=== PATIENT | male | born 1935 | race Caucasian/White ===

== ENCOUNTER → 2017-07-17 17:05 | Outpatient (CLI) | payer MEDICARE, OTHER, SELFPAY ==
[2017-06-12 04:49] VITALS: BMI 24.3
--- NOTE | 2017-07-17 17:15 | RAD_ITS ---
STUDY: X-RAY CHEST REASON FOR EXAM: Male, 81 years old. Cough, bronchitis TECHNIQUE: Frontal and lateral views COMPARISON: May 09, 2019 FINDINGS: Left-sided pacemaker is again noted. The lungs are expanded. Mild interstitial prominence. Normal size heart. Normal mediastinum and ava. Normal visualized pulmonary arteries. Calcified aortic arch and descending thoracic aorta. Degenerative changes of the thoracic spine. Normal visualized ribs, clavicles, and shoulders. There is no demonstrated abnormality of the visualized soft tissue structures of the upper abdomen. RAD/Chest PA and Lateral IMPRESSION: Mild interstitial prominence. Electronically Signed: Wojciech Peng DO at 22:27 EST Tel [phone], Service support ,
== END ==
PROVIDERS: Family Provider Family Medicine Geriatric Medicine; PCP Family Medicine Geriatric Medicine; Visit Provider Family Medicine Geriatric Medicine
DX: J40 Bronchitis, not specified as acute or chronic (principal); R69 Illness, unspecified
CPT/HCPCS: 71046; 87633

== ENCOUNTER → 2017-08-20 15:31 | Outpatient (CLI) | payer MEDICARE, OTHER, SELFPAY ==
[2017-08-20 17:10] LABS: Absolute Lymphocyte Count 0.42 X10^3/ul (0.83-4.51); Absolute Neutrophil Count 2.1 X10^3/uL (2.0-7.7); Basophil# 0.02 X10^3/uL; Basophil% 0.6 % (0-1); Eosinophil# 0.04 X10^3/uL; Eosinophils% 1.3 % (0-5); Hemoglobin 12.6 g/dl (13.0-16.5); Lymphocyte # 0.42 X10^3/ul (4.0); Lymphocyte % 13.5 % (19-41); Mean Corp Hgb Conc 30.7 g/gl (32-36); Mean Corpuscular Volume 91.1 fL (80-94); Mean Platelet Vol. 11.6 fl (6.2-12.0); Monocyte% 16.1 % (0-10); Neutrophil # 2.12 X10^3/uL (2.7-7.7); Neutrophil % 68.2 % (47-70); Platelet Count 140 K/mm3 (150-450); RBC Distribution Width CV 17.1 % (11.6-14.6); RBC Distribution Width SD 56.2 fl (35.1-43.9); White Blood Count 3.1 K/mm3 (4.4-11.0)
[2017-08-20 17:15] LABS: Differential Indicated SCAN CRITERIA MET; POSITIVE COUNT NO; POSITIVE DIFFERENTIAL YES; POSITIVE MORPHOLOGY NO
[2017-08-20 17:19] LABS: ALB/GLOB Ratio 0.7 RATIO (0.9-2.4); AST(SGOT) 28 U/L (15-37); Alanine Aminotransfer ALT/SGPT 22 U/L (16-61); Albumin, Serum 2.9 g/dL (3.2-5.0); Alkaline Phosphatase 157 U/L (45-117); Anion Gap 8 (5-15); BUN 10 mg/dL (7-18); BUN/Creat Ratio 6.3 RATIO (10-20); Calcium,Total 8.3 mg/dL (8.5-10.1); Chloride 96 mmol/L (98-107); Creatinine, Serum 1.58 mg/dL (0.70-1.30); EST Glomerular Filtration Rate 45 mL/min (>60); Est Glom Filt Rate - Afr Amer 54 mL/min (>60); Glucose 399 mg/dL (74-106); Protein, Total 6.9 g/dL (6.4-8.2); Sodium Level 137 mmol/L (136-145); Thyroid Stim Hormone (TSH) 0.62 uIU/mL (0.358-3.74)
[2017-08-20 17:20] LABS: Vitamin D,25 Hydroxy 28.8 ng/mL (29.95-100.01)
[2017-08-20 17:32] LABS: Differential Comment SCANNED
== END ==
PROVIDERS: Family Provider Family Medicine Geriatric Medicine; PCP Family Medicine Geriatric Medicine; Visit Provider Family Medicine Geriatric Medicine
DX: I10 Essential (primary) hypertension (principal); E55.9 Vitamin D deficiency, unspecified; E11.9 Type 2 diabetes mellitus without complications
CPT/HCPCS: 36415; 80053; 82306; 84443; 85025

== ENCOUNTER 2017-12-19 22:56 | Emergency (ER) | payer MEDICARE, OTHER, SELFPAY ==
[2017-12-19 22:57] VITALS: BP 144/90; PULSE 86; RESP 16; TEMP 36.7; O2SAT 91; BMI 24.7
[2017-12-19 23:04] VITALS: BP 146/81; PULSE 74; RESP 12; O2SAT 96; O2SAT 97
--- NOTE | 2017-12-19 23:10 | CT_ITS ---
STUDY: CT BRAIN WITHOUT CONTRAST REASON FOR EXAM: Male, 82 years old. Fall. History of subdural hematoma. RADIATION DOSAGE (If Supplied By Facility): CTDIvol = ( 44.99 ) mGy, DLP = ( 779.24 ) mGycm TECHNIQUE: Transaxial CT imaging of the brain was performed without administration of intravenous contrast material. Individualized dose optimization techniques were used for this CT. COMPARISON: May 08, 2017. FINDINGS: Normal soft tissue structures. There are remote nneka holes in the right frontal and left parietal lobe with evidence of remote right frontal craniotomy. There is mild cerebral atrophy with widening of the extra-axial spaces and ventricular dilatation. There are areas of decreased attenuation within the white matter tracts of the supratentorial brain, consistent with microvascular disease changes. There is evidence of encephalomalacia in the left frontal parietal white matter with exaggeration of the sulcal atrophy when compared to the right. This suggests old infarct. Normal basal ganglia and thalami. Normal brainstem. There is atrophy of the right cerebral hemisphere. There is no intracranial hemorrhage. There are no findings of an acute ischemic infarction. Normal visualized paranasal sinuses. CT/Brain/Head without Contrast IMPRESSION: No acute intracranial or calvarial abnormality or interval change. Electronically Signed: Geoffrey Hidalgo DO at 23:41 EDT Tel [phone], Service support ,
[2017-12-19 23:31] LABS: Bedside Glucose 149 mg/dL (70-110)
[2017-12-20 00:30] VITALS: BP 138/70; PULSE 70; RESP 14; O2SAT 97
--- NOTE | 2017-12-20 01:50 | RAD_ITS ---
STUDY: X-RAY - RIGHT SHOULDER REASON FOR EXAM: Male, 82 years old. FALL C/O RT SHOULDER PAIN WITH LIMITED ROM UNABLE TO GET INTERNAL ROTATION VIEW TECHNIQUE: 3 view(s) of the shoulder. COMPARISON: None. FINDINGS: There is mild degenerative arthrosis of the glenohumeral articulation. There is degenerative arthrosis of the acromioclavicular joint without inferior osseous spur formation. Normal acromion. Normal humeral head and visualized proximal humerus. The soft tissue structures are unremarkable. Normal visualized pulmonary apex. 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 Electronically Signed: Sarah Maguire MD at 3:04 EDT Tel , Service support ,
--- NOTE | 2017-12-20 04:18 | ED.VISSUMM ---
- ER Visit Summary Date of Service: 12/20/17 Chief Complaint: Fall removing shirt striking his head on the floor at home History of Present Illness: The patient is a 82 M who was removing his shirt this evening for pain for bad. He lost his balance. He fell striking his head. He may have been dazed. He does complain of headache. Had 2 prior subdural hematomas requiring drainage. He is on no anticoagulant. He denies any double vision, blurred vision loss of vision. Denies ringing in his ears, decreased hearing. He denies any blood or fluid from his nose. He denies neck pain. He denies paresthesia, anesthesia motors present at time of the injury. He denies chest pain, shortness of breath difficulty breathing. Denies nausea or vomiting. Patient initially did not complain of shoulder pain. Now complains of shoulder pain. Examination revealed a large hematoma right scapular region. Physical Examination: Vital signs are noted. Blood pressure slightly elevated. There is a 3 cm right parietal scalp laceration. There is no palpable depression. There is no confines basal skull fracture. He has upper and lower dentures in place. There is no septal deviation hematoma. There is no TMJ tenderness is no evidence of malocclusion. There is no pain the patient cervical spine. Trach is midline. Heart is regular. There is a history of atrial fibrillation. Lungs are clear to auscultation. Abdomen soft nontender. He is alert but not oriented to month. Daughter states that is not abnormal. Motor spiral 5. Sensations intact. DTRs are symmetric no clonus or Babinski. Cranial 2 through 12 intact. Gait was not tested. There is a hematoma over the right scapula. Axillary, median, radial and ulnar function intact. Radial pulses palpable. He has pain with abduction. Test Results: Three-view x-ray of the right shoulder was obtained and reveals arthritic changes with no fracture, subluxation or dislocation noted. The film was interpreted by me. Emergency Department Course and Treatment: Since patient is elderly with head trauma prior subdural hematoma and was dazed based on the [place] CT head rule radiologic imaging is indicated and reason for CAT scan. X-ray of the shoulder was obtained to evaluate for fracture. Treatment Plan: Patient's laceration was anesthetized 1% lidocaine by local infiltration. Wound was irrigated with 200 cc of normal saline. 6 hermila were placed for closure. Disposition: Discharged to home with daughter who lives near him. Impression: 1. Closed head injury 2. 3.0 cm scalp laceration 3. Right shoulder/scapula contusion 4. Fall with injury initial encounter This note was generated with [employer] dictation software. It may contain incorrect words, spelling, and punctuation that were not noted in review of the chart prior to signing ED Disposition - Plan for ED Patient: Disposition: Home or Assisted Living Chief Complaint: Fall Instructions: ED Mechanical Fall, ED Head Injury Closed, ED Laceration Scalp Stitch Or Stap, ED Contusion Shoulder Referrals: Lai Hsieh Chi, MD [Primary Care Provider] - 7 Days for suture removal
[2017-12-20 04:52] VITALS: BP 149/81; PULSE 77; RESP 16; O2SAT 92
== END 2017-12-20 04:53 | disposition home or self-care (01) ==
PROVIDERS: Emergency Provider Emergency Medicine; Family Provider Family Medicine Geriatric Medicine; PCP Family Medicine Geriatric Medicine
DX: S09.90XA Unspecified injury of head, initial encounter (principal); S01.01XA Laceration without foreign body of scalp, initial encounter; S40.011A Contusion of right shoulder, initial encounter; I48.91 Unspecified atrial fibrillation; W18.00XA Striking against unspecified object with subsequent fall, initial encounter; Y93.9 Activity, unspecified; Y92.009 Unspecified place in unspecified non-institutional (private) residence as the place of occurrence of the external cause; Y99.9 Unspecified external cause status; I50.9 Heart failure, unspecified; N18.6 End stage renal disease; I12.0 Hypertensive chronic kidney disease with stage 5 chronic kidney disease or end stage renal disease; K21.9 Gastro-esophageal reflux disease without esophagitis; Z86.73 Personal history of transient ischemic attack (TIA), and cerebral infarction without residual deficits; E10.9 Type 1 diabetes mellitus without complications
CPT/HCPCS: 12002; 70450; 73030; 82962; 99285

== ENCOUNTER → 2018-02-06 14:52 | Outpatient (CLI) | payer MEDICARE, SELFPAY ==
[2018-02-06 16:22] LABS: Absolute Neutrophil Count 1.4 X10^3/uL (2.0-7.7); Basophil# 0.01 X10^3/uL; Basophil% 0.5 % (0-1); Differential Indicated SCAN CRITERIA MET; Eosinophil# 0.02 X10^3/uL; Eosinophils% 0.9 % (0-5); Hematocrit 44.2 % (40-54); Hemoglobin 13.8 g/dl (13.0-16.5); Lymphocyte % 18.5 % (19-41); Mean Corp Hgb Conc 31.2 g/gl (32-36); Mean Corpuscular Hgb 27.9 pg (27.0-32.0); Mean Corpuscular Volume 89.5 fL (80-94); Mean Platelet Vol. 11.9 fl (6.2-12.0); Monocyte# 0.36 X10^3/uL; Monocyte% 16.7 % (0-10); Neutrophil # 1.37 X10^3/uL (2.7-7.7); Neutrophil % 63.4 % (47-70); POSITIVE COUNT NO; POSITIVE DIFFERENTIAL YES; POSITIVE MORPHOLOGY NO; Platelet Count 92 K/mm3 (150-450); RBC Distribution Width CV 15.8 % (11.6-14.6); RBC Distribution Width SD 51.5 fl (35.1-43.9); Red Blood Count 4.94 M/mm3 (4.6-6.2); White Blood Count 2.2 K/mm3 (4.4-11.0)
[2018-02-06 16:35] LABS: Vitamin D,25 Hydroxy 15.2 ng/mL (29.95-100.01)
[2018-02-06 16:49] LABS: ALB/GLOB Ratio 0.8 RATIO (0.9-2.4); AST(SGOT) 33 U/L (15-37); Alanine Aminotransfer ALT/SGPT 28 U/L (16-61); Albumin, Serum 3.1 g/dL (3.2-5.0); Alkaline Phosphatase 183 U/L (45-117); Anion Gap 11 (5-15); BUN 13 mg/dL (7-18); BUN/Creat Ratio 7.8 RATIO (10-20); Calcium,Total 9.1 mg/dL (8.5-10.1); Chloride 94 mmol/L (98-107); Creatinine, Serum 1.66 mg/dL (0.70-1.30); EST Glomerular Filtration Rate 42 mL/min (>60); Est Glom Filt Rate - Afr Amer 51 mL/min (>60); Globulin 3.7 g/dL (2.2-4.2); Glucose 582 mg/dL (74-106); Potassium 4.3 mmol/L (3.5-5.1); Protein, Total 6.8 g/dL (6.4-8.2); Sodium Level 134 mmol/L (136-145); Thyroid Stim Hormone (TSH) 3.44 uIU/mL (0.358-3.74)
[2018-02-06 17:40] LABS: Differential Comment SCANNED
== END ==
PROVIDERS: Family Provider Family Medicine Geriatric Medicine; PCP Family Medicine Geriatric Medicine; Visit Provider Family Medicine Geriatric Medicine
DX: E11.9 Type 2 diabetes mellitus without complications (principal); E55.9 Vitamin D deficiency, unspecified; I10 Essential (primary) hypertension
CPT/HCPCS: 36415; 80053; 82306; 84443; 85025

== ENCOUNTER 2018-03-01 13:50 | Inpatient (IN) | payer MEDICARE, SELFPAY ==
[2018-03-01] VITALS (10 sets, daily range): BP systolic 93–123; BP diastolic 48–82; PULSE 70–77; RESP 18–25; TEMP 35.1–38.2; O2SAT 92–97; BMI 32.1; BMI 26.4
[2018-03-01 14:00] LABS: Bedside Glucose 72 mg/dL (70-110)
--- NOTE | 2018-03-01 14:00 | CT_ITS ---
STUDY: CT BRAIN WITHOUT CONTRAST REASON FOR EXAM: Male, 82 years old. Altered mental status. Hyperglycemia. RADIATION DOSAGE (If Supplied By Facility): CTDIvol = ( 44.99 ) mGy, DLP = ( 812.98 ) mGycm TECHNIQUE: Transaxial CT imaging of the brain was performed without administration of intravenous contrast material. Individualized dose optimization techniques were used for this CT. COMPARISON: Comparison is made with prior study dated December 19, 2017. FINDINGS: Normal soft tissue structures. There is evidence of a prior nneka holes overlying the right frontal and left parietal bones. There is moderate cerebral atrophy with widening of the extra-axial spaces and ventricular dilatation. There are areas of decreased attenuation within the white matter tracts of the supratentorial brain, consistent with microvascular disease changes. Stable encephalomalacia in the left frontoparietal white matter in keeping with prior ischemic insult. Normal basal ganglia and thalami. Normal brainstem. Normal cerebellum. There is no intracranial hemorrhage. There are no findings of an acute ischemic infarction. Atherosclerotic calcification of the cavernous portions of the internal carotid arteries. Normal visualized paranasal sinuses. CT/Brain/Head without Contrast IMPRESSION: Chronic involutional changes of the brain. Electronically Signed: Jonathan Jacobo MD at 15:07 EDT Tel [phone], Service support ,
--- NOTE | 2018-03-01 14:01 | EKG12_ITS ---
Test Reason : DYSRHYTHMIA Blood Pressure : / mmHG Vent. Rate : 074 BPM Atrial Rate : 066 BPM P-R Int : 000 ms QRS Dur : 188 ms QT Int : 538 ms P-R-T Axes : 000 -78 093 degrees QTc Int : 597 ms Ventricular-paced rhythm Abnormal ECG Confirmed by KADEEM PONCE, POLO ([id number]), subeditor JAYLON WATSON ([id number]) on 03/06/2018 8:42:22 AM Referred By: CYNTHIA Confirmed By:POLO QUAN MD
[2018-03-01] MEDS: Dextrose 50%-Water 25 GM/50 ML DISP.SYRIN IV ×3 (14:10→23:51)
--- NOTE | 2018-03-01 14:11 | RAD_ITS ---
STUDY: X-RAY CHEST REASON FOR EXAM: Male, 82 years old. Unresponsiveness. TECHNIQUE: Single AP portable view of the chest. COMPARISON: Comparison is made with prior study dated July 17, 2017. FINDINGS: Elevation of the right hemidiaphragm. Mild increased markings at the lung bases suggestive of atelectasis and/or scarring more prominent on the left side. There is no demonstrated pleural abnormality. There is moderate cardiac enlargement. A left-sided dual-chamber pacemaker is seen. Normal mediastinum and ava. Normal visualized pulmonary arteries. There is atherosclerotic calcification of the aortic arch with tortuosity. There are diffuse degenerative changes of the visualized thoracic spine. Impacted transverse fracture of the proximal left humerus. Residual deformity. There is no demonstrated abnormality of the visualized soft tissue structures of the upper abdomen. RAD/Chest 1 View (Portable) IMPRESSION: Cardiomegaly. Stable increased markings at the lung bases suggestive of bibasilar scarring. Electronically Signed: Jonathan Jacobo MD at 15:06 EDT Tel [phone], Service support ,
[2018-03-01 14:22] LABS: Absolute Lymphocyte Count 0.47 X10^3/ul (0.83-4.51); Absolute Neutrophil Count 5.4 X10^3/uL (2.0-7.7); Basophil# 0.01 X10^3/uL; Basophil% 0.2 % (0-1); Eosinophil# 0.01 X10^3/uL; Eosinophils% 0.2 % (0-5); Hematocrit 49.7 % (40-54); Hemoglobin 15.7 g/dl (13.0-16.5); Lymphocyte # 0.47 X10^3/ul (4.0); Lymphocyte % 7.1 % (19-41); Mean Corp Hgb Conc 31.6 g/gl (32-36); Mean Corpuscular Hgb 28.8 pg (27.0-32.0); Mean Corpuscular Volume 91.2 fL (80-94); Mean Platelet Vol. 11.4 fl (6.2-12.0); Monocyte# 0.74 X10^3/uL; Monocyte% 11.2 % (0-10); Neutrophil # 5.36 X10^3/uL (2.7-7.7); Platelet Count 124 K/mm3 (150-450); RBC Distribution Width CV 16.3 % (11.6-14.6); RBC Distribution Width SD 54.2 fl (35.1-43.9); Red Blood Count 5.45 M/mm3 (4.6-6.2); White Blood Count 6.6 K/mm3 (4.4-11.0)
[2018-03-01 14:25] LABS: Differential Indicated SCAN CRITERIA MET; POSITIVE COUNT NO; POSITIVE DIFFERENTIAL YES; POSITIVE MORPHOLOGY NO
[2018-03-01 14:33] LABS: International Normalized Ratio 0.9; Prothrombin Time (Protime)PT. 12.1 SECONDS (11.7-14.9)
[2018-03-01 14:36] LABS: ALB/GLOB Ratio 0.8 RATIO (0.9-2.4); AST(SGOT) 39 U/L (15-37); Alanine Aminotransfer ALT/SGPT 27 U/L (16-61); Albumin, Serum 3.2 g/dL (3.2-5.0); Alkaline Phosphatase 179 U/L (45-117); Anion Gap 8 (5-15); BUN 15 mg/dL (7-18); BUN/Creat Ratio 12.6 RATIO (10-20); Calcium,Total 8.6 mg/dL (8.5-10.1); Chloride 100 mmol/L (98-107); Creatinine, Serum 1.19 mg/dL (0.70-1.30); EST Glomerular Filtration Rate 62 mL/min (>60); Est Glom Filt Rate - Afr Amer 75 mL/min (>60); Estimated Creatinine Clearance 43.97 ml/min; Globulin 4.2 g/dL (2.2-4.2); Glucose 107 mg/dL (74-106); Potassium 4.1 mmol/L (3.5-5.1); Protein, Total 7.4 g/dL (6.4-8.2); Sodium Level 138 mmol/L (136-145)
[2018-03-01 14:38] LABS: CPK Total, Creatine Kinase 50 U/L (39-308)
[2018-03-01 14:44] LABS: Lactic Acid 3.5 mmol/L (0.4-2.0)
[2018-03-01 15:02] LABS: Bacteria 0 SEEN /hpf (None Seen); Mucous, Urine 0 SEEN /hpf (<or=2+); Red Blood Cells-Urine 0 SEEN /hpf (0-5); Squamous Epithelial Cells - UA 0 SEEN /hpf (0-5); White Blood Cells 0 SEEN /hpf (0-5)
[2018-03-01 15:06] LABS: Bedside Glucose 94 mg/dL (70-110)
[2018-03-01 15:11] LABS: Color, Urine Yellow (Yellow); Glucose, Dipstick 100 mg/dl (Normal); Ketone-Dipstick Negative (Negative); Leukocyte Esterase-Dipstick Negative /ul (Negative); Nitrite-Dipstick Negative (Negative); Occult Blood-Urine Negative /ul (Negative); Protein-Dipstick 30 mg/dl (Negative); Specific Gravity, Urine 1.015 (1.002-1.030); Urine Bilirubin Dipstick Negative (Negative); Urine Clarity Clear (Clear); Urine Urobilinogen Normal (Normal)
--- NOTE | 2018-03-01 15:15 | ED.RN ---
and daughter at bedside. pt mumbling - cannot understand. temp catheter placed, bed bath given with Isma, Medic. dried stool to BLE and feet. reports he had diarrhea last night. Core Temp 95.1- placed under bear hugger. stated pt went to bed last night and was mumbling, around 1030 this am she noticed his open mouth breathing but let him sleep. daughter came a couple of hours later and called EMS.
--- NOTE | 2018-03-01 15:55 | PCM.HP.STD ---
Problem List (1) Unresponsive Status: Acute (2) Hypoglycemia Status: Acute (3) Type 2 diabetes mellitus Status: Chronic Qualifiers: Diabetes mellitus medical videographer insulin use: with intermediate use Diabetes mellitus complication status: with unspecified complications Qualified Code(s): E11.8 - Type 2 diabetes mellitus with unspecified complications; Z79.4 - laser engraver (current) use of insulin (4) HTN (hypertension) Status: Chronic Qualifiers: Hypertension type: essential hypertension Qualified Code(s): I10 - Essential (primary) hypertension History of Present Illness Date of Admission: 03/01/18 Chief Complaint: Unresponsiveness - 1 day The patient is a 82 year old M with multiple comorbidities significant for type II DM, hypertension, status post pacemaker, hypothyroidism, who recently had changes to his medications with start of Actos. She was taken from the as patient was nonverbal. According to the , patient was acting confused yesterday, could not settle down to sleep. He was found lying in bed this morning, unresponsive. The EMS was called and blood sugars were 44, given an amp of D50. On arrival to the ED, BS was 72, given a second amp of D50, repeat blood sugar was 94. Temp 95.1F, BP 123/82, RR 25, Spo2 92, on 3L. 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) Abnormal pulmonary function test (Chronic) Tachycardia (Chronic) Hyperthyroidism (Chronic) Persistent atrial fibrillation (Chronic) S/P RFA 11/24/2011 TIA (transient ischemic attack) (Chronic) CKD (chronic kidney disease) stage 3, GFR 30-59 ml/min (Chronic) 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) Benign prostate hyperplasia (Chronic) Type 2 diabetes mellitus (Chronic) Dyslipidemia (Chronic) Gastroesophageal reflux disease (Chronic) Hypothyroidism (Chronic) Atrial fibrillation (Chronic) S/P IVC filter (Chronic) Cardiac pacemaker (Chronic) pacemaker implant april 2010 Tachy-aly syndrome (Chronic) S/P PM Cardiomyopathy (Chronic) 45% EF in November of 2014, ischemic S/P atrioventricular piper ablation (Chronic) Carotid artery disease (Chronic) Systolic CHF, chronic (Chronic) HTN (hypertension) (Chronic) Pulmonary HTN (Chronic) PA pressure in November 2014 estimated at 50 Chronic anemia (Chronic) unknown etiology Medical History: Medical History (Last Updated 09/24/17 @ 14:33 by Karl Strong RAISER HELPER-C) 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) E10.51 Other specified conduction disorder (Chronic) I45.89 Abnormal pulmonary function test (Chronic) R94.2 Tachycardia (Chronic) R00.0 Hyperthyroidism (Chronic) E05.90 Persistent atrial fibrillation (Chronic) I48.1 S/P RFA 11/24/2011 TIA (transient ischemic attack) (Chronic) CKD (chronic kidney disease) stage 3, GFR 30-59 ml/min (Chronic) 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) I82.629 Benign prostate hyperplasia (Chronic) Type 2 diabetes mellitus (Chronic) E11.9 Dyslipidemia (Chronic) E78.5 Gastroesophageal reflux disease (Chronic) K21.9 Hypothyroidism (Chronic) E03.9 Atrial fibrillation (Chronic) I48.91 Cardiac pacemaker (Chronic) Z95.0 pacemaker implant april 2010 Tachy-aly syndrome (Chronic) I49.5 S/P PM Cardiomyopathy (Chronic) I42.9 45% EF in November of 2014, ischemic Carotid artery disease (Chronic) I77.9 Systolic CHF, chronic (Chronic) I50.22 HTN (hypertension) (Chronic) I10 Pulmonary HTN (Chronic) I27.2 PA pressure in November 2014 estimated at 50 Chronic anemia (Chronic) D64.9 unknown etiology Allergies morphine Adverse Reaction (Verified 12/19/17 22:56) Other PT DENIES ALLERGY SODIUM PENTHOL Allergy (Uncoded 12/19/17 22:56) Hives PT DENIES ALLERGY Home Medications: Ambulatory Orders Medication Instructions Recorded Gabapentin [Neurontin] 300 mg PO QHS 10/10/15 Omeprazole [Prilosec] 40 mg PO DAILY 05/01/16 Amiodarone HCl [Cordarone] 200 mg PO DAILY@0800 05/07/17 Donepezil HCl [Aricept] 5 mg PO QHS 12/19/17 Finasteride [Proscar] 5 mg PO DAILY 12/19/17 Levothyroxine [Synthroid] 137 mcg PO DAILY@0600 12/19/17 Potassium Chloride [Klor-Con M20] 20 meq PO DAILY 12/19/17 Donepezil HCl [Donepezil HCl] 10 mg PO QHS 03/01/18 Pioglitazone HCl [Pioglitazone HCl] 30 mg PO DAILY 03/01/18 Surgical History: Surgical History (Last Reviewed 09/24/17 @ 13:55 by Janelle Laguna) carotid arteriography (Resolved) 05/09/12 summa, carotid arteriography with internal carotid stent placement (proximal LIC and distal LCC), common carotid stent and aortography S/P IVC filter (Chronic) Z95.828 S/P atrioventricular piper ablation (Chronic) Z98.890 History of cardiac radiofrequency ablation (RFA) Z98.890 11/24/11, WITH PPM IMPLANT Surgical History: pacemaker implantation - 2009, - - PATIENT HAS HISTORY OF CRANIOTOMY, for intracranial bleed evacuation, patient sustained fall at that time, internal carotid stents 2011 Psychiatric History: No pertinent psych hx Smoking Status: Former smoker Tobacco Use: Non-smoker Alcohol: None Drugs: None - *Family History Maternal Family History: Family History (Last Reviewed 09/24/17 @ 13:55 by Janelle Laguna) Brother CAD (coronary artery disease) Hx of CABG Cancer Father CAD (coronary artery disease) Myocardial infarction Brother Cancer Mother Old age History Items: Cancer - , unknonw age Paternal Family History: Family History (Last Reviewed 09/24/17 @ 13:55 by Janelle Laguna) Brother CAD (coronary artery disease) Hx of CABG Cancer Father CAD (coronary artery disease) Myocardial infarction Brother Cancer Mother Old age History Items: Cancer - unknown age, Heart Disease Sibling Family History: Family History (Last Reviewed 09/24/17 @ 13:55 by Janelle Laguna) Brother CAD (coronary artery disease) Hx of CABG Cancer Father CAD (coronary artery disease) Myocardial infarction Brother Cancer Mother Old age History Items: Cancer, Heart Disease - CAD s/ CABG Review of Systems Unable to obtain accurate/complete ROS d/t: Unable to give ROS VTE Information - Inpt Only VTE Present on Admission: No VTE Pharm Prophylaxis ordered?: Yes Patient Problems: Active and Suspected Problems (Last Updated 09/24/17 @ 14:33 by Karl Strong RAISER HELPER-C) Unresponsive (Acute) Hypoglycemia (Acute) - Physical Exam General: Alert, Confused - non-verbal, - - being warmed with a bear-hugger HEENT: Atraumatic, PERRLA, EOMI, Normocephalic, - - distended veins on parietal, and occipital regions Oral: Dry Mucosa Neck: Supple, No JVD, Negative Carotid Bruits Lungs: Normal air movement, Diminished Cardiovascular: Regular rate, Regular Rhythm, Normal S1, Normal S2, No murmurs Abdomen: Bowel Sounds Present, Soft, Non Tender, Non-Distended Extremities: No edema Skin: No rashes, No breakdown Musculoskeletal: No Tenderness to Palpation of Joints or Extremities Lymphatic: No Cervical, Supraclavicular, or Inguinal Adenopathy Neurological: Cranial nerves II-XII grossly intact, - - appears lethargic Psych/Mental Status: Normal Affect, Appropriate Vital Signs Temp Pulse Resp BP Pulse Ox 97.2 F L 75 24 H 108/71 92 03/01/18 15:48 03/01/18 15:48 03/01/18 15:48 03/01/18 15:48 03/01/18 15:48 Oxygen Flow Rate (L/min) 3 Oxygen Delivery Method Nasal Cannula Weight: 93 kg Body Mass Index (BMI) 32.1 Finger Stick Blood Glucose 94 Laboratory Tests Past 24 Hrs 03/01/18 03/01/18 03/01/18 14:08 14:08 14:08 WBC 6.6 RBC 5.45 Hgb 15.7 Hct 49.7 MCV 91.2 MCH 28.8 MCHC 31.6 L RDW 16.3 H RDW Differential 54.2 H Plt Count 124 L MPV 11.4 Immature Gran % (Auto) 0.300 Neut % (Auto) 81.0 H Lymph % (Auto) 7.1 L [place] % (Auto) 11.2 H Eos % (Auto) 0.2 Baso % (Auto) 0.2 Absolute Neuts (auto) 5.4 Absolute Lymphs (auto) 0.47 L Total Counted Not Reportable PT 12.1 INR 0.9 Sodium 138 Potassium 4.1 Chloride 100 Carbon Dioxide 30.0 Anion Gap 8 BUN 15 Creatinine 1.19 Estim Creat Clear Calc 43.97 Est GFR (MDRD) Af Amer 75 Est GFR (MDRD) Non-Af 62 BUN/Creatinine Ratio 12.6 Glucose 107 H Lactic Acid Calcium 8.6 Total Bilirubin 0.70 AST 39 H ALT 27 Alkaline Phosphatase 179 H Total Creatine Kinase Total Protein 7.4 Albumin 3.2 Globulin 4.2 Albumin/Globulin Ratio 0.8 L Urine Color Urine Clarity Urine pH Ur Specific [place] Urine Protein Urine Glucose (UA) Urine Ketones Urine Occult Blood Urine Nitrite Urine Bilirubin Urine Urobilinogen Ur Leukocyte Esterase Urine RBC Urine WBC Ur Squamous Epith Cells Urine Bacteria Urine Mucus 03/01/18 03/01/18 03/01/18 14:08 14:08 15:00 WBC RBC Hgb Hct MCV MCH MCHC RDW RDW Differential Plt Count MPV Immature Gran % (Auto) Neut % (Auto) Lymph % (Auto) [place] % (Auto) Eos % (Auto) Baso % (Auto) Absolute Neuts (auto) Absolute Lymphs (auto) Total Counted PT INR Sodium Potassium Chloride Carbon Dioxide Anion Gap BUN Creatinine Estim Creat Clear Calc Est GFR (MDRD) Af Amer Est GFR (MDRD) Non-Af BUN/Creatinine Ratio Glucose Lactic Acid 3.5 H Calcium Total Bilirubin AST ALT Alkaline Phosphatase Total Creatine Kinase 50 Total Protein Albumin Globulin Albumin/Globulin Ratio Urine Color Yellow Urine Clarity Clear Urine pH 6.0 Ur Specific [place] 1.015 Urine Protein 30 H Urine Glucose (UA) 100 H Urine Ketones Negative Urine Occult Blood Negative Urine Nitrite Negative Urine Bilirubin Negative Urine Urobilinogen Normal Ur Leukocyte Esterase Negative Urine RBC 0 SEEN Urine WBC 0 SEEN Ur Squamous Epith Cells 0 SEEN Urine Bacteria 0 SEEN Urine Mucus 0 SEEN POC Glucose 03/01/18 03/01/18 15:01 13:55 POC Glucose 94 72 Assessment/Plan All Active Problems (Last Updated 09/24/17 @ 14:33 by STANLEY Turner) Unresponsive (Acute) Hypoglycemia (Acute) carotid arteriography (Resolved) Cutaneous candidiasis (Resolved) Epididymitis (Resolved) Pleural effusion (Resolved) Systolic CHF, acute on chronic (Resolved) Wide-complex tachycardia (Resolved) 82 year old M with multiple comorbidities significant for type II DM, hypertension, status post pacemaker, hypothyroidism, who recently had changes to his medications with start of Actos and found to be hypoglycemic and hypothermic. 1. Altered mental status secondary to hypoglycemia, hypothermia, will continue to monitor 2. Hypoglycemia, recent use of Actos, on insulin , s/p D50, will continue on Accucheks Q6, D5NS, will feed if he becomes more responsive and passes swallow evaluation. 3. Hypertension, will hold medications, until patient is more responsiveness, will continue to monitor. 4. Dementia, on Aricept, will hold meds 5. s/p pacemaker 6. Hypothyroidism, patient was hypothermic on admission, will check TSH. 7. DVT Ppx- Heparin SC. Code Visit Inpatient E&M: [id number] Init Hosp L3
--- NOTE | 2018-03-01 16:00 | EKG12_ITS ---
Test Reason : DYSRHYTHMIA Blood Pressure : / mmHG Vent. Rate : 083 BPM Atrial Rate : 083 BPM P-R Int : 000 ms QRS Dur : 172 ms QT Int : 472 ms P-R-T Axes : 121 -85 089 degrees QTc Int : 554 ms Ventricular-paced rhythm Abnormal ECG Confirmed by KADEEM PONCE, POLO ([id number]), assistant film editor JAYLON WATSON ([id number]) on 03/06/2018 8:42:32 AM Referred By: CYNTHIA Confirmed By:POLO QUAN MD
--- NOTE | 2018-03-01 16:32 | ED.VISSUMM ---
- ER Visit Summary Date of Service: 03/01/18 Chief Complaint: Confusion/low blood sugar History of Present Illness: The patient is a 82 M with a history of diabetes who recently had his diabetes medication increased because of elevated blood glucose presents with altered mental status and hypoglycemia. He generally stays up late every night and last night took his insulin at around 1 AM according to his . She said that he was very agitated and had trouble falling asleep and kept saying that he was hot. It took him several hours to fall asleep and she was unable to arouse him at around 6 AM this morning when she woke up. She then went back to sleep until around 10 AM and when she awoke he seemed to have his mouth open and was breathing quite heavily. She was unable to arouse him again but she thought that he was just sleeping heavily. Several hours later, she checked on him and he was still unarousable. She checked his blood glucose and it was 40. She then contacted 911. He has not been ill recently, no recent fevers, vomiting, or diarrhea. Physical Examination: He is in severe distress on arrival. Mucous members are dry. He is agitated and combative. No obvious signs of head trauma. Core temperature is 95 Fahrenheit. Blood pressure is normal. He is not hypoxic. Lungs are clear bilaterally and heart tones are regular. Abdomen is soft. No sign of extremity trauma but he does have scattered abrasions on his left thigh and dried stool on his lower extremities. He is not following commands and is agitated. Test Results: CBC and chemistries are unremarkable. Urinalysis does not appear infected. It was sent for culture and blood cultures were sent as well. Chest x-ray is negative for infiltrate and CT brain is negative. Lactic acid is elevated at 3.5 Emergency Department Course and Treatment: He is quite hypothermic so was started on the bear hugger. He was given another amp of D50 and observe. His mental status improved markedly but he is still much more confused than baseline. He has no facial droop or other evidence of acute stroke and his symptoms likely started at around 2 or 3 AM based on the description from his . A stroke team was therefore not activated and he was not felt to be a candidate for TPA. His symptoms certainly could be secondary to prolonged hypoglycemia but I cannot say with certainty. He will need to be observed and reevaluated and he will continue to be warmed. I spoke with the hospitalist and he was admitted. Treatment Plan: Admit to PCU Disposition: Admission, full Impression: Initial encounter prolonged hypoglycemia, initial encounter hypothermia, initial encounter altered mental status, initial encounter elevated lactic acid without obvious evidence of infection This note was generated with [employer] dictation software. It may contain incorrect words, spelling, and punctuation that were not noted in review of the chart prior to signing ED Disposition - Plan for ED Patient: Chief Complaint: Hypoglycemia
--- NOTE | 2018-03-01 16:47 | ED.RN ---
called report to Wendy in PCU
[2018-03-01] MEDS: Dextrose 5%/0.9% NaCl 1,000 ML 75 ML IV (18:10)
[2018-03-01 19:06] LABS: Bedside Glucose 43 mg/dL (70-110)
[2018-03-01 19:06] LABS: Bedside Glucose 156 mg/dL (70-110)
[2018-03-01] MEDS: 0.9% NaCl Peripheral Flush Adult/Peds IV (22:02)
[2018-03-01 22:10] LABS: Bedside Glucose 113 mg/dL (70-110)
[2018-03-01] MEDS: Acetaminophen 650 MG Suppository RECTAL (23:59)
[2018-03-02] VITALS (15 sets, daily range): BP systolic 78–101; BP diastolic 49–64; PULSE 69–86; RESP 12–20; TEMP 36.9–37.7; O2SAT 92–100
[2018-03-02 01:10] LABS: Bedside Glucose 49 mg/dL (70-110)
[2018-03-02] MEDS: Dextrose 10%-Water 250 ML 40 ML IV ×2 (01:10→07:54)
[2018-03-02 01:11] LABS: Bedside Glucose 135 mg/dL (70-110)
[2018-03-02] MEDS: 0.9% NaCl Peripheral Flush Adult/Peds IV ×2 (01:54→12:37)
[2018-03-02] MEDS: 0.9% Normal Saline 1,000 ML 999 ML IV (02:07)
[2018-03-02] MEDS: Dextrose 50%-Water 25 GM/50 ML DISP.SYRIN IV (03:26)
[2018-03-02 03:36] LABS: Bedside Glucose 61 mg/dL (70-110)
[2018-03-02 03:36] LABS: Bedside Glucose 94 mg/dL (70-110)
[2018-03-02 03:45] LABS: Bedside Glucose 110 mg/dL (70-110)
--- NOTE | 2018-03-02 04:45 | RAD_ITS ---
STUDY: X-RAY CHEST REASON FOR EXAM: Male, 82 years old. Fever. TECHNIQUE: AP and lateral views of the chest. COMPARISON: Chest radiograph dated March 01, 2018. FINDINGS: Patient has left-sided intracardiac pacemaker. Cardiac monitoring leads are present. The lungs are expanded. There is mild prominence of bronchovascular markings. There is no demonstrated pleural abnormality. There is mild cardiac enlargement. There are calcified mediastinal and hilar lymph nodes. There is prominence of the pulmonary hilar arteries without peripheral pulmonary vascular congestion. Normal visualized aortic arch and descending thoracic aorta. There is demineralization of the osseous structures. There is increased thoracic kyphosis. 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 There is deformity of the proximal left humerus suggesting sequela of old fracture. There is a large amount of bowel gas in the upper abdomen. RAD/Chest PA and Lateral IMPRESSION: Cardiomegaly and pulmonary congestion. Electronically Signed: Anais Miles MD at 8:48 EDT , Service support ,
[2018-03-02 05:31] LABS: Bedside Glucose 94 mg/dL (70-110)
[2018-03-02 07:25] LABS: Bedside Glucose 92 mg/dL (70-110)
[2018-03-02 07:31] LABS: Anion Gap 5 (5-15); BUN 14 mg/dL (7-18); BUN/Creat Ratio 12.7 RATIO (10-20); Calcium,Total 8.3 mg/dL (8.5-10.1); Chloride 106 mmol/L (98-107); EST Glomerular Filtration Rate 68 mL/min (>60); Est Glom Filt Rate - Afr Amer 82 mL/min (>60); Estimated Creatinine Clearance 47.57 ml/min; Glucose 83 mg/dL (74-106); Potassium 4.4 mmol/L (3.5-5.1); Sodium Level 141 mmol/L (136-145)
[2018-03-02 08:06] LABS: Bedside Glucose 90 mg/dL (70-110)
[2018-03-02] MEDS: Enoxaparin 40 MG/0.4 ML Syringe SC (09:12)
[2018-03-02 10:21] LABS: Bedside Glucose 119 mg/dL (70-110)
[2018-03-02 12:35] LABS: Thyroid Stim Hormone (TSH) 0.88 uIU/mL (0.358-3.74)
[2018-03-02] MEDS: Dextrose 10%-Water 250 ML 15 ML IV (12:37)
[2018-03-02] MEDS: Furosemide 20 MG/2 ML VIAL IV (12:37)
--- NOTE | 2018-03-02 14:21 | PCM.PN.HOSP ---
Patient Problems: Active and Suspected Problems (Last Updated 09/24/17 @ 14:33 by Karl Strong NP-C) Unresponsive (Acute) Hypoglycemia (Acute) Subjective: Patient was seen and examined. Overnight had episodes of hypoglycemia with start of D10 infusion. Patient has been seen by speech therapy, started on textured diet. Vitals/I&O's: Vital Signs Temp Pulse Resp BP Pulse Ox 98.9 F 70 16 94/61 99 03/02/18 09:15 03/02/18 11:00 03/02/18 09:15 03/02/18 09:15 03/02/18 09:15 Oxygen Flow Rate (L/min) 2 Oxygen Delivery Method Room Air Weight: 76.4 kg Body Mass Index (BMI) 26.4 Intake and Output for Last 24 Hours 02/28/18 03/01/18 03/02/18 23:59 23:59 23:59 Intake Total 416 / 416 1864 / 1864 Output Total 550 / 550 1050 / 1050 Balance -134 / -134 814 / 814 General: Alert, Cooperative, No apparent distress, Confused - oriented to self, - - cachetic HEENT: Atraumatic, PERRLA, EOMI, Normocephalic Oral: Moist Mucosa Neck: Supple Lungs: Clear to auscultation, Normal air movement Cardiovascular: Regular rate, Regular Rhythm, Normal S1, Normal S2, No murmurs Abdomen: Bowel Sounds Present, Soft, Non Tender, Non-Distended, No Hepato-splenomegaly, - - Silverman catheter Extremities: No edema Skin: No rashes, No breakdown Musculoskeletal: No Tenderness to Palpation of Joints or Extremities Lymphatic: No Cervical, Supraclavicular, or Inguinal Adenopathy Neurological: Cranial nerves II-XII grossly intact, Neuro grossly intact Psych/Mental Status: Normal Affect, Appropriate Laboratory Results 03/01/18 18:22: POC Glucose 43 L* 03/01/18 19:00: POC Glucose 156 H 03/01/18 19:54: POC Glucose 113 H 03/01/18 23:46: POC Glucose 49 L 03/02/18 00:05: POC Glucose 135 H 03/02/18 01:39: POC Glucose 94 03/02/18 03:23: POC Glucose 61 L 03/02/18 03:41: POC Glucose 110 03/02/18 05:24: POC Glucose 94 03/02/18 06:28: Sodium 141, Potassium 4.4, Chloride 106, Carbon Dioxide 30.0, Anion Gap 5, BUN 14, Creatinine 1.10, Estim Creat Clear Calc 47.57, Est GFR (MDRD) Af Amer 82, Est GFR (MDRD) Non-Af 68, BUN/Creatinine Ratio 12.7, Glucose 83, Calcium 8.3 L 03/02/18 06:28: TSH 0.88 03/02/18 07:19: POC Glucose 92 03/02/18 08:00: POC Glucose 90 03/02/18 10:10: POC Glucose 119 H Current Medications Acetaminophen (Tylenol) 650 mg PO Q6H PRN PRN PRN Reason: Mild Pain (1-3)/Temp > 100.7 F Acetaminophen (Tylenol) 650 mg RECTAL Q4H PRN PRN PRN Reason: fever, pain Last Admin: 03/01/18 23:59 Dose: 650 mg Amiodarone HCl (Cordarone) 200 mg PO DAILY@0800 [facility] Bisacodyl (Dulcolax) 5 mg PO DAILY PRN PRN PRN Reason: Constipation Dextrose (D50w Syringe) 0 gm IV X1 PRN; Protocol PRN Reason: Hypoglycemia Last Admin: 03/02/18 03:26 Dose: 12.5 gm Donepezil HCl (Aricept) 10 mg PO QHS [facility] Enoxaparin Sodium (Lovenox) 40 mg SC DAILY@1000 ANTONIO Last Admin: 03/02/18 09:12 Dose: 40 mg Finasteride (Proscar) 5 mg PO DAILY [facility] Gabapentin (Neurontin) 300 mg PO QHS [facility] Glucagon () 1 mg IM .X1 PRN PRN Reason: Hypoglycemia Dextrose (Dextrose 10%-Water) 250 mls @ 15 mls/hr IV .[id number] [facility] Last Admin: 03/02/18 12:37 Dose: 15 mls/hr Levothyroxine Sodium (Synthroid) 137 mcg PO DAILY@0600 [facility] Magnesium Hydroxide (Milk Of Magnesia) 30 ml PO DAILY PRN PRN Reason: Constipation Nutritional Formula (Lactose Free) (Glucerna Shake) 120 ml PO 4X/DAY [facility] Last Admin: 03/02/18 13:53 Dose: Not Given Ondansetron HCl (Zofran) 4 mg IV Q8H PRN PRN PRN Reason: NAUSEA/VOMITING Pantoprazole Sodium (Protonix) 40 mg PO DAILY ANTONIO Psyllium Hydrophilic Mucilloid (Metamucil) 1 packet PO DAILY PRN PRN PRN Reason: CONSTIPATION Sodium Chloride () 5 - 30 ml IV UD PRN PRN Reason: SALINE FLUSH Last Admin: 03/02/18 12:37 Dose: 10 ml Medical Necessity - Tobacco Use Smoking Status: Former smoker Tobacco Use: Pipe Assessment/Plan All Active Problems (Last Updated 09/24/17 @ 14:33 by Karl Strong, MANUFACTURING COORDINATOR-C) Unresponsive (Acute) Hypoglycemia (Acute) carotid arteriography (Resolved) Cutaneous candidiasis (Resolved) Epididymitis (Resolved) Pleural effusion (Resolved) Systolic CHF, acute on chronic (Resolved) Wide-complex tachycardia (Resolved) 82 year old M with multiple comorbidities significant for type II DM, hypertension, status post pacemaker, hypothyroidism, who recently had changes to his medications with start of Actos and found to be hypoglycemic and hypothermic. 1. Altered mental status secondary to hypoglycemia, hypothermia, resolved, patient at baseline now, oriented to self to place or time 2. Hypoglycemia, recent use of Actos, on insulin , s/p D50, resolved, will stop IV fluids, continue to monitor off infusions, Accu-Cheks before meals at bedtime with patient eating 3. Hypertension, with patient being more responsive, will resume home medications, will continue to monitor. 4. Dementia, on Aricept, will resume home medications with Aricept 10 mg daily, dc additional 5mg. 5. s/p pacemaker 6. Hypothyroidism, patient was hypothermic on admission, TSH is pending 7. Protein energy malnutrition, moderate, on supplements 8. DVT Ppx- Heparin SC. Code Visit Inpatient E&M: 07554 Subs Hosp L2
--- NOTE | 2018-03-02 14:25 | PN_ITS ---
Patient Problems: Active and Suspected Problems (Last Updated 09/24/17 @ 14:33 by Karl Strong NP- C) Unresponsive (Acute) Hypoglycemia (Acute) Subjective: Patient was seen and examined. Overnight had episodes of hypoglycemia with start of D10 infusion. Patient has been seen by speech therapy, started on textured diet. Vitals/I&O's: Vital Signs Temp Pulse Resp BP Pulse Ox 98.9 F 70 16 94/61 99 03/02/18 09:15 03/02/18 11:00 03/02/18 09:15 03/02/18 09:15 03/02/18 09:15 Oxygen Flow Rate (L/min) 2 Oxygen Delivery Method Room Air Weight: 76.4 kg Body Mass Index (BMI) 26.4 Intake and Output for Last 24 Hours 02/28/18 03/01/18 03/02/18 23:59 23:59 23:59 Intake Total 416 / 416 1864 / 1864 Output Total 550 / 550 1050 / 1050 Balance -134 / -134 814 / 814 General: Alert, Cooperative, No apparent distress, Confused - oriented to self, - - cachetic HEENT: Atraumatic, PERRLA, EOMI, Normocephalic Oral: Moist Mucosa Neck: Supple Lungs: Clear to auscultation, Normal air movement Cardiovascular: Regular rate, Regular Rhythm, Normal S1, Normal S2, No murmurs Abdomen: Bowel Sounds Present, Soft, Non Tender, Non-Distended, No Hepato- splenomegaly, - - Silverman catheter Extremities: No edema Skin: No rashes, No breakdown Musculoskeletal: No Tenderness to Palpation of Joints or Extremities Lymphatic: No Cervical, Supraclavicular, or Inguinal Adenopathy Neurological: Cranial nerves II-XII grossly intact, Neuro grossly intact Psych/Mental Status: Normal Affect, Appropriate Laboratory Results 03/01/18 18:22: POC Glucose 43 L* 03/01/18 19:00: POC Glucose 156 H 03/01/18 19:54: POC Glucose 113 H 03/01/18 23:46: POC Glucose 49 L 03/02/18 00:05: POC Glucose 135 H 03/02/18 01:39: POC Glucose 94 03/02/18 03:23: POC Glucose 61 L 03/02/18 03:41: POC Glucose 110 03/02/18 05:24: POC Glucose 94 03/02/18 06:28: Sodium 141, Potassium 4.4, Chloride 106, Carbon Dioxide 30.0, Anion Gap 5, BUN 14, Creatinine 1.10, Estim Creat Clear Calc 47.57, Est GFR ( MDRD) Af Amer 82, Est GFR (MDRD) Non-Af 68, BUN/Creatinine Ratio 12.7, Glucose 83, Calcium 8.3 L 03/02/18 06:28: TSH 0.88 03/02/18 07:19: POC Glucose 92 03/02/18 08:00: POC Glucose 90 03/02/18 10:10: POC Glucose 119 H Current Medications Acetaminophen (Tylenol) 650 mg PO Q6H PRN PRN PRN Reason: Mild Pain (1-3)/Temp > 100.7 F Acetaminophen (Tylenol) 650 mg RECTAL Q4H PRN PRN PRN Reason: fever, pain Last Admin: 03/01/18 23:59 Dose: 650 mg Amiodarone HCl (Cordarone) 200 mg PO DAILY@0800 [facility] Bisacodyl (Dulcolax) 5 mg PO DAILY PRN PRN PRN Reason: Constipation Dextrose (D50w Syringe) 0 gm IV X1 PRN; Protocol PRN Reason: Hypoglycemia Last Admin: 03/02/18 03:26 Dose: 12.5 gm Donepezil HCl (Aricept) 10 mg PO QHS [facility] Enoxaparin Sodium (Lovenox) 40 mg SC DAILY@1000 ANTONIO Last Admin: 03/02/18 09:12 Dose: 40 mg Finasteride (Proscar) 5 mg PO DAILY [facility] Gabapentin (Neurontin) 300 mg PO QHS [facility] Glucagon () 1 mg IM .X1 PRN PRN Reason: Hypoglycemia Dextrose (Dextrose 10%-Water) 250 mls @ 15 mls/hr IV .[id number] [facility] Last Admin: 03/02/18 12:37 Dose: 15 mls/hr Levothyroxine Sodium (Synthroid) 137 mcg PO DAILY@0600 [facility] Magnesium Hydroxide (Milk Of Magnesia) 30 ml PO DAILY PRN PRN Reason: Constipation Nutritional Formula (Lactose Free) (Glucerna Shake) 120 ml PO 4X/DAY [facility] Last Admin: 03/02/18 13:53 Dose: Not Given Ondansetron HCl (Zofran) 4 mg IV Q8H PRN PRN PRN Reason: NAUSEA/VOMITING Pantoprazole Sodium (Protonix) 40 mg PO DAILY [facility] Psyllium Hydrophilic Mucilloid (Metamucil) 1 packet PO DAILY PRN PRN PRN Reason: CONSTIPATION Sodium Chloride () 5 - 30 ml IV UD PRN PRN Reason: SALINE FLUSH Last Admin: 03/02/18 12:37 Dose: 10 ml Medical Necessity - Tobacco Use Smoking Status: Former smoker Tobacco Use: Pipe Assessment/Plan All Active Problems (Last Updated 09/24/17 @ 14:33 by Karl Strong, MATERIALS ENGINEER-C) Unresponsive (Acute) Hypoglycemia (Acute) carotid arteriography (Resolved) Cutaneous candidiasis (Resolved) Epididymitis (Resolved) Pleural effusion (Resolved) Systolic CHF, acute on chronic (Resolved) Wide-complex tachycardia (Resolved) 82 year old M with multiple comorbidities significant for type II DM, hypertension, status post pacemaker, hypothyroidism, who recently had changes to his medications with start of Actos and found to be hypoglycemic and hypothermic. 1. Altered mental status secondary to hypoglycemia, hypothermia, resolved, patient at baseline now, oriented to self to place or time 2. Hypoglycemia, recent use of Actos, on insulin , s/p D50, resolved, will stop IV fluids, continue to monitor off infusions, Accu-Cheks before meals at bedtime with patient eating 3. Hypertension, with patient being more responsive, will resume home medications, will continue to monitor. 4. Dementia, on Aricept, will resume home medications with Aricept 10 mg daily, dc additional 5mg. 5. s/p pacemaker 6. Hypothyroidism, patient was hypothermic on admission, TSH is pending 7. Protein energy malnutrition, moderate, on supplements 8. DVT Ppx- Heparin SC. Code Visit Inpatient E&M: 47753 Subs Hosp L2
--- NOTE | 2018-03-02 15:10 | CASEMGMT ---
Social Work PCU Reason for Intervention: assess for discharge needs, possible need for more care. Summary: Living Situation: lives with and then a daughter lives in a suite attached to the home. Patient's 8 year old grandauradha lives in the home, but has been sleeping at patient's daughter's side of the home as the daughter has a better sleep schedule than patient and patient's . Medical issues: history of dementia, diabetes, and was reportedly found unresponsive prior to this admission, related to issues with hypothermia and blood sugar issues. Adaptive Equipment: wheeled walker, cane, grab bars, toilet riser Agency involvement: reports Dr. Hsieh made a referral to [facility] last week. Patient has history of [facility] and family was happy with this service. Support System: is helpful, but is also limited in how much physical help can provide to patient. Patient's daughter comes over and helps as needed, but is not there 100% of the time. Assessment: reports belief that things have been going well with the addition of patient's daughter Maribell living in a space attached to patient's home the last couple of months. reports that patient would like ot return home if at all possible, and wants this too, and would agree to [facility]. does report if patient is not moving much or needs a lot of hands on care then may need to consider a short term SNF. reports would not be able to private pay, so would have to look at Medicaid if patient does not get a 3 day qualifying stay. agrees to come to the hospital at around 1100 tomorrow, and can be around after that for the day. would appreciate seeing how patient is moving with therapy, if patient is going to be considered for discharge. If sees that patient is not moving well enough then will speak up and let staff know that cannot safely care for patient at home. Plan: 1. Home with [facility] for skilled care, and per reports a referral by the PCP office to the [facility]. If patient goes home with [facility] over the weekend, then referral to [facility] will be made on Sunday. VERSUS 2. SNF placement either skilled under Medicare or intermediate level of care under Medicaid (will need to work on application). Referral to palliative care may be of benefit and could be a discussion with the at next social work visit with the family. -BLANCO Curry, CIRC[employer] RIDER
[2018-03-02 15:16] LABS: Bedside Glucose 206 mg/dL (70-110)
[2018-03-02] MEDS: Acetaminophen 325 MG Tablet 650 MG PO (15:52)
[2018-03-02 16:06] LABS: Bedside Glucose 219 mg/dL (70-110)
[2018-03-02] MEDS: Donepezil HCl 10 MG Tablet PO (22:45)
[2018-03-02] MEDS: Gabapentin 300 MG Capsule PO (22:45)
[2018-03-02 23:40] LABS: Bedside Glucose 277 mg/dL (70-110)
[2018-03-03] VITALS (11 sets, daily range): BP systolic 91–119; BP diastolic 52–71; PULSE 60–77; RESP 14–20; TEMP 36.6–37; O2SAT 90–97
[2018-03-03] MEDS: Levothyroxine 137 MCG Tablet PO (06:15)
[2018-03-03 07:05] LABS: Bedside Glucose 248 mg/dL (70-110)
[2018-03-03] MEDS: Glucerna Shake 120 ML LIQUID PO ×2 (09:11→17:07)
[2018-03-03] MEDS: Amiodarone 200 MG Tablet PO (09:11)
[2018-03-03] MEDS: Finasteride 5 MG Tablet PO (09:12)
[2018-03-03] MEDS: Enoxaparin 40 MG/0.4 ML Syringe SC (09:13)
[2018-03-03] MEDS: Pantoprazole Sodium 40 MG Tablet PO (09:13)
[2018-03-03] MEDS: Acetaminophen 325 MG Tablet 650 MG PO (09:47)
[2018-03-03] MEDS: Bisacodyl 5 MG Tablet PO (09:48)
--- NOTE | 2018-03-03 10:06 | PCM.DC ---
- Discharge Diagnoses Current Active Problems: Current Active and Chronic Problems (Last Updated 09/24/17 @ 14:33 by STANLEY Turner) Unresponsive (Acute) Hypoglycemia (Acute) Reason(s) for Visit for Discharge Instructions: Unresponsiveness, low blood sugar You will use the following diet at home:: Calorie/Carbohydrate Controlled (specify 1200, 1400, etc) Your food should be the consistency of: Puree Your liquids should be the consistency of: Regular/Thin Discharge Activity: Return to Normal Activity Additional Instructions: Take note of changes in your medications. Stick to the current medication list. Continue to check blood sugars at least 3 times a day. Allergies/Adverse Reactions: Allergies morphine Adverse Reaction (Verified 03/01/18 17:45) hallucinations SODIUM PENTHOL Allergy (Uncoded 03/01/18 17:45) Hives Medications to take at Discharge Gabapentin [Neurontin] 300 mg PO QHS 10/10/15 Omeprazole [Prilosec] 40 mg PO DAILY 10/10/15 Amiodarone HCl [Cordarone] 200 mg PO DAILY@0800 05/07/17 Finasteride [Proscar] 5 mg PO DAILY 12/19/17 Levothyroxine [Synthroid] 137 mcg PO DAILY@0600 12/19/17 Donepezil HCl 10 mg PO QHS 03/01/18 Glucerna Shake 120 ml PO 4X/DAY #100 03/03/18 Insulin Glargine [Lantus SoloStar Pen] 5 units SC BID pen 03/03/18 The following prescriptions were given: Glucerna Shake 120 ml PO 4X/DAY #100 Primary Care Physician: Lai Hsieh Chi, MD [Primary Care Provider] - Please follow up with your Primary Care Physician in: in 1 week Test Results: Test results from this visit will be discussed in further detail at your follow-up appointment, if applicable. Proposed Discharge Date: 03/03/18
--- NOTE | 2018-03-03 10:09 | DCINST_ITS ---
- Discharge Diagnoses Current Active Problems: Current Active and Chronic Problems (Last Updated 09/24/17 @ 14:33 by STANLEY Turner) Unresponsive (Acute) Hypoglycemia (Acute) Reason(s) for Visit for Discharge Instructions: Unresponsiveness, low blood sugar You will use the following diet at home:: Calorie/Carbohydrate Controlled ( specify 1200, 1400, etc) Your food should be the consistency of: Puree Your liquids should be the consistency of: Regular/Thin Discharge Activity: Return to Normal Activity Additional Instructions: Take note of changes in your medications. Stick to the current medication list. Continue to check blood sugars at least 3 times a day. Allergies/Adverse Reactions: Allergies morphine Adverse Reaction (Verified 03/01/18 17:45) hallucinations SODIUM PENTHOL Allergy (Uncoded 03/01/18 17:45) Hives Medications to take at Discharge Gabapentin [Neurontin] 300 mg PO QHS 10/10/15 Omeprazole [Prilosec] 40 mg PO DAILY 10/10/15 Amiodarone HCl [Cordarone] 200 mg PO DAILY@0800 05/07/17 Finasteride [Proscar] 5 mg PO DAILY 12/19/17 Levothyroxine [Synthroid] 137 mcg PO DAILY@0600 12/19/17 Donepezil HCl 10 mg PO QHS 03/01/18 Glucerna Shake 120 ml PO 4X/DAY #100 03/03/18 Insulin Glargine [Lantus SoloStar Pen] 5 units SC BID pen 03/03/18 The following prescriptions were given: Glucerna Shake 120 ml PO 4X/DAY #100 Primary Care Physician: Lai Hsieh Chi, MD [Primary Care Provider] - Please follow up with your Primary Care Physician in: in 1 week Test Results: Test results from this visit will be discussed in further detail at your follow- up appointment, if applicable. Proposed Discharge Date: 03/03/18
--- NOTE | 2018-03-03 10:09 | PCM.DC.SUM ---
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) Abnormal pulmonary function test (Chronic) Tachycardia (Chronic) Hyperthyroidism (Chronic) Persistent atrial fibrillation (Chronic) S/P RFA 11/24/2011 TIA (transient ischemic attack) (Chronic) CKD (chronic kidney disease) stage 3, GFR 30-59 ml/min (Chronic) 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) Benign prostate hyperplasia (Chronic) Type 2 diabetes mellitus (Chronic) Dyslipidemia (Chronic) Gastroesophageal reflux disease (Chronic) Hypothyroidism (Chronic) Atrial fibrillation (Chronic) S/P IVC filter (Chronic) Cardiac pacemaker (Chronic) pacemaker implant april 2010 Tachy-aly syndrome (Chronic) S/P PM Cardiomyopathy (Chronic) 45% EF in November of 2014, ischemic S/P atrioventricular piper ablation (Chronic) Carotid artery disease (Chronic) Systolic CHF, chronic (Chronic) HTN (hypertension) (Chronic) Pulmonary HTN (Chronic) PA pressure in November 2014 estimated at 50 Chronic anemia (Chronic) unknown etiology Hospital Course and Treatment Operations: None Summary of Care Provided: The patient is a 82 year old M [] Discharge Activity: Return to Normal Activity Home Medications: Medications to take at Discharge Gabapentin [Neurontin] 300 mg PO QHS 10/10/15 Omeprazole [Prilosec] 40 mg PO DAILY 10/10/15 Amiodarone HCl [Cordarone] 200 mg PO DAILY@0800 05/07/17 Finasteride [Proscar] 5 mg PO DAILY 12/19/17 Levothyroxine [Synthroid] 137 mcg PO DAILY@0600 12/19/17 Donepezil HCl 10 mg PO QHS 03/01/18 Glucerna Shake 120 ml PO 4X/DAY #100 03/03/18 Insulin Glargine [Lantus SoloStar Pen] 5 units SC BID pen 03/03/18 Following Prescrptions Were Given to Patient: Glucerreid Shake 120 ml PO 4X/DAY #100 Primary Care Physician: Lai Hsieh Chi, MD [Primary Care Provider] - Please follow up with your Primary Care Physician in: in 1 week Medical Necessity - Tobacco Use Smoking Status: Former smoker Tobacco Use: Pipe
[2018-03-03 11:11] LABS: Bedside Glucose 326 mg/dL (70-110)
--- NOTE | 2018-03-03 15:17 | PCM.PN.HOSP ---
Patient Problems: Active and Suspected Problems (Last Updated 09/24/17 @ 14:33 by Karl Strong NP-C) Unresponsive (Acute) Hypoglycemia (Acute) Subjective: Patient was seen and examined. No acute events overnight. Blood sugars are improving. He had complained of abdominal discomfort earlier on, status post large bowel movement, abdominal discomfort resolved. Objective: Physical exam: General: Alert, Cooperative, No apparent distress, Confused - oriented to self, - - cachetic HEENT: Atraumatic, PERRLA, EOMI, Normocephalic Oral: Moist Mucosa Neck: Supple Lungs: Clear to auscultation, Normal air movement Cardiovascular: Regular rate, Regular Rhythm, Normal S1, Normal S2, No murmurs Abdomen: Bowel Sounds Present, Soft, Non Tender, Non-Distended, No Hepato-splenomegaly, - - Silverman catheter Extremities: No edema Skin: No rashes, No breakdown Musculoskeletal: No Tenderness to Palpation of Joints or Extremities Lymphatic: No Cervical, Supraclavicular, or Inguinal Adenopathy Neurological: Cranial nerves II-XII grossly intact, Neuro grossly intact Psych/Mental Status: Normal Affect, Appropriate Vitals/I&O's: Vital Signs Temp Pulse Resp BP Pulse Ox 98.5 F 60 16 91/52 L 96 03/03/18 09:18 03/03/18 11:00 03/03/18 09:18 03/03/18 09:18 03/03/18 09:18 Oxygen Flow Rate (L/min) 2 Oxygen Delivery Method Room Air Weight: 76.4 kg Body Mass Index (BMI) 26.4 Intake and Output for Last 24 Hours 03/01/18 03/02/18 03/03/18 23:59 23:59 23:59 Intake Total 416 / 416 2311 / 2311 350 / 350 Output Total 550 / 550 2049 / 2049 Balance -134 / -134 261 / 261 350 / 350 Laboratory Results 03/02/18 15:57: POC Glucose 219 H 03/02/18 22:48: POC Glucose 277 H 03/03/18 07:00: POC Glucose 248 H 03/03/18 11:02: POC Glucose 326 H Current Medications Acetaminophen (Tylenol) 650 mg PO Q6H PRN PRN PRN Reason: Mild Pain (1-3)/Temp > 100.7 F Last Admin: 03/03/18 09:47 Dose: 650 mg Acetaminophen (Tylenol) 650 mg RECTAL Q4H PRN PRN PRN Reason: fever, pain Last Admin: 03/01/18 23:59 Dose: 650 mg Amiodarone HCl (Cordarone) 200 mg PO DAILY@0800 [facility] Last Admin: 03/03/18 09:11 Dose: 200 mg Bisacodyl (Dulcolax) 5 mg PO DAILY PRN PRN PRN Reason: Constipation Last Admin: 03/03/18 09:48 Dose: 5 mg Dextrose (D50w Syringe) 0 gm IV X1 PRN; Protocol PRN Reason: Hypoglycemia Last Admin: 03/02/18 03:26 Dose: 12.5 gm Donepezil HCl (Aricept) 10 mg PO QHS [facility] Last Admin: 03/02/18 22:45 Dose: 10 mg Enoxaparin Sodium (Lovenox) 40 mg SC DAILY@1000 [facility] Last Admin: 03/03/18 09:13 Dose: 40 mg Finasteride (Proscar) 5 mg PO DAILY [facility] Last Admin: 03/03/18 09:12 Dose: 5 mg Gabapentin (Neurontin) 300 mg PO QHS [facility] Last Admin: 03/02/18 22:45 Dose: 300 mg Glucagon () 1 mg IM .X1 PRN PRN Reason: Hypoglycemia Insulin Glargine (Lantus (Bkc)) 5 units SC BID [facility] Last Admin: 03/03/18 09:12 Dose: 5 units Levothyroxine Sodium (Synthroid) 137 mcg PO DAILY@0600 [facility] Last Admin: 03/03/18 06:15 Dose: 137 mcg Magnesium Hydroxide (Milk Of Magnesia) 30 ml PO DAILY PRN PRN Reason: Constipation Nutritional Formula (Lactose Free) (Glucerna Shake) 120 ml PO 4X/DAY [facility] Last Admin: 03/03/18 09:11 Dose: 120 ml Ondansetron HCl (Zofran) 4 mg IV Q8H PRN PRN PRN Reason: NAUSEA/VOMITING Pantoprazole Sodium (Protonix) 40 mg PO DAILY [facility] Last Admin: 03/03/18 09:13 Dose: 40 mg Psyllium Hydrophilic Mucilloid (Metamucil) 1 packet PO DAILY PRN PRN PRN Reason: CONSTIPATION Sodium Chloride () 5 - 30 ml IV UD PRN PRN Reason: SALINE FLUSH Last Admin: 03/02/18 12:37 Dose: 10 ml Medical Necessity - Tobacco Use Smoking Status: Former smoker Tobacco Use: Pipe Assessment/Plan All Active Problems (Last Updated 09/24/17 @ 14:33 by Karl Strong NP-C) Unresponsive (Acute) Hypoglycemia (Acute) carotid arteriography (Resolved) Cutaneous candidiasis (Resolved) Epididymitis (Resolved) Pleural effusion (Resolved) Systolic CHF, acute on chronic (Resolved) Wide-complex tachycardia (Resolved) 82 year old M with multiple comorbidities significant for type II DM, hypertension, status post pacemaker, hypothyroidism, who recently had changes to his medications with start of Actos and found to be hypoglycemic and hypothermic. 1. Altered mental status secondary to hypoglycemia, hypothermia, resolved, patient at baseline now, oriented to self only, not to place or time. 2. Hypoglycemia, recent use of Actos, on insulin , s/p D50, resolved, BS are now elevated. Will start on Lantus 5 units BID 3. Hypertension, controlled, not on medications, will continue to monitor 4. Dementia, on Aricept, on Aricept 10 mg daily 5. s/p pacemaker 6. Hypothyroidism, on Synthroid 7. Protein energy malnutrition, moderate, on supplements 8. DVT Ppx- Heparin SC. 9. Disposition: Per previous discussion with case management and patient's , the initial plan was discharge to home with home health. His later conveyed to the patient's nurse that she would like patient to be discharged to a assisted facility. Will DC previous discharge order. We will await for case management/social work input in discharge planning. Code Visit Inpatient E&M: 00637 Subs Hosp L2
[2018-03-03 16:36] LABS: Bedside Glucose 298 mg/dL (70-110)
[2018-03-03] MEDS: Donepezil HCl 10 MG Tablet PO (23:19)
[2018-03-03] MEDS: Gabapentin 300 MG Capsule PO (23:19)
[2018-03-03 23:35] LABS: Bedside Glucose 343 mg/dL (70-110)
[2018-03-04] VITALS (13 sets, daily range): BP systolic 98–109; BP diastolic 53–80; PULSE 69–74; RESP 16–20; TEMP 36.6–36.9; O2SAT 92–95
[2018-03-04] MEDS: Levothyroxine 137 MCG Tablet PO (05:33)
[2018-03-04 06:56] LABS: Bedside Glucose 267 mg/dL (70-110)
[2018-03-04] MEDS: Amiodarone 200 MG Tablet PO (08:51)
[2018-03-04] MEDS: Enoxaparin 40 MG/0.4 ML Syringe SC (08:52)
[2018-03-04] MEDS: Pantoprazole Sodium 40 MG Tablet PO (08:53)
[2018-03-04] MEDS: Finasteride 5 MG Tablet PO (08:53)
--- NOTE | 2018-03-04 10:51 | CASEMGMT ---
STANISLAW was told patient's wants a group home for patient. Per report from STANISLAW they are interested in [facility]. STANISLAW called Radha at [facility] and she may have a bed, but will have to get back to . Jocy STEINBERG MSW
[2018-03-04 11:25] LABS: Bedside Glucose 315 mg/dL (70-110)
--- NOTE | 2018-03-04 11:59 | CASEMGMT ---
SW spoke with patient's and daughter. Introduced self and role at [facility]. Patient's asked about patient going to [facility]. SW told her they are full. SW then gave them a list of local SNF's to choose from. SW explained they just need SW to give them a few facilities and SW will check on bed availability and make referrals. Jocy STEINBERG HUMAN RESOURCES TALENT MANAGER
--- NOTE | 2018-03-04 12:00 | PCM.PROGNOTE ---
<Eber Ballard - Last Filed: 03/04/18 12:00> Patient Problems: Active and Suspected Problems (Last Updated 09/24/17 @ 14:33 by STANLEY Turner) Unresponsive (Acute) Hypoglycemia (Acute) Subjective: No complaints. Waiting for precert to go to SNF. - Physical Exam General: Alert, Oriented x3, Cooperative HEENT: Atraumatic, PERRLA, EOMI, Normocephalic Neck: Supple, No JVD, Negative Carotid Bruits Lungs: Clear to auscultation, Normal air movement Cardiovascular: Regular rate, No murmurs Abdomen: Bowel Sounds Present, Soft, Non Tender Extremities: No edema, Capillary Refill Less than 3 Seconds Skin: No rashes, No breakdown Musculoskeletal: No Tenderness to Palpation of Joints or Extremities Neurological: Cranial nerves II-XII grossly intact Psych/Mental Status: Normal Affect, Appropriate, Alert and oriented to time, place, person, mood and affect Vital Signs Temp Pulse Resp BP Pulse Ox 97.9 F 70 20 H 105/80 92 03/04/18 09:44 03/04/18 11:41 03/04/18 09:44 03/04/18 09:44 03/04/18 09:49 Oxygen Delivery Method Room Air Intake and Output for Last 24 Hours 03/02/18 03/03/18 03/04/18 23:59 23:59 23:59 Intake Total 447 / 2311 645 / 645 290 / 290 Output Total 1000 / 2050 0 / 0 Balance -553 / 261 645 / 645 290 / 290 POC Glucose 03/04/18 03/04/18 03/03/18 11:22 06:47 23:21 POC Glucose 315 H 267 H 343 H 03/03/18 16:28 POC Glucose 298 H Medical Necessity - Tobacco Use Smoking Status: Former smoker Tobacco Use: Pipe Assessment/Plan All Active Problems (Last Updated 09/24/17 @ 14:33 by STANLEY Turner) Unresponsive (Acute) Hypoglycemia (Acute) carotid arteriography (Resolved) Cutaneous candidiasis (Resolved) Epididymitis (Resolved) Pleural effusion (Resolved) Systolic CHF, acute on chronic (Resolved) Wide-complex tachycardia (Resolved) 1. Hypoglycemia in T2DM - resolved. Actos DC'd. BID levemir. Titrate to response. 2. Altered mental status 2/2 above - resolved 3. HTN - stable 4. Dementia - aricept. 5. hx Pacemaker 6. Hypothyroid - synthroid 7. Moderate protein calorie malnutrition - plan to continue supplements at dc. DVT ppx: heparin DC planning: SNF precert pending This patient was seen by Eber Ballard PA-C under the supervision of Doctor Janel. <Pedrito Islas - Last Filed: 03/04/18 15:44> - Physical Exam Vital Signs Temp Pulse Resp BP Pulse Ox 98.5 F 70 16 98/53 L 94 03/04/18 14:30 03/04/18 15:14 03/04/18 14:30 03/04/18 14:30 03/04/18 14:30 Oxygen Delivery Method Room Air Intake and Output for Last 24 Hours 03/02/18 03/03/18 03/04/18 23:59 23:59 23:59 Intake Total 447 / 2311 645 / 645 290 / 290 Output Total 1000 / 2050 0 / 0 Balance -553 / 261 645 / 645 290 / 290 POC Glucose 03/04/18 03/04/18 03/03/18 11:22 06:47 23:21 POC Glucose 315 H 267 H 343 H 03/03/18 16:28 POC Glucose 298 H Assessment/Plan This patient was seen in conjunction with Eber Ballard PA-C. I have independently interviewed and examined the patient and reviewed pertinent historical, laboratory, and other data. Please refer to Eber Ballard PA-C note for details of this patient's presentation, findings, and recommendations. I have reviewed Eber Ballard PA-C note and concur with documented findings. In brief, patient is a 82-year-old gentleman admitted with progressive generalized weakness altered mental status Physical Examination: GENERAL: cooperative HEENT: Clear conjunctiva, NECK; supple, normal thyroid, CHEST: Diminished to auscultation bilaterally HEART: Regular S1 S2, ABDOMEN: soft, normoactive bowel sounds, SKIN: No Rash Assessment: 1. Acute encephalopathy secondary to hypoglycemia 2. Diabetes mellitus type 2 with complications including hypoglycemia 3. Essential hypertension 4. Dementia 5. History of conduction system disorder status post pacemaker placement 7. Hypothyroidism 8. Moderate protein calorie malnutrition Recommendations: 1. I have discussed the results of my overview and impressions with the patient 2. Options for management were reviewed Code Visit Inpatient E&M: 04178 Subs Hosp L2
--- NOTE | 2018-03-04 13:32 | CASEMGMT ---
SW spoke with patient's . She gave SW the SNF list and they marked 3 facilities. [facility] is their first choice. STANISLAW called Kylie at [facility] with referral and then faxed over information. Plan: SNF. Possibly [facility] pending their acceptance of patient. Jocy STEINBERG DUBBING MACHINE OPERATOR
--- NOTE | 2018-03-04 14:36 | CASEMGMT ---
Addendum entered by Jocy Samayoa 03/04/18 16:20: SW received a call from patient's . SW let her know SW is still waiting on [facility] to get back to . Jocy STEINBERG YARD MOTOR OPERATOR Original Note: Addendum entered by Jocy Samayoa 03/04/18 15:33: SW called patient's and left her a vm letting her know [facility] has no male beds and that SW faxed a referral to [facility]. Jocy STEINBERG YARD MOTOR OPERATOR Original Note: STANISLAW received call from Kylie at [facility] and they cannot take patient as they do not have any male beds. STANISLAW called [facility] with referral and faxed over information. Await response. Jocy STEINBERG MSW
[2018-03-04] MEDS: Glucerna Shake 120 ML LIQUID PO (16:58)
[2018-03-04] MEDS: Insulin Lispro 100 UNIT/ML INSULN.PEN SC ×3 (18:03→21:27)
[2018-03-04 18:35] LABS: Bedside Glucose 376 mg/dL (70-110)
[2018-03-04] MEDS: Donepezil HCl 10 MG Tablet PO (21:26)
[2018-03-04] MEDS: Gabapentin 300 MG Capsule PO (21:28)
[2018-03-04] MEDS: 0.9% NaCl Peripheral Flush Adult/Peds IV (21:33)
[2018-03-04 22:00] LABS: Bedside Glucose 309 mg/dL (70-110)
[2018-03-05] VITALS (8 sets, daily range): BP systolic 87–115; BP diastolic 48–65; PULSE 70–129; RESP 14–16; TEMP 36.2–36.7; O2SAT 94–97
[2018-03-05] MEDS: Levothyroxine 137 MCG Tablet PO (05:23)
[2018-03-05 06:46] LABS: Bedside Glucose 75 mg/dL (70-110)
[2018-03-05] MEDS: Glucerna Shake 120 ML LIQUID PO (09:41)
[2018-03-05] MEDS: Pantoprazole Sodium 40 MG Tablet PO (09:42)
[2018-03-05] MEDS: Finasteride 5 MG Tablet PO (09:42)
[2018-03-05] MEDS: Enoxaparin 40 MG/0.4 ML Syringe SC (09:42)
--- NOTE | 2018-03-05 10:46 | PCM.TXEXTCAR ---
- Diet 03/03/18 09:16 Diet: Calorie Controlled Dietary Modifications:: Pureed Diet Wilber Thick Liquids Is pt able to select menu?: No Diet Comments: supervision, leave tray at nurses station How many daily calories?: 1999 calorie - Routine Orders/Code Status Suppository Type: Dulcolax 10mg Suppository Frequency: Daily PRN O2 Frequency: PRN Keep PO Greater than or Equal to (%): 90 Code Status: Full Code - Wound(s) Left Guthrie Wound Type: Skin Tear Left Knee Wound Type: Skin Tear R Heel Wound Type: Skin Tear - Therapies Physical Therapy: Eval and Treat Occupational Therapy: Eval and Treat - Problem/Diagnosis (1) Hypoglycemia Status: Acute Current Visit: Yes (2) Aortic root dilatation Status: Chronic Current Visit: No (3) Cardiac pacemaker Status: Chronic Comment: Implanted in April 2010; Current Visit: No (4) 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 Status: Chronic Current Visit: No (5) Persistent atrial fibrillation Status: Chronic Comment: S/P RFA 11/24/2011 Current Visit: No (6) TIA (transient ischemic attack) Status: Chronic Current Visit: No (7) CKD (chronic kidney disease) stage 3, GFR 30-59 ml/min Status: Chronic Current Visit: No (8) 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 Current Visit: No (9) Benign prostate hyperplasia Status: Chronic Current Visit: No (10) Type 2 diabetes mellitus Status: Chronic Current Visit: No (11) Dyslipidemia Status: Chronic Current Visit: No (12) Gastroesophageal reflux disease Status: Chronic Current Visit: No (13) Hypothyroidism Status: Chronic Current Visit: No (14) S/P IVC filter Status: Chronic Current Visit: No (15) Cardiac pacemaker Status: Chronic Comment: pacemaker implant april 2010 Current Visit: No (16) Cardiomyopathy Status: Chronic Comment: 45% EF in November of 2014, ischemic Current Visit: No (17) Carotid artery disease Status: Chronic Current Visit: No (18) Systolic CHF, chronic Status: Chronic Current Visit: No (19) HTN (hypertension) Status: Chronic Current Visit: No (20) Pulmonary HTN Status: Chronic Comment: PA pressure in November 2014 estimated at 50 Current Visit: No (21) Chronic anemia Status: Chronic Comment: unknown etiology Current Visit: No - Allergies/Procedures Done in Hospital Allergies/Adverse Reactions: Allergies morphine Adverse Reaction (Verified 03/01/18 17:45) hallucinations SODIUM PENTHOL Allergy (Uncoded 03/01/18 17:45) Hives Procedures: None - Type of Care/Length of Stay Estimated LOS: Convalescent Care Less Than 30 days Type of Care Needed: Skilled Rehab Potential: Fair Prognosis: Fair - Additional Orders/Day of Discharge Day of Discharge: 03/05/18 - Dietary and Speech Recommendations Dietitian Recommendations/Changes: Cardiac/carbohydrate-controlled diet as indicated if PO established significant at meals; consistency/texture as per MULTICUT LINE OPERATOR. Contiue glucerna shake on medpass as tolerated. - Follow Up Care Primary Care Physician: Lai Hsieh Chi, MD [Primary Care Provider] - Please follow up with your Primary Care Physician in: in 1 week
[2018-03-05 10:51] LABS: Bedside Glucose 172 mg/dL (70-110)
--- NOTE | 2018-03-05 11:23 | CASEMGMT ---
STANISLAW heard from the [facility] this am and they will take patient. STANISLAW let physician know. STANISLAW called patient's and let her know that [facility] will take patient and he will likely go today. She thanked STANISLAW. Plan: [facility] under skilled level of care on a convalescent stay. Jocy STEINBERG MSW
[2018-03-05] MEDS: Insulin Lispro 100 UNIT/ML INSULN.PEN SC (11:49)
--- NOTE | 2018-03-05 13:01 | PCM.DC.SUM ---
<Ebre Ballard - Last Filed: 03/05/18 13:54> Discharge Date and Diagnosis - Problem List Patient Problems: Active and Suspected Problems (Last Updated 09/24/17 @ 14:33 by STANLEY Turner) Unresponsive (Acute) Hypoglycemia (Acute) Date of Admission: 03/01/18 Date of Discharge: 03/05/18 - Primary Discharge Diagnosis Active and Suspected Problems (Last Updated 09/24/17 @ 14:33 by STANLEY Turner) Altered mental status secondary to hypoglycemia-resolved Type 2 diabetes with hypoglycemia History of dementia Hypertension History of pacemaker Moderate protein calorie malnutrition Hypothyroidism - Secondary Discharge Diagnosis Chronic Problems (Last Updated 09/24/17 @ 14:33 by STANLEY Turner) Aortic root dilatation (Chronic) Cardiac pacemaker (Chronic) Implanted in April 2010; 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) Abnormal pulmonary function test (Chronic) Tachycardia (Chronic) Hyperthyroidism (Chronic) Persistent atrial fibrillation (Chronic) S/P RFA 11/24/2011 TIA (transient ischemic attack) (Chronic) CKD (chronic kidney disease) stage 3, GFR 30-59 ml/min (Chronic) 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) Benign prostate hyperplasia (Chronic) Type 2 diabetes mellitus (Chronic) Dyslipidemia (Chronic) Gastroesophageal reflux disease (Chronic) Hypothyroidism (Chronic) Atrial fibrillation (Chronic) S/P IVC filter (Chronic) Cardiac pacemaker (Chronic) pacemaker implant april 2010 Tachy-aly syndrome (Chronic) S/P PM Cardiomyopathy (Chronic) 45% EF in November of 2014, ischemic S/P atrioventricular piper ablation (Chronic) Carotid artery disease (Chronic) Systolic CHF, chronic (Chronic) HTN (hypertension) (Chronic) Pulmonary HTN (Chronic) PA pressure in November 2014 estimated at 50 Chronic anemia (Chronic) unknown etiology Hospital Course and Treatment Imaging Results: CT/Brain/Head without Contrast IMPRESSION: Chronic involutional changes of the brain. RAD/Chest 1 View (Portable) IMPRESSION: Cardiomegaly. Stable increased markings at the lung bases suggestive of bibasilar scarring. Operations: None Procedures: None Summary of Care Provided: Physical exam on day of discharge: General: Resting comfortably NAD Psych: A/Ox3 normal affect HEENT: PEARRLA AT NC Neck: Supple NT CV: RRR no m/t/r/g/h Resp: CTA Abd: [id number] Soft NT no guarding or rigidity Ext: DP2+= no edema Skin: W/D normal turgor Lymph/Heme: No active bleeding or adenopathy Neuro: CN2-12 intact Hospital course: The patient is a 82 year old M with a history of type 2 diabetes,dementia, hypertension, hyperlipidemia, hypothyroidism, congestive heart failure, TIA, DVT, CKD stage III, paroxysmal atrial fibrillation who presented to the emergency room with chief complaint of unresponsiveness for 1 day. He was recently started on Actos for diabetes. He was found to be hypoglycemic with a blood sugar 44 and mildly hypothermic. He was given an amp of D50 with good response. He was admitted to the progressive care unit on telemetry. Actos was discontinued and he was started on long-acting insulin. He had no further issues with hypoglycemia. At one point he developed somewhat lower than normal blood pressures. This improved with a 2 50 cc bolus of normal saline. As he is not currently on any blood pressure medications we advised conservative management at this time with the addition of BENJAMIN hoses at discharge. He remained significantly debilitated throughout his stay and will require correction going forward with physical therapy. He was accepted and discharged to correction in stable condition. This patient was seen by Eber Ballard PA-C under the supervision of Doctor Islas. [] Discharge Diet: Low fat/ Low Cholesterol, 1800 Calorie Control Diet, 2000 mg Sodium Diet Discharge Activity: Return to Normal Activity Home Medications: Medications to take at Discharge Gabapentin [Neurontin] 300 mg PO QHS 10/10/15 Omeprazole [Prilosec] 40 mg PO DAILY 10/10/15 Amiodarone HCl [Cordarone] 200 mg PO DAILY@0805/07/17 Finasteride [Proscar] 5 mg PO DAILY 12/19/17 Levothyroxine [Synthroid] 137 mcg PO DAILY@0612/19/17 Donepezil HCl 10 mg PO QHS 03/01/18 Insulin Glargine [Lantus SoloStar Pen] 7 units SC BID #1 pen 03/05/18 Following Prescrptions Were Given to Patient: Insulin Glargine [Lantus SoloStar Pen] 7 units SC BID #1 pen Primary Care Physician: Lai Hsieh Chi, MD [Primary Care Provider] - Please follow up with your Primary Care Physician in: in 1 week Disposition: Residential facility Minutes spent on discharge:: 35 Patient Condition:: Stable Medical Necessity - Tobacco Use Smoking Status: Former smoker Tobacco Use: Pipe Meaningful Use Info Meaningful Use Diagnoses (Choose all that apply): None applicable <Pedrito Islas - Last Filed: 03/05/18 15:56> Discharge Date and Diagnosis - Primary Discharge Diagnosis Active and Suspected Problems (Last Updated 09/24/17 @ 14:33 by STANLEY Turner) Unresponsive (Acute) Hypoglycemia (Acute) - Secondary Discharge Diagnosis Chronic Problems (Last Updated 09/24/17 @ 14:33 by STANLEY Turner) Aortic root dilatation (Chronic) Cardiac pacemaker (Chronic) Implanted in April 2010; 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) Abnormal pulmonary function test (Chronic) Tachycardia (Chronic) Hyperthyroidism (Chronic) Persistent atrial fibrillation (Chronic) S/P RFA 11/24/2011 TIA (transient ischemic attack) (Chronic) CKD (chronic kidney disease) stage 3, GFR 30-59 ml/min (Chronic) 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) Benign prostate hyperplasia (Chronic) Type 2 diabetes mellitus (Chronic) Dyslipidemia (Chronic) Gastroesophageal reflux disease (Chronic) Hypothyroidism (Chronic) Atrial fibrillation (Chronic) S/P IVC filter (Chronic) Cardiac pacemaker (Chronic) pacemaker implant april 2010 Tachy-aly syndrome (Chronic) S/P PM Cardiomyopathy (Chronic) 45% EF in November of 2014, ischemic S/P atrioventricular piper ablation (Chronic) Carotid artery disease (Chronic) Systolic CHF, chronic (Chronic) HTN (hypertension) (Chronic) Pulmonary HTN (Chronic) PA pressure in November 2014 estimated at 50 Chronic anemia (Chronic) unknown etiology Hospital Course and Treatment Summary of Care Provided: This patient was seen in conjunction with Eber Ballard PA-C. I have independently interviewed and examined the patient and reviewed pertinent historical, laboratory, and other data. Please refer to Eber Ballard PA-C note for details of this patient's presentation, findings, and recommendations. I have reviewed Eber Ballard PA-C note and concur with documented findings. In brief, patient is a 82-year-old gentleman admitted with progressive generalized weakness altered mental status Physical Examination: GENERAL: cooperative HEENT: Clear conjunctiva, NECK; supple, normal thyroid, CHEST: Diminished to auscultation bilaterally HEART: Regular S1 S2, ABDOMEN: soft, normoactive bowel sounds, SKIN: No Rash Assessment: 1. Acute encephalopathy secondary to hypoglycemia 2. Diabetes mellitus type 2 with complications including hypoglycemia 3. Essential hypertension 4. Dementia 5. History of conduction system disorder status post pacemaker placement 7. Hypothyroidism 8. Moderate protein calorie malnutrition Hospital course ; as above by Eber Ballard time spent ; 35 min Code Visit Inpatient E&M: 25351 Disch Hosp
--- NOTE | 2018-03-05 14:36 | CASEMGMT ---
Faxed orders to [facility]. Called [facility] and arranged for patient to get picked up at 4p via [facility]. Convalescent was completed on . SW notified [facility], RN, patient, his , and medical secretary teacher. Patient's was also notified of cost of ambulette not being covered by insurance. Plan: d/c to [facility] under skilled level of care on a convalescent stay. Juan Jose Ector and transported him via . Jocy STEINBERG MSW
--- NOTE | 2018-03-05 15:01 | NURSING ---
Report called to Rajwinder at the e
[2018-03-05 15:41] LABS: Bedside Glucose 408 mg/dL (70-110)
[2018-03-05 15:41] LABS: Bedside Glucose 410 mg/dL (70-110)
== END 2018-03-05 17:08 | disposition skilled nursing facility (03) | DRG 637 ==
LOC: ED 14:45 → PCU 16:29
PROVIDERS: Admitting Provider Internal Medicine; Emergency Provider Emergency Medicine; Family Provider Family Medicine Geriatric Medicine; PCP Family Medicine Geriatric Medicine; Visit Provider Internal Medicine
DX: E11.649 Type 2 diabetes mellitus with hypoglycemia without coma (principal); G93.41 Metabolic encephalopathy; E44.0 Moderate protein-calorie malnutrition; F03.90 Unspecified dementia, unspecified severity, without behavioral disturbance, psychotic disturbance, mood disturbance, and anxiety; Z95.0 Presence of cardiac pacemaker; E03.9 Hypothyroidism, unspecified; R68.0 Hypothermia, not associated with low environmental temperature; Z68.26 Body mass index [BMI] 26.0-26.9, adult; Z79.4 Long term (current) use of insulin; I10 Essential (primary) hypertension; Z87.891 Personal history of nicotine dependence
CPT/HCPCS: 36415; 70450; 71045; 71046; 80048; 80053; 81001; 82550; 82962; 83605; 84443; 85025; 85610; 87040; 87086; 92507; 92526; 93005; 97110; 97116; 97162; 97165; 97530; 97535; 97802; 99285; J7030; J7050; A4216; J1940

== ENCOUNTER 2018-04-24 05:36 | Inpatient (IN) | payer MEDICARE, SELFPAY ==
[2018-04-24] VITALS (15 sets, daily range): BP systolic 99–150; BP diastolic 56–89; PULSE 70–87; RESP 16–23; TEMP 36.6–39.5; O2SAT 84–100; BMI 23.2; BMI 21.7
--- NOTE | 2018-04-24 05:48 | RAD_ITS ---
STUDY: X-RAY CHEST REASON FOR EXAM: Male, 82 years old. Fever and cough TECHNIQUE: Frontal and lateral views of the chest. COMPARISON: 03/02/2018 FINDINGS: Dual-chamber pacemaker on the left. The lungs are clear and expanded. There is no demonstrated pleural abnormality. Stable cardiomediastinal silhouette. Normal mediastinum and ava. Normal visualized pulmonary arteries. Normal visualized aortic arch and descending thoracic aorta. Normal visualized thoracic spine. Stable left humerus fracture. Stable right rib fractures. There is no demonstrated abnormality of the visualized soft tissue structures of the upper abdomen. RAD/Chest 1 View (Portable) IMPRESSION: No acute pulmonary findings. Electronically Signed: Jose Real MD at 6:25 EST Tel , Service support ,
--- NOTE | 2018-04-24 05:48 | EKG12_ITS ---
Test Reason : FEVER Blood Pressure : / mmHG Vent. Rate : 070 BPM Atrial Rate : 082 BPM P-R Int : 000 ms QRS Dur : 206 ms QT Int : 506 ms P-R-T Axes : 000 -80 090 degrees QTc Int : 546 ms Ventricular-paced rhythm Abnormal ECG Confirmed by KADEEM PONCE, POLO ([id number]), editorial director JAYLON WATSON ([id number]) on 04/26/2018 3:46:01 PM Referred By: FRANCISCO Confirmed By:POLO QUAN MD
[2018-04-24] MEDS: 0.9% Normal Saline 1,000 ML 999 ML IV (06:15)
[2018-04-24 06:18] LABS: Absolute Lymphocyte Count 0.33 X10^3/ul (0.83-4.51); Absolute Neutrophil Count 3.1 X10^3/uL (2.0-7.7); Basophil# 0.01 X10^3/uL; Basophil% 0.3 % (0-1); Eosinophil# 0.02 X10^3/uL; Eosinophils% 0.5 % (0-5); Hematocrit 46.8 % (40-54); Hemoglobin 14.7 g/dl (13.0-16.5); Lymphocyte # 0.33 X10^3/ul (4.0); Lymphocyte % 8.5 % (19-41); Mean Corp Hgb Conc 31.4 g/gl (32-36); Mean Corpuscular Hgb 29.3 pg (27.0-32.0); Mean Corpuscular Volume 93.2 fL (80-94); Mean Platelet Vol. 11.4 fl (6.2-12.0); Monocyte# 0.37 X10^3/uL; Monocyte% 9.6 % (0-10); Neutrophil # 3.12 X10^3/uL (2.7-7.7); Neutrophil % 80.8 % (47-70); Platelet Count 92 K/mm3 (150-450); RBC Distribution Width CV 15.5 % (11.6-14.6); RBC Distribution Width SD 51.8 fl (35.1-43.9); Red Blood Count 5.02 M/mm3 (4.6-6.2); White Blood Count 3.9 K/mm3 (4.4-11.0)
[2018-04-24 06:19] LABS: Mucous, Urine 0 SEEN /hpf (<or=2+); Red Blood Cells-Urine 0 SEEN /hpf (0-5); Squamous Epithelial Cells - UA 0 SEEN /hpf (0-5); White Blood Cells 0 SEEN /hpf (0-5)
[2018-04-24 06:23] LABS: POSITIVE COUNT NO; POSITIVE MORPHOLOGY NO
[2018-04-24] MEDS: Acetaminophen 650 MG Suppository RECTAL (06:30)
[2018-04-24 06:32] LABS: ALB/GLOB Ratio 0.8 RATIO (0.9-2.4); AST(SGOT) 32 U/L (15-37); Alanine Aminotransfer ALT/SGPT 36 U/L (16-61); Albumin, Serum 3.2 g/dL (3.2-5.0); Alkaline Phosphatase 317 U/L (45-117); Anion Gap 7 (5-15); BUN 20 mg/dL (7-18); BUN/Creat Ratio 13.5 RATIO (10-20); Calcium,Total 8.8 mg/dL (8.5-10.1); Chloride 104 mmol/L (98-107); Creatinine, Serum 1.48 mg/dL (0.70-1.30); EST Glomerular Filtration Rate 48 mL/min (>60); Est Glom Filt Rate - Afr Amer 58 mL/min (>60); Estimated Creatinine Clearance 41.51 ml/min; Globulin 3.9 g/dL (2.2-4.2); Glucose 381 mg/dL (74-106); Potassium 4.4 mmol/L (3.5-5.1); Protein, Total 7.1 g/dL (6.4-8.2); Sodium Level 143 mmol/L (136-145)
[2018-04-24 06:38] LABS: Color, Urine Yellow (Yellow); Glucose, Dipstick 1000 mg/dl (Normal); Ketone-Dipstick Negative (Negative); Leukocyte Esterase-Dipstick Negative /ul (Negative); Nitrite-Dipstick Negative (Negative); Occult Blood-Urine 10 /ul (Negative); Protein-Dipstick 15 mg/dl (Negative); Specific Gravity, Urine 1.015 (1.002-1.030); Urine Bilirubin Dipstick Negative (Negative); Urine Clarity Sl. Cloudy (Clear); Urine Urobilinogen Normal (Normal)
[2018-04-24 06:40] LABS: Prothrombin Time (Protime)PT. 13.1 SECONDS (11.7-14.9)
[2018-04-24 06:41] LABS: Partial Thromboplast Time 30.4 Seconds (24.1-36.2)
[2018-04-24 06:42] LABS: Bacteria RARE /hpf (None Seen)
--- NOTE | 2018-04-24 06:42 | ED.RN ---
PT DOES NOT KNOW HIS HOME MEDICATIONS. HIS WILL BRING A LIST IN LATER TODAY.
[2018-04-24 06:50] LABS: Lactic Acid 3.6 mmol/L (0.4-2.0)
--- NOTE | 2018-04-24 06:50 | ED.RN ---
DR SINGH NOTIFIED OF LACTIC ACID RESULTS
--- NOTE | 2018-04-24 06:54 | ED.VISSUMM ---
- ER Visit Summary Date of Service: 04/24/18 Chief Complaint: Fever History of Present Illness: The patient is a 82 M who presents with fever and Reiger's. History is limited due to the patient's dementia. Apparently EMS was called because he was shaking. He had a blood sugar of 400 at home. For EMS he was found to have a fever of 102. Patient denies any pain. He denies any vomiting or diarrhea. He denies feeling short of breath. He denies cough. I spoke to family who was not aware of any recent illness such as vomiting diarrhea cough or URI-like illness. Physical Examination: Temperature 102.8, heart rate 87, respiratory rate 22, pulse ox 84% on room air Heart regular rate and rhythm No respiratory distress lungs are clear without rales or wheezing Abdomen soft nontender nondistended Extremities nontender no rash Patient is alert he is oriented to person and place but not time no focal or lateralizing neurological deficits Test Results: EKG shows a paced rhythm at a rate of 70. Chest x-ray shows no acute findings. Labs notable for white blood cell count 3.9, platelets of 92. BUN 20, creatinine 1.48. Coagulation studies normal. Urinalysis shows glucose but no evidence of infection. Lactic acid elevated at 3.6. Blood and urine cultures have been sent. Emergency Department Course and Treatment: Patient's presentation was concerning for sepsis. I do not have a clear source of infection. His urine appears clean and he does not appear to have pneumonia. He was empirically treated with IV Zosyn. He was fluid resuscitated. I also sent off a respiratory panel. Patient to be discussed with the hospitalist and admitted. Treatment Plan: [] Disposition: Admit Impression: Severe sepsis This note was generated with [employer] dictation software. It may contain incorrect words, spelling, and punctuation that were not noted in review of the chart prior to signing ED Disposition - Plan for ED Patient: Chief Complaint: General Illness Referrals: Lai Hsieh Chi, MD [Primary Care Provider] -
--- NOTE | 2018-04-24 06:57 | ED.DCSUM_ITS ---
- ER Visit Summary Date of Service: 04/24/18 Chief Complaint: Fever History of Present Illness: The patient is a 82 M who presents with fever and Reiger's. History is limited due to the patient's dementia. Apparently EMS was called because he was shaking. He had a blood sugar of 400 at home. For EMS he was found to have a fever of 102. Patient denies any pain. He denies any vomiting or diarrhea. He denies feeling short of breath. He denies cough. I spoke to family who was not aware of any recent illness such as vomiting diarrhea cough or URI-like illness. Physical Examination: Temperature 102.8, heart rate 87, respiratory rate 22, pulse ox 84% on room air Heart regular rate and rhythm No respiratory distress lungs are clear without rales or wheezing Abdomen soft nontender nondistended Extremities nontender no rash Patient is alert he is oriented to person and place but not time no focal or lateralizing neurological deficits Test Results: EKG shows a paced rhythm at a rate of 70. Chest x-ray shows no acute findings. Labs notable for white blood cell count 3.9, platelets of 92. BUN 20, creatinine 1.48. Coagulation studies normal. Urinalysis shows glucose but no evidence of infection. Lactic acid elevated at 3.6. Blood and urine cu ltures have been sent. Emergency Department Course and Treatment: Patient's presentation was concerning for sepsis. I do not have a clear source of infection. His urine appears clean and he does not appear to have pneumonia. He was empirically treated with IV Zosyn. He was fluid resuscitated. I also sent off a respiratory panel. Patient to be discussed with the hospitalist and admitted. Treatment Plan: [] Disposition: Admit Impression: Severe sepsis This note was generated with [employer] dictation software. It may contain incorrect words, spelling, and punctuation that were not noted in review of the chart prior to signing ED Disposition - Plan for ED Patient: Chief Complaint: General Illness Referrals: Lai Hsieh Chi, MD [Primary Care Provider] -
[2018-04-24 06:58] LABS: Differential Indicated SCAN CRITERIA MET; POSITIVE DIFFERENTIAL YES
[2018-04-24 06:59] LABS: Differential Comment SCANNED
--- NOTE | 2018-04-24 09:29 | HP.PCM_ITS ---
Problem List (1) CKD (chronic kidney disease) stage 3, GFR 30-59 ml/min Status: Chronic (2) Benign prostate hyperplasia Status: Chronic Qualifiers: (3) Type 2 diabetes mellitus Status: Chronic Qualifiers: (4) Dyslipidemia Status: Chronic (5) Gastroesophageal reflux disease Status: Chronic Qualifiers: (6) Hypothyroidism Status: Chronic Qualifiers: (7) Cardiac pacemaker Status: Chronic Comment: pacemaker implant april 2010 (8) Cardiomyopathy Status: Chronic Comment: 45% EF in November of 2014, ischemic (9) Systolic CHF, chronic Status: Chronic (10) HTN (hypertension) Status: Chronic Qualifiers: History of Present Illness Date of Admission: 04/24/18 Chief Complaint: Fever and chills. The patient is a 82 year old M with past medical history as mentioned above presented to the emergency room because of fever and chills. According to the patient's daughter, patient started having significant chills and rigors around 5:30 AM this morning and he had a spike of fever of 102 Fahrenheit. Patient was shaking uncontrollably all over his body and his called the squad. Squad find that patient's blood sugar was 400 at home. His daughter mentioned that his blood sugar is usually in the high range. The patient denied sore throat, nasal or sinus congestion. He denied cough or sputum production. He denied chest pain or shortness of breath. He denied abdominal pain, nausea or vomiting. He denied diarrhea or constipation. His daughter mentioned that he had couple of episodes of loose stool 2 days ago but the patient himself denies any more diarrhea. He denied urinary symptoms. He denied skin rash or wounds. No reported sick contacts at home. He does have a history of type 2 diabetes mellitus which is uncontrolled according to his daughter. He has been on insulin and his blood sugar over the last month has been up to 300s. His hemoglobin A1c was 11.9 on April,. History of stage III chronic kidney disease and his creatinine has been around 1.3-1.9 mg/dL and has been stable. He has a history of chronic atrial fibrillation/tachybradycardia syndrome status post pacemaker and patient has been on amiodarone for rate control but not on anticoagulation because of history of cerebral bleed. In the emergency department, patient was febrile, mildly tachypneic, blood pressure and heart rate were stable. Blood work was remarkable for WBC of 3.9 consistent with leukopenia which is chronic, platelet count of 92,000 which was also chronic. His absolute neutrophil count was normal. His creatinine is 1.48 which is also chronic. Urinalysis revealed cloudy urine, negative for nitrite and leukocyte esterase, there was no W BCs and 0 bacteria seen. Chest x-ray showed no acute infiltrate, revealed chronic left humeral fracture and chronic stable right rib fractures. His EKG revealed paced rhythm. Patient is being admitted for severe sepsis without clear evidence of infection. 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) Benign prostate hyperplasia (Chronic) Type 2 diabetes mellitus (Chronic) Dyslipidemia (Chronic) Gastroesophageal reflux disease (Chronic) Hypothyroidism (Chronic) Atrial fibrillation (Chronic) S/P IVC filter (Chronic) Cardiac pacemaker (Chronic) pacemaker implant april 2010 Tachy-aly syndrome (Chronic) S/P PM Cardiomyopathy (Chronic) 45% EF in November of 2014, ischemic S/P atrioventricular piper ablation (Chronic) Carotid artery disease (Chronic) Systolic CHF, chronic (Chronic) HTN (hypertension) (Chronic) Pulmonary HTN (Chronic) PA pressure in November 2014 estimated at 50 Chronic anemia (Chronic) unknown etiology Medical History: Medical History (Last Updated 09/24/17 @ 14:33 by Karl Strong NP-C) TIA (transient ischemic attack) (Chronic) CKD (chronic kidney disease) stage 3, GFR 30-59 ml/min (Chronic) 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) I82.629 Benign prostate hyperplasia (Chronic) Type 2 diabetes mellitus (Chronic) E11.9 Dyslipidemia (Chronic) E78.5 Gastroesophageal reflux disease (Chronic) K21.9 Hypothyroidism (Chronic) E03.9 Atrial fibrillation (Chronic) I48.91 Cardiac pacemaker (Chronic) Z95.0 pacemaker implant april 2010 Tachy-aly syndrome (Chronic) I49.5 S/P PM Cardiomyopathy (Chronic) I42.9 45% EF in November of 2014, ischemic Carotid artery disease (Chronic) I77.9 Systolic CHF, chronic (Chronic) I50.22 HTN (hypertension) (Chronic) I10 Pulmonary HTN (Chronic) I27.2 PA pressure in November 2014 estimated at 50 Chronic anemia (Chronic) D64.9 unknown etiology Allergies morphine Adverse Reaction (Verified 04/24/18 06:35) hallucinations SODIUM PENTHOL Allergy (Uncoded 04/24/18 06:35) Hives Home Medications: Ambulatory Orders Medication Instructions Recorded Gabapentin [Neurontin] 300 mg PO QHS 10/10/15 Omeprazole [Prilosec] 40 mg PO DAILY 10/10/15 Amiodarone HCl [Cordarone] 200 mg PO DAILY@0800 05/07/17 Finasteride [Proscar] 5 mg PO DAILY 12/19/17 Levothyroxine [Synthroid] 137 mcg PO DAILY@0600 12/19/17 Donepezil HCl 10 mg PO QHS 03/01/18 Insulin Glargine [Lantus SoloStar 7 units SC BID #1 pen 03/05/18 Pen] Surgical History: Surgical History (Last Reviewed 09/24/17 @ 13:55 by Janelle Laguna) S/P IVC filter (Chronic) Z95.828 S/P atrioventricular piper ablation (Chronic) Z98.890 History of cardiac radiofrequency ablation (RFA) Z98.890 11/24/11, WITH PPM IMPLANT Surgical History: pacemaker implantation - 2009, - - PATIENT HAS HISTORY OF CRANIOTOMY, for intracranial bleed evacuation, patient sustained fall at that time, internal carotid stents 2011 Psychiatric History: No pertinent psych hx Lives: Spouse/ Significant Other Smoking Status: Former smoker Alcohol: None Drugs: None - *Family History Sibling Family History: Family History (Last Reviewed 09/24/17 @ 13:55 by Janelle Laguna) Brother CAD (coronary artery disease) Hx of CABG Cancer Father CAD (coronary artery disease) Myocardial infarction Brother Cancer Mother Old age History Items: Cancer, Heart Disease - CAD s/ CABG Maternal Family History: Family History (Last Reviewed 09/24/17 @ 13:55 by Janelle Laguna) Brother CAD (coronary artery disease) Hx of CABG Cancer Father CAD (coronary artery disease) Myocardial infarction Brother Cancer Mother Old age History Items: Cancer - , unknonw age Paternal Family History: Family History (Last Reviewed 09/24/17 @ 13:55 by Janelle Laguna) Brother CAD (coronary artery disease) Hx of CABG Cancer Father CAD (coronary artery disease) Myocardial infarction Brother Cancer Mother Old age History Items: Cancer - unknown age, Heart Disease Review of Systems Constitutional: Reports: Chills, Fever. Denies: Anorexia, Weakness, Fatigue Eyes: Denies: Blurred vision, Double vision, Drainage, Redness HEENT: Denies: Difficulty Hearing, Ear Pain, Eye Pain, Hearing Changes, Nasal Congestion, Post Nasal Drip, Sinus Congestion, Sinus Drainage, Sore Throat Cardiovascular: Denies: Chest Pressure, Chest Tightness, Heaviness, Palpitations, Paroxysmal Noc. Dyspnea, Syncope Respiratory: Denies: Cough, Hemoptysis, Pleuritic Pain, Shortness of Breath, Sputum production, Wheezing Gastrointestinal: Reports: Diarrhea. Denies: Abdominal Pain, Constipation, Nausea, Vomiting Genitourinary: Denies: Dysuria, Frequency, Hematuria Musculoskeletal: Denies: Arm Pain, Back Pain, Foot Pain Skin: Denies: Dryness, Rash Neurological: Denies: Balance problems, Double vision, Change in Speech, Slurred speech, Confusion, Headaches, Incoordination, Numbness Psychiatric: Denies: Anxiety, Depression Endocrine: Denies: Change in Body Habitus, Polydipsia VTE Information - Inpt Only VTE Present on Admission: No VTE Mechan Device Prophylaxis: None VTE Pharm Prophylaxis ordered?: Yes - Physical Exam General: Alert, Oriented x3, Cooperative, No apparent distress HEENT: Atraumatic, PERRLA, EOMI, Normocephalic Oral: Moist Mucosa, No Gingival or Mucosal Lesions/ Ulcerations Neck: Supple, No JVD, Negative Carotid Bruits, Trachea Midline, Thyroid Normal Size and Texture Lungs: No wheeze, Diminished, Rhonchi, - - Decreased breath sounds at the bases with faint bilateral basal crackles. Cardiovascular: Regular rate, Regular Rhythm, Normal S1, Normal S2, PMI Normal Abdomen: Bowel Sounds Present, Soft, Non Tender, Non-Distended, No Hepato- splenomegaly Extremities: No clubbing, No cyanosis, No edema Skin: No rashes, No breakdown Lymphatic: No Cervical, Supraclavicular, or Inguinal Adenopathy Neurological: Cranial nerves II-XII grossly intact, Motor Exam 5/5 strength throughout Psych/Mental Status: Normal Affect, Appropriate, Alert and oriented to time, place, person, mood and affect Vital Signs Temp Pulse Resp BP Pulse Ox 99.8 F H 77 17 121/68 H 98 04/24/18 08:50 04/24/18 08:50 04/24/18 08:50 04/24/18 08:50 04/24/18 08:50 Oxygen Flow Rate (L/min) 2 Oxygen Delivery Method Nasal Cannula Weight: 169 lb 5.04 oz Body Mass Index (BMI) 21.7 Finger Stick Blood Glucose 94 Laboratory Tests Past 24 Hrs 04/24/18 04/24/18 04/24/18 05:55 05:55 05:55 WBC 3.9 L RBC 5.02 Hgb 14.7 Hct 46.8 MCV 93.2 MCH 29.3 MCHC 31.4 L RDW 15.5 H RDW Differential 51.8 H Plt Count 92 L MPV 11.4 Immature Gran % (Auto) 0.300 Neut % (Auto) 80.8 H Lymph % (Auto) 8.5 L [place] % (Auto) 9.6 Eos % (Auto) 0.5 Baso % (Auto) 0.3 Absolute Neuts (auto) 3.1 Absolute Lymphs (auto) 0.33 L Total Counted Not Reportable Differential Comment SCANNED PT 13.1 INR 1.0 APTT 30.4 Sodium 143 Potassium 4.4 Chloride 104 Carbon Dioxide 32.0 Anion Gap 7 BUN 20 H Creatinine 1.48 H Estim Creat Clear Calc 41.51 Est GFR (MDRD) Af Amer 58 L Est GFR (MDRD) Non-Af 48 L BUN/Creatinine Ratio 13.5 Glucose 381 H Lactic Acid Calcium 8.8 Total Bilirubin 1.00 AST 32 ALT 36 Alkaline Phosphatase 317 H Total Protein 7.1 Albumin 3.2 Globulin 3.9 Albumin/Globulin Ratio 0.8 L Urine Color Urine Clarity Urine pH Ur Specific [place] Urine Protein Urine Glucose (UA) Urine Ketones Urine Occult Blood Urine Nitrite Urine Bilirubin Urine Urobilinogen Ur Leukocyte Esterase Urine RBC Urine WBC Ur Squamous Epith Cells Urine Bacteria Urine Mucus 04/24/18 04/24/18 05:55 06:11 WBC RBC Hgb Hct MCV MCH MCHC RDW RDW Differential Plt Count MPV Immature Gran % (Auto) Neut % (Auto) Lymph % (Auto) [place] % (Auto) Eos % (Auto) Baso % (Auto) Absolute Neuts (auto) Absolute Lymphs (auto) Total Counted Differential Comment PT INR APTT Sodium Potassium Chloride Carbon Dioxide Anion Gap BUN Creatinine Estim Creat Clear Calc Est GFR (MDRD) Af Amer Est GFR (MDRD) Non-Af BUN/Creatinine Ratio Glucose Lactic Acid 3.6 H Calcium Total Bilirubin AST ALT Alkaline Phosphatase Total Protein Albumin Globulin Albumin/Globulin Ratio Urine Color Yellow Urine Clarity Sl. Cloudy Urine pH 6.0 Ur Specific [place] 1.015 Urine Protein 15 H Urine Glucose (UA) 1000 H Urine Ketones Negative Urine Occult Blood 10 H Urine Nitrite Negative Urine Bilirubin Negative Urine Urobilinogen Normal Ur Leukocyte Esterase Negative Urine RBC 0 SEEN Urine WBC 0 SEEN Ur Squamous Epith Cells 0 SEEN Urine Bacteria RARE Urine Mucus 0 SEEN Clinical Impression(s) from Imaging Studies Chest X-Ray 04/24/18 05:48 IMPRESSION: No acute pulmonary findings. Electronically Signed: Jose Real MD at 6:25 EST Tel , Service support , Assessment/Plan This is an 82 years old male patient presented to the emergency department because of fever and chills, found to have acute severe sepsis without obvious source of infection and he is being admitted for evaluation and treatment. #1 acute severe sepsis: Based on fever, tachypnea and elevated lactic acid as well as leukopenia. So far, no evidence of infection. Chest x-ray showed no acute infiltrate. Urinalysis was negative for acute cystitis. He does have crackles at the lung bases. Differential diagnosis is upper respiratory tract infection versus early pneumonia. Respiratory panel for viruses were negative. Plan: Admit to PCU, cardiac monitoring, IV fluids, blood cultures, urine culture, MRSA nasal screen, start empiric IV Zosyn and Levaquin, repeat lactic acid in 3 hours, Tylenol as needed, IV antiemetics, repeat CBC and BMP tomorrow morning, repeat chest x-ray tomorrow morning, PT OT evaluation and treatment. #2 chronic leukopenia/thrombocytopenia: Both total white blood cell count and platelet counts are mildly low and this is chronic. His absolute neutrophil count is normal. Plan for meredith cultures, empiric IV antibiotics. #3 type 2 diabetes mellitus: Uncontrolled. Blood sugar at home was 400. In the ED was 381. Hemoglobin A1c was 11.9 on April,. Plan: ADA diet, continue home doses of Lantus twice daily, insulin sliding scale. #4 stage III chronic kidney disease: Baseline creatinine is around 1.3-1.9 mg/dL. Admission creatinine is 1.48 mg with sitter, stable at baseline. #5 chronic atrial fibrillation/tachybradycardia syndrome: Status post pacemaker. EKG revealed paced rhythm. Heart rate as well as blood pressure stable. Plan to continue amiodarone. Patient is not on anticoagulation because of history of cerebral bleed. #7 CAD/chronic systolic CHF/ischemic cardiomyopathy: Clinically stable, no evidence of acute CHF. Plan to continue amiodarone. Patient is not on ELEANOR inhibitors because of chronic kidney disease. #8 hypothyroidism: Continue levothyroxine. #9 benign prostatic hypertrophy: Continue Proscar. 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 #11 DVT prophylaxis: Subcu heparin. This note was generated with [employer] dictation software. It may contain incorrect words, spelling, and punctuation that were not noted in checking the note before signing. Code Visit Inpatient E&M: 84438 Init Hosp L3
[2018-04-24 09:30] LABS: Bedside Glucose 355 mg/dL (70-110)
[2018-04-24 10:07] LABS: Reflex Lactate? Y
[2018-04-24] MEDS: Pantoprazole Sodium 40 MG Tablet PO (10:18)
[2018-04-24] MEDS: Amiodarone 200 MG Tablet PO (10:18)
[2018-04-24] MEDS: Finasteride 5 MG Tablet PO (10:19)
[2018-04-24] MEDS: Heparin Injection (Vial) 5,000 UNIT/ML VIAL 5000 UNIT SC ×2 (10:19→22:12)
[2018-04-24] MEDS: Insulin Lispro 100 UNIT/ML INSULN.PEN SC ×4 (10:22→23:48)
[2018-04-24 11:12] LABS: Lactic Acid 1.8 mmol/L (0.4-2.0)
[2018-04-24] MEDS: 0.9% Normal Saline 1,000 ML 75 ML IV (11:39)
[2018-04-24] MEDS: levoFLOXacin IV 750 MG/150 ML BAG 100 MG IV (12:31)
[2018-04-24] MEDS: Glucerna Shake 120 ML LIQUID PO ×3 (12:34→22:12)
[2018-04-24 12:46] LABS: Bedside Glucose 334 mg/dL (70-110)
[2018-04-24 13:42] LABS: M R Staph aureus DNA By PCR Negative (Negative); Probe Check PASS; Specimen Processing Control PASS
[2018-04-24] MEDS: Piperacil/Tazobactam 3.375 GM/50 ML ML IV ×2 (14:42→22:12)
[2018-04-24 18:00] LABS: Bedside Glucose 166 mg/dL (70-110)
[2018-04-24] MEDS: Donepezil HCl 10 MG Tablet PO (22:13)
[2018-04-24] MEDS: Gabapentin 300 MG Capsule PO (22:13)
[2018-04-24 22:21] LABS: Bedside Glucose 180 mg/dL (70-110)
[2018-04-24 23:56] LABS: Bedside Glucose 214 mg/dL (70-110)
[2018-04-25] VITALS (11 sets, daily range): BP systolic 95–122; BP diastolic 50–68; PULSE 68–75; RESP 16–18; TEMP 36.2–37.1; O2SAT 95–97
[2018-04-25 05:21] LABS: Absolute Lymphocyte Count 0.57 X10^3/ul (0.83-4.51); Absolute Neutrophil Count 1.6 X10^3/uL (2.0-7.7); Basophil# 0.01 X10^3/uL; Basophil% 0.4 % (0-1); Differential Indicated SCAN CRITERIA MET; Eosinophil# 0.05 X10^3/uL; Eosinophils% 1.9 % (0-5); Hematocrit 40.9 % (40-54); Hemoglobin 12.5 g/dl (13.0-16.5); Lymphocyte # 0.57 X10^3/ul (4.0); Lymphocyte % 21.4 % (19-41); Mean Corp Hgb Conc 30.6 g/gl (32-36); Mean Corpuscular Hgb 29.1 pg (27.0-32.0); Mean Corpuscular Volume 95.1 fL (80-94); Mean Platelet Vol. 11.7 fl (6.2-12.0); Monocyte# 0.44 X10^3/uL; Monocyte% 16.5 % (0-10); Neutrophil # 1.58 X10^3/uL (2.7-7.7); Neutrophil % 59.4 % (47-70); POSITIVE COUNT NO; POSITIVE DIFFERENTIAL YES; POSITIVE MORPHOLOGY NO; Platelet Count 68 K/mm3 (150-450); RBC Distribution Width CV 15.7 % (11.6-14.6); RBC Distribution Width SD 55.1 fl (35.1-43.9); White Blood Count 2.7 K/mm3 (4.4-11.0)
[2018-04-25 05:40] LABS: Anion Gap 7 (5-15); BUN 19 mg/dL (7-18); BUN/Creat Ratio 14.8 RATIO (10-20); Calcium,Total 8.3 mg/dL (8.5-10.1); Chloride 108 mmol/L (98-107); Creatinine, Serum 1.28 mg/dL (0.70-1.30); EST Glomerular Filtration Rate 57 mL/min (>60); Est Glom Filt Rate - Afr Amer 69 mL/min (>60); Glucose 179 mg/dL (74-106); Potassium 4.3 mmol/L (3.5-5.1); Sodium Level 144 mmol/L (136-145)
[2018-04-25] MEDS: Piperacil/Tazobactam 3.375 GM/50 ML ML IV ×3 (05:46→21:36)
[2018-04-25] MEDS: 0.9% NaCl Peripheral Flush Adult/Peds IV (05:46)
[2018-04-25] MEDS: Levothyroxine 137 MCG Tablet PO (05:47)
[2018-04-25] MEDS: Insulin Lispro 100 UNIT/ML INSULN.PEN SC ×3 (05:48→17:34)
--- NOTE | 2018-04-25 05:55 | RAD_ITS ---
STUDY: X-RAY CHEST REASON FOR EXAM: Male, 82 years old. Fever. TECHNIQUE: Single AP portable view of the chest. COMPARISON: Comparison is made with prior study dated April 24, 2018. FINDINGS: EKG electrodes are seen. There now is evidence of blunting of the left costophrenic angle with underlying left basilar atelectasis and/or infiltrate. Follow-up is recommended. There is moderate cardiac enlargement. A left-sided dual-chamber pacemaker is seen. Normal mediastinum and ava. Normal visualized pulmonary arteries. There is atherosclerotic calcification of the aortic arch with tortuosity. There are diffuse degenerative changes of the visualized thoracic spine. There is degenerative osteoarthritis of the bilateral shoulders. There is no demonstrated abnormality of the visualized soft tissue structures of the upper abdomen. RAD/Chest 1 View (Portable) IMPRESSION: Blunting of the left costophrenic angle with underlying left basilar infiltrate and/or atelectasis. Follow-up is recommended. Electronically Signed: Jonathan Jacobo MD at 9:31 EST Tel [phone], Service support ,
[2018-04-25 06:06] LABS: Bedside Glucose 189 mg/dL (70-110)
[2018-04-25 06:30] LABS: Differential Comment SCANNED
--- NOTE | 2018-04-25 07:56 | PCM.PROGNOTE ---
Subjective: Chief complaint: Follow-up after admission for severe sepsis. Patient seen and examined. No acute events overnight. He denied any significant complaints. Remains without cough or sputum production. Denied sinus or nasal congestion. He has no more fever overnight. Denied abdominal pain, nausea, vomiting, diarrhea. Vital signs are stable. - Physical Exam General: Alert, Oriented x3, Cooperative, No apparent distress HEENT: Atraumatic, PERRLA, EOMI, Normocephalic Oral: Moist Mucosa, No Gingival or Mucosal Lesions/ Ulcerations Neck: Supple, No JVD, Negative Carotid Bruits, Trachea Midline, Thyroid Normal Size and Texture Lungs: Clear to auscultation, No rhonchi, No wheeze, No rales, Diminished Cardiovascular: Regular rate, Regular Rhythm, Normal S1, Normal S2 Abdomen: Bowel Sounds Present, Soft, Non Tender, Non-Distended, No Hepato-splenomegaly Extremities: No clubbing, No cyanosis, No edema Skin: No rashes, No breakdown Lymphatic: No Cervical, Supraclavicular, or Inguinal Adenopathy Neurological: Cranial nerves II-XII grossly intact, Motor Exam 5/5 strength throughout Psych/Mental Status: Normal Affect, Appropriate Vital Signs Temp Pulse Resp BP Pulse Ox 98.4 F 68 18 103/51 L 96 04/25/18 04:05 04/25/18 04:05 04/25/18 04:05 04/25/18 04:05 04/25/18 04:05 Oxygen Flow Rate (L/min) 2 Oxygen Delivery Method Room Air Weight: 172 lb 6.424 oz Body Mass Index (BMI) 21.7 Finger Stick Blood Glucose 94 Intake and Output for Last 24 Hours 04/23/18 04/24/18 04/25/18 23:59 23:59 23:59 Intake Total 2409 / 2409 120 / 120 Output Total 875 / 875 300 / 300 Balance 1534 / 1534 -180 / -180 Microbiology Past 72 Hours 04/24/18 07:00 Respiratory Panel (PCR) - Final Mucosa - Nose Laboratory Tests Past 24 Hrs 04/24/18 04/24/18 04/25/18 09:25 11:30 05:00 WBC 2.7 L RBC 4.30 L Hgb 12.5 L Hct 40.9 MCV 95.1 H MCH 29.1 MCHC 30.6 L RDW 15.7 H RDW Differential 55.1 H Plt Count 68 L MPV 11.7 Immature Gran % (Auto) 0.400 Neut % (Auto) 59.4 Lymph % (Auto) 21.4 [place] % (Auto) 16.5 H Eos % (Auto) 1.9 Baso % (Auto) 0.4 Absolute Neuts (auto) 1.6 L Absolute Lymphs (auto) 0.57 L Total Counted Not Reportable Differential Comment SCANNED Sodium Potassium Chloride Carbon Dioxide Anion Gap BUN Creatinine Estim Creat Clear Calc Est GFR (MDRD) Af Amer Est GFR (MDRD) Non-Af BUN/Creatinine Ratio Glucose Lactic Acid 1.8 Calcium MRSA (PCR) Negative 04/25/18 05:00 WBC RBC Hgb Hct MCV MCH MCHC RDW RDW Differential Plt Count MPV Immature Gran % (Auto) Neut % (Auto) Lymph % (Auto) [place] % (Auto) Eos % (Auto) Baso % (Auto) Absolute Neuts (auto) Absolute Lymphs (auto) Total Counted Differential Comment Sodium 144 Potassium 4.3 Chloride 108 H Carbon Dioxide 29.0 Anion Gap 7 BUN 19 H Creatinine 1.28 Estim Creat Clear Calc 47.50 Est GFR (MDRD) Af Amer 69 Est GFR (MDRD) Non-Af 57 L BUN/Creatinine Ratio 14.8 Glucose 179 H Lactic Acid Calcium 8.3 L MRSA (PCR) POC Glucose 04/25/18 04/24/18 04/24/18 05:45 23:43 22:11 POC Glucose 189 H 214 H 180 H 04/24/18 04/24/18 04/24/18 17:27 12:27 09:22 POC Glucose 166 H 334 H 355 H Medical Necessity - Tobacco Use Smoking Status: Former smoker Assessment/Plan This is an 82 years old male patient presented to the emergency department because of fever and chills, found to have acute severe sepsis without obvious source of infection and he is being admitted for evaluation and treatment. #1 acute severe sepsis: Without obvious source of infection. He is on IV Zosyn and Levaquin empirically. He has been afebrile overnight. Lactic acid is back to normal with IV fluids. Patient remained asymptomatic. His vital signs are stable. Repeat chest x-ray revealed crowding of the ribs on the left base, otherwise unchanged. Blood and urine cultures pending. Plan to continue same treatment, follow blood and urine cultures. #2 chronic leukopenia/thrombocytopenia: Both total white blood cell count and platelet counts are low and this is chronic. Today, both WBC and platelet count are coming down than yesterday. He remained leukopenic and thrombocytopenic. Absolute neutrophil count is 1600. Plan to monitor, repeat CBC tomorrow morning. #3 type 2 diabetes mellitus: Blood sugar has been fluctuating. He is on Lantus twice daily and sliding scale. Hemoglobin A1c was 11.9 on April,. #4 stage III chronic kidney disease: Baseline creatinine is around 1.3-1.9 mg/dL. Admission creatinine is 1.48 g/dL, today's creatinine is 1.28, stable. #5 chronic atrial fibrillation/tachybradycardia syndrome: Status post pacemaker. EKG revealed paced rhythm. Heart rate as well as blood pressure stable. continue amiodarone. Patient is not on anticoagulation because of history of cerebral bleed. #7 CAD/chronic systolic CHF/ischemic cardiomyopathy: Clinically stable, no evidence of acute CHF. continue amiodarone. Patient is not on ELEANOR inhibitors because of chronic kidney disease. #8 hypothyroidism: Continue levothyroxine. #9 benign prostatic hypertrophy: Continue Proscar. 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 #11 DVT prophylaxis: SCDs, DC subcu heparin because of thrombocytopenia. This note was generated with [employer] dictation software. It may contain incorrect words, spelling, and punctuation that were not noted in checking the note before signing. Code Visit Inpatient E&M: 93337 Subs Hosp L2
[2018-04-25] MEDS: Glucerna Shake 120 ML LIQUID PO ×4 (09:29→21:37)
[2018-04-25] MEDS: Amiodarone 200 MG Tablet PO (09:29)
[2018-04-25] MEDS: Finasteride 5 MG Tablet PO (09:30)
[2018-04-25] MEDS: Pantoprazole Sodium 40 MG Tablet PO (09:31)
[2018-04-25 12:11] LABS: Bedside Glucose 221 mg/dL (70-110)
--- NOTE | 2018-04-25 13:45 | CASEMGMT ---
SW called patient's . Introduced self and role at [facility]. Patient lives with his and daughter. He has a wheeled walker, cane, grab bars, and a toilet seat riser. Patient's helps him with his medications. She said right now he bathes himself. He does not drive. They use [facility] for their pharmacy. He has had [facility] in the past. She said he was recently at [facility] [place]. They set him up with home health, but somehow their Part B got canceled so she had to pay the back pay. Once that is all worked out he will have home health. She denied any other needs at this time. Plan: Home with family support. Jocy STEINBERG MSW
[2018-04-25 17:46] LABS: Bedside Glucose 277 mg/dL (70-110)
[2018-04-25] MEDS: Donepezil HCl 10 MG Tablet PO (21:37)
[2018-04-25] MEDS: Gabapentin 300 MG Capsule PO (21:37)
[2018-04-25 22:06] LABS: Bedside Glucose 308 mg/dL (70-110)
[2018-04-26 01:05] LABS: Bedside Glucose 303 mg/dL (70-110)
[2018-04-26] MEDS: Insulin Lispro 100 UNIT/ML INSULN.PEN SC ×3 (01:32→12:10)
[2018-04-26 02:00] VITALS: BP 128/74; PULSE 70; RESP 16; TEMP 36.4; O2SAT 95
[2018-04-26 03:24] VITALS: PULSE 70
[2018-04-26] MEDS: Levothyroxine 137 MCG Tablet PO (05:38)
[2018-04-26] MEDS: Piperacil/Tazobactam 3.375 GM/50 ML ML IV (05:39)
[2018-04-26 05:40] VITALS: BP 112/49; PULSE 70; RESP 14; TEMP 36.4; O2SAT 92
[2018-04-26 06:50] VITALS: O2SAT 93
[2018-04-26 07:01] LABS: Bedside Glucose 206 mg/dL (70-110)
[2018-04-26 07:15] LABS: Absolute Lymphocyte Count 0.53 X10^3/ul (0.83-4.51); Basophil# 0.01 X10^3/uL; Basophil% 0.3 % (0-1); Eosinophil# 0.04 X10^3/uL; Eosinophils% 1.4 % (0-5); Hematocrit 40.6 % (40-54); Lymphocyte # 0.53 X10^3/ul (4.0); Lymphocyte % 17.9 % (19-41); Mean Corpuscular Hgb 29.5 pg (27.0-32.0); Mean Corpuscular Volume 92.3 fL (80-94); Monocyte# 0.34 X10^3/uL; Monocyte% 11.5 % (0-10); Neutrophil # 2.02 X10^3/uL (2.7-7.7); Neutrophil % 68.2 % (47-70); Platelet Count 78 K/mm3 (150-450); RBC Distribution Width CV 15.1 % (11.6-14.6); RBC Distribution Width SD 49.7 fl (35.1-43.9)
[2018-04-26 07:16] LABS: Differential Indicated SCAN CRITERIA MET; POSITIVE COUNT NO; POSITIVE DIFFERENTIAL YES; POSITIVE MORPHOLOGY NO
[2018-04-26 07:21] VITALS: PULSE 73
--- NOTE | 2018-04-26 09:30 | DCINST_ITS ---
You will use the following diet at home:: Calorie/Carbohydrate Controlled (specify 1200, 1400, etc) - 1800 karen Your food should be the consistency of: Regular Discharge Activity: Return to Normal Activity Weight Bearing Status: Weight bearing as tolerated Call your doctor if you observe: Fever of 101 or Higher, Shortness of breath, Dizziness, Fainting spells, Chest pain, Increased palpitations (irregular heartbeat), Uncontrolled pain Allergies/Adverse Reactions: Allergies morphine Adverse Reaction (Verified 04/24/18 06:35) hallucinations SODIUM PENTHOL Allergy (Uncoded 04/24/18 06:35) Hives Medications to take at Discharge Gabapentin [Neurontin] 300 mg PO QHS 10/10/15 Omeprazole [Prilosec] 40 mg PO DAILY 10/10/15 Amiodarone HCl [Cordarone] 200 mg PO DAILY@0800 05/07/17 Finasteride [Proscar] 5 mg PO DAILY 12/19/17 Levothyroxine [Synthroid] 137 mcg PO DAILY@0600 12/19/17 Donepezil HCl 10 mg PO QHS 03/01/18 Insulin Glargine [Lantus SoloStar Pen] 7 units SC BID #1 pen 03/05/18 Pioglitazone [Actos] 30 mg PO DAILY 04/24/18 Potassium Chloride [K-Dur] 20 meq PO DAILY 04/24/18 levoFLOXacin tablet [Levaquin tablet] 500 mg PO DAILY #3 tablet 04/26/18 The following prescriptions were given: levoFLOXacin tablet [Levaquin tablet] 500 mg PO DAILY #3 tablet Primary Care Physician: Lai Hsieh Chi, MD [Primary Care Provider] - Please follow up with your Primary Care Physician in: 1 week. Test Results: Test results from this visit will be discussed in further detail at your follow- up appointment, if applicable.
[2018-04-26 10:10] VITALS: BP 98/58; PULSE 69; RESP 16; TEMP 36.4; O2SAT 95
[2018-04-26] MEDS: Glucerna Shake 120 ML LIQUID PO (10:14)
[2018-04-26] MEDS: Amiodarone 200 MG Tablet PO (10:14)
[2018-04-26] MEDS: Pantoprazole Sodium 40 MG Tablet PO (10:15)
[2018-04-26] MEDS: Finasteride 5 MG Tablet PO (10:15)
--- NOTE | 2018-04-26 10:23 | PCM.DC.SUM ---
Discharge Date and Diagnosis Date of Admission: 04/24/18 Date of Discharge: 04/26/18 - Primary Discharge Diagnosis #1 acute severe sepsis, attributed to probable viral URTI. #2 chronic leukopenia/thrombocytopenia. 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) Benign prostate hyperplasia (Chronic) Type 2 diabetes mellitus (Chronic) Dyslipidemia (Chronic) Gastroesophageal reflux disease (Chronic) Hypothyroidism (Chronic) Atrial fibrillation (Chronic) S/P IVC filter (Chronic) Cardiac pacemaker (Chronic) pacemaker implant april 2010 Tachy-aly syndrome (Chronic) S/P PM Cardiomyopathy (Chronic) 45% EF in November of 2014, ischemic S/P atrioventricular piper ablation (Chronic) Carotid artery disease (Chronic) Systolic CHF, chronic (Chronic) HTN (hypertension) (Chronic) Pulmonary HTN (Chronic) PA pressure in November 2014 estimated at 50 Chronic anemia (Chronic) unknown etiology Hospital Course and Treatment Imaging Results: Clinical Impression(s) from Imaging Studies Chest X-Ray 04/24/18 05:48 IMPRESSION: No acute pulmonary findings. Electronically Signed: Jose Real MD at 6:25 EST Tel , Service support , Chest X-Ray 04/25/18 05:55 IMPRESSION: Blunting of the left costophrenic angle with underlying left basilar infiltrate and/or atelectasis. Follow-up is recommended. Electronically Signed: Jonathan Jacobo MD at 9:31 EST Tel [phone], Service support , Operations: None Procedures: None Summary of Care Provided: Patient seen and examined on the day of discharge and appeared to be stable to be discharged home. He remained without any symptoms. His vital signs remained stable and he remained afebrile. The patient is a 82 year old M presented to the emergency room because of fever and chills, found to have findings consistent with acute severe sepsis but there was no obvious source of infection identified. On admission, patient was febrile, tachycardic and he did have leukopenia and his lactic acid was 3.6 on admission. His chest x-ray done on admission and revealed no evidence of acute infiltrate, pneumonia ruled out. Urinalysis revealed no evidence of acute cystitis. Patient denies any symptoms suggestive of infection except fever chills. He had no cough or sputum production. He had no abdominal pain, nausea vomiting and no diarrhea. He denied urinary symptoms. Denies any skin wounds or skin rash. He was treated with empiric IV Levaquin and Zosyn for sepsis. He remained on IV antibiotics for 3 days and he remained afebrile for more than 48 hours. Blood culture showed no growth in 48 hours. Urine culture showed no growth. Respiratory panel for viruses was negative. His vital signs remained stable throughout admission. Chest x-ray repeated and revealed left base atelectasis, no acute infiltrate. With IV fluids, his lactic acid came back down to normal. This acute severe sepsis attributed to probable viral URTI. Patient was evaluated by PT OT and recommended that patient can be discharged home. Patient lives at home with his and he thinks that he can go home and he can take care of himself. Patient discharged home in a stable medical condition, discharged on Levaquin for 3 days more to complete total of 6 days of treatment empirically, continued on his chronic home medications without any changes, recommended follow-up with PCP in 1 week. - Physical Exam General: Alert, Oriented x3, Cooperative, No apparent distress HEENT: Atraumatic, PERRLA, EOMI, Normocephalic Oral: Moist Mucosa, No Gingival or Mucosal Lesions/ Ulcerations Neck: Supple, No JVD, Negative Carotid Bruits, Trachea Midline, Thyroid Normal Size and Texture Lungs: Clear to auscultation, No rhonchi, No wheeze, No rales, Diminished Cardiovascular: Regular rate, Regular Rhythm, Normal S1, Normal S2 Abdomen: Bowel Sounds Present, Soft, Non Tender, Non-Distended, No Hepato-splenomegaly Extremities: No clubbing, No cyanosis, No edema Skin: No rashes, No breakdown Lymphatic: No Cervical, Supraclavicular, or Inguinal Adenopathy Neurological: Cranial nerves II-XII grossly intact, Neuro grossly intact Psych/Mental Status: Normal Affect, Appropriate Vital Signs Temp Pulse Resp BP Pulse Ox 97.6 F L 69 16 98/58 L 95 04/26/18 10:10 04/26/18 10:10 04/26/18 10:10 04/26/18 10:10 04/26/18 10:10 Oxygen Flow Rate (L/min) 2 Oxygen Delivery Method Room Air Weight: 172 lb 2.896 oz Body Mass Index (BMI) 21.7 Finger Stick Blood Glucose 94 Intake and Output for Last 24 Hours 04/24/18 04/25/18 04/26/18 23:59 23:59 23:59 Intake Total 2409 / 2409 975 / 975 165.7 / 165.7 Output Total 875 / 875 600 / 600 600 / 600 Balance 1534 / 1534 375 / 375 -434.3 / -434.3 Microbiology Past 72 Hours 04/24/18 05:55 Blood Culture - Preliminary Blood Culture (Wb) - Anticubital Right No growth in 48 hours. 04/24/18 05:57 Blood Culture - Preliminary Blood Culture (Wb) - Left Forearm No growth in 48 hours. 04/24/18 06:11 Urine Culture - Final Urine Catheter - Catheter Culture exhibits no growth. 04/24/18 07:00 Respiratory Panel (PCR) - Final Mucosa - Nose Laboratory Tests Past 24 Hrs 04/26/18 06:45 WBC 3.0 L RBC 4.40 L Hgb 13.0 Hct 40.6 MCV 92.3 MCH 29.5 MCHC 32.0 RDW 15.1 H RDW Differential 49.7 H Plt Count 78 L MPV 12.0 Immature Gran % (Auto) 0.700 Neut % (Auto) 68.2 Lymph % (Auto) 17.9 L [place] % (Auto) 11.5 H Eos % (Auto) 1.4 Baso % (Auto) 0.3 Absolute Neuts (auto) 2.0 Absolute Lymphs (auto) 0.53 L Total Counted Not Reportable POC Glucose 04/26/18 04/26/18 04/25/18 05:35 00:35 21:25 POC Glucose 206 H 303 H 308 H 04/25/18 04/25/18 17:28 11:57 POC Glucose 277 H 221 H Discharge Activity: Return to Normal Activity Weight Bearing Status: Weight bearing as tolerated Call your doctor if you observe: Fever of 101 or Higher, Shortness of breath, Dizziness, Fainting spells, Chest pain, Increased palpitations (irregular heartbeat), Uncontrolled pain Home Medications: Medications to take at Discharge Gabapentin [Neurontin] 300 mg PO QHS 10/10/15 Omeprazole [Prilosec] 40 mg PO DAILY 10/10/15 Amiodarone HCl [Cordarone] 200 mg PO DAILY@0800 05/07/17 Finasteride [Proscar] 5 mg PO DAILY 12/19/17 Levothyroxine [Synthroid] 137 mcg PO DAILY@0612/19/17 Donepezil HCl 10 mg PO QHS 03/01/18 Insulin Glargine [Lantus SoloStar Pen] 7 units SC BID #1 pen 03/05/18 Pioglitazone [Actos] 30 mg PO DAILY 04/24/18 Potassium Chloride [K-Dur] 20 meq PO DAILY 04/24/18 levoFLOXacin tablet [Levaquin tablet] 500 mg PO DAILY #3 tablet 04/26/18 Following Prescrptions Were Given to Patient: levoFLOXacin tablet [Levaquin tablet] 500 mg PO DAILY #3 tablet Primary Care Physician: Lai Hsieh Chi, MD [Primary Care Provider] - Please follow up with your Primary Care Physician in: 1 week. Please Follow Up With: Lai Hsieh Chi, MD When: 1 Week Disposition: Home Minutes spent on discharge:: 26 Patient Condition:: Stable Medical Necessity - Tobacco Use Smoking Status: Former smoker Meaningful Use Info Meaningful Use Diagnoses (Choose all that apply): None applicable Code Visit Inpatient E&M: 46297 Disch Hosp
[2018-04-26 12:15] LABS: Bedside Glucose 324 mg/dL (70-110)
--- NOTE | 2018-04-26 14:06 | CASEMGMT ---
STANISLAW spoke with patient's per her request. She wanted home health set up, but she wondered if her insurance will pay for it. STANISLAW told her their Medicare will pay for home health. She was okay with [facility] [place]. STANISLAW told her Sw will work on this. STANISLAW called Kylie at [facility] [place] and they will get in contact with patient's . STANISLAW let patient's know before she left. Plan: [facility] [place] usp, PT, and OT. Jocy STEINBERG MSW
--- NOTE | 2018-04-29 15:34 | CASEMGMT ---
ALICIA DAY Discharge follow-up phone call. LACE: 12 STRATA: 4 Discharge Date: 04-26-18 Adm Dx: Severe Sepsis. ALICIA DAY spoke with pt's , Sophie, d/t pt has dementia. Sophie states pt has been doing well since returning home. She states HHC just left from their home and that they stated, everything looks good. Sophie states she was able to picking supervisor the Levaquin and that pt took the last dose today. She states Dr Hsieh's office called her today and scheduled an appt for pt for next 05-06. Sophie denies having any questions or concerns and states she feels pt is doing really well. Reji HURLEY RN, CM
== END 2018-04-26 14:10 | disposition home health service (06) | DRG 872 ==
LOC: ED 06:34 → PCU 07:28
PROVIDERS: Admitting Provider Hospitalist; Emergency Provider Emergency Medicine; Family Provider Family Medicine Geriatric Medicine; PCP Family Medicine Geriatric Medicine; Visit Provider Hospitalist
DX: A41.89 Other specified sepsis (principal); I13.0 Hypertensive heart and chronic kidney disease with heart failure and stage 1 through stage 4 chronic kidney disease, or unspecified chronic kidney disease; I50.22 Chronic systolic (congestive) heart failure; J98.11 Atelectasis; E11.22 Type 2 diabetes mellitus with diabetic chronic kidney disease; R65.20 Severe sepsis without septic shock; J06.9 Acute upper respiratory infection, unspecified; B97.89 Other viral agents as the cause of diseases classified elsewhere; N40.0 Benign prostatic hyperplasia without lower urinary tract symptoms; D69.6 Thrombocytopenia, unspecified; D72.819 Decreased white blood cell count, unspecified; E03.9 Hypothyroidism, unspecified; I25.5 Ischemic cardiomyopathy; N18.3 Chronic kidney disease, stage 3 (moderate); I27.20 Pulmonary hypertension, unspecified; K21.9 Gastro-esophageal reflux disease without esophagitis; Z95.0 Presence of cardiac pacemaker; Z86.718 Personal history of other venous thrombosis and embolism; Z87.891 Personal history of nicotine dependence; Z79.899 Other long term (current) drug therapy; Z79.4 Long term (current) use of insulin; I48.2 Chronic atrial fibrillation; E78.5 Hyperlipidemia, unspecified
CPT/HCPCS: 36415; 51702; 71045; 80048; 80053; 81001; 82962; 83605; 85025; 85610; 85730; 87040; 87086; 87633; 87641; 93005; 94762; 97162; 97165; 97530; 99285; J7030; A4216

== ENCOUNTER 2018-05-25 16:05 | Emergency (ER) | payer MEDICARE, SELFPAY ==
[2018-05-25 16:06] VITALS: BP 114/69; PULSE 88; RESP 20; TEMP 36.5; O2SAT 94; BMI 20.9
[2018-05-25 16:34] VITALS: BP 132/82; PULSE 70; RESP 14; RESP 17; TEMP 36.4; O2SAT 99
--- NOTE | 2018-05-25 16:38 | CT_ITS ---
STUDY: CT BRAIN WITHOUT CONTRAST REASON FOR EXAM: Male, 82 years old. Confusion, history of prior intracranial hemorrhage RADIATION DOSAGE (If Supplied By Facility): CTDIvol = ( 44.99 ) mGy, DLP = ( 866.41 ) mGycm TECHNIQUE: Transaxial CT imaging of the brain was performed without administration of intravenous contrast material. Individualized dose optimization techniques were used for this CT. COMPARISON: 03/01/2018 FINDINGS: Normal soft tissue structures. Operative changes of the bilateral calvarium noted. There is moderate cerebral atrophy with widening of the extra-axial spaces and ventricular dilatation. There are areas of decreased attenuation within the white matter tracts of the supratentorial brain (left more than right), consistent with microvascular disease changes. 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 Normal brainstem. Normal cerebellum. There is no intracranial hemorrhage. There are no findings of an acute ischemic infarction. There is mucoperiosteal inflammatory disease of the left maxillary sinus consistent with moderate chronic sinusitis. CT/Brain/Head without Contrast IMPRESSION: 1. No acute intracranial hemorrhage or mass effect. 2. Central parenchymal volume loss. White matter changes that are nonspecific but most commonly associated with chronic small vessel ischemic disease. 3. Prior craniotomy, particles. 4. New but chronic appearing left maxillary sinusitis. 5. Old ischemic changes of the left MCA territory and caudate head. Electronically Signed: Landon Pat MD at 18:36 EST , Service support ,
--- NOTE | 2018-05-25 16:38 | EKG12_ITS ---
Test Reason : CONFUSION Blood Pressure : / mmHG Vent. Rate : 074 BPM Atrial Rate : 074 BPM P-R Int : 000 ms QRS Dur : 170 ms QT Int : 472 ms P-R-T Axes : 098 264 078 degrees QTc Int : 523 ms Ventricular-paced rhythm Abnormal ECG Confirmed by KADEEM PONCE, POLO ([id number]), metropolitan editor JAYLON WATSON ([id number]) on 05/29/2018 3:32:51 PM Referred By: Confirmed By:POLO QUAN MD
--- NOTE | 2018-05-25 16:39 | RAD_ITS ---
STUDY: X-RAY CHEST REASON FOR EXAM: Male, 82 years old. Increasing confusion with possible UTI TECHNIQUE: AP COMPARISON: 04/25/2018 FINDINGS: Two lead cardiac conduction device is seen via the left subclavian vein with lead tips projecting over the right atrium and right ventricle, respectively. Fibrotic changes of the right lung base stable. Opacity in left lung base evident on the prior study is no longer identified. There is no demonstrated pleural abnormality. There is mild cardiac enlargement. Normal mediastinum and ava. Normal visualized pulmonary arteries. There is atherosclerotic calcification of the aortic arch with tortuosity. There is demineralization of the osseous structures. There are old right rib fractures. There is no demonstrated abnormality of the visualized soft tissue structures of the upper abdomen. RAD/Chest 1 View (Portable) IMPRESSION: 1. Resolution of left lower lobe infiltrate seen previously. 2. No airspace consolidation or pleural effusion. 3. Chronic changes, as above. Electronically Signed: Landon Pat MD at 17:13 EST , Service support ,
--- NOTE | 2018-05-25 16:41 | ED.VISSUMM ---
- ER Visit Summary Date of Service: 05/25/18 Chief Complaint: Confusion History of Present Illness: The patient is a 82 M presenting with confusion since last night. Patient's family states that this started last night. He keeps telling a story that he was at the races. Family states he tells the story repeatedly. He has a history of mild dementia but family states that this is worse than usual. He has had diarrhea x2. He denies other complaints. Remote history of head bleed. He is not on anticoagulants. Family is concerned about possibility of UTI. Physical Examination: Vitals are stable. Patient is afebrile. Alert no acute distress. HEENT exam is unremarkable. Neck is supple. No meningismus Lungs are clear and equal bilaterally. Heart is regular rate and rhythm. Abdomen is soft nontender nondistended. Extremities are unremarkable. Skin is warm and dry. No focal neurologic deficit. Alert and oriented x2 Remainder of exam is unremarkable. Emergency Department Course and Treatment: EKG is paced at rate of 74. White count is 3.6, platelet 76; this is at his baseline. Sodium 135, glucose 267, creatinine 1.32. Urinalysis positive for glucose, negative ketones. Troponin is negative. Chest x-ray showed chronic changes. CT head shows chronic changes. Discussed with the daughter. Patient does not wish to be admitted to the hospital. The daughter stays with him at home. She is comfortable with discharge at this time. She will watch him closely and follow-up with primary care physician. Advised return to ED for any worsening complaints. Disposition: Discharge home Impression: Confusion, history of dementia This note was generated with [employer] dictation software. It may contain incorrect words, spelling, and punctuation that were not noted in review of the chart prior to signing ED Disposition - Plan for ED Patient: Chief Complaint: Confusion Instructions: ED Confusion Referrals: Lai Hsieh Chi, MD [Primary Care Provider] -
[2018-05-25 17:00] VITALS: BP 106/56; PULSE 88; RESP 18; TEMP 36.6
[2018-05-25 17:12] LABS: Absolute Lymphocyte Count 0.45 X10^3/ul (0.83-4.51); Absolute Neutrophil Count 2.6 X10^3/uL (2.0-7.7); Basophil# 0.01 X10^3/uL; Basophil% 0.3 % (0-1); Differential Indicated SCAN CRITERIA MET; Eosinophil# 0.02 X10^3/uL; Eosinophils% 0.5 % (0-5); Hematocrit 43.8 % (40-54); Lymphocyte # 0.45 X10^3/ul (4.0); Lymphocyte % 12.4 % (19-41); Mean Corpuscular Hgb 29.4 pg (27.0-32.0); Mean Corpuscular Volume 91.8 fL (80-94); Mean Platelet Vol. 11.8 fl (6.2-12.0); Monocyte# 0.55 X10^3/uL; Monocyte% 15.1 % (0-10); Neutrophil # 2.61 X10^3/uL (2.7-7.7); Neutrophil % 71.7 % (47-70); POSITIVE COUNT NO; POSITIVE DIFFERENTIAL YES; POSITIVE MORPHOLOGY NO; Platelet Count 76 K/mm3 (150-450); RBC Distribution Width CV 14.4 % (11.6-14.6); RBC Distribution Width SD 48.3 fl (35.1-43.9); Red Blood Count 4.77 M/mm3 (4.6-6.2); White Blood Count 3.6 K/mm3 (4.4-11.0)
[2018-05-25 17:20] LABS: Bacteria 0 SEEN /hpf (None Seen); Mucous, Urine 0 SEEN /hpf (<or=2+); Red Blood Cells-Urine 0 SEEN /hpf (0-5); Squamous Epithelial Cells - UA 0 SEEN /hpf (0-5)
[2018-05-25 17:25] LABS: Color, Urine Yellow (Yellow); Glucose, Dipstick 1000 mg/dl (Normal); Ketone-Dipstick Negative (Negative); Leukocyte Esterase-Dipstick Negative /ul (Negative); Nitrite-Dipstick Negative (Negative); Occult Blood-Urine Negative /ul (Negative); Protein-Dipstick Negative (Negative); Urine Bilirubin Dipstick Negative (Negative); Urine Clarity Clear (Clear); Urine Urobilinogen Normal (Normal)
[2018-05-25 17:27] LABS: Anion Gap 7 (5-15); BUN 11 mg/dL (7-18); BUN/Creat Ratio 8.3 RATIO (10-20); Calcium,Total 8.6 mg/dL (8.5-10.1); Chloride 97 mmol/L (98-107); Creatinine, Serum 1.32 mg/dL (0.70-1.30); EST Glomerular Filtration Rate 55 mL/min (>60); Est Glom Filt Rate - Afr Amer 67 mL/min (>60); Estimated Creatinine Clearance 44.34 ml/min; Glucose 267 mg/dL (74-106); Potassium 3.5 mmol/L (3.5-5.1); Sodium Level 135 mmol/L (136-145)
[2018-05-25 17:45] LABS: Transitional Epithelial - Ur 0-5 SEEN /hpf (0-5); White Blood Cells 0-5 SEEN /hpf (0-5); Yeast-Urine RARE /hpf (None Seen)
[2018-05-25 17:53] LABS: Anisocytosis RARE; Macrocytosis RARE; Platelet Estimate MOD DEC (ADEQ)
[2018-05-25 18:00] VITALS: BP 126/70; PULSE 70; RESP 18; TEMP 36.4
[2018-05-25 18:11] VITALS: BP 126/70; PULSE 70; RESP 16; O2SAT 96
--- NOTE | 2018-05-25 19:00 | ED.DEP ---
ED Disposition - Plan for ED Patient: Chief Complaint: Confusion Instructions: ED Confusion Referrals: Lai Hsieh Chi, MD [Primary Care Provider] -
[2018-05-25 19:25] VITALS: BP 138/83; PULSE 69; RESP 18; O2SAT 96
--- OUTSIDE RECORDS SUMMARY | 2018-08-28 12:01 | XMS RPT_ITS ---
:1935 Author Organization OHIP Support Name Relationship Address Phone ARRIETAMAURICIO JONES Unavailable [address] + [place] [address] BIANCA ARRIETA Unavailable Unavailable + [place] [address] R Unavailable Unavailable Unavailable MAUREEN ARRIETACY Unavailable [address] + [place] [address] BIANCA ARRIETA Unavailable Unavailable + [place] [address] R Unavailable Unavailable Unavailable MAURICIO ARRIETA Unavailable [address] + [place] [address] BIANCA ARRIETA Unavailable Unavailable + [place] [address] R Unavailable Unavailable Unavailable MEENAKSHI, MAURICIO Unavailable [address] + [place] [address] BIANCA ARRIETA Unavailable Unavailable + [place] [address] R Unavailable Unavailable Unavailable MAUREEN ARRIETACY Unavailable [address] + [place] [address] BIANCA ARRIETA Unavailable Unavailable + [place] [address] R Unavailable Unavailable Unavailable Maureen Arrietacy Unavailable [address] + [place] [address] Bianca Arrieta Unavailable . + [place] [address] R Unavailable Unavailable Unavailable Maureen Arrietacy Unavailable [address] + [place] [address] Bianca Arrieta Unavailable . + [place] [address] R Unavailable Unavailable Unavailable Maureen Arrietacy Unavailable [address] + [place] [address] Bianca Arrieta Unavailable Unavailable + [place] [address] R Unavailable Unavailable Unavailable Arrieta, Mauricio Unavailable [address] + [place] [address] Bianca Arrieta Unavailable Unavailable + [place] [address] R Unavailable Unavailable Unavailable ARRIETA, MAURICIO Unavailable [address] + [place] [address] BIANCA ARRIETA Unavailable Unavailable + [place] [address] R Unavailable Unavailable Unavailable ARRIETA, MAURICIO Unavailable [address] + [place] [address] BIANCA ARRIETA Unavailable 1 + [place] [address] R Unavailable Unavailable Unavailable ARRIETA, MAURICIO Unavailable [address] + [place] [address] BIANCA ARRIETA Unavailable 1 + [place] [address] R Unavailable Unavailable Unavailable ARRIETA, MAURICIO Unavailable [address] + [place] [address] BIANCA ARRIETA Unavailable 1 + [place] [address] R Unavailable Unavailable Unavailable ARRIETA, MAURICIO Unavailable [address] + [place] [address] BIANCA ARRIETA Unavailable 1 + [place] [address] R Unavailable Unavailable Unavailable ARRIETA, MAURICIO Unavailable [address] + [place] [address] BIANCA ARRIETA Unavailable Unavailable + [place] [address] R Unavailable Unavailable Unavailable ARRIETA, MAURICIO Unavailable [address] + [place] [address] R Unavailable Unavailable Unavailable R Unavailable Unavailable Unavailable R Unavailable Unavailable Unavailable R Unavailable Unavailable Unavailable R Unavailable Unavailable Unavailable ARRIETA, MAURICIO Unavailable [address] [phone] [place] [address] R Unavailable Unavailable Unavailable ARRIETA, MAURICIO Unavailable [address] [phone] [place] [address] R Unavailable Unavailable Unavailable ARRIETA, MAURICIO Unavailable [address] [phone] [place] [address] R Unavailable Unavailable Unavailable Care Team Providers Name Role Phone AFIA SCOTT Attending Unavailable MEFFLEY, VANESA (OD) Attending Unavailable JORI, LAI CHI Referring Unavailable BABIUCH, AFIA Attending Unavailable MEFVANESA PATEL (OD) Referring Unavailable BABIUCH, AFIA Attending Unavailable BABIUCH, AFIA Referring Unavailable BABIUCH, AFIA Attending Unavailable BABIUCH, AFIA Referring Unavailable Jori, Lai Chi Primary Care Unavailable Angy Ramos Attending Unavailable Jori, Lai Chi Attending Unavailable Jori, Lai Chi Primary Care Unavailable Vani Norris Attending Unavailable Jori, Ali Chi Referring Unavailable Jori, Lai Chi Primary Care Unavailable Jori, Lai Chi Attending Unavailable Jori, Lai Chi Primary Care Unavailable Ashelfah, Ghasem Admitting Unavailable Ashelfah, Ghasem Attending Unavailable Jori, Lai Chi Primary Care Unavailable Ashelfah, Ghasem Consulting Unavailable Ashelfah, Ghasem Admitting Unavailable Ashelfah, Ghasem Attending Unavailable Jori, Lai Chi Primary Care Unavailable Ashelfah, Ghasem Consulting Unavailable Ashelfah, Ghasem Admitting Unavailable Ashelfah, Ghasem Attending Unavailable Jori, Lai Chi Primary Care Unavailable Ashelfah, Ghasem Consulting Unavailable Jori, Lai Chi Primary Care Unavailable Ashelfah, Ghasem Admitting Unavailable Ashelfah, Ghasem Attending Unavailable Jamir Monreal Attending Unavailable Jamir Monreal Attending Unavailable Paintsil, Fre[place] Admitting Unavailable Jori, Lai Chi Primary Care Unavailable Pedrito Islas Consulting Unavailable Pedrito Islas Attending Unavailable Paintsil, [place] Admitting Unavailable Jori, Lai Chi Primary Care Unavailable Pedrito Islas Consulting Unavailable Pedrito Islas Attending Unavailable Paintsil, [place] Admitting Unavailable Paintsil, [place] Attending Unavailable Jori, Lai Chi Primary Care Unavailable Paintsil, [place] Consulting Unavailable Paintsil, [place] Admitting Unavailable Paintsil, [place] Attending Unavailable Jori, Lai Chi Primary Care Unavailable Paintsil, [place] Consulting Unavailable Paintsil, [place] Admitting Unavailable Paintsil, [place] Attending Unavailable Jori, Ali Chi Primary Care Unavailable Paintsil, [place] Consulting Unavailable Ojri, Lai Chi Primary Care Unavailable Paintsil, [place] Admitting Unavailable Pedrito Islas Attending Unavailable Vani Norris Attending Unavailable Jori, Lai Chi Referring Unavailable Jori, Lai Chi Primary Care Unavailable Jori, Lai Chi Primary Care Unavailable Trey Hess Attending Unavailable Roof, Karl Suh Attending Unavailable Jori, Lai Chi Referring Unavailable Jori, Lai Chi Primary Care Unavailable Quiana Sneed Attending Unavailable Jori, Lai Chi Attending Unavailable Jori, Lai Chi Primary Care Unavailable Jori, Lai Chi Attending Unavailable Jori, Lai Chi Primary Care Unavailable PROBLEMS PROBLEMS DATE TYPE CONDITION / CODE ATTENDING STATUS SOURCE 06/05/2018 Unknown A41.9 - Sepsis, Ashelfah, Active [place] unspecified organism / [facility] Community A41.9(ICD-10) Hospital Repository 02/27/2018 Unknown Z95.0 - Presence of Vani Norris Active [place] cardiac pacemaker / Community Z95.0(ICD-10) Hospital Repository 02/27/2018 Unknown I48.1 - Persistent MyrnaVani Active [place] atrial fibrillation / Community I48.1(ICD-10) Hospital Repository 02/27/2018 Unknown 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 / Community I49.5(ICD-10) Hospital Repository 02/27/2018 Unknown I42.9 - MyrnaVani Active [place] Cardiomyopathy, Community unspecified / Hospital I42.9(ICD-10) Repository 02/27/2018 Unknown Z98.890 - Other MyrnaVani Active [place] specified Community postprocedural states Hospital / Z98.890(ICD-10) Repository 02/27/2018 Unknown I50.22 - Chronic MyrnaVani Active [place] systolic (congestive) Community heart failure / Hospital I50.22(ICD-10) Repository 02/08/2018 Unknown E11.9 - Type 2 Jori, Lai Chi Active [place] diabetes mellitus Community without complications Hospital / E11.9(ICD-10) Repository 02/08/2018 Unknown E55.9 - Vitamin D Jori, Lai Chi Active [place] deficiency, Community unspecified / Hospital E55.9(ICD-10) Repository 02/08/2018 Unknown I10 - Essential Jori, Lai Chi Active [place] (primary) hypertension Community / I10(ICD-10) Hospital Repository 11/16/2016 Active Type 2 diabetes AFIA SCOTT Active [place] mellitus with mild Clinic Main nonproliferative [place] diabetic retinopathy Repository without macular edema, bilateral / E11.3293(ICD-10) 11/16/2016 Active [facility] (current) AFIA SCOTT Active [place] use of insulin / Clinic [facility] Z79.4(ICD-10) [place] Repository 08/14/2017 Unknown J40 - Bronchitis, not Jori, Lai Chi Active [place] specified as acute or Community chronic / J40(ICD-10) Hospital Repository 02/21/2017 Active [place] 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, left eye, Clinic Main with macular edema / [place] H34.8120(ICD-10) Repository 12/30/2016 Active Presence of AFIA SCOTT Active [place] intraocular lens / Clinic Main Z96.1(ICD-10) [place] Repository PROCEDURES PROCEDURES No Procedure Records FoundRESULTS RESULTS 12 LEAD ELECTROCARDIOGRAM Observed: 05/29/2018 Status: F Source: [place] 3:33 PM [facility] [place] [facility] Cardiovascular Services [address] [place] [address] 12 Lead EKG 05/25/18 1648 MR#: [id number] Acct: [id number] Name: BIANCA ARRIETA Rep #: [id number] : 1935 82 From: Joe Harrison MD Attending Dr: Status: DEP ER Ordering Dr: Angy Ramos MD Date: 05/25/18 Location: ED Sex: M C Admitted: Test Reason : CONFUSION Blood Pressure : / mmHG Vent. Rate : 074 BPM Atrial Rate : 074 BPM P-R Int : 000 ms QRS Dur : 170 ms QT Int : 472 ms P-R-T Axes : 098 264 078 degrees QTc Int : 523 ms Ventricular-paced rhythm Abnormal ECG Confirmed by JOE HARRISON MD ([id number]), news video editor JAYLON WATSON ([id number]) on 05/29/2018 3:32:51 PM Referred By: Confirmed By:JOE HARRISON MD 05/29/18 1532 Date Joe Harrison MD CC: Angy Ramos MD; Lai Hsieh MD Signed EMERGENCY DEPARTMENT Observed: 05/25/2018 Status: F Source: [place] SUMMARY 7:05 PM [facility] [place] [facility] Medical Records Department [address] [place] [address] Emergency Department Summary 05/25/18 1641 MR#: [id number] Acct: [id number] Name: BIANCA ARRIETA Rep #: [id number] : 1935 82 From: Angy Ramos MD PCP: Lai Hsieh MD, Chi Status: REG ER - ER Visit Summary Date of Service: 05/25/18 Chief Complaint: Confusion History of Present Illness: The patient is a 82 M presenting with confusion since last night. Patient's family states that this started last night. He keeps telling a story that he was at the [facility]. Family states he tells the story repeatedly. He has a history of mild dementia but family states that this is worse than usual. He has had diarrhea x2. He denies other complaints. Remote history of head bleed. He is not on anticoagulants. Family is concerned about possibility of UTI. Physical Examination: Vitals are stable. Patient is afebrile. Alert no acute distress. HEENT exam is unremarkable. Neck is supple. No meningismus Lungs are clear and equal bilaterally. Heart is regular rate and rhythm. Abdomen is soft nontender nondistended. Extremities are unremarkable. Skin is warm and dry. No focal neurologic deficit. Alert and oriented x2 Remainder of exam is unremarkable. Emergency Department Course and Treatment: EKG is paced at rate of 74. White count is 3.6, platelet 76; this is at his baseline. Sodium 135, glucose 267, creatinine 1.32. Urinalysis positive for glucose, negative ketones. Troponin is negative. Chest x-ray showed chronic changes. CT head shows chronic changes. Discussed with the daughter. Patient does not wish to be admitted to the hospital. The daughter stays with him at home. She is comfortable with discharge at this time. She will watch him closely and follow- up with primary care physician. Advised return to ED for any worsening complaints. Disposition: Discharge home Impression: Confusion, history of dementia This note was generated with Smaile[employer] dictation software. It may contain incorrect words, spelling, and punctuation that were not noted in review of the chart prior to signing ED Disposition - Plan for ED Patient: Chief Complaint: Confusion Instructions: ED Confusion Referrals: Lai Hsieh Chi, MD [Primary Care Provider] - What to do if you have Problems For any increased pain, shortness of breath, bleeding, nausea or vomiting, chest pain, or any unexpected problems, contact your Primary Care Provider. Call [facility] ([phone]) or report to the closest Emergency Room. Call 911 if necessary. 05/25/181904 <Electronically signed by Angy Ramos MD> Date Angy Ramos MD Cosigner Signature (If Indicated): Date CC: Lai Hsieh MD DISCHARGE INSTRUCTION Observed: 05/25/2018 Status: F Source: [place] 7:00 PM [facility] [place] [facility] Medical Records Department [address] [place] [address] [place] [address] Discharge Instruction 05/25/181899 MR#: [id number] Acct: [id number] Name: BIANCA ARRIETA Rep #: [id number] : 1935 82 From: Angy Ramos MD PCP: Lai Hsieh MD, Chi Status: REG ER ED Disposition - Plan for ED Patient: Chief Complaint: Confusion Instructions: ED Confusion Referrals: Lai Hsieh Chi, MD [Primary Care Provider] - What to do if you have Problems For any increased pain, shortness of breath, bleeding, nausea or vomiting, chest pain, or any unexpected problems, contact your Primary Care Provider. Call [facility] ([phone]) or report to the closest Emergency Room. Call 911 if necessary. 05/25/181899 <Electronically signed by Angy Ramos MD> Date Angy Ramos MD Cosigner Signature (If Indicated): Date CC: Lai Hsieh MD URINALYSIS, COMPLETE Collected: 05/25/2018 Status: F Source: [place] 5:15 PM [facility] [place] Order Comment: Has pt arrived? Y How was Urine Obtained? CATHETER SPECIMEN TYPE CODE TESTS RESULT OUT OF REFERENCE UNITS RANGE LAB L400.3000 Yellow COLOR Normal Yellow LAB L400.3050 Clear CLARITY Normal Clear LAB L400.3200 Normal mg/dl GLUCOSE, UR High 1000 LAB L400.3300 Negative mg/dL BILIRUBIN Normal URINE Negative LAB L400.3400 Negative mg/dl KETONE UR Normal Negative LAB L400.3465 1.002-1.030 SP.GR. Normal DIPSTX 1.010 LAB L400.3550 5.0 - 8.0 pH UR Normal 5.0 LAB L400.3600 Negative mg/dl PROT DIPSTX Normal Negative LAB L400.3700 Normal mg/dl UROBILI Normal Normal LAB L400.3750 Negative NITRITE UR Normal Negative LAB L400.3780 Negative /ul OCCULT Normal BLOOD-UR Negative LAB L400.3800 Negative /ul LEUK Normal ESTERASE Negative LAB L400.4050 0-5 /hpf WBC Normal 0-5 SEEN LAB L400.4100 0-5 /hpf RBC-UA Normal 0 SEEN LAB L400.4150 0-5 /hpf SQUAM EPI Normal 0 SEEN LAB L400.4300 None Seen /hpf BACTERIA Normal 0 SEEN LAB L400.4350 <or=2+ /hpf MUCUS, Normal URINE 0 SEEN LAB L400.4200 0-5 /hpf Normal TRANSITIONAL EP 0-5 SEEN LAB L400.5200 None Seen /hpf YEAST-URINE Normal RARE Performed By: #### L400.0001 #### [facility] [address] [place], [address] CBC W/DIFF, AUTOMATED Collected: 05/25/2018 Status: F Source: [place] 4:50 PM [facility] [place] TYPE CODE TESTS RESULT OUT OF RANGE REFERENCE UNITS LAB L100.1000 4.4-11.0 K/mm3 Low WBC 3.6 LAB L100.1200 4.6-6.2 M/mm3 Normal RBC 4.77 LAB L100.1300 13.0-16.5 g/dl Normal HGB 14.0 LAB L100.1400 40-54 % Normal HCT 43.8 LAB L100.1500 80-94 fL Normal MCV 91.8 LAB L100.1600 27.0-32.0 pg Normal MCH 29.4 LAB L100.1700 32-36 g/gl Normal MCHC 32.0 LAB L100.1810 11.6-14.6 % Normal RDW CV 14.4 LAB L100.1820 35.1-43.9 fl High RDW SD 48.3 LAB L100.1900 150-450 K/mm3 Low PLT 76 LAB L100.2000 6.2-12.0 fl Normal MPV 11.8 LAB L100.2100 47-70 % High NEUT% 71.7 LAB L100.2200 19-41 % Low LY% 12.4 LAB L100.2300 0-10 % High MONO% 15.1 LAB L100.2400 0-5 % Normal EO% 0.5 LAB L100.2500 0-1 % Normal BASO% 0.3 LAB L100.2550 0.0-0.9 % Normal IM GRAN % 0.000 Result Comment: IG% - Immature Granulocytes (promyelocytes, myelocytes and metamyelocytes) > 1% indicates that a LEFT SHIFT is Present. LAB L100.2620 2.0-7.7 X10 3/uL Normal Absolute Neut 2.6 LAB L100.2720 0.83-4.51 X10 3/ul Low Absolute Lymph 0.45 LAB L100.4500 Normal SMEAR COMMENT SEE COMMENT Result Comment: LYMPHOPENIA NOTED LAB L100.5500 ADEQ Normal PLT EST MOD DEC LAB L100.7300 Normal ANISO RARE LAB L100.7800 Normal MACROCYTE RARE Performed By: #### L100.0100 #### [facility] [address] [place], [place], [address] BASIC METABOLIC Collected: 05/25/2018 Status: F Source: [place] PROFILE ([facility]) 4:50 PM [facility] [place] TYPE CODE TESTS RESULT OUT OF RANGE REFERENCE UNITS LAB L501.0100 74-106 mg/dL High GLU 267 Result Comment: Glucose result greater than or equal to 200 mg/dL suggests DIABETES MELLITUS per A.D.A. criteria. Please note revised GLUCOSE reference range effective 2017. LAB L501.1000 7-18 mg/dL Normal BUN 11 LAB L501.1100 0.70-1.30 mg/dL High CREAT,SERUM 1.32 Result Comment: The validity of the calculated GFR AND GFRAA in patients over 70 years has not been determined. Clinical correlation is essential. LAB L501.1110 >60 mL/min Low EST GFR 55 Result Comment: Non- GFR Calc LAB L501.1115 >60 mL/min Normal EST GFR - AA 67 Result Comment: GFR Calc LAB L501.1255 ml/min Normal Estimated CRCL 44.34 LAB L501.1300 10-20 RATIO Low BUN/CRE 8.3 LAB L501.2200 8.5-10 mg/dL Normal .1 CA 8.6 LAB L501.5300 136-14 mmol/L Low 5 NA 135 LAB L501.5600 3.5-5. mmol/L Normal 1 K 3.5 LAB L501.5900 98-107 mmol/L Low CL 97 LAB L501.6100 21.0-3 mmol/L Normal 2.0 CO2 31.0 LAB L501.6200 5-15 Normal GAP 7 Performed By: #### L500.2500, L501.4010 #### [facility] [address] [facility] [place], [address] TROPONIN-I Collected: 05/25/2018 Status: F Source: [place] 4:50 PM [facility] [place] TYPE CODE TESTS RESULT OUT OF RANGE REFERENCE UNITS LAB L501.4010 <0.045 ng/mL Normal < 0.015 TROPONIN-I Result Comment: TROPONIN-I EXPECTED VALUES <0.045 Negative 0.045 - 0.590 Consistent with Cardiac Damage > OR = 0.600 Critical Value Not every elevated troponin is indicative of NM. These values should be used with clinical judgement in examining the patient's clinical picture for diagnosis. To establish a diagnosis of NM versus myocardial injury, there must be a demonstrated rise and/or fall in the troponin values, in addition to ischemic symptoms, EKG changes, new regional wall motion abnormality, and/or angiographical evidence. PLEASE NOTE: REFERENCE RANGES EDITED 17 Performed By: #### L500.2500, L501.4010 #### [facility] [address] [place], [address] CHEST 1 VIEW Observed: 05/25/2018 Status: F Source: [place] (PORTABLE) 4:39 PM [facility] [place] [facility] Imaging Services [address] [place] [address] Chest 1 View (Portable) MR#: [id number] Acct: [id number] Name: BIANCA ARRIETA Rep #: [id number] : 1935 82 From: Landon Pat MD PCP: Lai Hsieh MD, Chi Status: PRE ER Study: Chest 1 View (Portable) Date of Exam: 05/25/18 Exam# [id number] Ordering Dr: Angy Ramos MD STUDY: X-RAY CHEST REASON FOR EXAM: Male, 82 years old. Increasing confusion with possible UTI TECHNIQUE: AP COMPARISON: 04/25/2018 FINDINGS: Two lead cardiac conduction device is seen via the left subclavian vein with lead tips projecting over the right atrium and right ventricle, respectively. Fibrotic changes of the right lung base stable. Opacity in left lung base evident on the prior study is no longer identified. There is no demonstrated pleural abnormality. There is mild cardiac enlargement. Normal mediastinum and ava. Normal visualized pulmonary arteries. There is atherosclerotic calcification of the aortic arch with tortuosity. There is demineralization of the osseous structures. There are old right rib fractures. There is no demonstrated abnormality of the visualized soft tissue structures of the upper abdomen. RAD/Chest 1 View (Portable) IMPRESSION: 1. Resolution of left lower lobe infiltrate seen previously. 2. No airspace consolidation or pleural effusion. 3. Chronic changes, as above. Electronically Signed: Landon Pat MD at 17:13 EST , Service support , CC: Angy Ramos MD; Lai Hsieh MD Operations Manager Station: Signed BRAIN/HEAD WITHOUT Observed: 05/25/2018 Status: F Source: [place] CONTRAST 4:39 PM [facility] [place] [facility] Imaging Services [address] [place] [address] Brain/Head without Contrast MR#: [id number] Acct: [id number] Name: BIANCA ARRIETA Rep #: [id number] : 1935 M 82 From: Landon Pat MD PCP: Lai Hsieh MD, Chi Status: REG ER Study: Brain/Head without Contrast Date of Exam: 05/25/18 Exam# [id number] Ordering Dr: Angy Ramso MD STUDY: CT BRAIN WITHOUT CONTRAST REASON FOR EXAM: Male, 82 years old. Confusion, history of prior intracranial hemorrhage RADIATION DOSAGE (If Supplied By Facility): CTDIvol = ( 44.99 ) mGy, DLP = ( 866.41 ) mGycm TECHNIQUE: Transaxial CT imaging of the brain was performed without administration of intravenous contrast material. Individualized dose optimization techniques were used for this CT. COMPARISON: 03/01/2018 FINDINGS: Normal soft tissue structures. Operative changes of the bilateral calvarium noted. There is moderate cerebral atrophy with widening of the extra- axial spaces and ventricular dilatation. There are areas of decreased attenuation within the white matter tracts of the supratentorial brain (left more than right), consistent with microvascular disease changes. 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 Normal brainstem. Normal cerebellum. There is no intracranial hemorrhage. There are no findings of an acute ischemic infarction. There is mucoperiosteal inflammatory disease of the left maxillary sinus consistent with moderate chronic sinusitis. CT/Brain/Head without Contrast IMPRESSION: 1. No acute intracranial hemorrhage or mass effect. 2. Central parenchymal volume loss. White matter changes that are nonspecific but most commonly associated with chronic small vessel ischemic disease. 3. Prior craniotomy, particles. 4. New but chronic appearing left maxillary sinusitis. 5. Old ischemic changes of the left MCA territory and caudate head. Electronically Signed: Landon Pat MD at 18:36 EST , Service support , CC: Angy Ramos MD; Lai Hsieh MD Operations Manager Station: Signed 12 LEAD ELECTROCARDIOGRAM Observed: 05/10/2018 Status: F Source: [place] 9:08 AM [facility] [place] [facility] Cardiovascular Services [address] [place] [address] 12 Lead EKG 04/24/18 0649 MR#: [id number] Acct: [id number] Name: BIANCA ARRIETA Rep #: [id number] : 1935 82 From: Joe Harrison MD Attending Dr: Katelyn Timmons Status: DIS IN Ordering Dr: Taran Torres MD Date: 04/24/18 Location: [facility] Sex: M C Admitted: 04/24/18 Test Reason : FEVER Blood Pressure : / mmHG Vent. Rate : 070 BPM Atrial Rate : 082 BPM P-R Int : 000 ms QRS Dur : 206 ms QT Int : 506 ms P-R-T Axes : 000 -80 090 degrees QTc Int : 546 ms Ventricular-paced rhythm Abnormal ECG Confirmed by KADEEM PONCE, JOE ([id number]), news video editor JAYLON WATSON (56) on 04/26/2018 3:46:01 PM Referred By: FRANCISCO Confirmed By:JOE HARRISON MD 04/26/18 1546 Date Joe Harrison MD CC: Katelyn Timmons; Taran Torres MD; Lai Hsieh MD Signed BEDSIDE GLUCOSE Collected: 04/26/2018 Status: F Source: [place] 12:01 PM [facility] [place] TYPE CODE TESTS RESULT OUT OF REFERENCE UNITS RANGE LAB L501.080 70-110 mg/dL High BEDSIDE GLU 324 Result Comment: MANAGEMENT OF PATIENT CARE PER NURSING PROTOCOL Performed By: #### L501.080 #### [facility] Point of Care [address] [place] [address] DISCHARGE SUMMARY Observed: 04/26/2018 Status: F Source: [place] 10:30 AM [facility] [place] [facility] Medical Records Department [address] [place] [address] Discharge Summary 04/26/18 1023 MR#: [id number] Acct: [id number] Name: BIANCA ARRIETA Rep #: [id number] : 1935 82 From: Katelyn Timmons MD PCP: Jori PONCE,Lai Albrecht Status: ADM IN Y Location: [place] [address] Discharge Date and Diagnosis Date of Admission: 04/24/18 Date of Discharge: 04/26/18 - Primary Discharge Diagnosis #1 acute severe sepsis, attributed to probable viral URTI. #2 chronic leukopenia/thrombocytopenia. 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) Benign prostate hyperplasia (Chronic) Type 2 diabetes mellitus (Chronic) Dyslipidemia (Chronic) Gastroesophageal reflux disease (Chronic) Hypothyroidism (Chronic) Atrial fibrillation (Chronic) S/P IVC filter (Chronic) Cardiac pacemaker (Chronic) pacemaker implant april 2010 Tachy-everette syndrome (Chronic) S/P PM Cardiomyopathy (Chronic) 45% EF in November of 2014, ischemic S/P atrioventricular piper ablation (Chronic) Carotid artery disease (Chronic) Systolic CHF, chronic (Chronic) HTN (hypertension) (Chronic) Pulmonary HTN (Chronic) PA pressure in November 2014 estimated at 50 Chronic anemia (Chronic) unknown etiology Hospital Course and Treatment Imaging Results: Clinical Impression(s) from Imaging Studies Chest X-Ray 04/24/18 05:48 IMPRESSION: No acute pulmonary findings. Electronically Signed: Jose Real MD at 6:25 EST Tel , Service support , Chest X-Ray 04/25/18 05:55 IMPRESSION: Blunting of the left costophrenic angle with underlying left basilar infiltrate and/or atelectasis. Follow-up is recommended. Electronically Signed: Jonathan Jacobo MD at 9:31 EST Tel [phone], Service support , Operations: None Procedures: None Summary of Care Provided: Patient seen and examined on the day of discharge and appeared to be stable to be discharged home. He remained without any symptoms. His vital signs remained stable and he remained afebrile. The patient is a 82 year old M presented to the emergency room because of fever and chills, found to have findings consistent with acute severe sepsis but there was no obvious source of infection identified. On admission, patient was febrile, tachycardic and he did have leukopenia and his lactic acid was 3.6 on admission. His chest x-ray done on admission and revealed no evidence of acute infiltrate, pneumonia ruled out. Urinalysis revealed no evidence of acute cystitis. Patient denies any symptoms suggestive of infection except fever chills. He had no cough or sputum production. He had no abdominal pain, nausea vomiting and no diarrhea. He denied urinary symptoms. Denies any skin wounds or skin rash. He was treated with empiric IV Levaquin and Zosyn for sepsis. He remained on IV antibiotics for 3 days and he remained afebrile for more than 48 hours. Blood culture showed no growth in 48 hours. Urine culture showed no growth. Respiratory panel for viruses was negative. His vital signs remained stable throughout admission. Chest x-ray repeated and revealed left base atelectasis, no acute infiltrate. With IV fluids, his lactic acid came back down to normal. This acute severe sepsis attributed to probable viral URTI. Patient was evaluated by PT OT and recommended that patient can be discharged home. Patient lives at home with his and he thinks that he can go home and he can take care of himself. Patient discharged home in a stable medical condition, discharged on Levaquin for 3 days more to complete total of 6 days of treatment empirically, continued on his chronic home medications without any changes, recommended follow-up with PCP in 1 week. - Physical Exam General: Alert, Oriented x3, Cooperative, No apparent distress HEENT: Atraumatic, PERRLA, EOMI, Normocephalic Oral: Moist Mucosa, No Gingival or Mucosal Lesions/ Ulcerations Neck: Supple, No JVD, Negative Carotid Bruits, Trachea Midline, Thyroid Normal Size and Texture Lungs: Clear to auscultation, No rhonchi, No wheeze, No rales, Diminished Cardiovascular: Regular rate, Regular Rhythm, Normal S1, Normal S2 Abdomen: Bowel Sounds Present, Soft, Non Tender, Non-Distended, No Hepato-splenomegaly Extremities: No clubbing, No cyanosis, No edema Skin: No rashes, No breakdown Lymphatic: No Cervical, Supraclavicular, or Inguinal Adenopathy Neurological: Cranial nerves II-XII grossly intact, Neuro grossly intact Psych/Mental Status: Normal Affect, Appropriate Vital Signs Temp Pulse Resp BP Pulse Ox 97.6 F L 69 16 98/58 L 95 04/26/18 10:10 04/26/18 10:10 04/26/18 10:10 04/26/18 10:10 04/26/18 10:10 Oxygen Flow Rate (L/min) 2 Oxygen Delivery Method Room Air Weight: 172 lb 2.896 oz Body Mass Index (BMI) 21.7 Finger Stick Blood Glucose 94 Intake and Output for Last 24 Hours Intake Total 2409 / 2409 975 / 975 165.7 / 165.7 Output Total 875 / 875 600 / 600 600 / 600 Balance 1534 / 1534 375 / 375 -434.3 / -434.3 Microbiology Past 72 Hours 04/24/18 05:55 Blood Culture - Preliminary Blood Culture (Wb) - Anticubital Right No growth in 48 hours. 04/24/18 05:57 Blood Culture - Preliminary Blood Culture (Wb) - Left Forearm No growth in 48 hours. Laboratory Tests Past 24 Hrs POC Glucose POC Glucose 206 H 303 H 308 H POC Glucose 277 H 221 H Discharge Activity: Return to Normal Activity Weight Bearing Status: Weight bearing as tolerated Call your doctor if you observe: Fever of 101 or Higher, Shortness of breath, Dizziness, Fainting spells, Chest pain, Increased palpitations (irregular heartbeat), Uncontrolled pain Home Medications: Medications to take at Discharge Gabapentin [Neurontin] 300 mg PO QHS 10/10/15 Omeprazole [Prilosec] 40 mg PO DAILY 10/10/15 Amiodarone HCl [Cordarone] 200 mg PO DAILY@0800 05/07/17 Finasteride [Proscar] 5 mg PO DAILY 12/19/17 Levothyroxine [Synthroid] 137 mcg PO DAILY@0600 12/19/17 Donepezil HCl 10 mg PO QHS 03/01/18 Insulin Glargine [Lantus SoloStar Pen] 7 units SC BID #1 pen 03/05/18 Pioglitazone [Actos] 30 mg PO DAILY 04/24/18 Potassium Chloride [K-Dur] 20 meq PO DAILY 04/24/18 levoFLOXacin tablet [Levaquin tablet] 500 mg PO DAILY #3 tablet 04/26/18 Following Prescrptions Were Given to Patient: levoFLOXacin tablet [Levaquin tablet] 500 mg PO DAILY #3 tablet Primary Care Physician: Lai Hsieh Chi, MD [Primary Care Provider] - Please follow up with your Primary Care Physician in: 1 week. Please Follow Up With: Lai Hsieh Chi, MD When: 1 Week Disposition: Home Minutes spent on discharge:: 26 Patient Condition:: Stable Medical Necessity - Tobacco Use Smoking Status: Former smoker Meaningful Use Info Meaningful Use Diagnoses (Choose all that apply): None applicable Code Visit Inpatient E AND M: 77391 Disch Hosp 04/26/18 1030 <Electronically signed by Katelyn Timmons MD> Date Katelyn Timmons MD Cosigner Signature (if applicable): Date CC: Katelyn Timmons; Lai Hsieh MD Signed DISCHARGE INSTRUCTION Observed: 04/26/2018 Status: F Source: [place] 9:30 AM [facility] [place] [facility] Medical Records Department [address] [place] [address] Instructions for Home/Discharge Instructions 04/26/18 0929 MR#: [id number] Acct: [id number] Name: BIANCA ARRIETA Rep #: [id number] : 1935 82 From: Katelyn Timmons MD PCP: Lai Hsieh MD, Chi Status: ADM IN You will use the following diet at home:: Calorie/Carbohydrate Controlled (specify 1200, 1400, etc) - 1800 karen Your food should be the consistency of: Regular Discharge Activity: Return to Normal Activity Weight Bearing Status: Weight bearing as tolerated Call your doctor if you observe: Fever of 101 or Higher, Shortness of breath, Dizziness, Fainting spells, Chest pain, Increased palpitations (irregular heartbeat), Uncontrolled pain Allergies/Adverse Reactions: Allergies morphine Adverse Reaction (Verified 04/24/18 06:35) hallucinations SODIUM PENTHOL Allergy (Uncoded 04/24/18 06:35) Hives Medications to take at Discharge Gabapentin [Neurontin] 300 mg PO QHS 10/10/15 Omeprazole [Prilosec] 40 mg PO DAILY 10/10/15 Amiodarone HCl [Cordarone] 200 mg PO DAILY@0800 05/07/17 Finasteride [Proscar] 5 mg PO DAILY 12/19/17 Levothyroxine [Synthroid] 137 mcg PO DAILY@0600 12/19/17 Donepezil HCl 10 mg PO QHS 03/01/18 Insulin Glargine [Lantus SoloStar Pen] 7 units SC BID #1 pen 03/05/18 Pioglitazone [Actos] 30 mg PO DAILY 04/24/18 Potassium Chloride [K-Dur] 20 meq PO DAILY 04/24/18 levoFLOXacin tablet [Levaquin tablet] 500 mg PO DAILY #3 tablet 04/26/18 The following prescriptions were given: levoFLOXacin tablet [Levaquin tablet] 500 mg PO DAILY #3 tablet Primary Care Physician: Lai Hsieh Chi, MD [Primary Care Provider] - Please follow up with your Primary Care Physician in: 1 week. Test Results: Test results from this visit will be discussed in further detail at your follow-up appointment, if applicable. 04/26/18 0930 <Electronically signed by Katelyn Timmons MD> Date Katelyn Timmons MD CC: Lai Hsieh MD CBC W/DIFF, AUTOMATED Collected: 04/26/2018 Status: F Source: [place] 6:45 AM [facility] [place] TYPE CODE TESTS RESULT OUT OF RANGE REFERENCE UNITS LAB L100.1000 4.4-11.0 K/mm3 Low WBC 3.0 LAB L100.1200 4.6-6.2 M/mm3 Low RBC 4.40 LAB L100.1300 13.0-16.5 g/dl Normal HGB 13.0 LAB L100.1400 40-54 % Normal HCT 40.6 LAB L100.1500 80-94 fL Normal MCV 92.3 LAB L100.1600 27.0-32.0 pg Normal MCH 29.5 LAB L100.1700 32-36 g/gl Normal MCHC 32.0 LAB L100.1810 11.6-14.6 % High RDW CV 15.1 LAB L100.1820 35.1-43.9 fl High RDW SD 49.7 LAB L100.1900 150-450 K/mm3 Low PLT 78 LAB L100.2000 6.2-12.0 fl Normal MPV 12.0 LAB L100.2100 47-70 % Normal NEUT% 68.2 LAB L100.2200 19-41 % Low LY% 17.9 LAB L100.2300 0-10 % High MONO% 11.5 LAB L100.2400 0-5 % Normal EO% 1.4 LAB L100.2500 0-1 % Normal BASO% 0.3 LAB L100.2550 0.0-0.9 % Normal IM GRAN % 0.700 Result Comment: IG% - Immature Granulocytes (promyelocytes, myelocytes and metamyelocytes) > 1% indicates that a LEFT SHIFT is Present. LAB L100.2620 2.0-7.7 X10 3/uL Normal Absolute Neut 2.0 LAB L100.2720 0.83-4.51 X10 3/ul Low Absolute Lymph 0.53 Performed By: #### L100.0100 #### [facility] [place], [place], [address] BEDSIDE GLUCOSE Collected: 04/26/2018 Status: F Source: [place] 5:35 AM [facility] [place] TYPE CODE TESTS RESULT OUT OF REFERENCE UNITS RANGE LAB L501.080 70-110 mg/dL High BEDSIDE GLU 206 Result Comment: MANAGEMENT OF PATIENT CARE PER NURSING PROTOCOL Performed By: #### L501.080 #### [facility] Point of Care [address] [place] [address] BEDSIDE GLUCOSE Collected: 04/26/2018 Status: F Source: [place] 12:35 AM [facility] [place] TYPE CODE TESTS RESULT OUT OF REFERENCE UNITS RANGE LAB L501.080 70-110 mg/dL High BEDSIDE GLU 303 Result Comment: MANAGEMENT OF PATIENT CARE PER NURSING PROTOCOL Performed By: #### L501.080 #### [facility] Point of Care [address] [place] [address] BEDSIDE GLUCOSE Collected: 04/25/2018 Status: F Source: [place] 9:25 PM [facility] [place] TYPE CODE TESTS RESULT OUT OF REFERENCE UNITS RANGE LAB L501.080 70-110 mg/dL High BEDSIDE GLU 308 Result Comment: MANAGEMENT OF PATIENT CARE PER NURSING PROTOCOL Performed By: #### L501.080 #### [facility] Point of Care [address] [place] [address] BEDSIDE GLUCOSE Collected: 04/25/2018 Status: F Source: [place] 5:28 PM [facility] [place] TYPE CODE TESTS RESULT OUT OF REFERENCE UNITS RANGE LAB L501.080 70-110 mg/dL High BEDSIDE GLU 277 Result Comment: MANAGEMENT OF PATIENT CARE PER NURSING PROTOCOL Performed By: #### L501.080 #### [facility] Point of Care [address] [place] [address] BEDSIDE GLUCOSE Collected: 04/25/2018 Status: F Source: [place] 11:57 AM [facility] [place] TYPE CODE TESTS RESULT OUT OF REFERENCE UNITS RANGE LAB L501.080 70-110 mg/dL High BEDSIDE GLU 221 Result Comment: MANAGEMENT OF PATIENT CARE PER NURSING PROTOCOL Performed By: #### L501.080 #### [facility] Point of Care [address] [place] [address] BEDSIDE GLUCOSE Collected: 04/25/2018 Status: F Source: [place] 5:45 AM [facility] [place] TYPE CODE TESTS RESULT OUT OF REFERENCE UNITS RANGE LAB L501.080 70-110 mg/dL High BEDSIDE GLU 189 Result Comment: MANAGEMENT OF PATIENT CARE PER NURSING PROTOCOL Performed By: #### L501.080 #### [facility] Point of [place] [address] CBC W/DIFF, AUTOMATED Collected: 04/25/2018 Status: F Source: [place] 5:00 AM [facility] [place] TYPE CODE TESTS RESULT OUT OF RANGE REFERENCE UNITS LAB L100.1000 4.4-11.0 K/mm3 Low WBC 2.7 LAB L100.1200 4.6-6.2 M/mm3 Low RBC 4.30 LAB L100.1300 13.0-16.5 g/dl Low HGB 12.5 LAB L100.1400 40-54 % Normal HCT 40.9 LAB L100.1500 80-94 fL High MCV 95.1 LAB L100.1600 27.0-32.0 pg Normal MCH 29.1 LAB L100.1700 32-36 g/gl Low MCHC 30.6 LAB L100.1810 11.6-14.6 % High RDW CV 15.7 LAB L100.1820 35.1-43.9 fl High RDW SD 55.1 LAB L100.1900 150-450 K/mm3 Low PLT 68 LAB L100.2000 6.2-12.0 fl Normal MPV 11.7 LAB L100.2100 47-70 % Normal NEUT% 59.4 LAB L100.2200 19-41 % Normal LY% 21.4 LAB L100.2300 0-10 % High MONO% 16.5 LAB L100.2400 0-5 % Normal EO% 1.9 LAB L100.2500 0-1 % Normal BASO% 0.4 LAB L100.2550 0.0-0.9 % Normal IM GRAN % 0.400 Result Comment: IG% - Immature Granulocytes (promyelocytes, myelocytes and metamyelocytes) > 1% indicates that a LEFT SHIFT is Present. LAB L100.2620 2.0-7.7 X10 3/uL Low Absolute Neut 1.6 LAB L100.2720 0.83-4.51 X10 3/ul Low Absolute Lymph 0.57 LAB L100.4500 Normal SMEAR COMMENT SCANNED Performed By: #### L100.0100 #### [facility] [address] [facility] [place], [address] BASIC METABOLIC Collected: 04/25/2018 Status: F Source: [place] PROFILE (BMP) 5:00 AM [facility] [place] TYPE CODE TESTS RESULT OUT OF RANGE REFERENCE UNITS LAB L501.0100 74-106 mg/dL High GLU 179 Result Comment: Fasting Glucose result greater than or equal to 126 mg/dL suggests DIABETES MELLITUS per A.D.A. criteria. Please note revised GLUCOSE reference range effective 2017. LAB L501.1000 7-18 mg/dL High BUN 19 LAB L501.1100 0.70-1.30 mg/dL Normal CREAT,SERUM 1.28 Result Comment: The validity of the calculated GFR AND GFRAA in patients over 70 years has not been determined. Clinical correlation is essential. LAB L501.1110 >60 mL/min Low EST GFR 57 Result Comment: Non- GFR Calc LAB L501.1115 >60 mL/min Normal EST GFR - AA 69 Result Comment: GFR Calc LAB L501.1255 ml/min Normal Estimated CRCL 47.50 LAB L501.1300 10-20 RATIO Normal BUN/CRE 14.8 LAB L501.2200 8.5-10 mg/dL Low .1 CA 8.3 LAB L501.5300 136-14 mmol/L Normal 5 NA 144 LAB L501.5600 3.5-5. mmol/L Normal 1 K 4.3 LAB L501.5900 98-107 mmol/L High CL 108 LAB L501.6100 21.0-3 mmol/L Normal 2.0 CO2 29.0 LAB L501.6200 5-15 Normal GAP 7 Performed By: #### L500.2500 #### [facility] [address] [facility] [place], [address] CHEST 1 VIEW Observed: 04/25/2018 Status: F Source: [place] (PORTABLE) 12:00 AM [facility] [place] [facility] Imaging Services [address] [place] [address] Chest 1 View (Portable) MR#: [id number] Acct: [id number] Name: BIANCA ARRIETA Rep #: [id number] : 1935 M 82 From: Jonathan Jacobo MD PCP: Lai Hsieh MD, Chi Status: ADM IN Study: Chest 1 View (Portable) Date of Exam: 04/25/18 Exam# [id number] Ordering Dr: Katelyn Timmons MD STUDY: X-RAY CHEST REASON FOR EXAM: Male, 82 years old. Fever. TECHNIQUE: Single AP portable view of the chest. COMPARISON: Comparison is made with prior study dated April 24, 2018. FINDINGS: EKG electrodes are seen. There now is evidence of blunting of the left costophrenic angle with underlying left basilar atelectasis and/or infiltrate. Follow- up is recommended. There is moderate cardiac enlargement. A left-sided dual- chamber pacemaker is seen. Normal mediastinum and ava. Normal visualized pulmonary arteries. There is atherosclerotic calcification of the aortic arch with tortuosity. There are diffuse degenerative changes of the visualized thoracic spine. There is degenerative osteoarthritis of the bilateral shoulders. There is no demonstrated abnormality of the visualized soft tissue structures of the upper abdomen. RAD/Chest 1 View (Portable) IMPRESSION: Blunting of the left costophrenic angle with underlying left basilar infiltrate and/or atelectasis. Follow-up is recommended. Electronically Signed: Jonathan Jacobo MD at 9:31 EST Tel [phone], Service support , CC: Katelyn Timmons; Lai Hsieh MD Operations Manager Station: Signed BEDSIDE GLUCOSE Collected: 04/24/2018 Status: F Source: [place] 11:43 PM [facility] [place] TYPE CODE TESTS RESULT OUT OF REFERENCE UNITS RANGE LAB L501.080 70-110 mg/dL High BEDSIDE GLU 214 Result Comment: MANAGEMENT OF PATIENT CARE PER NURSING PROTOCOL Performed By: #### L501.080 #### [facility] Point of Care [address] [place] [address] BEDSIDE GLUCOSE Collected: 04/24/2018 Status: F Source: [place] 10:11 PM [facility] [place] TYPE CODE TESTS RESULT OUT OF REFERENCE UNITS RANGE LAB L501.080 70-110 mg/dL High BEDSIDE GLU 180 Result Comment: MANAGEMENT OF PATIENT CARE PER NURSING PROTOCOL Performed By: #### L501.080 #### [facility] Point of Care [address] [place] [address] BEDSIDE GLUCOSE Collected: 04/24/2018 Status: F Source: [place] 5:27 PM [facility] [place] TYPE CODE TESTS RESULT OUT OF REFERENCE UNITS RANGE LAB L501.080 70-110 mg/dL High BEDSIDE GLU 166 Result Comment: MANAGEMENT OF PATIENT CARE PER NURSING PROTOCOL Performed By: #### L501.080 #### [facility] Point of Care [address] [place] [address] BEDSIDE GLUCOSE Collected: 04/24/2018 Status: F Source: [place] 12:27 PM [facility] [place] TYPE CODE TESTS RESULT OUT OF REFERENCE UNITS RANGE LAB L501.080 70-110 mg/dL High BEDSIDE GLU 334 Result Comment: MANAGEMENT OF PATIENT CARE PER NURSING PROTOCOL Performed By: #### L501.080 #### [facility] Point of Care [address] [place] [address] M R STAPH AUREUS Collected: 04/24/2018 Status: F Source: [place] DNA BY PCR 11:30 AM [facility] [place] Order Comment: Has pt arrived? Y TYPE CODE TESTS RESULT OUT OF RANGE REFERENCE UNITS LAB L8200.1100 Negative Normal MRSA Negative RESULT Performed By: #### L8200.1000 #### [facility] [address] [place], [address] HISTORY AND PHYSICAL Observed: 04/24/2018 Status: F Source: [place] EXAM 10:00 AM [facility] [place] [facility] Medical Records Department [address] [place] [address] History and Physical 04/24/18 0921 MR#: [id number] Acct: [id number] Name: BIANCA ARRIETA Rep #: [id number] : 1935 82 From: Katelyn Timmons MD PCP: Jori PONCE,Lai Albrecht Status: ADM IN Y Location: [place] [address] Problem List (1) CKD (chronic kidney disease) stage 3, GFR 30-59 ml/min Status: Chronic (2) Benign prostate hyperplasia Status: Chronic Qualifiers: (3) Type 2 diabetes mellitus Status: Chronic Qualifiers: (4) Dyslipidemia Status: Chronic (5) Gastroesophageal reflux disease Status: Chronic Qualifiers: (6) Hypothyroidism Status: Chronic Qualifiers: (7) Cardiac pacemaker Status: Chronic Comment: pacemaker implant april 2010 (8) Cardiomyopathy Status: Chronic Comment: 45% EF in November of 2014, ischemic (9) Systolic CHF, chronic Status: Chronic (10) HTN (hypertension) Status: Chronic Qualifiers: History of Present Illness Date of Admission: 04/24/18 Chief Complaint: Fever and chills. The patient is a 82 year old M with past medical history as mentioned above presented to the emergency room because of fever and chills. According to the patient's daughter, patient started having significant chills and rigors around 5:30 AM this morning and he had a spike of fever of 102 Fahrenheit. Patient was shaking uncontrollably all over his body and his called the squad. Squad find that patient's blood sugar was 400 at home. His daughter mentioned that his blood sugar is usually in the high range. The patient denied sore throat, nasal or sinus congestion. He denied cough or sputum production. He denied chest pain or shortness of breath. He denied abdominal pain, nausea or vomiting. He denied diarrhea or constipation. His daughter mentioned that he had couple of episodes of loose stool 2 days ago but the patient himself denies any more diarrhea. He denied urinary symptoms. He denied skin rash or wounds. No reported sick contacts at home. He does have a history of type 2 diabetes mellitus which is uncontrolled according to his daughter. He has been on insulin and his blood sugar over the last month has been up to 300s. His hemoglobin A1c was 11.9 on April,. History of stage III chronic kidney disease and his creatinine has been around 1.3-1.9 mg/dL and has been stable. He has a history of chronic atrial fibrillation/tachybradycardia syndrome status post pacemaker and patient has been on amiodarone for rate control but not on anticoagulation because of history of cerebral bleed. In the emergency department, patient was febrile, mildly tachypneic, blood pressure and heart rate were stable. Blood work was remarkable for WBC of 3.9 consistent with leukopenia which is chronic, platelet count of 92,000 which was also chronic. His absolute neutrophil count was normal. His creatinine is 1.48 which is also chronic. Urinalysis revealed cloudy urine, negative for nitrite and leukocyte esterase, there was no W BCs and 0 bacteria seen. Chest x- ray showed no acute infiltrate, revealed chronic left humeral fracture and chronic stable right rib fractures. His EKG revealed paced rhythm. Patient is being admitted for severe sepsis without clear evidence of infection. 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) Benign prostate hyperplasia (Chronic) Type 2 diabetes mellitus (Chronic) Dyslipidemia (Chronic) Gastroesophageal reflux disease (Chronic) Hypothyroidism (Chronic) Atrial fibrillation (Chronic) S/P IVC filter (Chronic) Cardiac pacemaker (Chronic) pacemaker implant april 2010 Tachy-everette syndrome (Chronic) S/P PM Cardiomyopathy (Chronic) 45% EF in November of 2014, ischemic S/P atrioventricular piper ablation (Chronic) Carotid artery disease (Chronic) Systolic CHF, chronic (Chronic) HTN (hypertension) (Chronic) Pulmonary HTN (Chronic) PA pressure in November 2014 estimated at 50 Chronic anemia (Chronic) unknown etiology Medical History: Medical History (Last Updated 09/24/17 @ 14:33 by JORY TurnerC) TIA (transient ischemic attack) (Chronic) CKD (chronic kidney disease) stage 3, GFR 30-59 ml/min (Chronic) 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) I82.629 Benign prostate hyperplasia (Chronic) Type 2 diabetes mellitus (Chronic) E11.9 Dyslipidemia (Chronic) E78.5 Gastroesophageal reflux disease (Chronic) K21.9 Hypothyroidism (Chronic) E03.9 Atrial fibrillation (Chronic) I48.91 Cardiac pacemaker (Chronic) Z95.0 pacemaker implant april 2010 Tachy-everette syndrome (Chronic) I49.5 S/P PM Cardiomyopathy (Chronic) I42.9 45% EF in November of 2014, ischemic Carotid artery disease (Chronic) I77.9 Systolic CHF, chronic (Chronic) I50.22 HTN (hypertension) (Chronic) I10 Pulmonary HTN (Chronic) I27.2 PA pressure in November 2014 estimated at 50 Chronic anemia (Chronic) D64.9 unknown etiology Allergies morphine Adverse Reaction (Verified 04/24/18 06:35) hallucinations SODIUM PENTHOL Allergy (Uncoded 04/24/18 06:35) Hives Home Medications: Ambulatory Orders Medication Instructions Recorded Surgical History: Surgical History (Last Reviewed 09/24/17 @ 13:55 by Janelle Laguna) S/P IVC filter (Chronic) Z95.828 S/P atrioventricular piper ablation (Chronic) Z98.890 History of cardiac radiofrequency ablation (RFA) Z98.890 11/24/11, WITH PPM IMPLANT Surgical History: pacemaker implantation - 2009, - - PATIENT HAS HISTORY OF CRANIOTOMY, for intracranial bleed evacuation, patient sustained fall at that time, internal carotid stents 2011 Psychiatric History: No pertinent psych hx Lives: Spouse/ Significant Other Smoking Status: Former smoker Alcohol: None Drugs: None - *Family History Sibling Family History: Family History (Last Reviewed 09/24/17 @ 13:55 by Janelle Laguna) Brother CAD (coronary artery disease) Hx of CABG Cancer Father CAD (coronary artery disease) Myocardial infarction Brother Cancer Mother Old age History Items: Cancer, Heart Disease - CAD s/ CABG Maternal Family History: Family History (Last Reviewed 09/24/17 @ 13:55 by Janelle Laguna) Brother CAD (coronary artery disease) Hx of CABG Cancer Father CAD (coronary artery disease) Myocardial infarction Brother Cancer Mother Old age History Items: Cancer - , unknonw age Paternal Family History: Family History (Last Reviewed 09/24/17 @ 13:55 by Janelle Laguna) Brother CAD (coronary artery disease) Hx of CABG Cancer Father CAD (coronary artery disease) Myocardial infarction Brother Cancer Mother Old age History Items: Cancer - unknown age, Heart Disease Review of Systems Constitutional: Reports: Chills, Fever. Denies: Anorexia, Weakness, Fatigue Eyes: Denies: Blurred vision, Double vision, Drainage, Redness HEENT: Denies: Difficulty Hearing, Ear Pain, Eye Pain, Hearing Changes, Nasal Congestion, Post Nasal Drip, Sinus Congestion, Sinus Drainage, Sore Throat Cardiovascular: Denies: Chest Pressure, Chest Tightness, Heaviness, Palpitations, Paroxysmal Noc. Dyspnea, Syncope Respiratory: Denies: Cough, Hemoptysis, Pleuritic Pain, Shortness of Breath, Sputum production, Wheezing Gastrointestinal: Reports: Diarrhea. Denies: Abdominal Pain, Constipation, Nausea, Vomiting Genitourinary: Denies: Dysuria, Frequency, Hematuria Musculoskeletal: Denies: Arm Pain, Back Pain, Foot Pain Skin: Denies: Dryness, Rash Neurological: Denies: Balance problems, Double vision, Change in Speech, Slurred speech, Confusion, Headaches, Incoordination, Numbness Psychiatric: Denies: Anxiety, Depression Endocrine: Denies: Change in Body Habitus, Polydipsia VTE Information - Inpt Only VTE Present on Admission: No VTE Mechan Device Prophylaxis: None VTE Pharm Prophylaxis ordered?: Yes - Physical Exam General: Alert, Oriented x3, Cooperative, No apparent distress HEENT: Atraumatic, PERRLA, EOMI, Normocephalic Oral: Moist Mucosa, No Gingival or Mucosal Lesions/ Ulcerations Neck: Supple, No JVD, Negative Carotid Bruits, Trachea Midline, Thyroid Normal Size and Texture Lungs: No wheeze, Diminished, Rhonchi, - - Decreased breath sounds at the bases with faint bilateral basal crackles. Cardiovascular: Regular rate, Regular Rhythm, Normal S1, Normal S2, PMI Normal Abdomen: Bowel Sounds Present, Soft, Non Tender, Non-Distended, No Hepato-splenomegaly Extremities: No clubbing, No cyanosis, No edema Skin: No rashes, No breakdown Lymphatic: No Cervical, Supraclavicular, or Inguinal Adenopathy Neurological: Cranial nerves II-XII grossly intact, Motor Exam 5/5 strength throughout Psych/Mental Status: Normal Affect, Appropriate, Alert and oriented to time, place, person, mood and affect Vital Signs Temp Pulse Resp BP Pulse Ox 99.8 F H 77 17 121/68 H 98 04/24/18 08:50 04/24/18 08:50 04/24/18 08:50 04/24/18 08:50 04/24/18 08:50 Oxygen Flow Rate (L/min) 2 Oxygen Delivery Method Nasal Cannula Weight: 169 lb 5.04 oz Body Mass Index (BMI) 21.7 Finger Stick Blood Glucose 94 Laboratory Tests Past 24 Hrs WBC 3.9 L RBC 5.02 Hgb 14.7 Hct 46.8 MCV 93.2 MCH 29.3 MCHC 31.4 L RDW 15.5 H RDW Differential 51.8 H Clinical Impression(s) from Imaging Studies Chest X-Ray 04/24/18 05:48 IMPRESSION: No acute pulmonary findings. Electronically Signed: Jose Real MD at 6:25 EST Tel , Service support , Assessment/Plan This is an 82 years old male patient presented to the emergency department because of fever and chills, found to have acute severe sepsis without obvious source of infection and he is being admitted for evaluation and treatment. #1 acute severe sepsis: Based on fever, tachypnea and elevated lactic acid as well as leukopenia. So far, no evidence of infection. Chest x-ray showed no acute infiltrate. Urinalysis was negative for acute cystitis. He does have crackles at the lung bases. Differential diagnosis is upper respiratory tract infection versus early pneumonia. Respiratory panel for viruses were negative. Plan: Admit to PCU, cardiac monitoring, IV fluids, blood cultures, urine culture, MRSA nasal screen, start empiric IV Zosyn and Levaquin, repeat lactic acid in 3 hours, Tylenol as needed, IV antiemetics, repeat CBC and BMP tomorrow morning, repeat chest x-ray tomorrow morning, PT OT evaluation and treatment. #2 chronic leukopenia/thrombocytopenia: Both total white blood cell count and platelet counts are mildly low and this is chronic. His absolute neutrophil count is normal. Plan for meredith cultures, empiric IV antibiotics. #3 type 2 diabetes mellitus: Uncontrolled. Blood sugar at home was 400. In the ED was 381. Hemoglobin A1c was 11.9 on April,. Plan: ADA diet, continue home doses of Lantus twice daily, insulin sliding scale. #4 stage III chronic kidney disease: Baseline creatinine is around 1.3-1.9 mg/dL. Admission creatinine is 1.48 mg with sitter, stable at baseline. #5 chronic atrial fibrillation/tachybradycardia syndrome: Status post pacemaker. EKG revealed paced rhythm. Heart rate as well as blood pressure stable. Plan to continue amiodarone. Patient is not on anticoagulation because of history of cerebral bleed. #7 CAD/chronic systolic CHF/ischemic cardiomyopathy: Clinically stable, no evidence of acute CHF. Plan to continue amiodarone. Patient is not on ELEANOR inhibitors because of chronic kidney disease. #8 hypothyroidism: Continue levothyroxine. #9 benign prostatic hypertrophy: Continue Proscar. 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 #11 DVT prophylaxis: Subcu heparin. This note was generated with Smailex dictation software. It may contain incorrect words, spelling, and punctuation that were not noted in checking the note before signing. Code Visit Inpatient E AND M: [id number] Init Hosp L3 04/24/18 1000 <Electronically signed by Katelyn Timmons MD> Date Katelyn Timmons MD Cosigner Signature: Date (if applicable) CC: Katelyn Timmons; Lai Hsieh MD Signed LACTIC ACID Collected: 04/24/2018 Status: F Source: [place] 9:25 AM [facility] [place] TYPE CODE TESTS RESULT OUT OF RANGE REFERENCE UNITS LAB L503.6005 0.4-2.0 mmol/L Normal LACTIC ACID 1.8 Performed By: #### L503.6005 #### [facility] [place], [place], [address] BEDSIDE GLUCOSE Collected: 04/24/2018 Status: F Source: [place] 9:22 AM [facility] [place] TYPE CODE TESTS RESULT OUT OF REFERENCE UNITS RANGE LAB L501.080 70-110 mg/dL High BEDSIDE GLU 355 Result Comment: MANAGEMENT OF PATIENT CARE PER NURSING PROTOCOL Performed By: #### L501.080 #### [facility] Point of Care [address] [place], [place] [address] Observed: 04/24/2018 Status: F Source: [place] RESPIRATORY PANEL 7:00 AM [facility] [place] Order Date: 04/24/18 RP PANEL ADENOVIRUS Not Detected HUMAN METAPHNEUMO Not Detected INFLUENZA A Not Detected INFLUENZA A (SUBTYPE H1) Not Detected INFLUENZA A (SUBTYPE H3) Not Detected INFLUENZA B Not Detected PARAINFLUENZA 1 Not Detected PARAINFLUENZA 2 Not Detected PARAINFLUENZA 3 Not Detected PARAINFLUENZA 4 Not Detected RHINOVIRUS Not Detected RSV A Not Detected RSV B Not Detected NAAT METHOD Testing was performed using nucleic acid amplification Performed By: #### M100.638 #### [facility] [address] [place], [address] EMERGENCY DEPARTMENT Observed: 04/24/2018 Status: F Source: [place] SUMMARY 6:57 AM [facility] [place] [facility] Medical Records Department [address] [place] [address] Emergency Department Summary 04/24/18 0654 MR#: [id number] Acct: [id number] Name: BIANCA ARRIETA Rep #: [id number] : 1935 82 From: Taran Torres MD PCP: Jori PONCE,Lai [facility] Status: REG ER - ER Visit Summary Date of Service: 04/24/18 Chief Complaint: Fever History of Present Illness: The patient is a 82 M who presents with fever and Reiger's. History is limited due to the patient's dementia. Apparently EMS was called because he was shaking. He had a blood sugar of 400 at home. For EMS he was found to have a fever of 102. Patient denies any pain. He denies any vomiting or diarrhea. He denies feeling short of breath. He denies cough. I spoke to family who was not aware of any recent illness such as vomiting diarrhea cough or URI-like illness. Physical Examination: Temperature 102.8, heart rate 87, respiratory rate 22, pulse ox 84% on room air Heart regular rate and rhythm No respiratory distress lungs are clear without rales or wheezing Abdomen soft nontender nondistended Extremities nontender no rash Patient is alert he is oriented to person and place but not time no focal or lateralizing neurological deficits Test Results: EKG shows a paced rhythm at a rate of 70. Chest x-ray shows no acute findings. Labs notable for white blood cell count 3.9, platelets of 92. BUN 20, creatinine 1.48. Coagulation studies normal. Urinalysis shows glucose but no evidence of infection. Lactic acid elevated at 3.6. Blood and urine cultures have been sent. Emergency Department Course and Treatment: Patient's presentation was concerning for sepsis. I do not have a clear source of infection. His urine appears clean and he does not appear to have pneumonia. He was empirically treated with IV Zosyn. He was fluid resuscitated. I also sent off a respiratory panel. Patient to be discussed with the hospitalist and admitted. Treatment Plan: [] Disposition: Admit Impression: Severe sepsis This note was generated with Smailex dictation software. It may contain incorrect words, spelling, and punctuation that were not noted in review of the chart prior to signing ED Disposition - Plan for ED Patient: Chief Complaint: General Illness Referrals: Lai Hsieh Chi, MD [Primary Care Provider] - What to do if you have Problems For any increased pain, shortness of breath, bleeding, nausea or vomiting, chest pain, or any unexpected problems, contact your Primary Care Provider. Call [facility] ([phone]) or report to the closest Emergency Room. Call 911 if necessary. 04/24/18 0657 <Electronically signed by Taran Torres MD> Date Taran Torres MD Cosigner Signature (If Indicated): Date CC: Lai Hsieh MD URINALYSIS, COMPLETE Collected: 04/24/2018 Status: F Source: [place] 6:11 AM [facility] [place] Order Comment: Order Date: 04/24/18 How was Urine Obtained? CATHETER SPECIMEN TYPE CODE TESTS RESULT OUT OF RANGE REFERENCE UNITS LAB L400.3000 Yellow COLOR Normal Yellow LAB L400.3050 Clear Normal CLARITY Sl. Cloudy LAB L400.3200 Normal mg/dl High GLUCOSE, UR 1000 LAB L400.3300 Negative mg/dL Normal BILIRUBIN URINE Negative LAB L400.3400 Negative mg/dl Normal KETONE UR Negative LAB L400.3465 1.002-1.030 Normal SP.GR. DIPSTX 1.015 LAB L400.3550 5.0 - 8.0 pH UR Normal 6.0 LAB L400.3600 Negative mg/dl High PROT 15 DIPSTX LAB L400.3700 Normal mg/dl Normal UROBILI Normal LAB L400.3750 Negative Normal NITRITE UR Negative LAB L400.3780 Negative /ul High 10 OCCULT BLOOD-UR LAB L400.3800 Negative /ul LEUK Normal ESTERASE Negative LAB L400.4050 0-5 /hpf WBC 0 Normal SEEN LAB L400.4100 0-5 /hpf 0 Normal RBC-UA SEEN LAB L400.4150 0-5 /hpf SQUAM 0 Normal EPI SEEN LAB L400.4300 None Seen /hpf Normal BACTERIA RARE LAB L400.4350 <or=2+ /hpf 0 Normal MUCUS, URINE SEEN Performed By: #### L400.0001 #### [facility] [address] [facility] [place], [place], [address] Observed: 04/24/2018 Status: F Source: [place] CULTURE, URINE 6:11 AM [facility] [place] Order Date: 04/24/18 Urine Culture Culture exhibits no growth. Performed By: #### M100.0650 #### [facility] [address] [facility] [place], [address] Observed: 04/24/2018 Status: F Source: [place] CULTURE, BLOOD (WB) 5:57 AM [facility] [place] BC No growth in 5 days. Performed By: #### M200.1000 #### [facility] [address], [address] CBC W/DIFF, AUTOMATED Collected: 04/24/2018 Status: F Source: [place] 5:55 AM [facility] [place] TYPE CODE TESTS RESULT OUT OF RANGE REFERENCE UNITS LAB L100.1000 4.4-11.0 K/mm3 Low WBC 3.9 LAB L100.1200 4.6-6.2 M/mm3 Normal RBC 5.02 LAB L100.1300 13.0-16.5 g/dl Normal HGB 14.7 LAB L100.1400 40-54 % Normal HCT 46.8 LAB L100.1500 80-94 fL Normal MCV 93.2 LAB L100.1600 27.0-32.0 pg Normal MCH 29.3 LAB L100.1700 32-36 g/gl Low MCHC 31.4 LAB L100.1810 11.6-14.6 % High RDW CV 15.5 LAB L100.1820 35.1-43.9 fl High RDW SD 51.8 LAB L100.1900 150-450 K/mm3 Low PLT 92 LAB L100.2000 6.2-12.0 fl Normal MPV 11.4 LAB L100.2100 47-70 % High NEUT% 80.8 LAB L100.2200 19-41 % Low LY% 8.5 LAB L100.2300 0-10 % Normal MONO% 9.6 LAB L100.2400 0-5 % Normal EO% 0.5 LAB L100.2500 0-1 % Normal BASO% 0.3 LAB L100.2550 0.0-0.9 % Normal IM GRAN % 0.300 Result Comment: IG% - Immature Granulocytes (promyelocytes, myelocytes and metamyelocytes) > 1% indicates that a LEFT SHIFT is Present. LAB L100.2620 2.0-7.7 X10 3/uL Normal Absolute Neut 3.1 LAB L100.2720 0.83-4.51 X10 3/ul Low Absolute Lymph 0.33 LAB L100.4500 Normal SMEAR COMMENT SCANNED Performed By: #### L100.0100 #### [facility] [address] [place], [address] COMPREHENSIVE METABOLIC Collected: 04/24/2018 Status: F Source: [place] 5:55 AM [facility] [place] TYPE CODE TESTS RESULT OUT OF RANGE REFERENCE UNITS LAB L501.0100 74-106 mg/dL High GLU 381 Result Comment: Glucose result greater than or equal to 200 mg/dL suggests DIABETES MELLITUS per A.D.A. criteria. Please note revised GLUCOSE reference range effective 2017. LAB L501.1000 7-18 mg/dL High BUN 20 LAB L501.1100 0.70-1.30 mg/dL High CREAT,SERUM 1.48 Result Comment: The validity of the calculated GFR AND GFRAA in patients over 70 years has not been determined. Clinical correlation is essential. LAB L501.1110 >60 mL/min Low EST GFR 48 Result Comment: Non- GFR Calc LAB L501.1115 >60 mL/min Low EST GFR - AA 58 Result Comment: GFR Calc LAB L501.1255 ml/min Normal Estimated CRCL 41.51 LAB L501.1300 10-20 RATIO Normal BUN/CRE 13.5 LAB L501.1500 6.4-8. g/dL Normal 2 T PROT 7.1 LAB L501.1800 3.2-5. g/dL Normal 0 ALB 3.2 LAB L501.1950 2.2-4. g/dL Normal 2 GLOB 3.9 LAB L501.2000 0.9-2. RATIO Low 4 A/G 0.8 LAB L501.2200 8.5-10 mg/dL Normal .1 CA 8.8 LAB L501.4100 15-37 U/L Normal AST 32 LAB L501.4305 45-117 U/L High ALK P 317 LAB L501.4405 16-61 U/L Normal ALT 36 LAB L501.4600 0.20-1 mg/dL Normal .00 T BILI 1.00 LAB L501.5300 136-14 mmol/L Normal 5 NA 143 LAB L501.5600 3.5-5. mmol/L Normal 1 K 4.4 LAB L501.5900 98-107 mmol/L Normal CL 104 LAB L501.6100 21.0-3 mmol/L Normal 2.0 CO2 32.0 LAB L501.6200 5-15 Normal GAP 7 Performed By: #### L500.4050 #### [facility] [address] [place], [address] PROTHROMBIN TIME W/INR Collected: 04/24/2018 Status: F Source: [place] 5:55 AM [facility] [place] TYPE CODE TESTS RESULT OUT OF RANGE REFERENCE UNITS LAB L300.4150 11.7-14.9 SECONDS Normal PROTIME 13.1 LAB L300.4200 Normal INR 1.0 Performed By: #### L300.3900, L300.4310 #### [facility] [address] [place], [address] PARTIAL THROMBOPLAST Collected: 04/24/2018 Status: F Source: [place] TIME 5:55 AM [facility] [place] TYPE CODE TESTS RESULT OUT OF RANGE REFERENCE UNITS LAB L300.4310 24.1-36.2 Seconds Normal PTT 30.4 Performed By: #### L300.3900, L300.4310 #### [facility] [facility] [place], [address] LACTIC ACID Collected: 04/24/2018 Status: F Source: [place] 5:55 AM [facility] [place] Order Comment: Yes/No query for Sepsis Lactate Rule Y TYPE CODE TESTS RESULT OUT OF REFERENCE UNITS RANGE LAB L503.6005 0.4-2.0 mmol/L High LACTIC ACID 3.6 Result Comment: Critical Result(s) Called at: 06:50:36 04/24/2018 by: Bobby Lemus RN (ER). Performed By: #### L503.6005 #### [facility] [facility] [place], [address] Observed: 04/24/2018 Status: F Source: [place] CULTURE, BLOOD (WB) 5:55 AM [facility] [place] BC No growth in 5 days. Performed By: #### M200.1000 #### [facility] [address] [facility] [place], [address] CHEST 1 VIEW Observed: 04/24/2018 Status: F Source: [place] (PORTABLE) 5:49 AM [facility] [place] [facility] Imaging Services [facility] [place] [address] Chest 1 View (Portable) MR#: [id number] Acct: [id number] Name: Bianca Arrieta Rep #: [id number] : 1935 M 82 From: Jose Real MD PCP: Lai Hsieh MD, Chi Status: PRE ER Study: Chest 1 View (Portable) Date of Exam: 04/24/18 Exam# [id number] Ordering Dr: Taran Torres MD STUDY: X-RAY CHEST REASON FOR EXAM: Male, 82 years old. Fever and cough TECHNIQUE: Frontal and lateral views of the chest. COMPARISON: 03/02/2018 FINDINGS: Dual-chamber pacemaker on the left. The lungs are clear and expanded. There is no demonstrated pleural abnormality. Stable cardiomediastinal silhouette. Normal mediastinum and ava. Normal visualized pulmonary arteries. Normal visualized aortic arch and descending thoracic aorta. Normal visualized thoracic spine. Stable left humerus fracture. Stable right rib fractures. There is no demonstrated abnormality of the visualized soft tissue structures of the upper abdomen. RAD/Chest 1 View (Portable) IMPRESSION: No acute pulmonary findings. Electronically Signed: Jose Real MD at 6:25 EST Tel , Service support , CC: Taran Torres MD; Lai Hsieh MD Operations Manager Station: Signed CBC-COMPLETE BLOOD CNT Collected: 04/02/2018 Status: F Source: [place] NO DIFF 5:50 AM [facility] [place] Order Comment: 103 TYPE CODE TESTS RESULT OUT OF RANGE REFERENCE UNITS LAB L100.1000 4.4-11.0 K/mm3 Low WBC 2.9 LAB L100.1200 4.6-6.2 M/mm3 Normal RBC 4.60 LAB L100.1300 13.0-16.5 g/dl Normal HGB 13.4 LAB L100.1400 40-54 % Normal HCT 43.0 LAB L100.1500 80-94 fL Normal MCV 93.5 LAB L100.1600 27.0-32.0 pg Normal MCH 29.1 LAB L100.1700 32-36 g/gl Low MCHC 31.2 LAB L100.1810 11.6-14.6 % High RDW CV 16.1 LAB L100.1820 35.1-43.9 fl High RDW SD 54.0 LAB L100.1900 150-450 K/mm3 Low PLT 97 LAB L100.2000 6.2-12.0 fl High MPV 12.1 Performed By: #### L100.0500 #### [facility] [address] [place], [place], [address] BASIC METABOLIC Collected: 04/02/2018 Status: F Source: [place] PROFILE (BMP) 5:50 AM [facility] [place] Order Comment: 103 TYPE CODE TESTS RESULT OUT OF RANGE REFERENCE UNITS LAB L501.0100 74-106 mg/dL Normal GLU 94 Result Comment: Please note revised GLUCOSE reference range effective 2017. LAB L501.1000 7-18 mg/dL High BUN 19 LAB L501.1100 0.70-1.30 mg/dL Normal CREAT,SERUM 1.21 Result Comment: The validity of the calculated GFR AND GFRAA in patients over 70 years has not been determined. Clinical correlation is essential. LAB L501.1110 >60 mL/min Normal EST GFR 61 Result Comment: Non- GFR Calc LAB L501.1115 >60 mL/min Normal EST GFR - AA 74 Result Comment: GFR Calc LAB L501.1300 10-20 RATIO Normal BUN/CRE 15.7 LAB L501.2200 8.5-10.1 mg/dL CA Normal 8.9 LAB L501.5300 136-145 mmol/L NA Normal 140 LAB L501.5600 3.5-5.1 mmol/L K Normal 4.1 LAB L501.5900 98-107 mmol/L CL Normal 102 LAB L501.6100 21.0-32.0 mmol/L Normal CO2 31.0 LAB L501.6200 5-15 Normal GAP 7 Performed By: #### L500.2500 #### [facility] [address] [place], [place], [address] CBC-COMPLETE BLOOD CNT Collected: 03/12/2018 Status: F Source: [place] NO DIFF 5:45 AM [facility] [place] Order Comment: 103 TYPE CODE TESTS RESULT OUT OF RANGE REFERENCE UNITS LAB L100.1000 4.4-11.0 K/mm3 Low WBC 3.1 LAB L100.1200 4.6-6.2 M/mm3 Normal RBC 4.71 LAB L100.1300 13.0-16.5 g/dl Normal HGB 13.6 LAB L100.1400 40-54 % Normal HCT 43.4 LAB L100.1500 80-94 fL Normal MCV 92.1 LAB L100.1600 27.0-32.0 pg Normal MCH 28.9 LAB L100.1700 32-36 g/gl Low MCHC 31.3 LAB L100.1810 11.6-14.6 % High RDW CV 15.8 LAB L100.1820 35.1-43.9 fl High RDW SD 52.0 LAB L100.1900 150-450 K/mm3 Low PLT 103 LAB L100.2000 6.2-12.0 fl Normal MPV 11.8 Performed By: #### L100.0500 #### [facility] [address] [place], [place], [address] BASIC METABOLIC Collected: 03/12/2018 Status: F Source: [place] PROFILE (BMP) 5:45 AM [facility] [place] Order Comment: 103 TYPE CODE TESTS RESULT OUT OF RANGE REFERENCE UNITS LAB L501.0100 74-106 mg/dL High GLU 317 Result Comment: Glucose result greater than or equal to 200 mg/dL suggests DIABETES MELLITUS per A.D.A. criteria. Please note revised GLUCOSE reference range effective 2017. LAB L501.1000 7-18 mg/dL Normal BUN 14 LAB L501.1100 0.70-1.30 mg/dL Normal CREAT,SERUM 1.28 Result Comment: The validity of the calculated GFR AND GFRAA in patients over 70 years has not been determined. Clinical correlation is essential. LAB L501.1110 >60 mL/min Low EST GFR 57 Result Comment: Non- GFR Calc LAB L501.1115 >60 mL/min Normal EST GFR - AA 69 Result Comment: GFR Calc LAB L501.1300 10-20 RATIO Normal BUN/CRE 10.9 LAB L501.2200 8.5-10.1 mg/dL CA Normal 8.8 LAB L501.5300 136-145 mmol/L NA Normal 138 LAB L501.5600 3.5-5.1 mmol/L K Normal 4.3 LAB L501.5900 98-107 mmol/L CL Normal 99 LAB L501.6100 21.0-32.0 mmol/L Normal CO2 31.0 LAB L501.6200 5-15 Normal GAP 8 Performed By: #### L500.2500, L501.9520 #### [facility] [address] [place], [place], [address] THYROID STIM HORMONE Collected: 03/12/2018 Status: F Source: [place] (TSH) 5:45 AM [facility] [place] Order Comment: 103 TYPE CODE TESTS RESULT OUT OF RANGE REFERENCE UNITS LAB L501.9520 0.358-3.74 uIU/mL Normal TSH 1.46 Performed By: #### L500.2500, L501.9520 #### [facility] [address] [place], [place], [address] 12 LEAD ELECTROCARDIOGRAM Observed: 03/06/2018 Status: F Source: [place] 8:43 AM [facility] [place] [facility] Cardiovascular Services [address] [place] [address] 12 Lead EKG 03/01/18 1356 MR#: [id number] Acct: [id number] Name: BIANCA ARRIETA Rep #: [id number] : 1935 82 From: Joe Harrison MD Attending Dr: Pedrtio Islas MD Status: DIS IN Ordering Dr: Dominic Lopez MD Date: 03/01/18 Location: [facility] Sex: M C Admitted: 03/02/18 Test Reason : DYSRHYTHMIA Blood Pressure : / mmHG Vent. Rate : 083 BPM Atrial Rate : 083 BPM P-R Int : 000 ms QRS Dur : 172 ms QT Int : 472 ms P-R-T Axes : 121 -85 089 degrees QTc Int : 554 ms Ventricular-paced rhythm Abnormal ECG Confirmed by JOE HARRISON MD ([id number]), news video editor JAYLON WATSON ([id number]) on 03/06/2018 8:42:32 AM Referred By: CYNTHIA Confirmed By:JOE HARRISON MD 03/06/1842 Date Joe Harrison MD CC: Denton Lopez MD; Pedrito Islas MD; Lai Hsieh MD Signed 12 LEAD ELECTROCARDIOGRAM Observed: 03/06/2018 Status: F Source: [place] 8:42 AM [facility] Cardiovascular Services [address] [place] [id number] 12 Lead EKG 03/01/18 1606 MR#: [id number] Acct: [id number] Name: BIANCA ARRIETA Rep #: [id number] : 1935 82 From: Joe Harrison MD Attending Dr: Pedrito Islas MD Status: DIS IN Ordering Dr: Dominic Lopez MD Date: 03/01/18 Location: [facility] Sex: M C Admitted: 03/02/18 Test Reason : DYSRHYTHMIA Blood Pressure : / mmHG Vent. Rate : 074 BPM Atrial Rate : 066 BPM P-R Int : 000 ms QRS Dur : 188 ms QT Int : 538 ms P-R-T Axes : 000 -78 093 degrees QTc Int : 597 ms Ventricular-paced rhythm Abnormal ECG Confirmed by JOE HARRISON MD ([id number]), news video editor JAYLON WATSON ([id number]) on 03/06/2018 8:42:22 AM Referred By: CYNTHIA Confirmed By:JOE HARRISON MD 03/06/1842 Date Joe Harrison MD CC: Denton Lopez MD; Pedrito Islas MD; Lai Hsieh MD Signed DISCHARGE SUMMARY Observed: 03/05/2018 Status: F Source: [place] 3:59 PM [facility] [place] [facility] Medical Records Department [address] [place] [address] Discharge Summary 03/05/18 1301 MR#: [id number] Acct: [id number] Name: BIANCA ARRIETA Rep #: [id number] : 1935 82 From: Eber BURNS PCP: Lai Hsieh MD, Chi Status: ADM IN Y [id number] <Eber Ballard - Last Filed: 03/05/18 13:54> Discharge Date and Diagnosis - Problem List Patient Problems: Active and Suspected Problems (Last Updated 09/24/17 @ 14:33 by STANLEY Turner) Unresponsive (Acute) Hypoglycemia (Acute) Date of Admission: 03/01/18 Date of Discharge: 03/05/18 - Primary Discharge Diagnosis Active and Suspected Problems (Last Updated 09/24/17 @ 14:33 by STANLEY Turner) Altered mental status secondary to hypoglycemia-resolved Type 2 diabetes with hypoglycemia History of dementia Hypertension History of pacemaker Moderate protein calorie malnutrition Hypothyroidism - Secondary Discharge Diagnosis Chronic Problems (Last Updated 09/24/17 @ 14:33 by STANLEY Turner) Aortic root dilatation (Chronic) Cardiac pacemaker (Chronic) Implanted in April 2010; 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) Abnormal pulmonary function test (Chronic) Tachycardia (Chronic) Hyperthyroidism (Chronic) Persistent atrial fibrillation (Chronic) S/P RFA 11/24/2011 TIA (transient ischemic attack) (Chronic) CKD (chronic kidney disease) stage 3, GFR 30-59 ml/min (Chronic) 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) Benign prostate hyperplasia (Chronic) Type 2 diabetes mellitus (Chronic) Dyslipidemia (Chronic) Gastroesophageal reflux disease (Chronic) Hypothyroidism (Chronic) Atrial fibrillation (Chronic) S/P IVC filter (Chronic) Cardiac pacemaker (Chronic) pacemaker implant april 2010 Tachy-everette syndrome (Chronic) S/P PM Cardiomyopathy (Chronic) 45% EF in November of 2014, ischemic S/P atrioventricular piper ablation (Chronic) Carotid artery disease (Chronic) Systolic CHF, chronic (Chronic) HTN (hypertension) (Chronic) Pulmonary HTN (Chronic) PA pressure in November 2014 estimated at 50 Chronic anemia (Chronic) unknown etiology Hospital Course and Treatment Imaging Results: CT/Brain/Head without Contrast IMPRESSION: Chronic involutional changes of the brain. RAD/Chest 1 View (Portable) IMPRESSION: Cardiomegaly. Stable increased markings at the lung bases suggestive of bibasilar scarring. Operations: None Procedures: None Summary of Care Provided: Physical exam on day of discharge: General: Resting comfortably NAD Psych: A/Ox3 normal affect HEENT: [place] AT NC Neck: Supple NT CV: RRR no m/t/r/g/h Resp: CTA Abd: [id number] Soft NT no guarding or rigidity Ext: DP2+= no edema Skin: W/D normal turgor Lymph/Heme: No active bleeding or adenopathy Neuro: CN2-12 intact Hospital course: The patient is a 82 year old M with a history of type 2 diabetes,dementia, hypertension, hyperlipidemia, hypothyroidism, congestive heart failure, TIA, DVT, CKD stage III, paroxysmal atrial fibrillation who presented to the emergency room with chief complaint of unresponsiveness for 1 day. He was recently started on Actos for diabetes. He was found to be hypoglycemic with a blood sugar 44 and mildly hypothermic. He was given an amp of D50 with good response. He was admitted to the progressive care unit on telemetry. Actos was discontinued and he was started on long-acting insulin. He had no further issues with hypoglycemia. At one point he developed somewhat lower than normal blood pressures. This improved with a 2 50 cc bolus of normal saline. As he is not currently on any blood pressure medications we advised conservative management at this time with the addition of BENJAMIN hoses at discharge. He remained significantly debilitated throughout his stay and will require senior care going forward with physical therapy. He was accepted and discharged to senior care in stable condition. This patient was seen by Eber Ballard PA-C under the supervision of Doctor Islas. [] Discharge Diet: Low fat/ Low Cholesterol, 1800 Calorie Control Diet, 2000 mg Sodium Diet Discharge Activity: Return to Normal Activity Home Medications: Medications to take at Discharge Gabapentin [Neurontin] 300 mg PO QHS 10/10/15 Omeprazole [Prilosec] 40 mg PO DAILY 10/10/15 Amiodarone HCl [Cordarone] 200 mg PO DAILY@0800 05/07/17 Finasteride [Proscar] 5 mg PO DAILY 12/19/17 Levothyroxine [Synthroid] 137 mcg PO DAILY@0600 12/19/17 Donepezil HCl 10 mg PO QHS 03/01/18 Insulin Glargine [Lantus SoloStar Pen] 7 units SC BID #1 pen 03/05/18 Following Prescrptions Were Given to Patient: Insulin Glargine [Lantus SoloStar Pen] 7 units SC BID #1 pen Primary Care Physician: Lai Hsieh Chi, MD [Primary Care Provider] - Please follow up with your Primary Care Physician in: in 1 week Disposition: Group Home facility Minutes spent on discharge:: 35 Patient Condition:: Stable Medical Necessity - Tobacco Use Smoking Status: Former smoker Tobacco Use: Pipe Meaningful Use Info Meaningful Use Diagnoses (Choose all that apply): None applicable <Pedrito Islas - Last Filed: 03/05/18 15:56> Discharge Date and Diagnosis - Primary Discharge Diagnosis Active and Suspected Problems (Last Updated 09/24/17 @ 14:33 by STANLEY Turner) Unresponsive (Acute) Hypoglycemia (Acute) - Secondary Discharge Diagnosis Chronic Problems (Last Updated 09/24/17 @ 14:33 by STANLEY Turner) Aortic root dilatation (Chronic) Cardiac pacemaker (Chronic) Implanted in April 2010; 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) Abnormal pulmonary function test (Chronic) Tachycardia (Chronic) Hyperthyroidism (Chronic) Persistent atrial fibrillation (Chronic) S/P RFA 11/24/2011 TIA (transient ischemic attack) (Chronic) CKD (chronic kidney disease) stage 3, GFR 30-59 ml/min (Chronic) 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) Benign prostate hyperplasia (Chronic) Type 2 diabetes mellitus (Chronic) Dyslipidemia (Chronic) Gastroesophageal reflux disease (Chronic) Hypothyroidism (Chronic) Atrial fibrillation (Chronic) S/P IVC filter (Chronic) Cardiac pacemaker (Chronic) pacemaker implant april 2010 Tachy-everette syndrome (Chronic) S/P PM Cardiomyopathy (Chronic) 45% EF in November of 2014, ischemic S/P atrioventricular piper ablation (Chronic) Carotid artery disease (Chronic) Systolic CHF, chronic (Chronic) HTN (hypertension) (Chronic) Pulmonary HTN (Chronic) PA pressure in November 2014 estimated at 50 Chronic anemia (Chronic) unknown etiology Hospital Course and Treatment Summary of Care Provided: This patient was seen in conjunction with Eber Ballard PA-C. I have independently interviewed and examined the patient and reviewed pertinent historical, laboratory, and other data. Please refer to Eber Ballard PA-C note for details of this patient's presentation, findings, and recommendations. I have reviewed Eber Ballard PA-C note and concur with documented findings. In brief, patient is a 82-year-old gentleman admitted with progressive generalized weakness altered mental status Physical Examination: GENERAL: cooperative HEENT: Clear conjunctiva, NECK; supple, normal thyroid, CHEST: Diminished to auscultation bilaterally HEART: Regular S1 S2, ABDOMEN: soft, normoactive bowel sounds, SKIN: No Rash Assessment: 1. Acute encephalopathy secondary to hypoglycemia 2. Diabetes mellitus type 2 with complications including hypoglycemia 3. Essential hypertension 4. Dementia 5. History of conduction system disorder status post pacemaker placement 7. Hypothyroidism 8. Moderate protein calorie malnutrition Hospital course ; as above by Eber Ballard time spent ; 35 min Code Visit Inpatient E AND M: [id number] Disch Hosp 03/05/18 1358 <Electronically signed by Eber BURNS> Date Eber BURNS 03/05/18 1592<Electronically signed by Pedrito Islas MD> Cosigner Signature (if applicable): Date Pedrito Islas MD CC: GRANT Ballard; Pedrito Islas MD; Lai Hsieh MD Signed TRANSFER TO [facility] Observed: 03/05/2018 Status: F Source: [facility] 12:44 PM [facility] [place] [facility] Medical Records Department [address] [place] [address] Transfer to [facility] Care MR#: [id number] Acct: [id number] Name: BIANCA ARRIETA Rep #: [id number] : 1935 82 From: Eber BURNS PCP: Lai Hsieh MD, Chi Status: ADM IN BIANCA ARRIETA (Patient) (Health Ins. Claim No.) (Day of Discharge to Facility) Certification of patient admission REQUIRED AT TIME OF ADMISSION. I CERTIFY THAT POST-HOSPITAL ECF SERVICES ARE REQUIRED TO BE GIVEN ON AN IN-PATIENT BASIS BECAUSE OF THE ABOVE NAMED PATIENT'S NEED FOR [facility] CARE ON A CONTINUING BASIS FOR THE CONDITION(S) FOR WHICH HE/SHE WAS RECEIVING IN-PATIENT HOSPITAL SERVICES PRIOR TO HIS/HER TRANSFER TO THE F. 03/05/18 1051 <Electronically signed by Eber BURNS> Date Eber BURSN ADDENDUM by GRANT Ballard on 03/05/18 at 1243 Code Visit Please also provide daily BENJAMIN hoses to BL lower extremities. 03/05/18 1244 <Electronically signed by Eber BURNS> Date Eber Ballard cc: Lai Hsieh MD * Signed - Diet 03/03/18 09:16 Diet: Calorie Controlled Dietary Modifications:: Pureed Diet [place] Thick Liquids Is pt able to select menu?: No Diet Comments: supervision, leave tray at nurses station How many daily calories?: 1999 calorie - Routine Orders/Code Status Suppository Type: Dulcolax 10mg Suppository Frequency: Daily PRN O2 Frequency: PRN Keep PO Greater than or Equal to (%): 90 Code Status: Full Code - Wound(s) Left [place] Wound Type: Skin Tear Left Knee Wound Type: Skin Tear R Heel Wound Type: Skin Tear - Therapies Physical Therapy: Eval and Treat Occupational Therapy: Eval and Treat - Problem/Diagnosis (1) Hypoglycemia Status: Acute Current Visit: Yes (2) Aortic root dilatation Status: Chronic Current Visit: No (3) Cardiac pacemaker Status: Chronic Comment: Implanted in April 2010; Current Visit: No (4) 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 Status: Chronic Current Visit: No (5) Persistent atrial fibrillation Status: Chronic Comment: S/P RFA 11/24/2011 Current Visit: No (6) TIA (transient ischemic attack) Status: Chronic Current Visit: No (7) CKD (chronic kidney disease) stage 3, GFR 30-59 ml/min Status: Chronic Current Visit: No (8) 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 Current Visit: No (9) Benign prostate hyperplasia Status: Chronic Current Visit: No (10) Type 2 diabetes mellitus Status: Chronic Current Visit: No (11) Dyslipidemia Status: Chronic Current Visit: No (12) Gastroesophageal reflux disease Status: Chronic Current Visit: No (13) Hypothyroidism Status: Chronic Current Visit: No (14) S/P IVC filter Status: Chronic Current Visit: No (15) Cardiac pacemaker Status: Chronic Comment: pacemaker implant april 2010 Current Visit: No (16) Cardiomyopathy Status: Chronic Comment: 45% EF in November of 2014, ischemic Current Visit: No (17) Carotid artery disease Status: Chronic Current Visit: No (18) Systolic CHF, chronic Status: Chronic Current Visit: No (19) HTN (hypertension) Status: Chronic Current Visit: No (20) Pulmonary HTN Status: Chronic Comment: PA pressure in November 2014 estimated at 50 Current Visit: No (21) Chronic anemia Status: Chronic Comment: unknown etiology Current Visit: No - Allergies/Procedures Done in Hospital Allergies/Adverse Reactions: Allergies morphine Adverse Reaction (Verified 03/01/18 17:45) hallucinations SODIUM PENTHOL Allergy (Uncoded 03/01/18 17:45) Hives Procedures: None - Type of Care/Length of Stay Estimated LOS: Convalescent Care Less Than 30 days Type of Care Needed: Skilled Rehab Potential: Fair Prognosis: Fair - Additional Orders/Day of Discharge Day of Discharge: 03/05/18 - Dietary and Speech Recommendations Dietitian Recommendations/Changes: Cardiac/carbohydrate-controlled diet as indicated if PO established significant at meals; consistency/texture as per NEGOTIATOR. Contiue glucerna shake on medpass as tolerated. - Follow Up Care Primary Care Physician: Lai Hsieh Chi, MD [Primary Care Provider] - Please follow up with your Primary Care Physician in: in 1 week 03/05/18 1051 <Electronically signed by Eber BURNS> Date Eber BURNS CC: Lai Hsieh MD Signed BEDSIDE GLUCOSE Collected: 03/05/2018 Status: F Source: [place] 10:47 AM [facility] [place] TYPE CODE TESTS RESULT OUT OF REFERENCE UNITS RANGE LAB L501.080 70-110 mg/dL High BEDSIDE GLU 172 Result Comment: MANAGEMENT OF PATIENT CARE PER NURSING PROTOCOL Performed By: #### L501.080 #### [facility] Laboratory Point of Care [address] [place] [address] BEDSIDE GLUCOSE Collected: 03/05/2018 Status: F Source: [place] 6:39 AM [facility] [place] TYPE CODE TESTS RESULT OUT OF RANGE REFERENCE UNITS LAB L501.080 70-110 mg/dL Normal BEDSIDE GLU 75 Result Comment: MANAGEMENT OF PATIENT CARE PER NURSING PROTOCOL Performed By: #### L501.080 #### [facility] Point of Care [address] [place] [address] BEDSIDE GLUCOSE Collected: 03/04/2018 Status: F Source: [place] 9:24 PM [facility] [place] TYPE CODE TESTS RESULT OUT OF REFERENCE UNITS RANGE LAB L501.080 70-110 mg/dL High BEDSIDE GLU 309 Result Comment: MANAGEMENT OF PATIENT CARE PER NURSING PROTOCOL Performed By: #### L501.080 #### [facility] Point of Care [address] [place] [address] BEDSIDE GLUCOSE Collected: 03/04/2018 Status: F Source: [place] 6:30 PM [facility] [place] TYPE CODE TESTS RESULT OUT OF REFERENCE UNITS RANGE LAB L501.080 70-110 mg/dL High BEDSIDE GLU 376 Result Comment: MANAGEMENT OF PATIENT CARE PER NURSING PROTOCOL Performed By: #### L501.080 #### [facility] Point of Care [address] [place] [address] BEDSIDE GLUCOSE Collected: 03/04/2018 Status: F Source: [place] 5:28 PM [facility] [place] TYPE CODE TESTS RESULT OUT OF REFERENCE UNITS RANGE LAB L501.080 70-110 mg/dL High BEDSIDE GLU 410 Result Comment: MANAGEMENT OF PATIENT CARE PER NURSING PROTOCOL Performed By: #### L501.080 #### [facility] Point of Care [address] [place] [address] BEDSIDE GLUCOSE Collected: 03/04/2018 Status: F Source: [place] 5:25 PM [facility] [place] TYPE CODE TESTS RESULT OUT OF REFERENCE UNITS RANGE LAB L501.080 70-110 mg/dL High BEDSIDE GLU 408 Result Comment: MANAGEMENT OF PATIENT CARE PER NURSING PROTOCOL Performed By: #### L501.080 #### [facility] Point of Care [address] [place] [address] BEDSIDE GLUCOSE Collected: 03/04/2018 Status: F Source: [place] 11:22 AM [facility] [place] TYPE CODE TESTS RESULT OUT OF REFERENCE UNITS RANGE LAB L501.080 70-110 mg/dL High BEDSIDE GLU 315 Result Comment: MANAGEMENT OF PATIENT CARE PER NURSING PROTOCOL Performed By: #### L501.080 #### [facility] Point of Care [address] [place] [address] BEDSIDE GLUCOSE Collected: 03/04/2018 Status: F Source: [place] 6:47 AM [facility] [place] TYPE CODE TESTS RESULT OUT OF REFERENCE UNITS RANGE LAB L501.080 70-110 mg/dL High BEDSIDE GLU 267 Result Comment: MANAGEMENT OF PATIENT CARE PER NURSING PROTOCOL Performed By: #### L501.080 #### [facility] Point of Care [address] [place] [address] BEDSIDE GLUCOSE Collected: 03/03/2018 Status: F Source: [place] 11:21 PM [facility] [place] TYPE CODE TESTS RESULT OUT OF REFERENCE UNITS RANGE LAB L501.080 70-110 mg/dL High BEDSIDE GLU 343 Result Comment: MANAGEMENT OF PATIENT CARE PER NURSING PROTOCOL Performed By: #### L501.080 #### [facility] Point of Care [address] [place] [address] BEDSIDE GLUCOSE Collected: 03/03/2018 Status: F Source: [place] 4:28 PM [facility] [place] TYPE CODE TESTS RESULT OUT OF REFERENCE UNITS RANGE LAB L501.080 70-110 mg/dL High BEDSIDE GLU 298 Result Comment: MANAGEMENT OF PATIENT CARE PER NURSING PROTOCOL Performed By: #### L501.080 #### [facility] Point of Care [address] [place] [address] BEDSIDE GLUCOSE Collected: 03/03/2018 Status: F Source: [place] 11:02 AM [facility] [place] TYPE CODE TESTS RESULT OUT OF REFERENCE UNITS RANGE LAB L501.080 70-110 mg/dL High BEDSIDE GLU 326 Result Comment: Dr Ku Followed MANAGEMENT OF PATIENT CARE PER NURSING PROTOCOL Performed By: #### L501.080 #### [facility] Point of Care [address] [place] [address] DISCHARGE INSTRUCTION Observed: 03/03/2018 Status: F Source: [place] 10:09 AM [facility] Medical Records Department [address] [place] [address] Instructions for Home/Discharge Instructions 03/03/18 1006 MR#: [id number] Acct: [id number] Name: BIANCA ARRIETA Rep #: [id number] : 1935 82 From: Faustina Chaparro MD PCP: Jori PONCE,Lai [facility] Status: ADM [place] - Discharge Diagnoses Current Active Problems: Current Active and Chronic Problems (Last Updated 09/24/17 @ 14:33 by Karl Strong, HANDS ASSEMBLER-C) Unresponsive (Acute) Hypoglycemia (Acute) Reason(s) for Visit for Discharge Instructions: Unresponsiveness, low blood sugar You will use the following diet at home:: Calorie/Carbohydrate Controlled (specify 1200, 1400, etc) Your food should be the consistency of: Puree Your liquids should be the consistency of: Regular/Thin Discharge Activity: Return to Normal Activity Additional Instructions: Take note of changes in your medications. Stick to the current medication list. Continue to check blood sugars at least 3 times a day. Allergies/Adverse Reactions: Allergies morphine Adverse Reaction (Verified 03/01/18 17:45) hallucinations SODIUM PENTHOL Allergy (Uncoded 03/01/18 17:45) Hives Medications to take at Discharge Gabapentin [Neurontin] 300 mg PO QHS 10/10/15 Omeprazole [Prilosec] 40 mg PO DAILY 10/10/15 Amiodarone HCl [Cordarone] 200 mg PO DAILY@0800 05/07/17 Finasteride [Proscar] 5 mg PO DAILY 12/19/17 Levothyroxine [Synthroid] 137 mcg PO DAILY@0600 12/19/17 Donepezil HCl 10 mg PO QHS 03/01/18 Glucerna Shake 120 ml PO 4X/DAY #100 03/03/18 Insulin Glargine [Lantus SoloStar Pen] 5 units SC BID pen 03/03/18 The following prescriptions were given: Glucerna Shake 120 ml PO 4X/DAY #100 Primary Care Physician: Lai Hsieh Chi, MD [Primary Care Provider] - Please follow up with your Primary Care Physician in: in 1 week Test Results: Test results from this visit will be discussed in further detail at your follow-up appointment, if applicable. Proposed Discharge Date: 03/03/18 03/03/18 1009 <Electronically signed by Faustina Chaparro MD> Date Faustina Chaparro MD CC: Lai Hsieh MD BEDSIDE GLUCOSE Collected: 03/03/2018 Status: F Source: [place] 7:00 AM [facility] [place] TYPE CODE TESTS RESULT OUT OF REFERENCE UNITS RANGE LAB L501.080 70-110 mg/dL High BEDSIDE GLU 248 Result Comment: MANAGEMENT OF PATIENT CARE PER NURSING PROTOCOL Performed By: #### L501.080 #### [facility] Point of Care [address] [place] [address] BEDSIDE GLUCOSE Collected: 03/02/2018 Status: F Source: [place] 10:48 PM [facility] [place] TYPE CODE TESTS RESULT OUT OF REFERENCE UNITS RANGE LAB L501.080 70-110 mg/dL High BEDSIDE GLU 277 Result Comment: MANAGEMENT OF PATIENT CARE PER NURSING PROTOCOL Performed By: #### L501.080 #### [facility] Point of Care [address] [place] [address] BEDSIDE GLUCOSE Collected: 03/02/2018 Status: F Source: [place] 3:57 PM [facility] [place] TYPE CODE TESTS RESULT OUT OF REFERENCE UNITS RANGE LAB L501.080 70-110 mg/dL High BEDSIDE GLU 219 Result Comment: Dr Orders Followed MANAGEMENT OF PATIENT CARE PER NURSING PROTOCOL Performed By: #### L501.080 #### [facility] Point of Care [address] [place] [address] BEDSIDE GLUCOSE Collected: 03/02/2018 Status: F Source: [place] 12:03 PM [facility] [place] TYPE CODE TESTS RESULT OUT OF REFERENCE UNITS RANGE LAB L501.080 70-110 mg/dL High BEDSIDE GLU 206 Result Comment: MANAGEMENT OF PATIENT CARE PER NURSING PROTOCOL Performed By: #### L501.080 #### [facility] Point of Care [address] [place] [address] BEDSIDE GLUCOSE Collected: 03/02/2018 Status: F Source: [place] 10:10 AM [facility] [place] TYPE CODE TESTS RESULT OUT OF REFERENCE UNITS RANGE LAB L501.080 70-110 mg/dL High BEDSIDE GLU 119 Result Comment: Dr Orders Followed MANAGEMENT OF PATIENT CARE PER NURSING PROTOCOL Performed By: #### L501.080 #### [facility] Point of Care [address] [place] [address] BEDSIDE GLUCOSE Collected: 03/02/2018 Status: F Source: [place] 8:00 AM [facility] [place] TYPE CODE TESTS RESULT OUT OF RANGE REFERENCE UNITS LAB L501.080 70-110 mg/dL Normal BEDSIDE GLU 90 Result Comment: Dr Orders Followed MANAGEMENT OF PATIENT CARE PER NURSING PROTOCOL Performed By: #### L501.080 #### [facility] Point of Care [address] [place] [address] BEDSIDE GLUCOSE Collected: 03/02/2018 Status: F Source: [place] 7:19 AM [facility] [place] TYPE CODE TESTS RESULT OUT OF RANGE REFERENCE UNITS LAB L501.080 70-110 mg/dL Normal BEDSIDE GLU 92 Result Comment: MANAGEMENT OF PATIENT CARE PER NURSING PROTOCOL Performed By: #### L501.080 #### [facility] Point of Care [address] [place] [address] BASIC METABOLIC Collected: 03/02/2018 Status: F Source: [place] PROFILE (BMP) 6:28 AM [facility] [place] TYPE CODE TESTS RESULT OUT OF RANGE REFERENCE UNITS LAB L501.0100 74-106 mg/dL Normal GLU 83 Result Comment: Please note revised GLUCOSE reference range effective 2017. LAB L501.1000 7-18 mg/dL Normal BUN 14 LAB L501.1100 0.70-1.30 mg/dL Normal CREAT,SERUM 1.10 Result Comment: The validity of the calculated GFR AND GFRAA in patients over 70 years has not been determined. Clinical correlation is essential. LAB L501.1110 >60 mL/min Normal EST GFR 68 Result Comment: Non- GFR Calc LAB L501.1115 >60 mL/min Normal EST GFR - AA 82 Result Comment: GFR Calc LAB L501.1255 ml/min Normal Estimated CRCL 47.57 LAB L501.1300 10-20 RATIO Normal BUN/CRE 12.7 LAB L501.2200 8.5-10 mg/dL Low .1 CA 8.3 LAB L501.5300 136-14 mmol/L Normal 5 NA 141 LAB L501.5600 3.5-5. mmol/L Normal 1 K 4.4 LAB L501.5900 98-107 mmol/L Normal CL 106 LAB L501.6100 21.0-3 mmol/L Normal 2.0 CO2 30.0 LAB L501.6200 5-15 Normal GAP 5 Performed By: #### L500.2500 #### [facility] [address] [place], [address] THYROID STIM HORMONE Collected: 03/02/2018 Status: F Source: [place] (TSH) 6:28 AM [facility] [place] Order Comment: Comments: as add on test TYPE CODE TESTS RESULT OUT OF RANGE REFERENCE UNITS LAB L501.9520 0.358-3.74 uIU/mL Normal TSH 0.88 Performed By: #### L501.9520 #### [facility] [address] [facility] [place], [address] BEDSIDE GLUCOSE Collected: 03/02/2018 Status: F Source: [place] 5:24 AM [facility] [place] TYPE CODE TESTS RESULT OUT OF RANGE REFERENCE UNITS LAB L501.080 70-110 mg/dL Normal BEDSIDE GLU 94 Result Comment: MANAGEMENT OF PATIENT CARE PER NURSING PROTOCOL Performed By: #### L501.080 #### [facility] Point of Care [address] [place], [place] [id number] CHEST PA AND LATERAL Observed: 03/02/2018 Status: F Source: [place] 3:57 AM [facility] [place] [facility] Imaging Services [address] [place] [address] Chest PA and Lateral MR#: [id number] Acct: [id number] Name: BIANCA ARRIETA Rep #: [id number] : 1935 M 82 From: Anais Watson MD PCP: Lai Hsieh MD, Chi Status: ADM ARUN Study: Chest PA and Lateral Date of Exam: 03/02/18 Exam# [id number] Ordering Dr: Sintia Radford STUDY: X-RAY CHEST REASON FOR EXAM: Male, 82 years old. Fever. TECHNIQUE: AP and lateral views of the chest. COMPARISON: Chest radiograph dated March 01, 2018. FINDINGS: Patient has left-sided intracardiac pacemaker. Cardiac monitoring leads are present. The lungs are expanded. There is mild prominence of bronchovascular markings. There is no demonstrated pleural abnormality. There is mild cardiac enlargement. There are calcified mediastinal and hilar lymph nodes. There is prominence of the pulmonary hilar arteries without peripheral pulmonary vascular congestion. Normal visualized aortic arch and descending thoracic aorta. There is demineralization of the osseous structures. There is increased thoracic kyphosis. 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 There is deformity of the proximal left humerus suggesting sequela of old fracture. There is a large amount of bowel gas in the upper abdomen. RAD/Chest PA and Lateral IMPRESSION: Cardiomegaly and pulmonary congestion. Electronically Signed: Anais Watson MD at 8:48 EDT , Service support , CC: Sintia Radford; Lai Hsieh MD Operations Manager Station: Signed BEDSIDE GLUCOSE Collected: 03/02/2018 Status: F Source: [place] 3:41 AM [facility] [place] TYPE CODE TESTS RESULT OUT OF RANGE REFERENCE UNITS LAB L501.080 70-110 mg/dL Normal BEDSIDE GLU 110 Result Comment: MANAGEMENT OF PATIENT CARE PER NURSING PROTOCOL Performed By: #### L501.080 #### [facility] Point of Care [address] [place] [address] BEDSIDE GLUCOSE Collected: 03/02/2018 Status: F Source: [place] 3:23 AM [facility] [place] TYPE CODE TESTS RESULT OUT OF REFERENCE UNITS RANGE LAB L501.080 70-110 mg/dL Low BEDSIDE GLU 61 Result Comment: MANAGEMENT OF PATIENT CARE PER NURSING PROTOCOL Performed By: #### L501.080 #### [facility] Point of Care [address] [place] [address] BEDSIDE GLUCOSE Collected: 03/02/2018 Status: F Source: [place] 1:39 AM [facility] [place] TYPE CODE TESTS RESULT OUT OF RANGE REFERENCE UNITS LAB L501.080 70-110 mg/dL Normal BEDSIDE GLU 94 Result Comment: MANAGEMENT OF PATIENT CARE PER NURSING PROTOCOL Performed By: #### L501.080 #### [facility] Point of Care [address] [place] [address] BEDSIDE GLUCOSE Collected: 03/02/2018 Status: F Source: [place] 12:05 AM [facility] [place] TYPE CODE TESTS RESULT OUT OF REFERENCE UNITS RANGE LAB L501.080 70-110 mg/dL High BEDSIDE GLU 135 Result Comment: MANAGEMENT OF PATIENT CARE PER NURSING PROTOCOL Performed By: #### L501.080 #### [facility] Point of Care [address] [place] [address] BEDSIDE GLUCOSE Collected: 03/01/2018 Status: F Source: [place] 11:46 PM [facility] [place] TYPE CODE TESTS RESULT OUT OF REFERENCE UNITS RANGE LAB L501.080 70-110 mg/dL Low BEDSIDE GLU 49 Result Comment: MANAGEMENT OF PATIENT CARE PER NURSING PROTOCOL Performed By: #### L501.080 #### [facility] Point of Care [address] [place] [address] BEDSIDE GLUCOSE Collected: 03/01/2018 Status: F Source: [place] 7:54 PM [facility] [place] TYPE CODE TESTS RESULT OUT OF REFERENCE UNITS RANGE LAB L501.080 70-110 mg/dL High BEDSIDE GLU 113 Result Comment: MANAGEMENT OF PATIENT CARE PER NURSING PROTOCOL Performed By: #### L501.080 #### [facility] Point of Care [address] [place] [address] BEDSIDE GLUCOSE Collected: 03/01/2018 Status: F Source: [place] 7:00 PM [facility] [place] TYPE CODE TESTS RESULT OUT OF REFERENCE UNITS RANGE LAB L501.080 70-110 mg/dL High BEDSIDE GLU 156 Result Comment: MANAGEMENT OF PATIENT CARE PER NURSING PROTOCOL Performed By: #### L501.080 #### [facility] Point of Care [address] [place] [address] BEDSIDE GLUCOSE Collected: 03/01/2018 Status: F Source: [place] 6:22 PM [facility] [place] [facility] TYPE CODE TESTS RESULT OUT OF REFERENCE UNITS RANGE LAB L501.080 70-110 mg/dL Low alert BEDSIDE GLU 43 Result Comment: MANAGEMENT OF PATIENT CARE PER NURSING PROTOCOL Performed By: #### L501.080 #### [facility] Point of Care [address] [place] [address] HISTORY AND PHYSICAL Observed: 03/01/2018 Status: F Source: [place] EXAM 4:39 PM [facility] [place] [facility] Medical Records Department [address] [place] [address] History and Physical 03/01/18 1555 MR#: [id number] Acct: [id number] Name: ARRIETABIANCA Rep #: [id number] : 1935 82 From: Faustina Chaparro MD PCP: Lai Hsieh MD, Chi Status: ADM ARUN Y Location: [place] [address] Problem List (1) Unresponsive Status: Acute (2) Hypoglycemia Status: Acute (3) Type 2 diabetes mellitus Status: Chronic Qualifiers: Diabetes mellitus terminal block assembler insulin use: with residential use Diabetes mellitus complication status: with unspecified complications Qualified Code(s): E11.8 - Type 2 diabetes mellitus with unspecified complications; Z79.4 - FPC (current) use of insulin (4) HTN (hypertension) Status: Chronic Qualifiers: Hypertension type: essential hypertension Qualified Code(s): I10 - Essential (primary) hypertension History of Present Illness Date of Admission: 03/01/18 Chief Complaint: Unresponsiveness - 1 day The patient is a 82 year old M with multiple comorbidities significant for type II DM, hypertension, status post pacemaker, hypothyroidism, who recently had changes to his medications with start of Actos. She was taken from the as patient was nonverbal. According to the , patient was acting confused yesterday, could not settle down to sleep. He was found lying in bed this morning, unresponsive. The EMS was called and blood sugars were 44, given an amp of D50. On arrival to the ED, BS was 72, given a second amp of D50, repeat blood sugar was 94. Temp 95.1F, BP 123/82, RR 25, Spo2 92, on 3L. 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) Abnormal pulmonary function test (Chronic) Tachycardia (Chronic) Hyperthyroidism (Chronic) Persistent atrial fibrillation (Chronic) S/P RFA 11/24/2011 TIA (transient ischemic attack) (Chronic) CKD (chronic kidney disease) stage 3, GFR 30-59 ml/min (Chronic) 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) Benign prostate hyperplasia (Chronic) Type 2 diabetes mellitus (Chronic) Dyslipidemia (Chronic) Gastroesophageal reflux disease (Chronic) Hypothyroidism (Chronic) Atrial fibrillation (Chronic) S/P IVC filter (Chronic) Cardiac pacemaker (Chronic) pacemaker implant april 2010 Tachy-everette syndrome (Chronic) S/P PM Cardiomyopathy (Chronic) 45% EF in November of 2014, ischemic S/P atrioventricular piper ablation (Chronic) Carotid artery disease (Chronic) Systolic CHF, chronic (Chronic) HTN (hypertension) (Chronic) Pulmonary HTN (Chronic) PA pressure in November 2014 estimated at 50 Chronic anemia (Chronic) unknown etiology Medical History: Medical History (Last Updated 09/24/17 @ 14:33 by Karl Strong NP-C) 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) E10.51 Other specified conduction disorder (Chronic) I45.89 Abnormal pulmonary function test (Chronic) R94.2 Tachycardia (Chronic) R00.0 Hyperthyroidism (Chronic) E05.90 Persistent atrial fibrillation (Chronic) I48.1 S/P RFA 11/24/2011 TIA (transient ischemic attack) (Chronic) CKD (chronic kidney disease) stage 3, GFR 30-59 ml/min (Chronic) 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) I82.629 Benign prostate hyperplasia (Chronic) Type 2 diabetes mellitus (Chronic) E11.9 Dyslipidemia (Chronic) E78.5 Gastroesophageal reflux disease (Chronic) K21.9 Hypothyroidism (Chronic) E03.9 Atrial fibrillation (Chronic) I48.91 Cardiac pacemaker (Chronic) Z95.0 pacemaker implant april 2010 Tachy-everette syndrome (Chronic) I49.5 S/P PM Cardiomyopathy (Chronic) I42.9 45% EF in November of 2014, ischemic Carotid artery disease (Chronic) I77.9 Systolic CHF, chronic (Chronic) I50.22 HTN (hypertension) (Chronic) I10 Pulmonary HTN (Chronic) I27.2 PA pressure in November 2014 estimated at 50 Chronic anemia (Chronic) D64.9 unknown etiology Allergies morphine Adverse Reaction (Verified 12/19/17 22:56) Other PT DENIES ALLERGY SODIUM PENTHOL Allergy (Uncoded 12/19/17 22:56) Hives PT DENIES ALLERGY Home Medications: Ambulatory Orders Medication Instructions Recorded Gabapentin [Neurontin] 300 mg PO QHS 10/10/15 Omeprazole [Prilosec] 40 mg PO DAILY 10/10/15 Surgical History: Surgical History (Last Reviewed 09/24/17 @ 13:55 by Janelle Laguna) carotid arteriography (Resolved) 05/09/12 summa, carotid arteriography with internal carotid stent placement (proximal LIC and distal LCC), common carotid stent and aortography S/P IVC filter (Chronic) Z95.828 S/P atrioventricular piper ablation (Chronic) Z98.890 History of cardiac radiofrequency ablation (RFA) Z98.890 11/24/11, WITH PPM IMPLANT Surgical History: pacemaker implantation - 2009, - - PATIENT HAS HISTORY OF CRANIOTOMY, for intracranial bleed evacuation, patient sustained fall at that time, internal carotid stents 2011 Psychiatric History: No pertinent psych hx Smoking Status: Former smoker Tobacco Use: Non-smoker Alcohol: None Drugs: None - *Family History Maternal Family History: Family History (Last Reviewed 09/24/17 @ 13:55 by Janelle Laguna) Brother CAD (coronary artery disease) Hx of CABG Cancer Father CAD (coronary artery disease) Myocardial infarction Brother Cancer Mother Old age History Items: Cancer - , unknonw age Paternal Family History: Family History (Last Reviewed 09/24/17 @ 13:55 by Janelle Laguna) Brother CAD (coronary artery disease) Hx of CABG Cancer Father CAD (coronary artery disease) Myocardial infarction Brother Cancer Mother Old age History Items: Cancer - unknown age, Heart Disease Sibling Family History: Family History (Last Reviewed 09/24/17 @ 13:55 by Janelle Laguna) Brother CAD (coronary artery disease) Hx of CABG Cancer Father CAD (coronary artery disease) Myocardial infarction Brother Cancer Mother Old age History Items: Cancer, Heart Disease - CAD s/ CABG Review of Systems Unable to obtain accurate/complete ROS d/t: Unable to give ROS VTE Information - Inpt Only VTE Present on Admission: No VTE Pharm Prophylaxis ordered?: Yes Patient Problems: Active and Suspected Problems (Last Updated 09/24/17 @ 14:33 by Karl Strong NP-C) Unresponsive (Acute) Hypoglycemia (Acute) - Physical Exam General: Alert, Confused - non-verbal, - - being warmed with a bear-hugger HEENT: Atraumatic, PERRLA, EOMI, Normocephalic, - - distended veins on parietal, and occipital regions Oral: Dry Mucosa Neck: Supple, No JVD, Negative Carotid Bruits Lungs: Normal air movement, Diminished Cardiovascular: Regular rate, Regular Rhythm, Normal S1, Normal S2, No murmurs Abdomen: Bowel Sounds Present, Soft, Non Tender, Non-Distended Extremities: No edema Skin: No rashes, No breakdown Musculoskeletal: No Tenderness to Palpation of Joints or Extremities Lymphatic: No Cervical, Supraclavicular, or Inguinal Adenopathy Neurological: Cranial nerves II-XII grossly intact, - - appears lethargic Psych/Mental Status: Normal Affect, Appropriate Vital Signs Temp Pulse Resp BP Pulse Ox 97.2 F L 75 24 H 108/71 92 03/01/18 15:48 03/01/18 15:48 03/01/18 15:48 03/01/18 15:48 03/01/18 15:48 Oxygen Flow Rate (L/min) 3 Oxygen Delivery Method Nasal Cannula Weight: 93 kg Body Mass Index (BMI) 32.1 Finger Stick Blood Glucose 94 Laboratory Tests Past 24 Hrs WBC 6.6 RBC 5.45 Hgb 15.7 Hct 49.7 MCV 91.2 MCH 28.8 MCHC 31.6 L RDW 16.3 H RDW Differential 54.2 H WBC RBC Hgb Hct POC Glucose POC Glucose 94 72 Assessment/Plan All Active Problems (Last Updated 09/24/17 @ 14:33 by Karl Strong, HANDS ASSEMBLER-C) Unresponsive (Acute) Hypoglycemia (Acute) carotid arteriography (Resolved) Cutaneous candidiasis (Resolved) Epididymitis (Resolved) Pleural effusion (Resolved) Systolic CHF, acute on chronic (Resolved) Wide-complex tachycardia (Resolved) 82 year old M with multiple comorbidities significant for type II DM, hypertension, status post pacemaker, hypothyroidism, who recently had changes to his medications with start of Actos and found to be hypoglycemic and hypothermic. 1. Altered mental status secondary to hypoglycemia, hypothermia, will continue to monitor 2. Hypoglycemia, recent use of Actos, on insulin , s/p D50, will continue on Accucheks Q6, D5NS, will feed if he becomes more responsive and passes swallow evaluation. 3. Hypertension, will hold medications, until patient is more responsiveness, will continue to monitor. 4. Dementia, on Aricept, will hold meds 5. s/p pacemaker 6. Hypothyroidism, patient was hypothermic on admission, will check TSH. 7. DVT Ppx- Heparin SC. Code Visit Inpatient E AND M: [id number] Init Hosp L3 03/01/18 1639 <Electronically signed by Faustina Chaparro MD> Date Faustina Chaparro MD Cosigner Signature: Date (if applicable) CC: Faustina Chaparro MD; Lai Hsieh MD Signed EMERGENCY DEPARTMENT Observed: 03/01/2018 Status: F Source: [place] SUMMARY 4:37 PM [facility] [place] [facility] Medical Records Department [address] [place] [address] Emergency Department Summary 03/01/18 1632 MR#: [id number] Acct: [id number] Name: BIANCA ARRIETA Rep #: [id number] : 1935 82 From: Dominic Lopez MD PCP: Lai Hsieh MD, Chi Status: ADM ARUN - ER Visit Summary Date of Service: 03/01/18 Chief Complaint: Confusion/low blood sugar History of Present Illness: The patient is a 82 M with a history of diabetes who recently had his diabetes medication increased because of elevated blood glucose presents with altered mental status and hypoglycemia. He generally stays up late every night and last night took his insulin at around 1 AM according to his . She said that he was very agitated and had trouble falling asleep and kept saying that he was hot. It took him several hours to fall asleep and she was unable to arouse him at around 6 AM this morning when she woke up. She then went back to sleep until around 10 AM and when she awoke he seemed to have his mouth open and was breathing quite heavily. She was unable to arouse him again but she thought that he was just sleeping heavily. Several hours later, she checked on him and he was still unarousable. She checked his blood glucose and it was 40. She then contacted 911. He has not been ill recently, no recent fevers, vomiting, or diarrhea. Physical Examination: He is in severe distress on arrival. Mucous members are dry. He is agitated and combative. No obvious signs of head trauma. Core temperature is 95 Fahrenheit. Blood pressure is normal. He is not hypoxic. Lungs are clear bilaterally and heart tones are regular. Abdomen is soft. No sign of extremity trauma but he does have scattered abrasions on his left thigh and dried stool on his lower extremities. He is not following commands and is agitated. Test Results: CBC and chemistries are unremarkable. Urinalysis does not appear infected. It was sent for culture and blood cultures were sent as well. Chest x-ray is negative for infiltrate and CT brain is negative. Lactic acid is elevated at 3.5 Emergency Department Course and Treatment: He is quite hypothermic so was started on the bear hugger. He was given another amp of D50 and observe. His mental status improved markedly but he is still much more confused than baseline. He has no facial droop or other evidence of acute stroke and his symptoms likely started at around 2 or 3 AM based on the description from his . A stroke team was therefore not activated and he was not felt to be a candidate for TPA. His symptoms certainly could be secondary to prolonged hypoglycemia but I cannot say with certainty. He will need to be observed and reevaluated and he will continue to be warmed. I spoke with the hospitalist and he was admitted. Treatment Plan: Admit to PCU Disposition: Admission, full Impression: Initial encounter prolonged hypoglycemia, initial encounter hypothermia, initial encounter altered mental status, initial encounter elevated lactic acid without obvious evidence of infection This note was generated with [employer] dictation software. It may contain incorrect words, spelling, and punctuation that were not noted in review of the chart prior to signing ED Disposition - Plan for ED Patient: Chief Complaint: Hypoglycemia What to do if you have Problems For any increased pain, shortness of breath, bleeding, nausea or vomiting, chest pain, or any unexpected problems, contact your Primary Care Provider. Call [facility] ([phone]) or report to the closest Emergency Room. Call 911 if necessary. 03/01/18 1637 <Electronically signed by Dominic Lopez MD> Date Dominic Lopez MD Cosigner Signature (If Indicated): Date CC: Lai Hsieh MD BEDSIDE GLUCOSE Collected: 03/01/2018 Status: F Source: [place] 3:01 PM [facility] [place] TYPE CODE TESTS RESULT OUT OF RANGE REFERENCE UNITS LAB L501.080 70-110 mg/dL Normal BEDSIDE GLU 94 Result Comment: MANAGEMENT OF PATIENT CARE PER NURSING PROTOCOL Performed By: #### L501.080 #### [facility] Point of Care [address] [place] [address] URINALYSIS, COMPLETE Collected: 03/01/2018 Status: F Source: [place] 3:00 PM [facility] [place] Order Comment: Order Date: 03/01/18 How was Urine Obtained? CATHETER SPECIMEN TYPE CODE TESTS RESULT OUT OF RANGE REFERENCE UNITS LAB L400.3000 Yellow COLOR Normal Yellow LAB L400.3050 Clear Normal CLARITY Clear LAB L400.3200 Normal mg/dl High GLUCOSE, UR 100 LAB L400.3300 Negative mg/dL Normal BILIRUBIN URINE Negative LAB L400.3400 Negative mg/dl Normal KETONE UR Negative LAB L400.3465 1.002-1.030 Normal SP.GR. DIPSTX 1.015 LAB L400.3550 5.0 - 8.0 pH UR Normal 6.0 LAB L400.3600 Negative mg/dl High PROT 30 DIPSTX LAB L400.3700 Normal mg/dl Normal UROBILI Normal LAB L400.3750 Negative Normal NITRITE UR Negative LAB L400.3780 Negative /ul Normal OCCULT BLOOD-UR Negative LAB L400.3800 Negative /ul LEUK Normal ESTERASE Negative LAB L400.4050 0-5 /hpf WBC 0 Normal SEEN LAB L400.4100 0-5 /hpf 0 Normal RBC-UA SEEN LAB L400.4150 0-5 /hpf SQUAM 0 Normal EPI SEEN LAB L400.4300 None Seen /hpf 0 Normal BACTERIA SEEN LAB L400.4350 <or=2+ /hpf 0 Normal MUCUS, URINE SEEN Performed By: #### L400.0001 #### [facility] [address] [place], [address] Observed: 03/01/2018 Status: F Source: [place] CULTURE, URINE 3:00 PM [facility] [place] Order Date: 03/01/18 Urine Culture Culture exhibits no growth. Performed By: #### M100.0650 #### [facility] [address] [place], [address] Observed: 03/01/2018 Status: F Source: [place] CULTURE, BLOOD (WB) 2:45 PM [facility] [place] [facility] BC No growth in 5 days. Performed By: #### M200.1000 #### [facility] [address] [place], [address] Observed: 03/01/2018 Status: F Source: [place] CULTURE, BLOOD (WB) 2:34 PM [facility] [place] REDRAW. PREVIOUS SPECIMEN REJECTED DUE TO NOT LABELLED. 03/01/18 1424 Francheska Curiel. BC GRAM STAIN = GRAM POSITIVE COCCI IN CLUSTERS IN ANAEROBIC BOTTLE MIXED GROWTH OF TWO TYPES OF GRAM POSITIVE ORGANISMS. Possible skin contamination, further Identification and sensitivity will be performed only by physician's request. RESULTS CALLED TO DINO BARROS 03/02/18 1444 Evelyn Adame.REPORT READ BACK BY SAME. ORGANISM 1: Coag Negative Staph Amount Growth Growth Performed By: #### M200.1000 #### [facility] [address] [place], [address] CBC W/DIFF, AUTOMATED Collected: 03/01/2018 Status: F Source: [place] 2:08 PM [facility] [place] TYPE CODE TESTS RESULT OUT OF RANGE REFERENCE UNITS LAB L100.1000 4.4-11.0 K/mm3 Normal WBC 6.6 LAB L100.1200 4.6-6.2 M/mm3 Normal RBC 5.45 LAB L100.1300 13.0-16.5 g/dl Normal HGB 15.7 LAB L100.1400 40-54 % Normal HCT 49.7 LAB L100.1500 80-94 fL Normal MCV 91.2 LAB L100.1600 27.0-32.0 pg Normal MCH 28.8 LAB L100.1700 32-36 g/gl Low MCHC 31.6 LAB L100.1810 11.6-14.6 % High RDW CV 16.3 LAB L100.1820 35.1-43.9 fl High RDW SD 54.2 LAB L100.1900 150-450 K/mm3 Low PLT 124 LAB L100.2000 6.2-12.0 fl Normal MPV 11.4 LAB L100.2100 47-70 % High NEUT% 81.0 LAB L100.2200 19-41 % Low LY% 7.1 LAB L100.2300 0-10 % High MONO% 11.2 LAB L100.2400 0-5 % Normal EO% 0.2 LAB L100.2500 0-1 % Normal BASO% 0.2 LAB L100.2550 0.0-0.9 % Normal IM GRAN % 0.300 Result Comment: IG% - Immature Granulocytes (promyelocytes, myelocytes and metamyelocytes) > 1% indicates that a LEFT SHIFT is Present. LAB L100.2620 2.0-7.7 X10 3/uL Normal Absolute Neut 5.4 LAB L100.2720 0.83-4.51 X10 3/ul Low Absolute Lymph 0.47 Performed By: #### L100.0100 #### [facility] [address] [place], [place], [address] PROTHROMBIN TIME W/INR Collected: 03/01/2018 Status: F Source: [place] 2:08 PM [facility] [place] TYPE CODE TESTS RESULT OUT OF RANGE REFERENCE UNITS LAB L300.4150 11.7-14.9 SECONDS Normal PROTIME 12.1 LAB L300.4200 Normal INR 0.9 Performed By: #### L300.3900 #### [facility] [address] [facility] [place], [id number] BASIC METABOLIC Collected: 03/01/2018 Status: F Source: [place] PROFILE (BMP) 2:08 PM [facility] [place] TYPE CODE TESTS RESULT OUT OF RANGE REFERENCE UNITS LAB L501.0100 74-106 mg/dL High GLU 107 Result Comment: Fasting Glucose result from 100 to 125 mg/dL suggests IMPAIRED HOMEOSTASIS per A.D.A. criteria. Please note revised GLUCOSE reference range effective 2017. LAB L501.1000 7-18 mg/dL Normal BUN 15 LAB L501.1100 0.70-1.30 mg/dL Normal CREAT,SERUM 1.19 Result Comment: The validity of the calculated GFR AND GFRAA in patients over 70 years has not been determined. Clinical correlation is essential. LAB L501.1110 >60 mL/min Normal EST GFR 62 Result Comment: Non- GFR Calc LAB L501.1115 >60 mL/min Normal EST GFR - AA 75 Result Comment: GFR Calc LAB L501.1255 ml/min Normal Estimated CRCL 43.97 LAB L501.1300 10-20 RATIO Normal BUN/CRE 12.6 LAB L501.2200 8.5-10 mg/dL Normal .1 CA 8.6 LAB L501.5300 136-14 mmol/L Normal 5 NA 138 LAB L501.5600 3.5-5. mmol/L Normal 1 K 4.1 LAB L501.5900 98-107 mmol/L Normal CL 100 LAB L501.6100 21.0-3 mmol/L Normal 2.0 CO2 30.0 LAB L501.6200 5-15 Normal GAP 8 Performed By: #### L500.2500, L500.4050 #### [facility] [address] [place], [place], [address] COMPREHENSIVE METABOLIC Collected: 03/01/2018 Status: F Source: [place] [facility] [place] 2:08 PM [facility] [place] TYPE CODE TESTS RESULT OUT OF RANGE REFERENCE UNITS LAB L501.1500 6.4-8.2 g/dL Normal T PROT 7.4 LAB L501.1800 3.2-5.0 g/dL Normal ALB 3.2 LAB L501.1950 2.2-4.2 g/dL Normal GLOB 4.2 LAB L501.2000 0.9-2.4 RATIO Low A/G 0.8 LAB L501.4100 15-37 U/L High AST 39 LAB L501.4305 45-117 U/L High ALK P 179 LAB L501.4405 16-61 U/L Normal ALT 27 LAB L501.4600 0.20-1.00 mg/dL Normal T BILI 0.70 Performed By: #### L500.2500, L500.4050 #### [facility] [address] [place], [address] CPK TOTAL, CREATINE Collected: 03/01/2018 Status: F Source: [place] 2:08 PM [facility] [place] TYPE CODE TESTS RESULT OUT OF RANGE REFERENCE UNITS LAB L501.3620 39-308 U/L Normal CPK TOTAL 50 Performed By: #### L501.3620 #### [facility] [address] [place], [address] LACTIC ACID Collected: 03/01/2018 Status: F Source: [place] 2:08 PM [facility] [place] Order Comment: Yes/No query for Sepsis Lactate Rule Y TYPE CODE TESTS RESULT OUT OF REFERENCE UNITS RANGE LAB L503.6005 0.4-2.0 mmol/L High LACTIC ACID 3.5 Result Comment: Critical Result(s) Called at: 14:43:56 03/01/2018 by: Shashank Patel RN Performed By: #### L503.6005 #### [facility] [address] [place], [address] CHEST 1 VIEW Observed: 03/01/2018 Status: F Source: [place] (PORTABLE) 2:02 PM [facility] [place] [facility] Imaging Services [address] [place] [address] Chest 1 View (Portable) MR#: [id number] Acct: [id number] Name: BIANCA ARRIETA Rep #: [id number] : 1935 M 82 From: Jonathan Jacobo MD PCP: Jori PONCE,Lai Chi Status: REG ER Study: Chest 1 View (Portable) Date of Exam: 03/01/18 Exam# [id number] Ordering Dr: Dominic Lopez MD STUDY: X-RAY CHEST REASON FOR EXAM: Male, 82 years old. Unresponsiveness. TECHNIQUE: Single AP portable view of the chest. COMPARISON: Comparison is made with prior study dated July 17, 2017. FINDINGS: Elevation of the right hemidiaphragm. Mild increased markings at the lung bases suggestive of atelectasis and/or scarring more prominent on the left side. There is no demonstrated pleural abnormality. There is moderate cardiac enlargement. A left-sided dual- chamber pacemaker is seen. Normal mediastinum and ava. Normal visualized pulmonary arteries. There is atherosclerotic calcification of the aortic arch with tortuosity. There are diffuse degenerative changes of the visualized thoracic spine. Impacted transverse fracture of the proximal left humerus. Residual deformity. There is no demonstrated abnormality of the visualized soft tissue structures of the upper abdomen. RAD/Chest 1 View (Portable) IMPRESSION: Cardiomegaly. Stable increased markings at the lung bases suggestive of bibasilar scarring. Electronically Signed: Jonathan Jacobo MD at 15:06 EDT Tel [phone], Service support , CC: Denton Lopez MD; Lai Hsieh MD Operations Manager Station: Signed BRAIN/HEAD WITHOUT Observed: 03/01/2018 Status: F Source: [place] CONTRAST 2:02 PM [facility] [place] [facility] Imaging Services [address] [place] [address] Brain/Head without Contrast MR#: [id number] Acct: [id number] Name: BIANCA ARRIETA Rep #: [id number] : 1935 M 82 From: Jonathan Jacobo MD PCP: Lai Hsieh MD, Chi Status: REG ER Study: Brain/Head without Contrast Date of Exam: 03/01/18 Exam# [id number] Ordering Dr: Dominic Lopez MD STUDY: CT BRAIN WITHOUT CONTRAST REASON FOR EXAM: Male, 82 years old. Altered mental status. Hyperglycemia. RADIATION DOSAGE (If Supplied By Facility): CTDIvol = ( 44.99 ) mGy, DLP = ( 812.98 ) mGycm TECHNIQUE: Transaxial CT imaging of the brain was performed without administration of intravenous contrast material. Individualized dose optimization techniques were used for this CT. COMPARISON: Comparison is made with prior study dated December 19, 2017. FINDINGS: Normal soft tissue structures. There is evidence of a prior nneka holes overlying the right frontal and left parietal bones. There is moderate cerebral atrophy with widening of the extra- axial spaces and ventricular dilatation. There are areas of decreased attenuation within the white matter tracts of the supratentorial brain, consistent with microvascular disease changes. Stable encephalomalacia in the left frontoparietal white matter in keeping with prior ischemic insult. Normal basal ganglia and thalami. Normal brainstem. Normal cerebellum. There is no intracranial hemorrhage. There are no findings of an acute ischemic infarction. Atherosclerotic calcification of the cavernous portions of the internal carotid arteries. Normal visualized paranasal sinuses. CT/Brain/Head without Contrast IMPRESSION: Chronic involutional changes of the brain. Electronically Signed: Jonathan Jacobo MD at 15:07 EDT Tel [phone], Service support , CC: Denton Lopez MD; Lai Hsieh MD Operations Manager Station: Signed BEDSIDE GLUCOSE Collected: 03/01/2018 Status: F Source: [place] 1:55 PM [facility] [place] TYPE CODE TESTS RESULT OUT OF RANGE REFERENCE UNITS LAB L501.080 70-110 mg/dL Normal BEDSIDE GLU 72 Result Comment: MANAGEMENT OF PATIENT CARE PER NURSING PROTOCOL Performed By: #### L501.080 #### [facility] Point of Care [address] [place] [address] PACEMAKER CHECK Observed: 02/26/2018 Status: F Source: [place] 5:40 PM [facility] [place] [facility] [address] [place] [place] [address] Pacemaker Check Date of Service: 02/26/181725 MR#: [id number] Acct: [id number] Name: BIANCA ARRIETA Rep #: [id number] : 1935 From: Vani Norris Age/Sex: 82/M [place] [facility] [place]: Signed Billing Codes PM Device Codes: PM Dev Prog Eval, Dual 02/26/181728 <Electronically signed by Vani Norris > Date Vani Norris 02/26/181739<Electronically signed by Jamir Ceballos MD> Cosigner Signature: Date (if applicable) Jamir Ceballos MD CC: CBC W/DIFF, AUTOMATED Collected: 02/06/2018 Status: F Source: [place] 2:54 PM [facility] [place] TYPE CODE TESTS RESULT OUT OF RANGE REFERENCE UNITS LAB L100.1000 4.4-11.0 K/mm3 Low WBC 2.2 LAB L100.1200 4.6-6.2 M/mm3 Normal RBC 4.94 LAB L100.1300 13.0-16.5 g/dl Normal HGB 13.8 LAB L100.1400 40-54 % Normal HCT 44.2 LAB L100.1500 80-94 fL Normal MCV 89.5 LAB L100.1600 27.0-32.0 pg Normal MCH 27.9 LAB L100.1700 32-36 g/gl Low MCHC 31.2 LAB L100.1810 11.6-14.6 % High RDW CV 15.8 LAB L100.1820 35.1-43.9 fl High RDW SD 51.5 LAB L100.1900 150-450 K/mm3 Low PLT 92 LAB L100.2000 6.2-12.0 fl Normal MPV 11.9 LAB L100.2100 47-70 % Normal NEUT% 63.4 LAB L100.2200 19-41 % Low LY% 18.5 LAB L100.2300 0-10 % High MONO% 16.7 LAB L100.2400 0-5 % Normal EO% 0.9 LAB L100.2500 0-1 % Normal BASO% 0.5 LAB L100.2550 0.0-0.9 % Normal IM GRAN % 0.000 Result Comment: IG% - Immature Granulocytes (promyelocytes, myelocytes and metamyelocytes) > 1% indicates that a LEFT SHIFT is Present. LAB L100.2620 2.0-7.7 X10 3/uL Low Absolute Neut 1.4 LAB L100.2720 0.83-4.51 X10 3/ul Low Absolute Lymph 0.40 LAB L100.4500 Normal SMEAR COMMENT SCANNED Performed By: #### L100.0100 #### [facility] [address] [facility] [place], [place], [address] VITAMIN D,25 HYDROXY Collected: 02/06/2018 Status: F Source: [place] 2:54 PM [facility] [place] TYPE CODE TESTS RESULT OUT OF REFERENCE UNITS RANGE LAB L506.1000 29.95-100.01 ng/mL Low Vitamin D 15.2 25-OH Result Comment: Vitamin D 25(OH) Status Range Deficiency <20 ng/mL (50nmol/L) Insuffciency 20 - 30 ng/mL (50 - 75 nmol/L) Sufficiency 30 - 100 ng/mL (75 - 250 nmol/L) Toxicity >100 ng/mL (>250 nmol/L) Performed By: #### L506.1000 #### [facility] [address] [facility] [place], [place], [address] COMPREHENSIVE METABOLIC Collected: 02/06/2018 Status: F Source: [facility] 2:54 PM [facility] [place] TYPE CODE TESTS RESULT OUT OF RANGE REFERENCE UNITS LAB L501.0100 74-106 mg/dL High alert GLU 582 Result Comment: Critical Result(s) Called at: 16:49:03 02/06/2018 by: Bobby Cabrales to Dr Hsieh Glucose result greater than or equal to 200 mg/dL suggests DIABETES MELLITUS per A.D.A. criteria. Please note revised GLUCOSE reference range effective 2017. LAB L501.1000 7-18 mg/dL Normal BUN 13 LAB L501.1100 0.70-1.30 mg/dL High CREAT,SERUM 1.66 Result Comment: The validity of the calculated GFR AND GFRAA in patients over 70 years has not been determined. Clinical correlation is essential. LAB L501.1110 >60 mL/min Low EST GFR 42 Result Comment: Non- GFR Calc LAB L501.1115 >60 mL/min Low EST GFR - AA 51 Result Comment: GFR Calc LAB L501.1300 10-20 RATIO Low BUN/CRE 7.8 LAB L501.1500 6.4-8.2 g/dL Normal T PROT 6.8 LAB L501.1800 3.2-5.0 g/dL Low ALB 3.1 LAB L501.1950 2.2-4.2 g/dL Normal GLOB 3.7 LAB L501.2000 0.9-2.4 RATIO Low A/G 0.8 LAB L501.2200 8.5-10.1 mg/dL Normal CA 9.1 LAB L501.4100 15-37 U/L Normal AST 33 LAB L501.4305 45-117 U/L High ALK P 183 LAB L501.4405 16-61 U/L Normal ALT 28 LAB L501.4600 0.20-1.00 mg/dL Normal T BILI 0.90 LAB L501.5300 136-145 mmol/L Low NA 134 LAB L501.5600 3.5-5.1 mmol/L Normal K 4.3 LAB L501.5900 98-107 mmol/L Low CL 94 LAB L501.6100 21.0-32.0 mmol/L Normal CO2 29.0 LAB L501.6200 5-15 Normal GAP 11 Performed By: #### L500.4050, L501.9520 #### [facility] [address] [place], [address] THYROID STIM HORMONE Collected: 02/06/2018 Status: F Source: [place] (TSH) 2:54 PM [facility] [place] TYPE CODE TESTS RESULT OUT OF RANGE REFERENCE UNITS LAB L501.9520 0.358-3.74 uIU/mL Normal TSH 3.44 Performed By: #### L500.4050, L501.9520 #### [facility] [address] [place], [address] PROGRESS Observed: 01/31/2018 Status: COMPLETED Source: [place] 2:33 PM [facility] REPOSITORY HNO ID: [id number] Author: Afia Scott Service: (none) Author Type: Physician Type: Progress Notes Filed: 01/31/2018 2:52 PM Note Text: ASSESSMENT/PLAN: Last dilated fundus exam: September 20, 2017 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, left, with macular edema (primary encounter diagnosis) Comment: with secondary macular edema - blood pressure control - s/p Avastin x 26 (12/06/2017) - continued improvement in intraretinal fluid on OCT with improved visual acuity - Avastin today and return to q10-12 week interval E11.3293, Z79.4 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 I have confirmed and edited as necessary the relevant ophthalmic history, ROS, and the neuro exam findings as obtained by others. I have seen and examined Bianca Arrieta. I have discussed the case and the management of this patient's care with the Resident/Fellow, if applicable. I also have reviewed and agree with the assessment and plan as stated above and agree with all of its relevant components. EMERGENCY DEPARTMENT Observed: 12/20/2017 Status: F Source: [place] SUMMARY 4:24 AM [facility] [place] [facility] Medical Records Department [address] [place] [address] Emergency Department Summary 12/20/17 0418 MR#: [id number] Acct: [id number] Name: BIANCA ARRIETA Rep #: [id number] : 1935 82 From: Trey Hess MD PCP: Jori PONCE,Lai Chi Status: REG ER - ER Visit Summary Date of Service: 12/20/17 Chief Complaint: Fall removing shirt striking his head on the floor at home History of Present Illness: The patient is a 82 M who was removing his shirt this evening for pain for bad. He lost his balance. He fell striking his head. He may have been dazed. He does complain of headache. Had 2 prior subdural hematomas requiring drainage. He is on no anticoagulant. He denies any double vision, blurred vision loss of vision. Denies ringing in his ears, decreased hearing. He denies any blood or fluid from his nose. He denies neck pain. He denies paresthesia, anesthesia motors present at time of the injury. He denies chest pain, shortness of breath difficulty breathing. Denies nausea or vomiting. Patient initially did not complain of shoulder pain. Now complains of shoulder pain. Examination revealed a large hematoma right scapular region. Physical Examination: Vital signs are noted. Blood pressure slightly elevated. There is a 3 cm right parietal scalp laceration. There is no palpable depression. There is no confines basal skull fracture. He has upper and lower dentures in place. There is no septal deviation hematoma. There is no TMJ tenderness is no evidence of malocclusion. There is no pain the patient cervical spine. Trach is midline. Heart is regular. There is a history of atrial fibrillation. Lungs are clear to auscultation. Abdomen soft nontender. He is alert but not oriented to month. Daughter states that is not abnormal. Motor spiral 5. Sensations intact. DTRs are symmetric no clonus or Babinski. Cranial 2 through 12 intact. Gait was not tested. There is a hematoma over the right scapula. Axillary, median, radial and ulnar function intact. Radial pulses palpable. He has pain with abduction. Test Results: Three-view x-ray of the right shoulder was obtained and reveals arthritic changes with no fracture, subluxation or dislocation noted. The film was interpreted by me. Emergency Department Course and Treatment: Since patient is elderly with head trauma prior subdural hematoma and was dazed based on the [place] CT head rule radiologic imaging is indicated and reason for CAT scan. X-ray of the shoulder was obtained to evaluate for fracture. Treatment Plan: Patient's laceration was anesthetized 1% lidocaine by local infiltration. Wound was irrigated with 200 cc of normal saline. 6 hermila were placed for closure. Disposition: Discharged to home with daughter who lives near him. Impression: 1. Closed head injury 2. 3.0 cm scalp laceration 3. Right shoulder/scapula contusion 4. Fall with injury initial encounter This note was generated with [employer]ile[employer] dictation software. It may contain incorrect words, spelling, and punctuation that were not noted in review of the chart prior to signing ED Disposition - Plan for ED Patient: Disposition: Home or Assisted Living Chief Complaint: Fall Instructions: ED Mechanical Fall, ED Head Injury Closed, ED Laceration Scalp Stitch Or Stap, ED Contusion Shoulder Referrals: Lai Hsieh Chi, MD [Primary Care Provider] - 7 Days for suture removal What to do if you have Problems For any increased pain, shortness of breath, bleeding, nausea or vomiting, chest pain, or any unexpected problems, contact your Primary Care Provider. Call [facility] ([phone]) or report to the closest Emergency Room. Call 911 if necessary. 12/20/17 0424 <Electronically signed by Tery Hess MD> Date Trey Hess MD Cosigner Signature (If Indicated): Date CC: Lai Hsieh MD SHOULDER MIN 2 VIEWS Observed: 12/20/2017 Status: F Source: [place] 1:50 AM [facility] [place] [facility] Imaging Services [address] [place] [address] Shoulder min 2 Views MR#: [id number] Acct: [id number] Name: BIANCA ARRIETA Rep #: [id number] : 1935 M 82 From: Sarah Maguire MD PCP: Lai Hsieh MD, Chi Status: REG ER Study: Shoulder min 2 Views Date of Exam: 12/20/17 Exam# [id number] Ordering Dr: Trey Hess MD STUDY: X-RAY - RIGHT SHOULDER REASON FOR EXAM: Male, 82 years old. FALL C/O RT SHOULDER PAIN WITH LIMITED ROM UNABLE TO GET INTERNAL ROTATION VIEW TECHNIQUE: 3 view(s) of the shoulder. COMPARISON: None. FINDINGS: There is mild degenerative arthrosis of the glenohumeral articulation. There is degenerative arthrosis of the acromioclavicular joint without inferior osseous spur formation. Normal acromion. Normal humeral head and visualized proximal humerus. The soft tissue structures are unremarkable. Normal visualized pulmonary apex. 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 Electronically Signed: Sarah Maguire MD at 3:04 EDT Tel , Service support , CC: Lai Hsieh MD; Trey Hess MD Operations Manager Station: Signed BEDSIDE GLUCOSE Collected: 12/19/2017 Status: F Source: [place] 11:18 PM [facility] [place] TYPE CODE TESTS RESULT OUT OF REFERENCE UNITS RANGE LAB L501.080 70-110 mg/dL High BEDSIDE GLU 149 Result Comment: MANAGEMENT OF PATIENT CARE PER NURSING PROTOCOL Performed By: #### L501.080 #### [facility] Point of Care [address] [place] [address] BRAIN/HEAD WITHOUT Observed: 12/19/2017 Status: F Source: [place] CONTRAST 11:11 PM [facility] [place] [facility] Imaging Services [address] [place] [address] Brain/Head without Contrast MR#: [id number] Acct: [id number] Name: BIANCA ARRIETA Rep #: [id number] : 1935 M 82 From: Geoffrey Hidalgo DO PCP: Jori PONCE,Lai Albrecht Status: REG ER Study: Brain/Head without Contrast Date of Exam: 12/19/17 Exam# [id number] Ordering Dr: Trey Hess MD STUDY: CT BRAIN WITHOUT CONTRAST REASON FOR EXAM: Male, 82 years old. Fall. History of subdural hematoma. RADIATION DOSAGE (If Supplied By Facility): CTDIvol = ( 44.99 ) mGy, DLP = ( 779.24 ) mGycm TECHNIQUE: Transaxial CT imaging of the brain was performed without administration of intravenous contrast material. Individualized dose optimization techniques were used for this CT. COMPARISON: May 08, 2017. FINDINGS: Normal soft tissue structures. There are remote nneka holes in the right frontal and left parietal lobe with evidence of remote right frontal craniotomy. There is mild cerebral atrophy with widening of the extra- axial spaces and ventricular dilatation. There are areas of decreased attenuation within the white matter tracts of the supratentorial brain, consistent with microvascular disease changes. There is evidence of encephalomalacia in the left frontal parietal white matter with exaggeration of the sulcal atrophy when compared to the right. This suggests old infarct. Normal basal ganglia and thalami. Normal brainstem. There is atrophy of the right cerebral hemisphere. There is no intracranial hemorrhage. There are no findings of an acute ischemic infarction. Normal visualized paranasal sinuses. CT/Brain/Head without Contrast IMPRESSION: No acute intracranial or calvarial abnormality or interval change. 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, left, with macular edema (primary encounter diagnosis) Comment: with secondary macular edema - blood pressure control - s/p Avastin x 25 (09/20/2017) - continued improvement in intraretinal fluid on OCT with improved visual acuity - Avastin today and follow up in 8 weeks for repeat Avastin - when stable again then return to q12 week interval E11.3293, Z79.4 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 I have confirmed and edited as necessary the relevant ophthalmic history, ROS, and the neuro exam findings as obtained by others. I have seen and examined Bianca Arrieta. I have discussed the case and the management of this patient's care with the Resident/Fellow, if applicable. I also have reviewed and agree with the assessment and plan as stated above and agree with all of its relevant components. CARDIOLOGY VISIT Observed: 09/24/2017 Status: F Source: [place] REPORT 5:17 PM [facility] [place] [facility] [address] [place] [address] OFFICE VISIT Date of Service: 09/24/17 MR#: [id number] Acct: [id number] Name: BIANCA ARRIETA Rep #: [id number] : 1935 Provider: JOANIE Strong Age/Sex: 82/M [place] [facility] [place] Signed HPI HPI Details: BIANCA ARRIETA, is a 82 M who presents to the office today for a cardiovascular outpatient follow-up. He has a history of atrial fibrillation/flutter status post AV node ablation and permanent pacemaker implantation, wide-complex tachycardia, cardiomyopathy, thoracic aortic root dilation, hypertension, hyperlipidemia, and subarachnoid hemorrhage. Pt. denies chest, arm, jaw, or neck discomfort. His exercise tolerance is stable with a walker. Pt. denies symptoms of CHF, palpitations, lightheadedness, dizziness, near syncope, or syncopal episodes. Pt. denies edema or claudication issues. Pt. denies orthopnea, PND, fever, chills, blood in urine, blood in stool, myalgia, or unexplainable fatigue. Intake Vital Signs09/24/17 Height 6 ft 2 in 09/24/17 Weight: 177 lb 09/24/17 Body Mass Index (BMI) 22.7 09/24/17 Blood Pressure 118/62 Intake Visit Reasons: f/u Fruit Or Nut Grower Required: No Accompanied by: wifw Is patient in pain?: No Allergies morphine Adverse Reaction (Verified 09/24/17 13:54) Other SODIUM PENTHOL Allergy (Uncoded 01/15/17 13:32) Hives Medications Citalopram [Celexa] 20 mg PO DAILY 10/10/15 [History Confirmed 09/24/17] Gabapentin [Neurontin] 300 mg PO QHS 10/10/15 [History Confirmed 09/24/17] Omeprazole [Prilosec] 40 mg PO DAILY 10/10/15 [History Confirmed 09/24/17] Insulin Aspart [Novolog Flexpen] 10 units SC DINNER 01/25/16 [History Confirmed 09/24/17] Amiodarone HCl [Cordarone] 200 mg PO DAILY@0800 05/07/17 [History Confirmed 09/24/17] Insulin Detemir [Levemir FlexPen] 10 units SC DAILY insuln.pen 05/13/17 [Rx Confirmed 09/24/17] Levothyroxine [Synthroid] 100 mcg PO DAILY@0600 #90 tab 05/13/17 [Rx Confirmed 09/24/17] Nortriptyline HCl [Nortriptyline HCl] 25 mg PO QHS 06/12/17 [History Confirmed 09/24/17] potassium chloride ER 20 mEq tablet,extended release 20 meq PO QDAY 09/20/17 [History Confirmed 09/24/17] Ejection fraction %: 40 to 44 PFSH Medical History 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) Abnormal pulmonary function test (Chronic) Tachycardia (Chronic) Hyperthyroidism (Chronic) Persistent atrial fibrillation (Chronic) TIA (transient ischemic attack) (Chronic) CKD (chronic kidney disease) stage 3, GFR 30-59 ml/min (Chronic) 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) Benign prostate hyperplasia (Chronic) Type 2 diabetes mellitus (Chronic) Dyslipidemia (Chronic) Gastroesophageal reflux disease (Chronic) Hypothyroidism (Chronic) Atrial fibrillation (Chronic) Cardiac pacemaker (Chronic) Tachy-everette syndrome (Chronic) Cardiomyopathy (Chronic) Carotid artery disease (Chronic) Systolic CHF, chronic (Chronic) HTN (hypertension) (Chronic) Pulmonary HTN (Chronic) Chronic anemia (Chronic) Surgical History carotid arteriography (Resolved) History of cardiac radiofrequency ablation (RFA) (Resolved) Family History Brother CAD (coronary artery disease) Hx of CABG Cancer Father CAD (coronary artery disease) Myocardial infarction Brother Cancer Mother Old age Social History Smoking Status: Never smoker alcohol intake: never substance use type: does not use caffeine: Yes Type: coffee Number of servings: 2 what type of physical activity do you participate in: none seatbelt use: always do you feel safe at home: Yes ROS Const Const: Negative for fatigue, weakness, body ache, fever(s) or chills ENT ENT: Negative for dizziness Cardio Chest Pain: No Palpitations: No Edema: None Muscle aches with walking: None Resp Respiratory: Negative for SOB with activity, SOB at rest, SOB orthopnea\SOB lying down or paroxysmal nocturnal dyspnea GI GI: Negative nausea, black,tarry stools, bright, red blood in stools or vomiting blood/hematemesis : Negative for hematuria or frequent nighttime urination/ nocturia Musc Musc: Negative for muscle aches/ myalgia Neuro Neuro: Negative for weakness, dizziness, lightheadedness, near syncope, syncope or orthostatic symptoms Endo Endo: Negative for fatigue Cardiology Exam Const Appearance: cooperative, healthy appearing, comfortable and no acute distress Orientation: alert, awake and oriented x3 Head Head: normal to inspection Mouth: oral mucosae normal Neck Neck: no JVD and normal visual inspection Carotids: normal carotid upstroke Chest Chest inspection: normal inspection of the chest and normal respiratory effort Auscultation: Bilateral: Clear to Auscultation Cardio Rate: regular rate Rhythm: regular rhythm Heart sounds: S2 normal and murmur; negative rub or gallop Murmur: Grade 1/6 and LLSB GI GI: normal to inspection Neuro General: alert, awake, oriented x3 and CN's II-XI intact bilaterally Skin Skin: no rashes or lesions noted Extremities Pulses: Normal: Right Posterior Tibial Pulse, Left Posterior Tibial Pulse, Right Radial Pulse, Left Radial Pulse Lower Extremity Edema: None: Bilateral Psych Psychological: normal affect Supplemental Info Pacemaker check from August 2017 showed 10,255 MS episodes, 99.4% total time with no VHR episodes, presenting rhythm of ventricular paced at 81 bpm with underlying atrial fibrillation, battery longevity approximately 22 months, and PILE FABRIC KNITTER=99.2%. Echocardiogram from April 2017 showed an estimated ejection fraction of 40%, paced septal motion, mildly enlarged left atrium, mildly enlarged right atrium, trivial mitral valve insufficiency, mild tricuspid valve insufficiency, mild focal aortic valve thickening, borderline enlarged aortic root of 3.6cm, RVSP at 29 mmHg, and ICD or pacer leads identified in both right atrium and right ventricle. Echocardiogram from December 2014 showed an estimated ejection fraction 45%, paradoxical septal wall motion compatible with electronic ventricular pacemaker, moderate concentric LVH, mildly enlarged left atrium, mildly enlarged right atrium, trivial mitral valve insufficiency, mild tricuspid valve insufficiency, mild focal aortic valve thickening, borderline to mildly enlarged aortic root of 3.9 cm, RVSP of 50 mmHg, and ICD or pacer leads identified within both right atrium and right ventricle. Stress test from June 2013 showed previous myocardial injury/infarction and showed an area of mild jamshid-infarct related ischemia. Ejection fraction reported at 28%. Due to previous history of CVA, subarachnoid hemorrhage, and subdural hematoma after previous carotid artery angiogram and stenting medical management was recommended. Assessment AND Plan 1. Persistent atrial fibrillation I48.1 S/P RFA 11/24/2011 Plan Pacemaker check from August 2017 showed 10,255 MS episodes comprising of 99.4% of total time with no VHR episodes. Heart rate remains well controlled. He is not on oral anticoagulation due to history of falls and subarachnoid hemorrhage. He will continue with current medications. 2. Essential hypertension I10 Plan Patient's blood pressure is well-controlled today in the office. We will continue to monitor this. We will not make any medication regimen changes. 3. Systolic CHF, chronic I50.22 Plan Echocardiogram from April 2017 showed an estimated ejection fraction 40%. Patient denies any shortness of breath or lower extremity pedal edema. He will continue current medications. We will continue to monitor this through history, exam, and repeat echocardiogram as needed. 4. Cardiac pacemaker Z95.0 Implanted in April 2010; Plan Patient's pacemaker check from August 2017 showed a battery longevity approximately 22 months. Patient's pacemaker/ICD appears to be functioning appropriately. We will continue to monitor this with routine/scheduled follow-ups. 5. Dyslipidemia E78.5 Plan This is managed by primary care physician. Patient is not on any cholesterol lowering medication. 6. Type 2 diabetes mellitus with stage 3 chronic kidney disease, with long-term current use of insulin E11.9 Plan Patient continue follow-up with primary care physician for this. 7. Abnormal cardiovascular stress test R94.39 Plan Patient's stress test from June 2013 showed a small area of mild jamshid-infarct related ischemia. Due to previous history of CVA, subarachnoid hemorrhage, and subdural hematoma after previous carotid artery angiogram and stenting medical management was recommended. Patient denies any chest pain or activity intolerance. We will continue to monitor this. 8. Aortic root dilatation I77.810 Plan Echocardiogram from April 2017 showed a borderline enlarged aortic root measuring 3.6 cm. We will continue to monitor this through exam and repeat echocardiogram as needed. 9. 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 We will continue with amiodarone therapy. We will continue to monitor this. Plan Detail Additional Comments Thank you for allowing us to participate in the patients plan of care, if you have any questions please do not hesitate to call. This note was generated using a voice recognition system and there may be incorrect words, spelling or punctuation that were not noted when reviewing the office note prior to saving. 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 Coding Level of Care Code Off vis,est,level 3 Diagnoses Persistent atrial fibrillation I48.1 Essential hypertension I10 Hypertension type: essential hypertension Systolic CHF, chronic I50.22 Cardiac pacemaker Z95.0 Dyslipidemia E78.5 Type 2 diabetes mellitus with stage 3 chronic kidney disease, with long-term current use of insulin E11.9 Abnormal cardiovascular stress test R94.39 Aortic root dilatation I77.810 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 09/24/17 1717 <Electronically signed by Karl ANGEL> Date Karl ANGEL Cosigner Signature: Date (if applicable) CC: Lai Hsieh MD PROGRESS Observed: 09/19/2017 Status: COMPLETED Source: [place] 10:47 PM [facility] REPOSITORY HNO ID: [id number] Author: Afia Scott Service: (none) Author Type: Physician Type: Progress Notes Filed: 09/25/2017 8:44 AM Note Text: ASSESSMENT/PLAN: Last dilated fundus exam: September 20, 2017 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, left, with macular edema (primary encounter diagnosis) Comment: with secondary macular edema - blood pressure control - s/p Avastin x 24 ((07/05/2017) - recurrent intraretinal fluid and subretinal fluid on OCT today - Avastin today and follow up in 8 weeks for repeat Avastin - when stable again then return to q12 week interval E11.3293, Z79.4 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 I have confirmed and edited as necessary the relevant ophthalmic history, ROS, and the neuro exam findings as obtained by others. I have seen and examined Bianca Angeli Meenakshi. I have discussed the case and the management of this patient's care with the Resident/Fellow, if applicable. I also have reviewed and agree with the assessment and plan as stated above and agree with all of its relevant components. PACEMAKER CHECK Observed: 09/19/2017 Status: F Source: [place] 11:16 AM [facility] [place] [facility] [address] [place] [address] Pacemaker Check Date of Service: 08/28/17 1625 MR#: [id number] Acct: [id number] Name: BIANCA ARRIETA Rep #: [id number] : 1935 From: Vani Norris Age/Sex: 82/M Location: [facility] [place] Status: Signed Comments Summary Comments: Dual chamber Pacemaker Evaluation: Interrogation shows 10,255 MS episodes, 99.4% total time and no VHR episodes since 03/06/17. Longest MS episode 08/02/17 for approx 12 hrs 44 mins. Left pectoral pocket/incision w/o s/s of infection or erosion. Pt offers no cardiac complaints. Presenting rhythm shows ventricular paced @ 81 ppm with underlying atrial fib. Patient not on anticoagulant d/t hx of brain bleed. Battery longevity approx 22 mos. PILE FABRIC KNITTER=99.2%. Lead impedances, atrial sensing of fib waves and ventricular pace/sense threshold remain stable. Unable to check ventricular sensing d/t no intrinsic R waves with rate decrease. Unable to check ventricular threshold d/t atrial fib. No parameter changes made. Next f/u appt scheduled for in 6 mos. Device Device Date Interviewed: 08/28/17 Follow-up Location: in office Interview Reason: routine follow up Take Off Man: Medtronic Name: VERSA Model: VEDR01 Serial #: [id number] Implant Date: 07/09/09 Year(s): 8 Implant Physician: Dr. Brayan Martínez/Katilin Patient Characteristics Atrial Indication: sick sinus syndrome Patient Substrate: Syncope Ejection fraction %: 45 to 49 (12/2014) By: Echo Underlying rhythm: Atrial fibrillation Pacemaker Dependent: Yes Device Characteristics Device: Dual Chamber Type: Pacemaker Remote Follow-Up: No Device Physical Exam Yes Incision well healed, No hematoma, Pocket not tender and No drainage Leads Lead #1 Take Off Man Lead 1: Medtronic Model Lead 1: 5076/52 Serial# Lead 1: [id number] Date Implanted Lead 1: 05/09/10 Position Lead 1: RA Lead #2 Take Off Man Lead 2: Medtronic Model Lead 2: 5076/58 Serial# Lead 2: [id number] Date Implanted Lead 2: 05/09/10 Position Lead 2: RV Diagnostics Pacing % RA Pacin.8 % RV Pacin.2 Mode Switching Total # Episodes: 10,255 % Mode switched: 99.4 Arrhythmias Non-Sust Episodes: 0 Measurements Battery Voltage (V): 2.74 Magnet Rate (bmp): 85 Predicted Remaining Longevity (months or years): 22 months RA Measurements Signal Amplitude (mV): 0.25 Impedance (Ohms): 440 RV Measurements Impedance (Ohms): 437 Threshold Voltage: 1.25 @ PW(ms): 0.4 Everette Settings Bradycardia Mode and Timing Settings Pacemaker Mode: DDIR Base Rate: 70 bpm Max Sensor Rate: 120 bpm Maximum AV Delay: 150 msec Bradycardia Output and Sensitivity Settings Right Atrium: 0.4 msec, 2.0 volts, 0.18 mV sensitivity. Right Ventricle: 0.4 msec, Adaptive3.25 volts. Billing Codes PM Device Codes: PM Dev Prog Eval, Dual Assessment AND Plan Problems 1. Cardiac pacemaker Z95.0 2. Atrial fibrillation I48.91 3. 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 Cardiomyopathy I42.9 45% EF in November of 2014, ischemic 5. S/P atrioventricular piper ablation Z98.890 6. Systolic CHF, chronic I50.22 09/10/17 1645 <Electronically signed by Vani Norris > Date Vani Norris 09/19/17 1116<Electronically signed by Jamir Ceballos MD> Cosigner Signature: Date (if applicable) Jamir Ceballos MD CC: PROGRESS Observed: 09/14/2017 Status: COMPLETED Source: [place] 11:35 AM [facility] [place] REPOSITORY HNO ID: [id number] Author: Vanesa Cuellar Service: (none) Author Type: SPIRITUAL MINISTER Type: Progress Notes Filed: 09/14/2017 11:39 AM Note Text: ASSESSMENT/PLAN: 1. Central retinal vein occlusion, left eye, with macular edema - ICD9: 362.35, 362.83, ICD10: H34.8120 (primary diagnosis) - OCT MACULA CIRRUS OU (BOTH EYES) Consult Dr. Afia Scott for treatment of macular edema Left eye , 09-20-17 at 11:15 AM, [place] office 2. Type 2 diabetes mellitus with both eyes affected by mild nonproliferative retinopathy without macular edema, with long- term current use of insulin (HCC) - ICD9: 250.50, 362.04, V58.67, ICD10: E11.3293, Z79.4 Please keep your blood sugar under good control to minimize the risk of ocular complications from diabetes. 3. Vitreous floaters of both eyes - ICD9: 379.24, ICD10: H43.393 Stable / Observe 4. Pseudophakia of both eyes - ICD9: V43.1, ICD10: Z96.1 Intraocular lens implant in good position both eyes. Vanesa Cuellar, OD I have confirmed and edited as necessary the relevant ophthalmic history, review of systems, surgical history, and ophthalmological examination findings as obtained by the ophthalmic technical staff. I have seen and examined Bianca Arrieta. I have discussed the examination findings, diagnosis, and treatment options with Bianca Arritea and/or his family. I have also reviewed and agree with the assessment and plan as stated above and agree with all its relevant components. I gave the patient the opportunity to ask questions about the findings, diagnosis, and treatment options. CBC W/DIFF, AUTOMATED Collected: 08/20/2017 Status: F Source: [place] 3:47 PM [facility] [place] TYPE CODE TESTS RESULT OUT OF RANGE REFERENCE UNITS LAB L100.1000 4.4-11.0 K/mm3 Low WBC 3.1 LAB L100.1200 4.6-6.2 M/mm3 Low RBC 4.50 LAB L100.1300 13.0-16.5 g/dl Low HGB 12.6 LAB L100.1400 40-54 % Normal HCT 41.0 LAB L100.1500 80-94 fL Normal MCV 91.1 LAB L100.1600 27.0-32.0 pg Normal MCH 28.0 LAB L100.1700 32-36 g/gl Low MCHC 30.7 LAB L100.1810 11.6-14.6 % High RDW CV 17.1 LAB L100.1820 35.1-43.9 fl High RDW SD 56.2 LAB L100.1900 150-450 K/mm3 Low PLT 140 LAB L100.2000 6.2-12.0 fl Normal MPV 11.6 LAB L100.2100 47-70 % Normal NEUT% 68.2 LAB L100.2200 19-41 % Low LY% 13.5 LAB L100.2300 0-10 % High MONO% 16.1 LAB L100.2400 0-5 % Normal EO% 1.3 LAB L100.2500 0-1 % Normal BASO% 0.6 LAB L100.2550 0.0-0.9 % Normal IM GRAN % 0.300 Result Comment: IG% - Immature Granulocytes (promyelocytes, myelocytes and metamyelocytes) > 1% indicates that a LEFT SHIFT is Present. LAB L100.2620 2.0-7.7 X10 3/uL Normal Absolute Neut 2.1 LAB L100.2720 0.83-4.51 X10 3/ul Low Absolute Lymph 0.42 LAB L100.4500 Normal SMEAR COMMENT SCANNED Result Comment: LYMPHOPENIA NOTED Performed By: #### L100.0100 #### [facility] [address] [place], [place], [address] COMPREHENSIVE METABOLIC Collected: 08/20/2017 Status: F Source: [facility] 3:47 PM [facility] [place] TYPE CODE TESTS RESULT OUT OF RANGE REFERENCE UNITS LAB L501.0100 74-106 mg/dL High GLU 399 Result Comment: Glucose result greater than or equal to 200 mg/dL suggests DIABETES MELLITUS per A.D.A. criteria. Please note revised GLUCOSE reference range effective 2017. LAB L501.1000 7-18 mg/dL Normal BUN 10 LAB L501.1100 0.70-1.30 mg/dL High CREAT,SERUM 1.58 Result Comment: The validity of the calculated GFR AND GFRAA in patients over 70 years has not been determined. Clinical correlation is essential. LAB L501.1110 >60 mL/min Low EST GFR 45 Result Comment: Non- GFR Calc LAB L501.1115 >60 mL/min Low EST GFR - AA 54 Result Comment: GFR Calc LAB L501.1300 10-20 RATIO Low BUN/CRE 6.3 LAB L501.1500 6.4-8.2 g/dL Normal T PROT 6.9 LAB L501.1800 3.2-5.0 g/dL Low ALB 2.9 LAB L501.1950 2.2-4.2 g/dL Normal GLOB 4.0 LAB L501.2000 0.9-2.4 RATIO Low A/G 0.7 LAB L501.2200 8.5-10.1 mg/dL Low CA 8.3 LAB L501.4100 15-37 U/L Normal AST 28 LAB L501.4305 45-117 U/L High ALK P 157 LAB L501.4405 16-61 U/L Normal ALT 22 Result Comment: Please note revised ALT reference range effective 2017. LAB L501.4600 0.20-1.00 mg/dL Normal T BILI 0.90 LAB L501.5300 136-145 mmol/L Normal NA 137 LAB L501.5600 3.5-5.1 mmol/L Low K 3.0 LAB L501.5900 98-107 mmol/L Low CL 96 LAB L501.6100 21.0-32.0 mmol/L High CO2 33.0 LAB L501.6200 5-15 Normal GAP 8 Performed By: #### L500.4050, L501.9520 #### [facility] [address] [place], [place], [id number] THYROID STIM HORMONE Collected: 08/20/2017 Status: F Source: [place] ([facility]) 3:47 PM [facility] [place] TYPE CODE TESTS RESULT OUT OF RANGE REFERENCE UNITS LAB L501.9520 0.358-3.74 uIU/mL Normal TSH 0.62 Performed By: #### L500.4050, L501.9520 #### [facility] [address] [facility] [place], [address] VITAMIN D,25 HYDROXY Collected: 08/20/2017 Status: F Source: [place] 3:47 PM [facility] [place] TYPE CODE TESTS RESULT OUT OF REFERENCE UNITS RANGE LAB L506.1000 29.95-100.01 ng/mL Low Vitamin D 28.8 25-OH Result Comment: Vitamin D 25(OH) Status Range Deficiency <20 ng/mL (50nmol/L) Insuffciency 20 - 30 ng/mL (50 - 75 nmol/L) Sufficiency 30 - 100 ng/mL (75 - 250 nmol/L) Toxicity >100 ng/mL (>250 nmol/L) Performed By: #### L506.1000 #### [facility] [address] [place], [address] Observed: 07/17/2017 Status: F Source: [place] RESPIRATORY PANEL 5:10 PM [facility] [place] [facility] Results called on 07/18/17-1018 by REAL to NURSE LINE AT [phone]. RP PANEL Normal Reference Range = Not Detected Copy of report sent to Infection Control Printer [id number] 07/18/17 1018 [facility] ADENOVIRUS Not Detected HUMAN METAPHNEUMO Not Detected INFLUENZA A Positive for INFLUENZA A by NAAT technology INFLUENZA A (SUBTYPE H1) Not Detected INFLUENZA A (SUBTYPE H3) Positive for INFLUENZA A SUBTYPE H3 by NAAT technology INFLUENZA B Not Detected PARAINFLUENZA 1 Not Detected PARAINFLUENZA 2 Not Detected PARAINFLUENZA 3 Not Detected PARAINFLUENZA 4 Not Detected RHINOVIRUS Not Detected RSV A Not Detected RSV B Not Detected NAAT METHOD Testing was performed using nucleic acid amplification ORGANISM 1: INFLUENZA A (SUBTYPE H3) Performed By: #### M100.638 #### [facility] [address] [place], [place], [address] CHEST PA AND LATERAL Observed: 07/17/2017 Status: F Source: [place] 5:08 PM [facility] [place] [facility] Imaging Services [address] [place] [address] Chest PA and Lateral MR#: [id number] Acct: [id number] Name: BIANCA ARRIETA Rep #: [id number] : 1935 M 81 From: Wojciech Peng DO PCP: Lai Hsieh MD, Chi Status: REG CLI Study: Chest PA and Lateral Date of Exam: 07/17/17 Exam# [id number] Ordering Dr: Lai Hsieh MD STUDY: X-RAY CHEST REASON FOR EXAM: Male, 81 years old. Cough, bronchitis TECHNIQUE: Frontal and lateral views COMPARISON: May 09, 2019 FINDINGS: Left-sided pacemaker is again noted. The lungs are expanded. Mild interstitial prominence. Normal size heart. Normal mediastinum and ava. Normal visualized pulmonary arteries. Calcified aortic arch and descending thoracic aorta. Degenerative changes of the thoracic spine. Normal visualized ribs, clavicles, and shoulders. There is no demonstrated abnormality of the visualized soft tissue structures of the upper abdomen. RAD/Chest PA and Lateral IMPRESSION: Mild interstitial prominence. Electronically Signed: Wojciech Peng DO at 22:27 EST Tel [phone], Service support , CC: Lai Hsieh MD Operations Manager Station: Signed HOSP Observed: 07/05/2017 Status: COMPLETED Source: [place] 10:45 AM [facility] REPOSITORY Office Visit OPHT (RALPH) BIANCA ARRIETA ([id number]) 1935 M Date Time Provider Department 07/05/17 10:45 AM AFIA SCOTT During your visit today, we recorded the following information about you: Afia Scott MD 07/05/2017 3:29 PM Signed ASSESSMENT/PLAN: Last dilated fundus exam: July 05, 2017 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, left, with macular edema (primary encounter diagnosis) Comment: with secondary macular edema - blood pressure control - s/p Avastin x 23 (02/22/2017) - edema largely resolved with slight subretinal fluid on OCT today - recommend repeat Avastin today and follow up in 4 months E11.3293, Z79.4 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 I have confirmed and edited as necessary the relevant ophthalmic history, ROS, and the neuro exam findings as obtained by others. I have seen and examined Bianca Arrieta. I have discussed the case and the management of this patient's care with the Resident/Fellow, if applicable. I also have reviewed and agree with the assessment and plan as stated above and agree with all of its relevant components. Referring Provider: SELF [200] Allergies As of Date: 07/05/2017 Noted Allergy Reaction sodium penathol [Other] 02/08/2005 4 - Hives 9 - Itching Date Reviewed: 07/05/2017 Reviewed by: Afia Scott - Fully Assessed Reason for Visit: Central Retinal Vein Occlusion Follow Up [3271] Cmt: left eye Mild Nonproliferative Diabetic Retinopathy [2791] Insulin Dependent Diabetes Mellitus [2790] Cmt: Patient has not checked his blood sugar for a couple days Reason For Visit History Recorded Primary Visit Diagnosis:Central retinal vein occlusion, left eye, with macular edema [H34.8120] Other Visit Diagnoses:Pseudophakia of both eyes [Z96.1] Retinal edema - Left Eye [H35.81] Type 2 diabetes mellitus with both eyes affected by mild nonproliferative retinopathy without macular edema, with long-term current use of insulin (HCC) [E11.3293, Z79.4] Order(s):IOP MEASUREMENT [] Order #: [id number]: 1 OCT MACULA CIRRUS OU (BOTH EYES) [[id number]] Order #: [id number]: 1 DILATED FUNDUS EXAM [] Order #: [id number]: 1 AVASTIN (BEVACIZUMAB) 1.25MG INTRAVITREAL INJECTION OS (LEFT EYE) [] Order #: [id number]: 1 Prescriptions as of 07/05/2017 Sig: AMIODARONE 200 MG TABLET NORTRIPTYLINE 25 MG CAPSULE Take 1 capsule by mouth daily* FUROSEMIDE 20 MG TABLET Take 20 mg by mouth once don* VIRTUSSIN AC 10 MG-100 MG/5 M* LEVOFLOXACIN 500 MG TABLET KLOR-CON M20 MEQ TABLET,EXTEN* METOPROLOL TARTRATE 25 MG TAB* ATORVASTATIN 40 MG TABLET FINASTERIDE 5 MG TABLET GABAPENTIN 300 MG CAPSULE TRAMADOL 50 MG TABLET NOVOLOG FLEXPEN 100 UNIT/ML S* PROPYLENE GLYCOL 0.6 % EYE DR* Use 1 Drop in both eyes as ne* * DILTIAZEM 120 MG TABLET Take 120 mg by mouth twice da* * OMEPRAZOLE 40 MG CAPSULE,GURVINDER* Take 40 mg by mouth once don* * FESOTERODINE ER 4 MG TABLET,E* Take 1 tablet by mouth once d* * CITALOPRAM 20 MG TABLET Take 20 mg by mouth once don* * POTASSIUM CHLORIDE 20 MEQ ORA* Take 20 mEq by mouth once nadia* * LEVEMIR SUBCUTANEOUS Inject subcutaneously. 60 un* * LOVENOX SUBCUTANEOUS Inject subcutaneously. Pt. i* * FLOMAX 0.4 MG CAPSULE Two tablets daily * ECOTRIN LOW STRENGTH 81 MG TA* Take one(1) tablet daily. LEVOTHYROXINE 125 MCG TABLET LEVOTHYROXINE 88 MCG TABLET * LEVOTHYROXINE 50 MCG TABLET Take 50 mcg by mouth once nadia* Problem List As Of Date 07/05/2017 Noted Resolved DIABETES MELLITUS TYPE II-UNCOMPL [E11.9] INVALID FOR* OSTEOARTHROS NOS-UNSPEC [M19.90] INVALID FOR* ESOPHAGEAL REFLUX [K21.9] INVALID FOR* CHRONIC AIRWAY OBSTRUCTION NEC [J44.9] INVALID FOR* HYPERLIPIDEMIA NEC/NOS [E78.5] INVALID FOR* ACUTE PANCREATITIS [K85.90] DVT (deep venous thrombosis) [I82.409] INVALID FOR* Central vein occlusion of retina - Left Eye [H3*INVALID FOR* Retinal edema - Left Eye [H35.81] INVALID FOR* Type 2 diabetes mellitus without retinopathy (H*INVALID FOR* Lens replaced by other means - Both Eyes [Z96.1]INVALID FOR* Type II or unspecified type diabetes mellitus w*INVALID FOR* Background diabetic retinopathy(362.01) ([facility]) *INVALID FOR* Type 2 diabetes mellitus with mild nonprolifera*INVALID FOR* History of central retinal vein occlusion [Z86.*INVALID FOR* Type 2 diabetes mellitus with both eyes affecte*INVALID FOR* Dry eye syndrome [H04.129] INVALID FOR* Vitreous floaters of both eyes [H43.393] INVALID FOR* Pseudophakia of both eyes [Z96.1] INVALID FOR* Central retinal vein occlusion, left eye, with *INVALID FOR* Follow-up and Disposition History Recorded Encounter Status:Closed by AFIA SCOTT MD on 07/05/17 PROGRESS Observed: 07/04/2017 Status: COMPLETED Source: [place] 3:11 PM [facility] [place] REPOSITORY HNO ID: [id number] Author: Afia Scott Service: (none) Author Type: Physician Type: Progress Notes Filed: 07/05/2017 3:29 PM Note Text: ASSESSMENT/PLAN: Last dilated fundus exam: July 05, 2017 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, left, with macular edema (primary encounter diagnosis) Comment: with secondary macular edema - blood pressure control - s/p Avastin x 23 (02/22/2017) - edema largely resolved with slight subretinal fluid on OCT today - recommend repeat Avastin today and follow up in 4 months E11.3293, Z79.4 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 I have confirmed and edited as necessary the relevant ophthalmic history, ROS, and the neuro exam findings as obtained by others. I have seen and examined Bianca Arrieta. I have discussed the case and the management of this patient's care with the Resident/Fellow, if applicable. I also have reviewed and agree with the assessment and plan as stated above and agree with all of its relevant components. ALLERGIES ALLERGIES DATE TYPE / CODE NAME / CODE REACTION SEVERITY SOURCE Drug morphine/F00 hallucinations Unknown [place] 8 Allergy/497408131( 4698639(RXNO [facility] SNOMED CT) ) Hospital Repository Miscellaneous SODIUM Hives Unknown [place] 8 Allergy/429117181( [place] [facility] SNOM[facility]) Hospital Repository Miscellaneous OTHER HIVES [place] 5 Allergy/860158441( Clinic Main SNOMED CT) [place] Repository ENCOUNTERS ENCOUNTERS ADMIT/DISCHARGE ACCOUNT ADMITTING ENCOUNTER LOCATION SOURCE NUMBER CLASS 05/25/2018/05/25/20 [id number] Emergency [address] ing:ED Repository 04/24/2018 [id number] [place], Ambulatory BMSBuilding:Jeane Zepeda MS.[facility] Repository 04/24/2018 [id number] [place], Ambulatory BMSBuilding:Jeane Zepeda MS.[facility] Repository 04/24/2018 [id number] [place], Ambulatory BMSBuilding:Jeane Zepeda MS.[facility] Repository 04/24/2018/04/26/20 [id number] [place], Inpatient [facility] 18 Ghasem Encounter [facility] ing:PCURoom: Repository [id number]: 1 04/02/2018 [id number] Ambulatory [facility] ing:OLS.AVEB Repository 03/12/2018 [id number] Ambulatory [facility] ing:OLS.AVEB Repository 03/02/2018 [id number] [place], [place] Ambulatory BMSBuilding:Jeane King [facility] Repository 03/02/2018 [id number] [place] Ambulatory BMSBuilding:Jeane King [facility] Repository 03/02/2018/03/05/20 [id number] [place] Inpatient [facility] 18 Encounter [facility] ing:PCURoom: Repository [id number]: 1 03/01/2018 [id number] [place] Ambulatory BMSBuilding:Jeane King [facility] Repository 03/01/2018 [id number] [place], [place] Ambulatory BMSBuilding:Jeane King [facility] Repository 03/01/2018 [id number] [place], [place] Ambulatory BMSBuilding:Jeane King [facility] Repository 02/26/2018/02/27/20 [id number] Ambulatory BMSBuilding:B [place] 18 [facility] Repository 02/06/2018 [id number] Ambulatory [facility] Hospital ing:POLAB3 Repository 01/31/2018/02/02/20 [id number] Ambulatory [address] Repository 12/19/2017/12/21/19 [id number] Emergency [address] Hospital ing:ED Repository 12/06/2017/12/08/19 [id number] Ambulatory [address] Repository 09/24/2017/09/25/19 [id number] Ambulatory BMSBuilding:B [place] 18 [facility] Repository 09/20/2017/09/26/19 [id number] Ambulatory [address] Repository 09/20/2017 [id number] Ambulatory [facility] Repository 09/14/2017/09/18/19 [id number] Ambulatory [address] Repository 08/28/2017/08/29/19 [id number] Ambulatory BMSBuilding:B [place] 18 [facility] Repository 08/24/2017 [id number] Ambulatory [facility] Hospital ing:LAB.FUTUR Repository E 08/20/2017 [id number] Ambulatory [facility] Hospital ing:POLAB3 Repository 07/17/2017 [id number] Ambulatory [facility] Hospital ing:PSN Repository 07/05/2017/07/16/19 [id number] Ambulatory [address] Repository PAYERS PAYERS ENCOUNTER GUARANTOR PAYER SUBSCRIBER SOURCE 05/25/2018 BIANCA WRIGHT0 Primary BIANCA H [place] Insurance:MEDICARE BATESDOB: [facility] [id number] Hospital 32483Dki: (330) Number: Repository [phone] ) [id number] Date:2018-05-25 05/25/2018 Secondary NOT GIVENUNK [place] Insurance:SELF PAY [facility] Number: Effective Repository Date:2018-05-25 04/24/2018 BIANCA WRIGHT0 Primary BIANCA H [place] Insurance[place]MEDICARE B[place]DOB[place] [facility] [id number] Hospital 40041Qxb: (330) Number: Repository [phone] () [id number] Date:2018-04-24 04/24/2018 Secondary NOT GIVENUNK [place] Insurance:SELF PAY [facility] Number: Effective Repository Date:2018-04-24 04/24/2018 BIANCA WRIGHT0 Primary BIANCA Suh [place] Insurance:MEDICARE BATESDOB: [place] olic [id number] Hospital 88085Qno: (330) Number: Repository [phone] () [id number] Date:2018-04-24 04/24/2018 Secondary NOT GIVENUNK [place] Insurance:SELF PAY [facility] Number: Effective Repository Date:2018-04-24 04/24/2018 BIANCA ARRIETA210 Primary BIANCA Suh [place] Insurance:MEDICARE BATESDOB: [place] [facility] [id number] Hospital 87297Xbe: (330) Number: Repository [phone] () [id number] Date:2018-04-24 04/24/2018 Secondary NOT GIVENUNK [place] Insurance:SELF PAY [facility] Number: Effective Repository Date:2018-04-24 04/24/2018 BIANCA ARRIETA210 Primary BIANCA Suh [place] Insurance:MEDICARE BATESDOB: [place] [facility] [id number] Hospital 18154Siw: (330) Number: Repository [phone] () [id number] Date:2018-04-24 04/24/2018 Secondary NOT GIVENUNK [place] Insurance:SELF PAY [facility] Number: Effective Repository Date:2018-04-24 04/02/2018 BIANCA ARRIETA210 Primary NOT GIVENUNK [place] Insurance:SELF PAY [facility] [place] [facility] [address]Knc: (330) Number: Effective Repository [phone] () Date:2018-04-02 03/12/2018 BIANCA ARRIETA210 Primary NOT GIVENUNK [place] Insurance[place] [facility] [address]Ggs: (330) Number: Effective Repository [phone] () Date:2018-03-12 03/02/2018 BIANCA ANG Primary BIANCA Suh [place] Insurance:MEDICARE BATESDOB: [place] [id number] Hospital [address]Yib: (330) Number: Repository [phone] () [id number] Date:2018-03-01 03/02/2018 Secondary NOT GIVENUNK [place] Insurance:SELF PAY [facility] Number: Effective Repository Date:2018-03-02 03/02/2018 BIANCA WRIGHT0 Primary BIANCA Suh [place] Insurance:MEDICARE BATESDOB: [place] [facility] [id number] Hospital 59443Ktg: (330) Number: Repository [phone] () [id number] Date:2018-03-01 03/02/2018 Secondary NOT GIVENUNK [place] Insurance:SELF PAY [facility] Number: Effective Repository Date:2018-03-02 03/02/2018 BIANCA WRIGHT0 Primary BIANCA Suh [place] Insurance:MEDICARE BATESDOB: [place] [facility] [id number] Hospital 607[address]Wdp: (330) Number: Repository [phone] () [id number] Date:2018-03-01 03/02/2018 Secondary NOT GIVENUNK [place] Insurance:SELF PAY [facility] Number: Effective Repository Date:2018-03-01 03/01/2018 BIANCA ARRIETA210 Primary BIANCA Suh [place] Insurance:MEDICARE BATESDOB: [place] [facility] [id number] Hospital 13995Zzl: (330) Number: Repository [phone] () [id number] Date:2018-03-01 03/01/2018 Secondary NOT GIVENUNK [place] Insurance:SELF PAY [facility] Number: Effective Repository Date:2018-03-01 03/01/2018 BIANCA ARRIETA210 Primary BIANCA Suh [place] Insurance:MEDICARE BATESDOB: [place] [facility] [id number] Hospital 616[address]Ljd: (330) Number: Repository [phone] () [id number] Date:2018-03-01 03/01/2018 Secondary NOT GIVENUNK [place] Insurance:SELF PAY [facility] Number: Effective Repository Date:2018-03-01 03/01/2018 BIANCA ARRIETA210 Primary BIANCA Suh [place] Insurance:MEDICARE BATESDOB: [place] olic [id number] Hospital 649[address]Fbe: (330) Number: Repository [phone] () [id number] Date:2018-03-01 03/01/2018 Secondary NOT GIVENUNK [place] Insurance:SELF PAY [facility] Number: Effective Repository Date:2018-03-01 02/26/2018 BIANCA ARRIETA210 Primary BIANCA Suh [place] Insurance:MEDICARE BATESDOB: [place] [facility] [id number] Hospital 399[address]Uyx: (330) Number: Repository [phone] () [id number] Date:2017-08-28 02/26/2018 Secondary NOT GIVENUNK [place] Insurance:SELF PAY [facility] Number: Effective Repository Date:2018-02-26 02/06/2018 BIANCA ARRIETA210 Primary BIANCA Suh [place] Insurance:MEDICARE BATESDOB: [place] [facility] [id number] Hospital 65062Hut: (330) Number: Repository [phone] () [id number] Date:2018-02-06 02/06/2018 Secondary NOT GIVENUNK [place] Insurance:SELF PAY [facility] Number: Effective Repository Date:2018-02-06 12/19/2017 BIANCA ARRIETA210 Primary BIANCA Suh [place] Insurance:MEDICARE BATESDOB: [place] [facility] [id number] Hospital 20277Ymv: (330) Number: Repository [phone] () [id number] Date:2017-12-19 12/19/2017 Secondary BIANCA Suh [place] Insurance:CIGNAPolicy BATESDOB: Community Number: [id number] Hospital [id number] Repository Date:[id number], [place] [address]NF: 12/19/2017 Tertiary NOT GIVENUNK [place] Insurance:SELF PAY [facility] Effective Repository Date:2017-12-19 09/24/2017 BIANCA WRIGHT0 Primary BIANCA Suh [place] Insurance:MEDICARE BATESDOB: [facility] [place] PART A [facility] [id number] Hospital 00794Dhk: (330) Number: Repository [phone] () [id number] Date:2017-08-28 09/24/2017 Secondary BIANCA Suh [place] Insurance:CIGNAPolicy BATESDOB: Community Number: [id number] Hospital [id number] Repository Date:6149-21-09ZS [address], [place] [address]LM: 09/24/2017 Tertiary NOT GIVENUNK [place] Insurance:SELF PAY [facility] Effective Repository Date:2017-09-24 09/20/2017 BIANCA ARRIETA210 Primary BIANCA Suh [place] Insurance:MEDICARE BATESDOB: [facility], [place] PART A [facility] [id number] Hospital 29825Jjs: (330) Number: Repository [phone] () [id number] Date:2017-09-20 09/20/2017 Secondary BIANCA Suh [place] Insurance:CIGNAPolicy BATESDOB: Community Number: [id number] Hospital [id number] Repository Date:9365-03-16[address], [place] [address]QN: 09/20/2017 Tertiary NOT GIVENUNK [place] Insurance:SELF PAY [facility] Number: Effective Repository Date:2017-09-20 08/28/2017 BIANCA ARRIETA210 Primary BIANCA Suh [place] Insurance:MEDICARE BATESDOB: [facility] [place] [facility] [id number] Hospital 02809Ria: (330) Number: Repository [phone] () [id number] Date:2017-05-22 08/28/2017 Secondary BIANCA H [place] Insurance:CIGNAPolicy BATESDOB: Community Number: [id number] Hospital [id number] Repository Date:6578-90-02[address], [place] [address]SS: 08/28/2017 Tertiary NOT GIVENUNK [place] Insurance:SELF PAY [facility] Number: Effective Repository Date:2017-05-22 08/24/2017 BIANCA ARRIETA210 Primary BIANCA Suh [place] Insurance:MEDICARE BATESDOB: [facility] [facility] [id number] Hospital 17453Xsj: (330) Number: Repository [phone] () [id number] Date:2017-08-24 08/24/2017 Secondary BIANCA H [place] Insurance:CIGNAPolicy BATESDOB: Community Number: [id number] Hospital [id number] Repository Date:0188-96-51[address]JMBFUFBNNA, [place] [address]UL: 08/24/2017 Tertiary NOT GIVENUNK [place] Insurance:SELF PAY [facility] Number: Effective Repository Date:2017-08-24 08/20/2017 BIANCA ARRIETA210 Primary BIANCA Suh [place] Insurance:MEDICARE BATESD[facility] [place] [facility] [id number] Hospital 20489Eef: (330) Number: Repository [phone] () [id number] Date:2017-08-20 08/20/2017 Secondary BIANCA H [place] Insurance:CIGNAPolicy BATESDOB: Community Number: [id number] Hospital [id number] Repository Date:0706-80-29[address], [place] [address]EN: 08/20/2017 Tertiary NOT GIVENUNK [place] Insurance:SELF PAY [facility] Number: Effective Repository Date:2017-08-20 07/17/2017 BIANCA WRIGHT0 Primary BIANCA [place] Insurance:MEDICARE BATESDOB: [facility], [place] PART A BPolicy [id number] Hospital [address]08[address]Qah: (330) Number: Repository [phone] () [id number] Date:2017-07-17 07/17/2017 Secondary BIANCA [place] Insurance:CIGNAPolicy BATDOB: Community Number: Effective [id number] Hospital Date:6316-79-05CO [address] Repository [address]BSJO[place], [place] [address]RQ: 07/17/2017 Tertiary NOT GIVENUNK [place] Insurance:SELF PAY [facility] Number: Effective Repository Date:2017-07-17
== END 2018-05-25 19:26 | disposition home or self-care (01) ==
PROVIDERS: Emergency Provider Emergency Medicine; Family Provider Family Medicine Geriatric Medicine; PCP Family Medicine Geriatric Medicine
DX: R41.0 Disorientation, unspecified (principal); F03.90 Unspecified dementia, unspecified severity, without behavioral disturbance, psychotic disturbance, mood disturbance, and anxiety; R19.7 Diarrhea, unspecified; E11.9 Type 2 diabetes mellitus without complications; K21.9 Gastro-esophageal reflux disease without esophagitis; Z86.73 Personal history of transient ischemic attack (TIA), and cerebral infarction without residual deficits; Z95.0 Presence of cardiac pacemaker
CPT/HCPCS: 70450; 71045; 80048; 81001; 84484; 85025; 93005; 99284; A4216

== ENCOUNTER 2018-09-28 14:59 | Inpatient (IN) | payer MEDICARE, OTHER, SELFPAY ==
[2018-09-28 15:01] VITALS: BP 134/91; PULSE 82; RESP 18; TEMP 36.8; O2SAT 80; BMI 27.8
--- NOTE | 2018-09-28 15:16 | EKG12_ITS ---
Test Reason : UTI Blood Pressure : / mmHG Vent. Rate : 070 BPM Atrial Rate : 068 BPM P-R Int : 000 ms QRS Dur : 162 ms QT Int : 526 ms P-R-T Axes : 000 -63 102 degrees QTc Int : 568 ms Ventricular-paced rhythm Abnormal ECG Confirmed by DONALDO PONCE, ANDERS ([id number]), editorial specialist JAYLON WATSON ([id number]) on 10/01/2018 2:02:26 PM Referred By: MAYLIN Confirmed By:ANDERS FULTON MD
--- NOTE | 2018-09-28 15:16 | CT_ITS ---
STUDY: CT BRAIN WITHOUT CONTRAST REASON FOR EXAM: Male, 83 years old. Confusion with history of prior craniotomy RADIATION DOSAGE (If Supplied By Facility): CTDIvol = ( 44.99 ) mGy, DLP = ( 829.85 ) mGycm TECHNIQUE: Transaxial CT imaging of the brain was performed without administration of intravenous contrast material. Individualized dose optimization techniques were used for this CT. COMPARISON: 05/25/2018 FINDINGS: Normal soft tissue structures. Operative changes of the bilateral calvarium noted. There is moderate cerebral atrophy with widening of the extra-axial spaces and ventricular dilatation. There are areas of decreased attenuation within the white matter tracts of the supratentorial brain (left more than right), consistent with microvascular disease changes. 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 Normal brainstem. Normal cerebellum. There is no intracranial hemorrhage. There are no findings of an acute ischemic infarction. There is mucoperiosteal inflammatory disease of the left maxillary sinus consistent with mild chronic sinusitis. CT/Brain/Head without Contrast IMPRESSION: 1. No acute intracranial hemorrhage or mass effect. 2. Central parenchymal volume loss. White matter changes that are nonspecific but most commonly associated with chronic small vessel ischemic disease. 3. Prior craniotomy, stable. 4. Decreased chronic appearing left maxillary sinusitis. 5. Old ischemic changes of the left MCA territory and caudate head. Electronically Signed: Landon Pat MD at 16:09 EDT , Service support ,
--- NOTE | 2018-09-28 15:16 | RAD_ITS ---
STUDY: X-RAY CHEST REASON FOR EXAM: Male, 83 years old. New onset confusion TECHNIQUE: AP COMPARISON: 05/25/2018 FINDINGS: Two lead cardiac conduction device is seen via the left subclavian vein with lead tips projecting over the right atrium and right ventricle, respectively. Chronic fibrotic changes are similar since the prior study. There is no demonstrated pleural abnormality. There is mild cardiac enlargement. Normal mediastinum and ava. Normal visualized pulmonary arteries. Normal visualized aortic arch and descending thoracic aorta. There is demineralization of the osseous structures. Old right rib fractures are noted. And old fracture of the left humeral neck is partially visualized. There is no demonstrated abnormality of the visualized soft tissue structures of the upper abdomen. RAD/Chest 1 View (Portable) IMPRESSION: Stable, nonacute portable x-ray examination of the chest. Electronically Signed: Landon Pat MD at 16:04 EDT , Service support ,
[2018-09-28 15:18] VITALS: O2SAT 97
--- NOTE | 2018-09-28 15:20 | ED.DCSUM_ITS ---
- ER Visit Summary Date of Service: 09/28/18 Chief Complaint: Confusion, generalized weakness History of Present Illness: The patient is a 83 M presenting with confusion and generalized weakness. Family states that he was unable to get out of bed for the past 24 hours. He has had increased fatigue and decreased appetite. He denies complaints and does not know why he is in the hospital. He was soiled with urine and stool on arrival. Physical Examination: Vitals are stable. Pulse ox 80% on room air. Patient is afebrile. Alert no acute distress. Unkempt HEENT exam is unremarkable. Neck is supple. Lungs are clear and equal bilaterally. Heart is regular rate and rhythm. Abdomen is soft nontender nondistended. Extremities are unremarkable. Skin is warm and dry. No focal neurologic deficit. Alert and oriented x2 Remainder of exam is unremarkable. Emergency Department Course and Treatment: EKG is paced at a rate of 70. Chest x-ray shows no acute process. CT head shows no acute process. CBC normal except for platelet 104. Chemistries normal except for sodium 135, CO2 34, glucose 123. Urinalysis unremarkable. Troponin is negative. Due to concern for ability to care for himself discussed with hospitalist for admission. Disposition: Admission Impression: Generalized weakness, debility This note was generated with [employer] dictation software. It may contain incorrect words, spelling, and punctuation that were not noted in review of the chart prior to signing ED Disposition - Plan for ED Patient: Referrals: Lai Hsieh Chi, MD [Primary Care Provider] -
[2018-09-28 15:36] LABS: Absolute Neutrophil Count 3.2 X10^3/uL (2.0-7.7); Basophil# 0.02 X10^3/uL; Basophil% 0.4 % (0-1); Eosinophil# 0.03 X10^3/uL; Eosinophils% 0.6 % (0-5); Hematocrit 46.3 % (40-54); Hemoglobin 15.1 g/dl (13.0-16.5); Lymphocyte % 17.3 % (19-41); Mean Corp Hgb Conc 32.6 g/gl (32-36); Mean Corpuscular Hgb 30.1 pg (27.0-32.0); Mean Corpuscular Volume 92.2 fL (80-94); Monocyte# 0.51 X10^3/uL; Neutrophil # 3.24 X10^3/uL (2.7-7.7); Neutrophil % 70.1 % (47-70); Platelet Count 104 K/mm3 (150-450); RBC Distribution Width CV 16.3 % (11.6-14.6); RBC Distribution Width SD 53.6 fl (35.1-43.9); Red Blood Count 5.02 M/mm3 (4.6-6.2); White Blood Count 4.6 K/mm3 (4.4-11.0)
[2018-09-28 15:41] LABS: Bacteria 0 SEEN /hpf (None Seen); Mucous, Urine 0 SEEN /hpf (<or=2+); Squamous Epithelial Cells - UA 0 SEEN /hpf (0-5)
[2018-09-28 15:42] LABS: POSITIVE COUNT NO; POSITIVE DIFFERENTIAL NO; POSITIVE MORPHOLOGY NO
[2018-09-28 15:49] LABS: Color, Urine Yellow (Yellow); Glucose, Dipstick Normal (Normal); Ketone-Dipstick Negative (Negative); Leukocyte Esterase-Dipstick Negative /ul (Negative); Nitrite-Dipstick Negative (Negative); Occult Blood-Urine Negative /ul (Negative); Protein-Dipstick Negative (Negative); Urine Bilirubin Dipstick Negative (Negative); Urine Clarity Clear (Clear); Urine Urobilinogen 4 mg/dl (Normal)
[2018-09-28 15:50] LABS: Anion Gap 4 (5-15); BUN 16 mg/dL (7-18); BUN/Creat Ratio 12.6 RATIO (10-20); Calcium,Total 8.8 mg/dL (8.5-10.1); Chloride 97 mmol/L (98-107); Creatinine, Serum 1.27 mg/dL (0.70-1.30); EST Glomerular Filtration Rate 57 mL/min (>60); Est Glom Filt Rate - Afr Amer 70 mL/min (>60); Estimated Creatinine Clearance 40.48 ml/min; Glucose 123 mg/dL (74-106); Potassium 4.2 mmol/L (3.5-5.1); Sodium Level 135 mmol/L (136-145)
[2018-09-28 15:56] LABS: Red Blood Cells-Urine 0-5 SEEN /hpf (0-5)
[2018-09-28 15:57] LABS: White Blood Cells 0-5 SEEN /hpf (0-5)
--- NOTE | 2018-09-28 16:57 | NURSING ---
DR MORALEZ FOR DR CHEATHAM
--- NOTE | 2018-09-28 17:01 | NURSING ---
MED SURG ALTERED MENTAL STATUS PAINTSIL
[2018-09-28 17:29] VITALS: BP 145/90; PULSE 86; RESP 16; O2SAT 97
--- NOTE | 2018-09-28 17:36 | HP.PCM_ITS ---
<Eber Ballard - Last Filed: 09/28/18 17:30> Problem List (1) Dementia Status: Acute (2) History of left common carotid artery stent placement Status: Chronic Comment: stenting of the prox Left internal carotid, stenting of the distal left common carotid, and stenting of the left common carotid at its interna/exeternal carotid. 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 (9) Benign prostate hyperplasia Status: Chronic (10) Type 2 diabetes mellitus Status: Chronic (11) Dyslipidemia Status: Chronic (12) Gastroesophageal reflux disease Status: Chronic (13) Hypothyroidism Status: Chronic (14) S/P IVC filter Status: Chronic (15) Cardiac pacemaker Status: Chronic Comment: pacemaker implant april 2010 (16) 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 (17) Cardiomyopathy Status: Chronic Comment: 45% EF in November of 2014, ischemic (18) S/P atrioventricular piper ablation Status: Chronic (19) Carotid artery disease Status: Chronic (20) Systolic CHF, chronic Status: Chronic (21) Pulmonary HTN Status: Chronic Comment: PA pressure in November 2014 estimated at 50 (22) Chronic anemia Status: Chronic Comment: unknown etiology History of Present Illness Date of Admission: 09/28/18 Chief Complaint: generalized weakness The patient is a 83 year old M with extensive past medical history as above, who was sent to the ER today by his family for concerns for increased lethargy. He has a hx of dementia, and the family has noted that he has been declining over the past 6 months. The last two days he has been refusing to get out of bed at all, he has not been eating or drinking very much, and he would not take his medications. He appears comfortable and is very pleasant, although confused. He was soiled with stool and urine when he came to the ER. He denies feeling ill. He was hypoxic and required 3lpm o2, however he does not have cough or SOB. He has no fever. The family is concerned about further care for him at home. They are undecided about what would be best for him going forward, because they provide some care for him at home, and do have an aid to bathe him once per week, however they are not sure what to do if he refuses to eat, get out of bed, or take his meds. Prior to this he normally ambulated with a cane. His just got out of the hospital after being treated for a septic knee. [] Past Medical History Past Medical History (Chronic Problems): Chronic Problems (Last Updated 09/18/18 @ 16:24 by Kylie Freeman) History of left common carotid artery stent placement (Chronic ~05/09/12) stenting of the prox Left internal carotid, stenting of the distal left common carotid, and stenting of the left common carotid at its interna/exeternal carotid. 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) Benign prostate hyperplasia (Chronic) Type 2 diabetes mellitus (Chronic) Dyslipidemia (Chronic) Gastroesophageal reflux disease (Chronic) Hypothyroidism (Chronic) S/P IVC filter (Chronic) Cardiac pacemaker (Chronic) pacemaker implant april 2010 Tachy-aly syndrome (Chronic) S/P PM Cardiomyopathy (Chronic) 45% EF in November of 2014, ischemic S/P atrioventricular piper ablation (Chronic) Carotid artery disease (Chronic) Systolic CHF, chronic (Chronic) Pulmonary HTN (Chronic) PA pressure in November 2014 estimated at 50 Chronic anemia (Chronic) unknown etiology Medical History: Medical History (Last Updated 09/18/18 @ 16:24 by Kylie Freeman) Aortic root dilatation (Acute) I77.810 Wide-complex tachycardia (Acute) I47.2 Essential hypertension (Chronic) I10 TIA (transient ischemic attack) (Chronic) CKD (chronic kidney disease) stage 3, GFR 30-59 ml/min (Chronic) 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) I82.629 Benign prostate hyperplasia (Chronic) Type 2 diabetes mellitus (Chronic) E11.9 Dyslipidemia (Chronic) E78.5 Gastroesophageal reflux disease (Chronic) K21.9 Hypothyroidism (Chronic) E03.9 Cardiac pacemaker (Chronic) Z95.0 pacemaker implant april 2010 Tachy-aly syndrome (Chronic) I49.5 S/P PM Cardiomyopathy (Chronic) I42.9 45% EF in November of 2014, ischemic Carotid artery disease (Chronic) I77.9 Systolic CHF, chronic (Chronic) I50.22 Pulmonary HTN (Chronic) I27.2 PA pressure in November 2014 estimated at 50 Chronic anemia (Chronic) D64.9 unknown etiology Atrial fibrillation (Inactive) I48.91 HTN (hypertension) (Inactive) I10 Allergies morphine Adverse Reaction (Verified 09/28/18 15:22) hallucinations SODIUM PENTHOL Allergy (Uncoded 09/28/18 15:22) Hives Home Medications: Ambulatory Orders Medication Instructions Recorded Gabapentin [Neurontin] 300 mg PO QHS 10/10/15 Amiodarone HCl [Cordarone] 200 mg PO DAILY@0800 05/07/17 Finasteride [Proscar] 5 mg PO DAILY 12/19/17 Levothyroxine [Synthroid] 137 mcg PO DAILY@0600 12/19/17 Donepezil HCl 10 mg PO QHS 03/01/18 Pioglitazone [Actos] 30 mg PO DAILY 04/24/18 Potassium Chloride [K-Dur] 20 meq PO DAILY 04/24/18 Citalopram [Celexa] 20 mg PO DAILY 09/28/18 Insulin Glargine [Lantus SoloStar 7 units SC PRN PRN 09/28/18 Pen] Surgical History: Surgical History (Last Updated 09/18/18 @ 16:30 by Kylie Freeman) History of left common carotid artery stent placement (Chronic) Onset Date: ~05/09/12 Z98.890, Z95.828 stenting of the prox Left internal carotid, stenting of the distal left common carotid, and stenting of the left common carotid at its interna/exeternal carotid. 05/09/12 S/P IVC filter (Chronic) Z95.828 S/P atrioventricular piper ablation (Chronic) Z98.890 History of cardiac radiofrequency ablation (RFA) Z98.890 11/24/11, WITH PPM IMPLANT Surgical History: pacemaker implantation - 2009, - - PATIENT HAS HISTORY OF CRANIOTOMY, for intracranial bleed evacuation, patient sustained fall at that time, internal carotid stents 2012 Psychiatric History: No pertinent psych hx Lives: With Family Smoking Status: Former smoker Tobacco Use: Non-smoker Alcohol: None Drugs: None - *Family History Sibling Family History: Family History (Last Reviewed 09/24/17 @ 13:55 by Janelle Laguna) Brother CAD (coronary artery disease) Hx of CABG Cancer Father CAD (coronary artery disease) Myocardial infarction Brother Cancer Mother Old age History Items: Cancer, Heart Disease - CAD s/ CABG Maternal Family History: Family History (Last Reviewed 09/24/17 @ 13:55 by Janelle Laguna) Brother CAD (coronary artery disease) Hx of CABG Cancer Father CAD (coronary artery disease) Myocardial infarction Brother Cancer Mother Old age History Items: Cancer - , unknonw age Paternal Family History: Family History (Last Reviewed 09/24/17 @ 13:55 by Janelle Laguna) Brother CAD (coronary artery disease) Hx of CABG Cancer Father CAD (coronary artery disease) Myocardial infarction Brother Cancer Mother Old age History Items: Cancer - unknown age, Heart Disease Review of Systems Constitutional: Reports: Weakness, Fatigue. Denies: Chills, Fever, Weight Change HEENT: Denies: Head Aches, Sinus Congestion, Sinus Drainage Cardiovascular: Denies: Chest Pain, Palpitations Respiratory: Denies: Cough, Shortness of breath at rest, Sputum production Gastrointestinal: Denies: Abdominal Pain, Nausea, Vomiting Genitourinary: Denies: Dysuria Musculoskeletal: Denies: Joint Pain, Joint Tenderness Skin: Denies: Rash, Wounds Neurological: Denies: Numbness, Tingling, Focal weakness Psychiatric: Denies: Anxiety, Depression, Homicidal Ideations, Suicidal Ideations Hematologic/ Lymphatic: Denies: Easy Bruising, Easy Bleeding VTE Information - Inpt Only VTE Present on Admission: No VTE Mechan Device Prophylaxis: None VTE Pharm Prophylaxis ordered?: Yes Patient Problems: Active and Suspected Problems (Last Updated 09/18/18 @ 16:24 by Kylie Freeman) Dementia (Acute) - Physical Exam General: Alert, Cooperative, Confused, - - frail HEENT: Atraumatic, PERRLA, EOMI, Normocephalic Neck: Supple, No JVD, Negative Carotid Bruits Lungs: Clear to auscultation, Normal air movement Cardiovascular: Regular rate, No murmurs Abdomen: Bowel Sounds Present, Soft, Non Tender Extremities: No edema, Capillary Refill Less than 3 Seconds Skin: No rashes, No breakdown Musculoskeletal: No Tenderness to Palpation of Joints or Extremities Neurological: Cranial nerves II-XII grossly intact Psych/Mental Status: Normal Affect, Appropriate Vital Signs Temp Pulse Resp BP Pulse Ox 98.2 F 86 16 145/90 H 97 09/28/18 15:01 09/28/18 17:29 09/28/18 17:29 09/28/18 17:29 09/28/18 17:29 Oxygen Flow Rate (L/min) 3 Oxygen Delivery Method Nasal Cannula Weight: 178 lb 2.136 oz Body Mass Index (BMI) 27.8 Finger Stick Blood Glucose 94 Laboratory Tests Past 24 Hrs 09/28/18 09/28/18 09/28/18 15:25 15:25 15:35 WBC 4.6 RBC 5.02 Hgb 15.1 Hct 46.3 MCV 92.2 MCH 30.1 MCHC 32.6 RDW 16.3 H RDW Differential 53.6 H Plt Count 104 L MPV 11.0 Immature Gran % (Auto) 0.600 Neut % (Auto) 70.1 H Lymph % (Auto) 17.3 L [place] % (Auto) 11.0 H Eos % (Auto) 0.6 Baso % (Auto) 0.4 Absolute Neuts (auto) 3.2 Absolute Lymphs (auto) 0.80 L Total Counted Not Reportable Sodium 135 L Potassium 4.2 Chloride 97 L Carbon Dioxide 34.0 H Anion Gap 4 L BUN 16 Creatinine 1.27 Estim Creat Clear Calc 40.48 Est GFR (MDRD) Af Amer 70 Est GFR (MDRD) Non-Af 57 L BUN/Creatinine Ratio 12.6 Glucose 123 H Calcium 8.8 Troponin I < 0.015 Urine Color Yellow Urine Clarity Clear Urine pH 7.0 Ur Specific [place] 1.010 Urine Protein Negative Urine Glucose (UA) Normal Urine Ketones Negative Urine Occult Blood Negative Urine Nitrite Negative Urine Bilirubin Negative Urine Urobilinogen 4 H Ur Leukocyte Esterase Negative Urine RBC 0-5 SEEN Urine WBC 0-5 SEEN Ur Squamous Epith Cells 0 SEEN Urine Bacteria 0 SEEN Urine Mucus 0 SEEN Assessment/Plan All Active Problems (Last Updated 09/18/18 @ 16:24 by Kylie Freeman) Dementia (Acute) Aortic root dilatation (Acute) Wide-complex tachycardia (Acute) 1. Generalized debility, confusion, not caring for himself - Likely 2/2 progressive worsening of underlying dementia. Possibly 2/2 hypoxia and CO2 retention, there does not appear to be an obvious etiology behind this. He was placed on 3lpm o2 and is doing well. No fever/leukocytosis, or symptoms suggestive of an infection. CXR is negative. Lungs are clear. Urinalysis is negative. Check b12 and tsh. -Speech eval for underlying dysphagia/aspiration -[employer] eval for probably malnutrition -PTOT evals for physical debility -He was discharged to SNF after admission in february - continue celexa, donepezil 2. Chronic afib - has PM, prior av node ablation - amiodarone, not on other rate control, not on OAC. 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 Hx cardiomyopathy, tachy-aly syndrome, htn, hld, pulmonary htn 5. Hx TIA 6. CKD III - stable 7. DMt2 - SSI, lantus, dc Actos. 8. Hypothyroidism - synthroid - check tsh. DVT ppx: lovenox DC planning: SNF vs [facility]. This patient was seen by Eber Ballard PA-C under the supervision of Dr. Chaparro. 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) I82.629 Benign prostate hyperplasia (Chronic) Type 2 diabetes mellitus (Chronic) E11.9 Dyslipidemia (Chronic) E78.5 Gastroesophageal reflux disease (Chronic) K21.9 Hypothyroidism (Chronic) E03.9 Cardiac pacemaker (Chronic) Z95.0 pacemaker implant april 2010 Tachy-aly syndrome (Chronic) I49.5 S/P PM Cardiomyopathy (Chronic) I42.9 45% EF in November of 2014, ischemic Carotid artery disease (Chronic) I77.9 Systolic CHF, chronic (Chronic) I50.22 Pulmonary HTN (Chronic) I27.2 PA pressure in November 2014 estimated at 50 Chronic anemia (Chronic) D64.9 unknown etiology Atrial fibrillation (Inactive) I48.91 HTN (hypertension) (Inactive) I10 Allergies morphine Adverse Reaction (Verified 09/28/18 15:22) hallucinations SODIUM P[place]HOL Allergy (Uncoded 09/28/18 15:22) Hives Surgical History: Surgical History (Last Updated 09/18/18 @ 16:30 by Kylie Freeman) History of left common carotid artery stent placement (Chronic) Onset Date: ~05/09/12 Z98.890, Z95.828 stenting of the prox Left internal carotid, stenting of the distal left common carotid, and stenting of the left common carotid at its interna/exeternal carotid. 05/09/12 S/P IVC filter (Chronic) Z95.828 S/P atrioventricular piper ablation (Chronic) Z98.890 History of cardiac radiofrequency ablation (RFA) Z98.890 11/24/11, WITH PPM IMPLANT - *Family History Sibling Family History: Family History (Last Reviewed 09/24/17 @ 13:55 by Janelle Laguna) Brother CAD (coronary artery disease) Hx of CABG Cancer Father CAD (coronary artery disease) Myocardial infarction Brother Cancer Mother Old age Maternal Family History: Family History (Last Reviewed 09/24/17 @ 13:55 by Janelle Laguna) Brother CAD (coronary artery disease) Hx of CABG Cancer Father CAD (coronary artery disease) Myocardial infarction Brother Cancer Mother Old age Paternal Family History: Family History (Last Reviewed 09/24/17 @ 13:55 by Janelle Laguna) Brother CAD (coronary artery disease) Hx of CABG Cancer Father CAD (coronary artery disease) Myocardial infarction Brother Cancer Mother Old age - Physical Exam Vital Signs Temp Pulse Resp BP Pulse Ox 98.2 F 86 16 145/90 H 97 09/28/18 15:01 09/28/18 17:29 09/28/18 17:29 09/28/18 17:29 09/28/18 17:29 Oxygen Flow Rate (L/min) 3 Oxygen Delivery Method Nasal Cannula Weight: 80.8 kg Body Mass Index (BMI) 27.8 Finger Stick Blood Glucose 94 Laboratory Tests Past 24 Hrs 09/28/18 09/28/18 09/28/18 15:25 15:25 15:35 WBC 4.6 RBC 5.02 Hgb 15.1 Hct 46.3 MCV 92.2 MCH 30.1 MCHC 32.6 RDW 16.3 H RDW Differential 53.6 H Plt Count 104 L MPV 11.0 Immature Gran % (Auto) 0.600 Neut % (Auto) 70.1 H Lymph % (Auto) 17.3 L [place] % (Auto) 11.0 H Eos % (Auto) 0.6 Baso % (Auto) 0.4 Absolute Neuts (auto) 3.2 Absolute Lymphs (auto) 0.80 L Total Counted Not Reportable Sodium 135 L Potassium 4.2 Chloride 97 L Carbon Dioxide 34.0 H Anion Gap 4 L BUN 16 Creatinine 1.27 Estim Creat Clear Calc 40.48 Est GFR (MDRD) Af Amer 70 Est GFR (MDRD) Non-Af 57 L BUN/Creatinine Ratio 12.6 Glucose 123 H Calcium 8.8 Troponin I < 0.015 Urine Color Yellow Urine Clarity Clear Urine pH 7.0 Ur Specific [place] 1.010 Urine Protein Negative Urine Glucose (UA) Normal Urine Ketones Negative Urine Occult Blood Negative Urine Nitrite Negative Urine Bilirubin Negative Urine Urobilinogen 4 H Ur Leukocyte Esterase Negative Urine RBC 0-5 SEEN Urine WBC 0-5 SEEN Ur Squamous Epith Cells 0 SEEN Urine Bacteria 0 SEEN Urine Mucus 0 SEEN Assessment/Plan This patient was seen in conjunction with GRANT Manley. I have independently interviewed and examined the patient and reviewed pertinent historical, laboratory, and other data. Please refer to GRANT Manley note for his patient's presentation, findings, and recommendations. I have reviewed and his note and concur with his documentation CC: Altered mental status/confusion HPI: 83-year-old male with past medical history of dementia, multiple cardiovascular comorbidities comes in with progressive confusion. Patient lives at home with her and stepdaughter who lives in a connecting apartment. He said to be declined over the last few months. At baseline he is able to use the bathroom, to shave, otherwise is dependent on all activities of daily living. He gets home health that comes once a week helping with his bathing. He has been having diarrhea that has been intermittent, sometimes is given Imodium. No fevers no chills or cough or shortness of breath. Patient has been progressively lethargic. This morning he refused to get out of bed. He was found to have soiled himself. EMS were called. He was found to be saturating 80% on room air PMHX: Carotid stenosis status post stent placement, hypertension, tachy-aly syndrome status post pacemaker, chronic systolic CHF, ischemic cardiomyopathy, EF was 45% chronic atrial fibrillation, CKD stage III, type II DM, hyperlipidemia, hypothyroidism, PSHx: Status post IVC filter, status post AV node ablation, status post ra diofrequency ablation, status post left carotid artery stent placement, status post pacemaker placement status post craniotomy for intracranial bleed FHX: Heart disease in his brother and father SHX: Denies any smoking or alcohol or use of illicit drugs Physical Exam: Vitals: Temperature 98.2 F, heart rate is 82, blood pressure 134/91, respiratory rate is 18, SPO2 was 80% on room air Gen: Appears comfortable, disheveled, not pale, not jaundiced CVS:HS I +II, regular, no murmurs RESP: Diminished generally, otherwise vesicular BS GI: BS present and normal, soft, nontender, no palpable organs EXT:No edema Labs: WBC count is 4.6, hemoglobin is 15.1, platelet is 104, sodium is 135, potassium 4.2, Cl 97, HCO3 34, BUN 16, Cr 1.27, Troponins negative UA is unremarkable ASSESSMENT: 1. Acute metabolic encephalopathy, unclear etiology for now, likely secondary to progression of his dementia 2 Dementia, likely mixed versus vascular, on Aricept, Celexa 3. Acute hypoxic respiratory failure, unclear etiology, suspected aspiration pneumonitis 4. History of Dysphagia 5. Chronic systolic CHF, ischemic cardiomyopathy, chronic atrial fibrillation, tachy-aly syndrome, stable, no signs of exacerbation 6. Type II DM, on insulin, 7. BPH 8. Anxiety/depression 9. Chronic thrombocytopenia Plan: Admit to MedSurg Gentle IV fluids, monitor vitals Repeat chest x-ray in a.m. for possible pneumonia after hydration will hold home Actos, history of hypoglycemia, continue with Accu-Cheks with insulin sliding scale Continue on amiodarone, Aricept, PT and OT and speech therapy to evaluate Family to decide on goals of care Monitor platelet count whilst on heparin Code Visit Inpatient E&M: [id number] Init Hosp L3
[2018-09-28 18:02] VITALS: BMI 21.9
[2018-09-28 19:05] VITALS: PULSE 70
[2018-09-28] MEDS: 0.9% Normal Saline 1,000 ML 75 ML IV (19:10)
[2018-09-28] MEDS: Donepezil HCl 10 MG Tablet PO (22:02)
[2018-09-28] MEDS: Heparin Injection (Vial) 5,000 UNIT/ML VIAL 5000 UNIT SC (22:02)
[2018-09-28 22:11] LABS: Bedside Glucose 138 mg/dL (70-110)
[2018-09-28 23:13] VITALS: PULSE 70
[2018-09-29] VITALS (16 sets, daily range): BP systolic 89–112; BP diastolic 47–68; PULSE 69–83; RESP 16–18; TEMP 36.8–37.9; O2SAT 92–96
--- NOTE | 2018-09-29 05:55 | RAD_ITS ---
STUDY: X-RAY CHEST REASON FOR EXAM: Male, 83 years old. Shortness of breath. TECHNIQUE: Single AP portable view of the chest. COMPARISON: None. FINDINGS: Left pacer in place with leads overlying the right atrium and right ventricle. Prominent interstitial markings are present with similar appearance compared to previous exam with no new focal airspace disease. There is no demonstrated pleural abnormality. There is mild cardiac enlargement. Normal mediastinum and ava. Normal visualized pulmonary arteries. There is atherosclerotic calcification of the aortic arch with tortuosity. There are diffuse degenerative changes of the visualized thoracic spine. Normal visualized ribs, clavicles, and shoulders. There is no demonstrated abnormality of the visualized soft tissue structures of the upper abdomen. RAD/Chest 1 View (Portable) IMPRESSION: Symmetric prominent chronic interstitial markings with no new focal airspace disease. Electronically Signed: Rai Fatima DO at 8:30 EDT , Service support ,
[2018-09-29] MEDS: Levothyroxine 137 MCG Tablet PO (06:11)
[2018-09-29] MEDS: Heparin Injection (Vial) 5,000 UNIT/ML VIAL 5000 UNIT SC ×3 (06:11→22:00)
[2018-09-29 06:26] LABS: Bedside Glucose 108 mg/dL (70-110)
[2018-09-29] MEDS: Amiodarone 200 MG Tablet PO (08:33)
[2018-09-29] MEDS: 0.9% Normal Saline 1,000 ML 75 ML IV (08:33)
[2018-09-29] MEDS: Citalopram 20 MG Tablet PO (09:51)
[2018-09-29] MEDS: Finasteride 5 MG Tablet PO (09:51)
[2018-09-29 10:27] LABS: Absolute Lymphocyte Count 0.58 X10^3/ul (0.83-4.51); Absolute Neutrophil Count 2.5 X10^3/uL (2.0-7.7); Basophil# 0.01 X10^3/uL; Basophil% 0.3 % (0-1); Eosinophil# 0.03 X10^3/uL; Eosinophils% 0.8 % (0-5); Hematocrit 40.8 % (40-54); Hemoglobin 13.1 g/dl (13.0-16.5); Lymphocyte # 0.58 X10^3/ul (4.0); Mean Corp Hgb Conc 32.1 g/gl (32-36); Mean Corpuscular Hgb 29.6 pg (27.0-32.0); Mean Corpuscular Volume 92.3 fL (80-94); Mean Platelet Vol. 11.4 fl (6.2-12.0); Monocyte# 0.48 X10^3/uL; Monocyte% 13.2 % (0-10); Neutrophil # 2.52 X10^3/uL (2.7-7.7); Neutrophil % 69.4 % (47-70); Platelet Count 106 K/mm3 (150-450); RBC Distribution Width CV 15.9 % (11.6-14.6); RBC Distribution Width SD 53.8 fl (35.1-43.9); Red Blood Count 4.42 M/mm3 (4.6-6.2); White Blood Count 3.6 K/mm3 (4.4-11.0)
[2018-09-29 10:43] LABS: Anion Gap 4 (5-15); BUN 16 mg/dL (7-18); BUN/Creat Ratio 14.7 RATIO (10-20); Calcium,Total 8.2 mg/dL (8.5-10.1); Chloride 102 mmol/L (98-107); Creatinine, Serum 1.09 mg/dL (0.70-1.30); EST Glomerular Filtration Rate 69 mL/min (>60); Est Glom Filt Rate - Afr Amer 83 mL/min (>60); Glucose 116 mg/dL (74-106); Potassium 3.9 mmol/L (3.5-5.1); Sodium Level 136 mmol/L (136-145)
[2018-09-29 10:49] LABS: Differential Indicated SCAN CRITERIA MET; POSITIVE COUNT NO; POSITIVE DIFFERENTIAL YES; POSITIVE MORPHOLOGY NO
[2018-09-29 11:31] LABS: Bedside Glucose 136 mg/dL (70-110)
--- NOTE | 2018-09-29 12:52 | PCM.PROGNOTE ---
<Eber Ballard - Last Filed: 09/29/18 12:52> Patient Problems: Active and Suspected Problems (Last Updated 09/18/18 @ 16:24 by Kylie Freeman) Dementia (Acute) Subjective: Pt had a mild fever this AM of 100.1. and is still requiring supplemental O2. He denies all symptoms however. His hx is unreliable as he has significant dementia. He has some audible mucus in his throat while speaking. - Physical Exam General: Alert, Oriented x3, Cooperative HEENT: Atraumatic, PERRLA, EOMI, Normocephalic Neck: Supple, No JVD, Negative Carotid Bruits Lungs: Rales, - - mucus audible in throat while speaking, Cardiovascular: Regular rate, No murmurs Abdomen: Bowel Sounds Present, Soft, Non Tender Extremities: No edema, Capillary Refill Less than 3 Seconds Skin: No rashes, No breakdown Musculoskeletal: No Tenderness to Palpation of Joints or Extremities Neurological: Cranial nerves II-XII grossly intact Psych/Mental Status: Normal Affect, Appropriate Vital Signs Temp Pulse Resp BP Pulse Ox 100.1 F H 73 16 112/68 93 09/29/18 08:36 09/29/18 10:00 09/29/18 08:36 09/29/18 08:36 09/29/18 09:55 Oxygen Flow Rate (L/min) 2.5 Oxygen Delivery Method Nasal Cannula Weight: 161 lb 9.581 oz Body Mass Index (BMI) 21.9 Finger Stick Blood Glucose 94 Intake and Output for Last 24 Hours 09/27/18 09/28/18 09/29/18 23:59 23:59 23:59 Intake Total 1705 / 1705 Balance 1705 / 1705 Laboratory Tests Past 24 Hrs 09/28/18 09/28/18 09/28/18 15:25 15:25 15:35 WBC 4.6 RBC 5.02 Hgb 15.1 Hct 46.3 MCV 92.2 MCH 30.1 MCHC 32.6 RDW 16.3 H RDW Differential 53.6 H Plt Count 104 L MPV 11.0 Immature Gran % (Auto) 0.600 Neut % (Auto) 70.1 H Lymph % (Auto) 17.3 L Morris % (Auto) 11.0 H Eos % (Auto) 0.6 Baso % (Auto) 0.4 Absolute Neuts (auto) 3.2 Absolute Lymphs (auto) 0.80 L Total Counted Not Reportable Sodium 135 L Potassium 4.2 Chloride 97 L Carbon Dioxide 34.0 H Anion Gap 4 L BUN 16 Creatinine 1.27 Estim Creat Clear Calc 40.48 Est GFR (MDRD) Af Amer 70 Est GFR (MDRD) Non-Af 57 L BUN/Creatinine Ratio 12.6 Glucose 123 H Calcium 8.8 Troponin I < 0.015 Urine Color Yellow Urine Clarity Clear Urine pH 7.0 Ur Specific [place] 1.010 Urine Protein Negative Urine Glucose (UA) Normal Urine Ketones Negative Urine Occult Blood Negative Urine Nitrite Negative Urine Bilirubin Negative Urine Urobilinogen 4 H Ur Leukocyte Esterase Negative Urine RBC 0-5 SEEN Urine WBC 0-5 SEEN Ur Squamous Epith Cells 0 SEEN Urine Bacteria 0 SEEN Urine Mucus 0 SEEN 09/29/18 09/29/18 10:16 10:16 WBC 3.6 L RBC 4.42 L Hgb 13.1 Hct 40.8 MCV 92.3 MCH 29.6 MCHC 32.1 RDW 15.9 H RDW Differential 53.8 H Plt Count 106 L MPV 11.4 Immature Gran % (Auto) 0.300 Neut % (Auto) 69.4 Lymph % (Auto) 16.0 L Morris % (Auto) 13.2 H Eos % (Auto) 0.8 Baso % (Auto) 0.3 Absolute Neuts (auto) 2.5 Absolute Lymphs (auto) 0.58 L Total Counted Not Reportable Sodium 136 Potassium 3.9 Chloride 102 Carbon Dioxide 30.0 Anion Gap 4 L BUN 16 Creatinine 1.09 Estim Creat Clear Calc 52.30 Est GFR (MDRD) Af Amer 83 Est GFR (MDRD) Non-Af 69 BUN/Creatinine Ratio 14.7 Glucose 116 H Calcium 8.2 L Troponin I Urine Color Urine Clarity Urine pH Ur Specific [place] Urine Protein Urine Glucose (UA) Urine Ketones Urine Occult Blood Urine Nitrite Urine Bilirubin Urine Urobilinogen Ur Leukocyte Esterase Urine RBC Urine WBC Ur Squamous Epith Cells Urine Bacteria Urine Mucus POC Glucose 09/29/18 09/29/18 09/28/18 11:09 06:17 21:54 POC Glucose 136 H 108 138 H Medical Necessity - Tobacco Use Smoking Status: Former smoker Tobacco Use: Pipe Assessment/Plan All Active Problems (Last Updated 09/18/18 @ 16:24 by Kylie Freeman) Dementia (Acute) Aortic root dilatation (Acute) Wide-complex tachycardia (Acute) 1. Concern for aspiration pna - requiring 3 lpm o2 still, mild fever overnight. Repeat CXR without infiltrate. Start Zosyn. Rales on exam in the bases and with mucus in throat while speaking. WBC count is low. -Zosyn started. -Await speech therapy evals. -schedule duonebs -Co2 has decreased, gap is still low at 4 -trop negative 2. Generalized debility, confusion, not caring for himself - Likely 2/2 progressive worsening of underlying dementia. Possibly 2/2 hypoxia and CO2 retention on admission, possibly an aspiration component as well. CXR is negative. Urinalysis is negative. -Check b12 and tsh. -Speech eval for underlying dysphagia/aspiration -Senior Interaction Designer eval for probably malnutrition -PTOT evals for physical debility -He was discharged to SNF after admission in february - continue celexa, donepezil 2. Chronic afib - has PM, prior av node ablation - amiodarone, not on other rate control, not on OAC. 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 Hx cardiomyopathy, tachy-aly syndrome, htn, hld, pulmonary htn 5. Hx TIA 6. CKD III - stable 7. DMt2 - SSI, lantus 8. Hypothyroidism - synthroid - check tsh. DVT ppx: lovenox DC planning: SNF vs C. This patient was seen by Eber Ballard PA-C under the supervision of Dr. Timmons. <Katelyn Timmons E - Last Filed: 09/29/18 13:17> - Physical Exam Vital Signs Temp Pulse Resp BP Pulse Ox 100.1 F H 73 16 112/68 93 09/29/18 08:36 09/29/18 10:00 09/29/18 08:36 09/29/18 08:36 09/29/18 09:55 Oxygen Flow Rate (L/min) 2.5 Oxygen Delivery Method Nasal Cannula Weight: 161 lb 9.581 oz Body Mass Index (BMI) 21.9 Finger Stick Blood Glucose 94 Intake and Output for Last 24 Hours 09/27/18 09/28/18 09/29/18 23:59 23:59 23:59 Intake Total 1705 / 1705 Balance 1705 / 1705 Laboratory Tests Past 24 Hrs 09/28/18 09/28/18 09/28/18 15:25 15:25 15:35 WBC 4.6 RBC 5.02 Hgb 15.1 Hct 46.3 MCV 92.2 MCH 30.1 MCHC 32.6 RDW 16.3 H RDW Differential 53.6 H Plt Count 104 L MPV 11.0 Immature Gran % (Auto) 0.600 Neut % (Auto) 70.1 H Lymph % (Auto) 17.3 L Morris % (Auto) 11.0 H Eos % (Auto) 0.6 Baso % (Auto) 0.4 Absolute Neuts (auto) 3.2 Absolute Lymphs (auto) 0.80 L Total Counted Not Reportable Sodium 135 L Potassium 4.2 Chloride 97 L Carbon Dioxide 34.0 H Anion Gap 4 L BUN 16 Creatinine 1.27 Estim Creat Clear Calc 40.48 Est GFR (MDRD) Af Amer 70 Est GFR (MDRD) Non-Af 57 L BUN/Creatinine Ratio 12.6 Glucose 123 H Calcium 8.8 Troponin I < 0.015 Vitamin B12 TSH Urine Color Yellow Urine Clarity Clear Urine pH 7.0 Ur Specific [place] 1.010 Urine Protein Negative Urine Glucose (UA) Normal Urine Ketones Negative Urine Occult Blood Negative Urine Nitrite Negative Urine Bilirubin Negative Urine Urobilinogen 4 H Ur Leukocyte Esterase Negative Urine RBC 0-5 SEEN Urine WBC 0-5 SEEN Ur Squamous Epith Cells 0 SEEN Urine Bacteria 0 SEEN Urine Mucus 0 SEEN 09/29/18 09/29/18 09/29/18 10:16 10:16 10:16 WBC 3.6 L RBC 4.42 L Hgb 13.1 Hct 40.8 MCV 92.3 MCH 29.6 MCHC 32.1 RDW 15.9 H RDW Differential 53.8 H Plt Count 106 L MPV 11.4 Immature Gran % (Auto) 0.300 Neut % (Auto) 69.4 Lymph % (Auto) 16.0 L Morris % (Auto) 13.2 H Eos % (Auto) 0.8 Baso % (Auto) 0.3 Absolute Neuts (auto) 2.5 Absolute Lymphs (auto) 0.58 L Total Counted Not Reportable Sodium 136 Potassium 3.9 Chloride 102 Carbon Dioxide 30.0 Anion Gap 4 L BUN 16 Creatinine 1.09 Estim Creat Clear Calc 52.30 Est GFR (MDRD) Af Amer 83 Est GFR (MDRD) Non-Af 69 BUN/Creatinine Ratio 14.7 Glucose 116 H Calcium 8.2 L Troponin I Vitamin B12 TSH Pending Urine Color Urine Clarity Urine pH Ur Specific [place] Urine Protein Urine Glucose (UA) Urine Ketones Urine Occult Blood Urine Nitrite Urine Bilirubin Urine Urobilinogen Ur Leukocyte Esterase Urine RBC Urine WBC Ur Squamous Epith Cells Urine Bacteria Urine Mucus 09/29/18 10:16 WBC RBC Hgb Hct MCV MCH MCHC RDW RDW Differential Plt Count MPV Immature Gran % (Auto) Neut % (Auto) Lymph % (Auto) Morris % (Auto) Eos % (Auto) Baso % (Auto) Absolute Neuts (auto) Absolute Lymphs (auto) Total Counted Sodium Potassium Chloride Carbon Dioxide Anion Gap BUN Creatinine Estim Creat Clear Calc Est GFR (MDRD) Af Amer Est GFR (MDRD) Non-Af BUN/Creatinine Ratio Glucose Calcium Troponin I Vitamin B12 Pending TSH Urine Color Urine Clarity Urine pH Ur Specific [place] Urine Protein Urine Glucose (UA) Urine Ketones Urine Occult Blood Urine Nitrite Urine Bilirubin Urine Urobilinogen Ur Leukocyte Esterase Urine RBC Urine WBC Ur Squamous Epith Cells Urine Bacteria Urine Mucus POC Glucose 09/29/18 09/29/18 09/28/18 11:09 06:17 21:54 POC Glucose 136 H 108 138 H Assessment/Plan Hospitalist note: I am seeing this patient in conjunction with Eber Ballard. I independently seen and examined the patient. Progress note above, laboratory data and imaging studies reviewed and I concur with the above treatment plan patient seen and examined today.. He is alert to self only, does not know time or place. He does have advanced dementia. He denied cough or sputum production. He denied abdominal pain, nausea vomiting, denies constipation or diarrhea. He denied chest pain. He had a spike of low-grade fever this morning. His other vital signs are stable. - Physical Exam General: Alert, disoriented to time and place, oriented only to self, Cooperative, No apparent distress. HEENT: Atraumatic, PERRLA, EOMI. Neck: Supple, No JVD, Negative Carotid Bruits, Trachea Midline, Thyroid Normal. Lungs: Decreased breath sounds bilateral, rhonchi, No wheeze, occasional rales. Cardiovascular: Regular rate, Regular Rhythm, Normal S1, Normal S2, PMI Normal. Abdomen: Bowel Sounds Present, Soft, Non Tender, Non-Distended, No Hepato-splenomegaly. Extremities: No clubbing, No cyanosis, No edema Skin: No rashes, No breakdown Neurological: Neuro grossly intact Vital Signs are stable. Assessment and plan: #1 probable aspiration pneumonia: Patient has been requiring oxygen has spiked a fever although his chest x-ray showed no acute findings, no infiltrate. Plan to start him on IV Zosyn empirically, aspiration precautions, repeat CBC and BMP tomorrow morning. #2 physical debility/confusion/functional decline: Patient not taking care of himself, likely due to progressing underlying dementia. Plan for PT OT evaluation and treatment, patient may need placement to longterm facility. He is on Celexa and donepezil. #3 other chronic medical problems: Stable, continue current medications as above. This note was generated with [employer] dictation software. It may contain incorrect words, spelling, and punctuation that were not noted in checking the note before signing. Code Visit Inpatient E&M: 37685 Subs Hosp L2
--- NOTE | 2018-09-29 12:58 | PN_ITS ---
<Eber Ballard - Last Filed: 09/29/18 12:52> Patient Problems: Active and Suspected Problems (Last Updated 09/18/18 @ 16:24 by Kylie Freeman) Dementia (Acute) Subjective: Pt had a mild fever this AM of 100.1. and is still requiring supplemental O2. He denies all symptoms however. His hx is unreliable as he has significant dementia. He has some audible mucus in his throat while speaking. - Physical Exam General: Alert, Oriented x3, Cooperative HEENT: Atraumatic, PERRLA, EOMI, Normocephalic Neck: Supple, No JVD, Negative Carotid Bruits Lungs: Rales, - - mucus audible in throat while speaking, Cardiovascular: Regular rate, No murmurs Abdomen: Bowel Sounds Present, Soft, Non Tender Extremities: No edema, Capillary Refill Less than 3 Seconds Skin: No rashes, No breakdown Musculoskeletal: No Tenderness to Palpation of Joints or Extremities Neurological: Cranial nerves II-XII grossly intact Psych/Mental Status: Normal Affect, Appropriate Vital Signs Temp Pulse Resp BP Pulse Ox 100.1 F H 73 16 112/68 93 09/29/18 08:36 09/29/18 10:00 09/29/18 08:36 09/29/18 08:36 09/29/18 09:55 Oxygen Flow Rate (L/min) 2.5 Oxygen Delivery Method Nasal Cannula Weight: 161 lb 9.581 oz Body Mass Index (BMI) 21.9 Finger Stick Blood Glucose 94 Intake and Output for Last 24 Hours 09/27/18 09/28/18 09/29/18 23:59 23:59 23:59 Intake Total 1705 / 1705 Balance 1705 / 1705 Laboratory Tests Past 24 Hrs 09/28/18 09/28/18 09/28/18 15:25 15:25 15:35 WBC 4.6 RBC 5.02 Hgb 15.1 Hct 46.3 MCV 92.2 MCH 30.1 MCHC 32.6 RDW 16.3 H RDW Differential 53.6 H Plt Count 104 L MPV 11.0 Immature Gran % (Auto) 0.600 Neut % (Auto) 70.1 H Lymph % (Auto) 17.3 L [place] % (Auto) 11.0 H Eos % (Auto) 0.6 Baso % (Auto) 0.4 Absolute Neuts (auto) 3.2 Absolute Lymphs (auto) 0.80 L Total Counted Not Reportable Sodium 135 L Potassium 4.2 Chloride 97 L Carbon Dioxide 34.0 H Anion Gap 4 L BUN 16 Creatinine 1.27 Estim Creat Clear Calc 40.48 Est GFR (MDRD) Af Amer 70 Est GFR (MDRD) Non-Af 57 L BUN/Creatinine Ratio 12.6 Glucose 123 H Calcium 8.8 Troponin I < 0.015 Urine Color Yellow Urine Clarity Clear Urine pH 7.0 Ur Specific [place] 1.010 Urine Protein Negative Urine Glucose (UA) Normal Urine Ketones Negative Urine Occult Blood Negative Urine Nitrite Negative Urine Bilirubin Negative Urine Urobilinogen 4 H Ur Leukocyte Esterase Negative Urine RBC 0-5 SEEN Urine WBC 0-5 SEEN Ur Squamous Epith Cells 0 SEEN Urine Bacteria 0 SEEN Urine Mucus 0 SEEN 09/29/18 09/29/18 10:16 10:16 WBC 3.6 L RBC 4.42 L Hgb 13.1 Hct 40.8 MCV 92.3 MCH 29.6 MCHC 32.1 RDW 15.9 H RDW Differential 53.8 H Plt Count 106 L MPV 11.4 Immature Gran % (Auto) 0.300 Neut % (Auto) 69.4 Lymph % (Auto) 16.0 L Gre[place] % (Auto) 13.2 H Eos % (Auto) 0.8 Baso % (Auto) 0.3 Absolute Neuts (auto) 2.5 Absolute Lymphs (auto) 0.58 L Total Counted Not Reportable Sodium 136 Potassium 3.9 Chloride 102 Carbon Dioxide 30.0 Anion Gap 4 L BUN 16 Creatinine 1.09 Estim Creat Clear Calc 52.30 Est GFR (MDRD) Af Amer 83 Est GFR (MDRD) Non-Af 69 BUN/Creatinine Ratio 14.7 Glucose 116 H Calcium 8.2 L Troponin I Urine Color Urine Clarity Urine pH Ur Specific [place] Urine Protein Urine Glucose (UA) Urine Ketones Urine Occult Blood Urine Nitrite Urine Bilirubin Urine Urobilinogen Ur Leukocyte Esterase Urine RBC Urine WBC Ur Squamous Epith Cells Urine Bacteria Urine Mucus POC Glucose 09/29/18 09/29/18 09/28/18 11:09 06:17 21:54 POC Glucose 136 H 108 138 H Medical Necessity - Tobacco Use Smoking Status: Former smoker Tobacco Use: Pipe Assessment/Plan All Active Problems (Last Updated 09/18/18 @ 16:24 by Kylie Freeman) Dementia (Acute) Aortic root dilatation (Acute) Wide-complex tachycardia (Acute) 1. Concern for aspiration pna - requiring 3 lpm o2 still, mild fever overnight. Repeat CXR without infiltrate. Start Zosyn. Rales on exam in the bases and with mucus in throat while speaking. WBC count is low. -Zosyn started. -Await speech therapy evals. -schedule duonebs -Co2 has decreased, gap is still low at 4 -trop negative 2. Generalized debility, confusion, not caring for himself - Likely 2/2 pr ogressive worsening of underlying dementia. Possibly 2/2 hypoxia and CO2 retention on admission, possibly an aspiration component as well. CXR is negative. Urinalysis is negative. -Check b12 and tsh. -Speech eval for underlying dysphagia/aspiration -High School Tutor eval for probably malnutrition -PTOT evals for physical debility -He was discharged to SNF after admission in february - continue celexa, donepezil 2. Chronic afib - has PM, prior av node ablation - amiodarone, not on other rate control, not on OAC. 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 Hx cardiomyopathy, tachy-aly syndrome, htn, hld, pulmonary htn 5. Hx TIA 6. CKD III - stable 7. DMt2 - SSI, lantus 8. Hypothyroidism - synthroid - check tsh. DVT ppx: lovenox DC planning: SNF vs [facility]. This patient was seen by Eber Ballard PA-C under the supervision of Dr. Timmons. <Katelyn Timmons E - Last Filed: 09/29/18 13:17> - Physical Exam Vital Signs Temp Pulse Resp BP Pulse Ox 100.1 F H 73 16 112/68 93 09/29/18 08:36 09/29/18 10:00 09/29/18 08:36 09/29/18 08:36 09/29/18 09:55 Oxygen Flow Rate (L/min) 2.5 Oxygen Delivery Method Nasal Cannula Weight: 161 lb 9.581 oz Body Mass Index (BMI) 21.9 Finger Stick Blood Glucose 94 Intake and Output for Last 24 Hours 09/27/18 09/28/18 09/29/18 23:59 23:59 23:59 Intake Total 1705 / 1705 Balance 1705 / 1705 Laboratory Tests Past 24 Hrs 09/28/18 09/28/18 09/28/18 15:25 15:25 15:35 WBC 4.6 RBC 5.02 Hgb 15.1 Hct 46.3 MCV 92.2 MCH 30.1 MCHC 32.6 RDW 16.3 H RDW Differential 53.6 H Plt Count 104 L MPV 11.0 Immature Gran % (Auto) 0.600 Neut % (Auto) 70.1 H Lymph % (Auto) 17.3 L [place] % (Auto) 11.0 H Eos % (Auto) 0.6 Baso % (Auto) 0.4 Absolute Neuts (auto) 3.2 Absolute Lymphs (auto) 0.80 L Total Counted Not Reportable Sodium 135 L Potassium 4.2 Chloride 97 L Carbon Dioxide 34.0 H Anion Gap 4 L BUN 16 Creatinine 1.27 Estim Creat Clear Calc 40.48 Est GFR (MDRD) Af Amer 70 Est GFR (MDRD) Non-Af 57 L BUN/Creatinine Ratio 12.6 Glucose 123 H Calcium 8.8 Troponin I < 0.015 Vitamin B12 TSH Urine Color Yellow Urine Clarity Clear Urine pH 7.0 Ur Specific [place] 1.010 Urine Protein Negative Urine Glucose (UA) Normal Urine Ketones Negative Urine Occult Blood Negative Urine Nitrite Negative Urine Bilirubin Negative Urine Urobilinogen 4 H Ur Leukocyte Esterase Negative Urine RBC 0-5 SEEN Urine WBC 0-5 SEEN Ur Squamous Epith Cells 0 SEEN Urine Bacteria 0 SEEN Urine Mucus 0 SEEN 09/29/18 09/29/18 09/29/18 10:16 10:16 10:16 WBC 3.6 L RBC 4.42 L Hgb 13.1 Hct 40.8 MCV 92.3 MCH 29.6 MCHC 32.1 RDW 15.9 H RDW Differential 53.8 H Plt Count 106 L MPV 11.4 Immature Gran % (Auto) 0.300 Neut % (Auto) 69.4 Lymph % (Auto) 16.0 L Gre[place] % (Auto) 13.2 H Eos % (Auto) 0.8 Baso % (Auto) 0.3 Absolute Neuts (auto) 2.5 Absolute Lymphs (auto) 0.58 L Total Counted Not Reportable Sodium 136 Potassium 3.9 Chloride 102 Carbon Dioxide 30.0 Anion Gap 4 L BUN 16 Creatinine 1.09 Estim Creat Clear Calc 52.30 Est GFR (MDRD) Af Amer 83 Est GFR (MDRD) Non-Af 69 BUN/Creatinine Ratio 14.7 Glucose 116 H Calcium 8.2 L Troponin I Vitamin B12 TSH Pending Urine Color Urine Clarity Urine pH Ur Specific [place] Urine Protein Urine Glucose (UA) Urine Ketones Urine Occult Blood Urine Nitrite Urine Bilirubin Urine Urobilinogen Ur Leukocyte Esterase Urine RBC Urine WBC Ur Squamous Epith Cells Urine Bacteria Urine Mucus 09/29/18 10:16 WBC RBC Hgb Hct MCV MCH MCHC RDW RDW Differential Plt Count MPV Immature Gran % (Auto) Neut % (Auto) Lymph % (Auto) Gre[place] % (Auto) Eos % (Auto) Baso % (Auto) Absolute Neuts (auto) Absolute Lymphs (auto) Total Counted Sodium Potassium Chloride Carbon Dioxide Anion Gap BUN Creatinine Estim Creat Clear Calc Est GFR (MDRD) Af Amer Est GFR (MDRD) Non-Af BUN/Creatinine Ratio Glucose Calcium Troponin I Vitamin B12 Pending TSH Urine Color Urine Clarity Urine pH Ur Specific [place] Urine Protein Urine Glucose (UA) Urine Ketones Urine Occult Blood Urine Nitrite Urine Bilirubin Urine Urobilinogen Ur Leukocyte Esterase Urine RBC Urine WBC Ur Squamous Epith Cells Urine Bacteria Urine Mucus POC Glucose 09/29/18 09/29/18 09/28/18 11:09 06:17 21:54 POC Glucose 136 H 108 138 H Assessment/Plan Hospitalist note: I am seeing this patient in conjunction with Eber Ballard. I independently seen and examined the patient. Progress note above, laboratory data and imaging studies reviewed and I concur with the above treatment plan patient seen and examined today.. He is alert to self only, does not know time or place. He does have advanced dementia. He denied cough or sputum production. He denied abdominal pain, nausea vomiting, denies constipation or diarrhea. He denied chest pain. He had a spike of low-grade fever this morning. His other vital signs are stable. - Physical Exam General: Alert, disoriented to time and place, oriented only to self, Cooperative, No apparent distress. HEENT: Atraumatic, PERRLA, EOMI. Neck: Supple, No JVD, Negative Carotid Bruits, Trachea Midline, Thyroid Normal. Lungs: Decreased breath sounds bilateral, rhonchi, No wheeze, occasional rales. Cardiovascular: Regular rate, Regular Rhythm, Normal S1, Normal S2, PMI Normal. Abdomen: Bowel Sounds Present, Soft, Non Tender, Non-Distended, No Hepato- splenomegaly. Extremities: No clubbing, No cyanosis, No edema Skin: No rashes, No breakdown Neurological: Neuro grossly intact Vital Signs are stable. Assessment and plan: #1 probable aspiration pneumonia: Patient has been requiring oxygen has spiked a fever although his chest x-ray showed no acute findings, no infiltrate. Plan to start him on IV Zosyn empirically, aspiration precautions, repeat CBC and BMP tomorrow morning. #2 physical debility/confusion/functional decline: Patient not taking care of himself, likely due to progressing underlying dementia. Plan for PT OT evaluation and treatment, patient may need placement to senior living facili ty. He is on Celexa and donepezil. #3 other chronic medical problems: Stable, continue current medications as above. This note was generated with [employer] dictation software. It may contain incorrect words, spelling, and punctuation that were not noted in checking the note before signing. Code Visit Inpatient E&M: 92790 Subs Hosp L2
[2018-09-29] MEDS: Insulin Lispro 100 UNIT/ML INSULN.PEN SQ ×2 (16:20→22:01)
[2018-09-29 16:41] LABS: Bedside Glucose 231 mg/dL (70-110)
[2018-09-29] MEDS: Ipratropium/Albuterol Sulfate 3 ML AMPUL.NEB INHALATION (18:59)
[2018-09-29] MEDS: Donepezil HCl 10 MG Tablet PO (22:00)
[2018-09-30] VITALS (10 sets, daily range): BP systolic 110–136; BP diastolic 66–82; PULSE 69–74; RESP 16–18; TEMP 36.4–37; O2SAT 92–98
[2018-09-30 01:06] LABS: Bedside Glucose 254 mg/dL (70-110)
[2018-09-30 06:31] LABS: Anion Gap 6 (5-15); BUN 18 mg/dL (7-18); BUN/Creat Ratio 13.6 RATIO (10-20); Calcium,Total 8.2 mg/dL (8.5-10.1); Chloride 102 mmol/L (98-107); Creatinine, Serum 1.32 mg/dL (0.70-1.30); EST Glomerular Filtration Rate 55 mL/min (>60); Est Glom Filt Rate - Afr Amer 66 mL/min (>60); Estimated Creatinine Clearance 44.19 ml/min; Glucose 103 mg/dL (74-106); Potassium 3.8 mmol/L (3.5-5.1); Sodium Level 138 mmol/L (136-145)
[2018-09-30] MEDS: Levothyroxine 137 MCG Tablet PO (06:40)
[2018-09-30] MEDS: Heparin Injection (Vial) 5,000 UNIT/ML VIAL 5000 UNIT SC ×3 (06:40→22:23)
[2018-09-30 06:51] LABS: Bedside Glucose 107 mg/dL (70-110)
[2018-09-30] MEDS: Ipratropium/Albuterol Sulfate 3 ML AMPUL.NEB INHALATION (06:51)
[2018-09-30 07:12] LABS: Absolute Lymphocyte Count 0.38 X10^3/ul (0.83-4.51); Absolute Neutrophil Count 2.2 X10^3/uL (2.0-7.7); Basophil# 0.01 X10^3/uL; Basophil% 0.3 % (0-1); Eosinophil# 0.02 X10^3/uL; Eosinophils% 0.7 % (0-5); Hematocrit 38.6 % (40-54); Hemoglobin 12.5 g/dl (13.0-16.5); Lymphocyte # 0.38 X10^3/ul (4.0); Lymphocyte % 12.7 % (19-41); Mean Corp Hgb Conc 32.4 g/gl (32-36); Mean Corpuscular Hgb 29.8 pg (27.0-32.0); Mean Corpuscular Volume 92.1 fL (80-94); Mean Platelet Vol. 10.9 fl (6.2-12.0); Monocyte# 0.41 X10^3/uL; Monocyte% 13.7 % (0-10); Neutrophil # 2.18 X10^3/uL (2.7-7.7); Neutrophil % 72.6 % (47-70); Platelet Count 101 K/mm3 (150-450); RBC Distribution Width CV 15.9 % (11.6-14.6); RBC Distribution Width SD 53.2 fl (35.1-43.9); Red Blood Count 4.19 M/mm3 (4.6-6.2)
[2018-09-30 07:17] LABS: Differential Indicated SCAN CRITERIA MET; POSITIVE COUNT NO; POSITIVE DIFFERENTIAL YES; POSITIVE MORPHOLOGY NO
[2018-09-30] MEDS: Amiodarone 200 MG Tablet PO (08:43)
[2018-09-30] MEDS: Citalopram 20 MG Tablet PO (08:43)
[2018-09-30] MEDS: Finasteride 5 MG Tablet PO (08:43)
[2018-09-30 08:49] LABS: T4 Free Direct 1.42 ng/dL (0.76-1.46)
[2018-09-30 09:02] LABS: Vitamin B12 512 pg/mL (211-911)
[2018-09-30] MEDS: Insulin Lispro 100 UNIT/ML INSULN.PEN SQ ×2 (10:52→16:41)
[2018-09-30 10:56] LABS: Bedside Glucose 186 mg/dL (70-110)
--- NOTE | 2018-09-30 11:20 | CASEMGMT ---
ALICIA DAY Face to Face with patient for initial transition planning/care coordination assessment. ALICIA DAY introduced self and role at [facility]. Patient lying in bed, alert and confused, no family in the room. ALICIA DAY called patient's who was willing to participate in assessment and is able to answer all questions appropriately. Care providers, pharmacy, and demographics verified. was recently hospitalized and is unable to care for and wishes for patient to discharge to [facility]. states she has no further needs or concerns at this time. STANISLAW Alvarado updated regarding request for placement PCP: Jori Specialists: Lin cleaning professional Preferred Pharmacy: [facility] Insurance: [employer] Prescription Benefit: Yes Living Will/HPOA: Yes, Sophie Dodge LNOK: , daughter Living Arrangements: Patient lives with and 9yo granddaughter, daughter and son-in-law live in attached suite. Transportation: DME/HHC: Patient has shower chair, BSC, raised toilet seat, grab bars, walker. Disposition Plan: [facility] pending qualifying stay. Olesya AGUERON, RN, CM
--- NOTE | 2018-09-30 13:16 | PCM.PROGNOTE ---
Patient Problems: Active and Suspected Problems (Last Updated 09/18/18 @ 16:24 by Kylie Freeman) Dementia (Acute) Subjective: Pt resting comfortably in bed NAD. Daughter in law present. She feels that his mentation has improved. The patient is eating with no complaints. He denies feeling ill, has no cough, SOB, fever chills. He has been off O2. He has not had a fever since yesterday afternoon. Family is agreeable to either [facility] or SNF, with preference being for [facility]. - Physical Exam General: Alert, Oriented x3, Cooperative HEENT: Atraumatic, PERRLA, EOMI, Normocephalic Neck: Supple, No JVD, Negative Carotid Bruits Lungs: Normal air movement, Rales - fine crackles BL bases. Cardiovascular: Regular rate, No murmurs Abdomen: Bowel Sounds Present, Soft, Non Tender Extremities: No edema, Capillary Refill Less than 3 Seconds Skin: No rashes, No breakdown Musculoskeletal: No Tenderness to Palpation of Joints or Extremities Neurological: Cranial nerves II-XII grossly intact Psych/Mental Status: Normal Affect, Appropriate, Alert and oriented to time, place, person, mood and affect Vital Signs Temp Pulse Resp BP Pulse Ox 97.6 F L 74 16 126/66 H 96 09/30/18 09:47 09/30/18 10:05 09/30/18 09:47 09/30/18 09:47 09/30/18 09:47 Oxygen Flow Rate (L/min) 2 Oxygen Delivery Method Room Air Weight: 165 lb 5.547 oz Body Mass Index (BMI) 21.9 Finger Stick Blood Glucose 94 Intake and Output for Last 24 Hours 09/28/18 09/29/18 09/30/18 23:59 23:59 23:59 Intake Total 2368 / 2368 199 / 199 Balance 2368 / 2368 199 / 199 Laboratory Tests Past 24 Hrs 09/29/18 09/29/18 09/30/18 10:16 10:16 05:36 WBC 3.0 L RBC 4.19 L Hgb 12.5 L Hct 38.6 L MCV 92.1 MCH 29.8 MCHC 32.4 RDW 15.9 H RDW Differential 53.2 H Plt Count 101 L MPV 10.9 Immature Gran % (Auto) 0.000 Neut % (Auto) 72.6 H Lymph % (Auto) 12.7 L [place] % (Auto) 13.7 H Eos % (Auto) 0.7 Baso % (Auto) 0.3 Absolute Neuts (auto) 2.2 Absolute Lymphs (auto) 0.38 L Total Counted Not Reportable Sodium Potassium Chloride Carbon Dioxide Anion Gap BUN Creatinine Estim Creat Clear Calc Est GFR (MDRD) Af Amer Est GFR (MDRD) Non-Af BUN/Creatinine Ratio Glucose Calcium Vitamin B12 512 TSH 0.30 L Free T4 09/30/18 09/30/18 05:36 05:36 WBC RBC Hgb Hct MCV MCH MCHC RDW RDW Differential Plt Count MPV Immature Gran % (Auto) Neut % (Auto) Lymph % (Auto) [place] % (Auto) Eos % (Auto) Baso % (Auto) Absolute Neuts (auto) Absolute Lymphs (auto) Total Counted Sodium 138 Potassium 3.8 Chloride 102 Carbon Dioxide 30.0 Anion Gap 6 BUN 18 Creatinine 1.32 H Estim Creat Clear Calc 44.19 Est GFR (MDRD) Af Amer 66 Est GFR (MDRD) Non-Af 55 L BUN/Creatinine Ratio 13.6 Glucose 103 Calcium 8.2 L Vitamin B12 TSH Free T4 1.42 POC Glucose 09/30/18 09/30/18 09/29/18 10:50 06:38 21:58 POC Glucose 186 H 107 254 H 09/29/18 16:14 POC Glucose 231 H Medical Necessity - Tobacco Use Smoking Status: Former smoker Tobacco Use: Pipe Assessment/Plan All Active Problems (Last Updated 09/18/18 @ 16:24 by Kylie Freeman) Dementia (Acute) Aortic root dilatation (Acute) Wide-complex tachycardia (Acute) 1. Concern for aspiration pna - Zosyn, speech therapy has evaluated and will continue on mechanical soft and nectar thick liquids. 2. Generalized debility, confusion, not caring for himself - Likely 2/2 progressive worsening of underlying dementia. Possibly 2/2 hypoxia and CO2 retention on admission, possibly an aspiration component as well. CXR is negative. Urinalysis is negative. -tsh low, t4 normal -PTOT/ST -He was discharged to SNF after admission in february - continue celexa, donepezil 2. Chronic afib - has PM, prior av node ablation - amiodarone, not on other rate control, not on OAC. 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 Hx cardiomyopathy, tachy-aly syndrome, htn, hld, pulmonary htn 5. Hx TIA 6. CKD III - stable 7. DMt2 - SSI, lantus 8. Hypothyroidism - synthroid DVT ppx: lovenox DC planning: SNF vs [facility]. This patient was seen by Eber Ballard PA-C under the supervision of Dr. Montoya
--- NOTE | 2018-09-30 13:27 | PN_ITS ---
Addendum entered and electronically signed by GRANT Manley 09/30/18 16:14: Code Visit Clarification: Acute hypoxic respiratory failure was not present at admission, it was ruled out as patient did not have any evidence of respiratory distress. The patient likely has a component of acute metabolic encephalopathy secondary to aspiration pneumonia. Original Note: Patient Problems: Active and Suspected Problems (Last Updated 09/18/18 @ 16:24 by Kylie Freeman) Dementia (Acute) Subjective: Pt resting comfortably in bed NAD. Daughter in law present. She feels that his mentation has improved. The patient is eating with no complaints. He denies feeling ill, has no cough, SOB, fever chills. He has been off O2. He has not had a fever since yesterday afternoon. Family is agreeable to either [facility] or SNF, with preference being for [facility]. - Physical Exam General: Alert, Oriented x3, Cooperative HEENT: Atraumatic, PERRLA, EOMI, Normocephalic Neck: Supple, No JVD, Negative Carotid Bruits Lungs: Normal air movement, Rales - fine crackles BL bases. Cardiovascular: Regular rate, No murmurs Abdomen: Bowel Sounds Present, Soft, Non Tender Extremities: No edema, Capillary Refill Less than 3 Seconds Skin: No rashes, No breakdown Musculoskeletal: No Tenderness to Palpation of Joints or Extremities Neurological: Cranial nerves II-XII grossly intact Psych/Mental Status: Normal Affect, Appropriate, Alert and oriented to time, place, person, mood and affect Vital Signs Temp Pulse Resp BP Pulse Ox 97.6 F L 74 16 126/66 H 96 09/30/18 09:47 09/30/18 10:05 09/30/18 09:47 09/30/18 09:47 09/30/18 09:47 Oxygen Flow Rate (L/min) 2 Oxygen Delivery Method Room Air Weight: 165 lb 5.547 oz Body Mass Index (BMI) 21.9 Finger Stick Blood Glucose 94 Intake and Output for Last 24 Hours 09/28/18 09/29/18 09/30/18 23:59 23:59 23:59 Intake Total 2368 / 2368 199 / 199 Balance 2368 / 2368 199 / 199 Laboratory Tests Past 24 Hrs 09/29/18 09/29/18 09/30/18 10:16 10:16 05:36 WBC 3.0 L RBC 4.19 L Hgb 12.5 L Hct 38.6 L MCV 92.1 MCH 29.8 MCHC 32.4 RDW 15.9 H RDW Differential 53.2 H Plt Count 101 L MPV 10.9 Immature Gran % (Auto) 0.000 Neut % (Auto) 72.6 H Lymph % (Auto) 12.7 L [place] % (Auto) 13.7 H Eos % (Auto) 0.7 Baso % (Auto) 0.3 Absolute Neuts (auto) 2.2 Absolute Lymphs (auto) 0.38 L Total Counted Not Reportable Sodium Potassium Chloride Carbon Dioxide Anion Gap BUN Creatinine Estim Creat Clear Calc Est GFR (MDRD) Af Amer Est GFR (MDRD) Non-Af BUN/Creatinine Ratio Glucose Calcium Vitamin B12 512 TSH 0.30 L Free T4 09/30/18 09/30/18 05:36 05:36 WBC RBC Hgb Hct MCV MCH MCHC RDW RDW Differential Plt Count MPV Immature Gran % (Auto) Neut % (Auto) Lymph % (Auto) [place] % (Auto) Eos % (Auto) Baso % (Auto) Absolute Neuts (auto) Absolute Lymphs (auto) Total Counted Sodium 138 Potassium 3.8 Chloride 102 Carbon Dioxide 30.0 Anion Gap 6 BUN 18 Creatinine 1.32 H Estim Creat Clear Calc 44.19 Est GFR (MDRD) Af Amer 66 Est GFR (MDRD) Non-Af 55 L BUN/Creatinine Ratio 13.6 Glucose 103 Calcium 8.2 L Vitamin B12 TSH Free T4 1.42 POC Glucose 09/30/18 09/30/18 09/29/18 10:50 06:38 21:58 POC Glucose 186 H 107 254 H 09/29/18 16:14 POC Glucose 231 H Medical Necessity - Tobacco Use Smoking Status: Former smoker Tobacco Use: Pipe Assessment/Plan All Active Problems (Last Updated 09/18/18 @ 16:24 by Kylie Freeman) Dementia (Acute) Aortic root dilatation (Acute) Wide-complex tachycardia (Acute) 1. Concern for aspiration pna - Zosyn, speech therapy has evaluated and will continue on mechanical soft and nectar thick liquids. 2. Generalized debility, confusion, not caring for himself - Likely 2/2 progressive worsening of underlying dementia. Possibly 2/2 hypoxia and CO2 retention on admission, possibly an aspiration component as well. CXR is negative. Urinalysis is negative. -tsh low, t4 normal -PTOT/ST -He was discharged to SNF after admission in february - continue celexa, donepezil 2. Chronic afib - has PM, prior av node ablation - amiodarone, not on other rate control, not on OAC. 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 Hx cardiomyopathy, tachy-aly syndrome, htn, hld, pulmonary htn 5. Hx TIA 6. CKD III - stable 7. DMt2 - SSI, lantus 8. Hypothyroidism - synthroid DVT ppx: lovenox DC planning: SNF vs [facility]. This patient was seen by Eber Ballard PA-C under the supervision of Dr. Montoya
--- NOTE | 2018-09-30 13:30 | CASEMGMT ---
Addendum entered by Olesya Alvarado 09/30/18 17:51: SW received message from Kylie at [facility] stating she is able to accept pt tomorrow. Per Physician, pt is not medically cleared for discharge today. STANISLAW placed a call to pt's Sophie and updated her on acceptance to [facility] tomorrow, informed Sophie that transportation can be arranged for pt tomorrow. Sophie states understanding. Plan: [facility] skilled tomorrow Olesya SMITH, UI DESIGNER Original Note: Social Work Note SW received referral from RN BARB Martin that pt's family is requesting pt go to [facility] at discharge. Per H+P pt came to [facility] with Altered Mental Status and confusion. STANISLAW faxed referral to Kylie at [facility] and placed a call to Kylie to provided referral. Plan: [facility] pending acceptance Olesya SMITH, UI DESIGNER
[2018-09-30 16:46] LABS: Bedside Glucose 209 mg/dL (70-110)
[2018-09-30] MEDS: Donepezil HCl 10 MG Tablet PO (22:23)
[2018-09-30 22:36] LABS: Bedside Glucose 130 mg/dL (70-110)
[2018-10-01 00:02] VITALS: PULSE 70
[2018-10-01 03:30] VITALS: BP 118/73; PULSE 71; RESP 16; TEMP 36.8; O2SAT 95
[2018-10-01 03:59] VITALS: PULSE 75
[2018-10-01] MEDS: Levothyroxine 137 MCG Tablet PO (06:49)
[2018-10-01] MEDS: Heparin Injection (Vial) 5,000 UNIT/ML VIAL 5000 UNIT SC (06:49)
[2018-10-01] MEDS: Menthol/Lanolin/Calamine/Znox 113 GM Tube 1 APPLIC TOPICAL (06:49)
[2018-10-01 06:55] LABS: Bedside Glucose 100 mg/dL (70-110)
[2018-10-01 07:54] LABS: Absolute Lymphocyte Count 0.47 X10^3/ul (0.83-4.51); Absolute Neutrophil Count 1.6 X10^3/uL (2.0-7.7); Basophil# 0.02 X10^3/uL; Basophil% 0.8 % (0-1); Eosinophil# 0.04 X10^3/uL; Eosinophils% 1.6 % (0-5); Hematocrit 38.6 % (40-54); Hemoglobin 12.7 g/dl (13.0-16.5); Lymphocyte # 0.47 X10^3/ul (4.0); Lymphocyte % 18.9 % (19-41); Mean Corp Hgb Conc 32.9 g/gl (32-36); Mean Corpuscular Hgb 30.2 pg (27.0-32.0); Mean Corpuscular Volume 91.9 fL (80-94); Mean Platelet Vol. 11.4 fl (6.2-12.0); Monocyte# 0.35 X10^3/uL; Monocyte% 14.1 % (0-10); Neutrophil % 64.2 % (47-70); Platelet Count 106 K/mm3 (150-450); RBC Distribution Width SD 53.6 fl (35.1-43.9); White Blood Count 2.5 K/mm3 (4.4-11.0)
[2018-10-01 07:55] LABS: Differential Indicated SCAN CRITERIA MET; POSITIVE COUNT NO; POSITIVE DIFFERENTIAL YES; POSITIVE MORPHOLOGY NO
[2018-10-01] MEDS: Citalopram 20 MG Tablet PO (08:06)
[2018-10-01] MEDS: Amiodarone 200 MG Tablet PO (08:06)
[2018-10-01] MEDS: Finasteride 5 MG Tablet PO (08:07)
[2018-10-01 08:23] LABS: Anion Gap 5 (5-15); BUN 12 mg/dL (7-18); BUN/Creat Ratio 11.1 RATIO (10-20); Calcium,Total 8.3 mg/dL (8.5-10.1); Chloride 103 mmol/L (98-107); Creatinine, Serum 1.08 mg/dL (0.70-1.30); EST Glomerular Filtration Rate 69 mL/min (>60); Est Glom Filt Rate - Afr Amer 84 mL/min (>60); Estimated Creatinine Clearance 53.58 ml/min; Glucose 89 mg/dL (74-106); Potassium 3.7 mmol/L (3.5-5.1); Sodium Level 139 mmol/L (136-145)
[2018-10-01 09:19] LABS: Differential Comment SCANNED
[2018-10-01 09:30] VITALS: BP 98/61; PULSE 69; RESP 16; TEMP 36.8; O2SAT 94
[2018-10-01 10:00] VITALS: PULSE 80
--- NOTE | 2018-10-01 10:45 | PCM.EXTCARCO ---
- Diet 09/29/18 11:22 Diet: Regular Diet Food consistency:: Mechanical Soft/Ground Liquid Consistency:: [place] Thick Dietary Modifications:: Mechanical Soft Diet [place] Thick Liquids Is pt able to select menu?: No - Routine Orders/Code Status Suppository Type: Dulcolax 10mg Suppository Frequency: Daily PRN Routine Lab Work: CBC - 5 days, BMP - 5 days Code Status: Full Code - Wound(s) bilat legs Wound Type: scabs - Therapies Physical Therapy: Eval and Treat Occupational Therapy: Eval and Treat Speech Therapy: Eval and Treat - Problem/Diagnosis (1) Acute metabolic encephalopathy Status: Acute Current Visit: Yes (2) Aspiration pneumonia Status: Acute Current Visit: Yes (3) Dementia Status: Chronic Current Visit: Yes (4) History of left common carotid artery stent placement Status: Chronic Comment: stenting of the prox Left internal carotid, stenting of the distal left common carotid, and stenting of the left common carotid at its interna/exeternal carotid. 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 Current Visit: No (11) Benign prostate hyperplasia Status: Chronic Current Visit: No (12) Type 2 diabetes mellitus Status: Chronic Current Visit: No (13) Dyslipidemia Status: Chronic Current Visit: No (14) Gastroesophageal reflux disease Status: Chronic Current Visit: No (15) Hypothyroidism Status: Chronic Current Visit: No (16) S/P IVC filter Status: Chronic Current Visit: No (17) Cardiac pacemaker Status: Chronic Comment: pacemaker implant april 2010 Current Visit: No (18) 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 Current Visit: No (19) Cardiomyopathy Status: Chronic Comment: 45% EF in November of 2014, ischemic Current Visit: No (20) S/P atrioventricular piper ablation Status: Chronic Current Visit: No (21) Carotid artery disease Status: Chronic Current Visit: No (22) Systolic CHF, chronic Status: Chronic Current Visit: No (23) Pulmonary HTN Status: Chronic Comment: PA pressure in November 2014 estimated at 50 Current Visit: No (24) Chronic anemia Status: Chronic Comment: unknown etiology Current Visit: No (25) Dysphagia Status: Chronic Current Visit: Yes - Allergies/Procedures Done in Hospital Allergies/Adverse Reactions: Allergies thiopental [From Pentothal] Allergy (Verified 09/28/18 19:09) Hives morphine Adverse Reaction (Verified 09/28/18 15:22) hallucinations Procedures: None - Type of Care/Length of Stay Estimated LOS: Convalescent Care Less Than 30 days Type of Care Needed: Skilled Rehab Potential: Fair Prognosis: Fair - Additional Orders/Day of Discharge Day of Discharge: 10/01/18 - Dietary and Speech Recommendations Dietitian Recommendations/Changes: Suggest therapeutic diet change to no added salt/carbohydrate-controlled as needed with texture/consistency modification as per speech. - Follow Up Care Primary Care Physician: Lai Hsieh Chi, MD [Primary Care Provider] -
[2018-10-01 11:55] LABS: Bedside Glucose 163 mg/dL (70-110)
[2018-10-01] MEDS: Insulin Lispro 100 UNIT/ML INSULN.PEN SQ (12:08)
--- NOTE | 2018-10-01 13:18 | CASEMGMT ---
Social Work: HENS completed. Copy in patient's chart and copy in SNF packet. Aleida, medical unit secretary faxed orders and med list to facility. Transport through [facility] at 1:45pm. Patient's aware of transport time. TC to [facility], spoke with Renee. Renee aware that patient will be leaving [facility] at 1:45pm. PLAN: Patient to be discharged to the [facility] for skilled care today. BLANCO Covarrubias
[2018-10-01 13:50] VITALS: BP 98/61; PULSE 69; RESP 16; TEMP 36.8; O2SAT 94
--- NOTE | 2018-10-01 15:53 | PCM.DC.SUM ---
Discharge Date and Diagnosis Date of Admission: 09/28/18 Date of Discharge: 10/01/18 - Primary Discharge Diagnosis Acute hypoxic respiratory failure 2/2 aspiration pna Acute metabolic encephalopathy 2/2 above Dementia with decline Debility Chronic Afib Hx DVTs s/p IVC filter Hx CM Hx TIA CKDIII DMt2 Hypothyroidism - Secondary Discharge Diagnosis Chronic Problems (Last Updated 09/18/18 @ 16:24 by Kylie Freeman) Dementia (Chronic) Dysphagia (Chronic) History of left common carotid artery stent placement (Chronic ~05/09/12) stenting of the prox Left internal carotid, stenting of the distal left common carotid, and stenting of the left common carotid at its interna/exeternal carotid. 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) Benign prostate hyperplasia (Chronic) Type 2 diabetes mellitus (Chronic) Dyslipidemia (Chronic) Gastroesophageal reflux disease (Chronic) Hypothyroidism (Chronic) S/P IVC filter (Chronic) Cardiac pacemaker (Chronic) pacemaker implant april 2010 Tachy-aly syndrome (Chronic) S/P PM Cardiomyopathy (Chronic) 45% EF in November of 2014, ischemic S/P atrioventricular piper ablation (Chronic) Carotid artery disease (Chronic) Systolic CHF, chronic (Chronic) Pulmonary HTN (Chronic) PA pressure in November 2014 estimated at 50 Chronic anemia (Chronic) unknown etiology Hospital Course and Treatment Imaging Results: CT/Brain/Head without Contrast IMPRESSION: 1. No acute intracranial hemorrhage or mass effect. 2. Central parenchymal volume loss. White matter changes that are nonspecific but most commonly associated with chronic small vessel ischemic disease. 3. Prior craniotomy, stable. 4. Decreased chronic appearing left maxillary sinusitis. 5. Old ischemic changes of the left MCA territory and caudate head. RAD/Chest 1 View (Portable) IMPRESSION: Stable, nonacute portable x-ray examination of the chest. RAD/Chest 1 View (Portable) IMPRESSION: Symmetric prominent chronic interstitial markings with no new focal airspace disease. Operations: None Procedures: None Summary of Care Provided: Hospital Course: The patient is a 83 year old M with pmhx as above who has had progressive decline with dementia over the past 6 months. The day of presentation to the ER he was more confused, refusing to get out of bed, and refusing to take medications at home. In the ER he was hypoxic and had mild CO2 retention, however labs and CXR were unremarkable and he had no complaints aside from general confusion. He was admitted to the gen med floor. He developed a fever and rales on exam. He was seen by speech therapy and had dysphagia. He was started on zosyn for aspiration pna. He was able to be weaned off O2. He remained confused and debilitated and family was agreeable to SNF placement. He will complete 3 more days of augmentin for pna. He was discharged to SNF in stable condition. Continue modified diet, speech therapy, and PTOT. Follow up with PCP in 2 weeks. This patient was seen by Eber Ballard PA-C under the supervision of Dr. Montoya. [] - Physical Exam General: Alert, Cooperative, Confused HEENT: Atraumatic, PERRLA, EOMI, Normocephalic Neck: Supple, No JVD, Negative Carotid Bruits Lungs: Rales - faint, fine basilar rales Cardiovascular: Regular rate, No murmurs Abdomen: Bowel Sounds Present, Soft, Non Tender Extremities: No edema, Capillary Refill Less than 3 Seconds Skin: No rashes, No breakdown Musculoskeletal: No Tenderness to Palpation of Joints or Extremities Neurological: Cranial nerves II-XII grossly intact Psych/Mental Status: Normal Affect, Appropriate Vital Signs Temp Pulse Resp BP Pulse Ox 98.2 F 69 16 98/61 94 10/01/18 13:50 10/01/18 13:50 10/01/18 13:50 10/01/18 13:50 10/01/18 13:50 Oxygen Flow Rate (L/min) 2 Oxygen Delivery Method Room Air Weight: 164 lb 0.383 oz Body Mass Index (BMI) 21.9 Finger Stick Blood Glucose 94 Intake and Output for Last 24 Hours 09/29/18 09/30/18 10/01/18 23:59 23:59 23:59 Intake Total 2368 / 2368 199 / 199 598 / 598 Balance 2368 / 2368 199 / 199 598 / 598 Laboratory Tests Past 24 Hrs 10/01/18 10/01/18 07:13 07:13 WBC 2.5 L RBC 4.20 L Hgb 12.7 L Hct 38.6 L MCV 91.9 MCH 30.2 MCHC 32.9 RDW 16.0 H RDW Differential 53.6 H Plt Count 106 L MPV 11.4 Immature Gran % (Auto) 0.400 Neut % (Auto) 64.2 Lymph % (Auto) 18.9 L [place] % (Auto) 14.1 H Eos % (Auto) 1.6 Baso % (Auto) 0.8 Absolute Neuts (auto) 1.6 L Absolute Lymphs (auto) 0.47 L Total Counted Not Reportable Differential Comment SCANNED Sodium 139 Potassium 3.7 Chloride 103 Carbon Dioxide 31.0 Anion Gap 5 BUN 12 Creatinine 1.08 Estim Creat Clear Calc 53.58 Est GFR (MDRD) Af Amer 84 Est GFR (MDRD) Non-Af 69 BUN/Creatinine Ratio 11.1 Glucose 89 Calcium 8.3 L POC Glucose 10/01/18 10/01/18 09/30/18 11:46 06:47 22:22 POC Glucose 163 H 100 130 H 09/30/18 16:40 POC Glucose 209 H Discharge Diet: Low fat/ Low Cholesterol, - - 2500 mg sodium diet. Dysphagia diet per speech therapy. Discharge Activity: Return to Normal Activity Home Medications: Medications to take at Discharge Amiodarone HCl [Cordarone] 200 mg PO DAILY@0800 05/07/17 Finasteride [Proscar] 5 mg PO DAILY 12/19/17 Levothyroxine [Synthroid] 137 mcg PO DAILY@0600 12/19/17 Donepezil HCl 10 mg PO QHS 03/01/18 Potassium Chloride [K-Dur] 20 meq PO DAILY 04/24/18 Citalopram [Celexa] 20 mg PO DAILY 09/28/18 Insulin Glargine [Lantus SoloStar Pen] 7 units SC PRN PRN 09/28/18 Acetaminophen [Tylenol Tablet] 650 mg PO Q6H PRN PRN tablet 10/01/18 Albuterol Aerosols [Ventolin Aerosols] 2.5 mg INHALATION Q4H PRN PRN vial.neb. 10/01/18 Amoxicillin/Potassium Clav [Augmentin 875-125 Tablet] 1 each PO BID #6 tablet 10/01/18 Melatonin 3 mg PO QHS PRN PRN tablet 10/01/18 Menthol/Lanolin/Calamine/Znox [Calmoseptine Ointment] 1 applic TOPICAL TID tube 10/01/18 Following Prescrptions Were Given to Patient: Amoxicillin/Potassium Clav [Augmentin 875-125 Tablet] 1 each PO BID #6 tablet Primary Care Physician: Lai Hsieh Chi, MD [Primary Care Provider] - Please follow up with your Primary Care Physician in: 2 weeks Disposition: Correction facility Minutes spent on discharge:: 35 Patient Condition:: Stable Medical Necessity - Tobacco Use Smoking Status: Former smoker Tobacco Use: Pipe Meaningful Use Info Meaningful Use Diagnoses (Choose all that apply): None applicable
== END 2018-10-01 13:54 | disposition skilled nursing facility (03) | DRG 177 ==
LOC: ED 15:58 → MS3 17:19
PROVIDERS: Hospitalist; Physician Assistant; Admitting Provider Internal Medicine; Emergency Provider Emergency Medicine; Family Provider Family Medicine Geriatric Medicine; PCP Family Medicine Geriatric Medicine; Visit Provider Internal Medicine
DX: J69.0 Pneumonitis due to inhalation of food and vomit (principal); G93.41 Metabolic encephalopathy; E87.2 Acidosis; I42.9 Cardiomyopathy, unspecified; I48.2 Chronic atrial fibrillation; F03.90 Unspecified dementia, unspecified severity, without behavioral disturbance, psychotic disturbance, mood disturbance, and anxiety; I12.9 Hypertensive chronic kidney disease with stage 1 through stage 4 chronic kidney disease, or unspecified chronic kidney disease; E11.22 Type 2 diabetes mellitus with diabetic chronic kidney disease; N18.3 Chronic kidney disease, stage 3 (moderate); R13.10 Dysphagia, unspecified; R53.81 Other malaise; N40.0 Benign prostatic hyperplasia without lower urinary tract symptoms; R09.02 Hypoxemia; I27.20 Pulmonary hypertension, unspecified; E03.9 Hypothyroidism, unspecified; Z87.891 Personal history of nicotine dependence; Z95.0 Presence of cardiac pacemaker; Z86.718 Personal history of other venous thrombosis and embolism; Z79.4 Long term (current) use of insulin; Z95.828 Presence of other vascular implants and grafts; Z86.73 Personal history of transient ischemic attack (TIA), and cerebral infarction without residual deficits
CPT/HCPCS: 36415; 70450; 71045; 80048; 81001; 82607; 82962; 84439; 84443; 84484; 85025; 92507; 92526; 92610; 93005; 94640; 97162; 97166; 97530; 99285; J7030; J7040; A4216

== ENCOUNTER → 2018-12-28 | Outpatient (REF) | payer MEDICARE, SELFPAY ==
[2018-09-28 18:02] VITALS: BMI 21.9
[2018-12-28 21:01] LABS: Hematocrit 43.4 % (40-54); Hemoglobin 14.2 g/dL (13.0-16.5); Mean Corp Hgb Conc 32.7 g/dL (32-36); Mean Corpuscular Hgb 30.7 pg (27.0-32.0); Mean Corpuscular Volume 93.9 fL (80-94); Platelet Count 78 K/mm3 (150-450); RBC Distribution Width CV 13.5 % (11.6-14.6); RBC Distribution Width SD 46.5 fl (35.1-43.9); Red Blood Count 4.62 M/mm3 (4.6-6.2); White Blood Count 5.5 K/mm3 (4.4-11.0)
[2018-12-28 21:18] LABS: Anion Gap 3 (5-15); BUN 22 mg/dL (7-18); BUN/Creat Ratio 15.1 RATIO (10-20); Calcium,Total 8.7 mg/dL (8.5-10.1); Chloride 103 mmol/L (98-107); Creatinine, Serum 1.46 mg/dL (0.70-1.30); EST Glomerular Filtration Rate 49 mL/min (>60); Est Glom Filt Rate - Afr Amer 59 mL/min (>60); Glucose 275 mg/dL (74-106); Potassium 4.1 mmol/L (3.5-5.1); Sodium Level 138 mmol/L (136-145)
== END | disposition home or self-care (01) ==
LOC: OLS.ACH 20:00
DX: I48.2 Chronic atrial fibrillation (principal)
CPT/HCPCS: 36415; 80048; 85027

== ENCOUNTER → 2019-03-31 05:00 | Outpatient (REF) | payer MEDICARE, OTHER, SELFPAY ==
[2018-09-28 18:02] VITALS: BMI 21.9
[2019-03-31 08:22] LABS: Absolute Lymphocyte Count 0.52 X10^3/uL (0.83-4.51); Absolute Neutrophil Count 1.6 X10^3/uL (2.0-7.7); Basophil# 0.02 X10^3/uL; Basophil% 0.8 % (0-1); Eosinophil# 0.03 X10^3/uL; Eosinophils% 1.1 % (0-5); Hematocrit 43.1 % (40-54); Hemoglobin 13.7 g/dL (13.0-16.5); Lymphocyte # 0.52 X10^3/ul (4.0); Lymphocyte % 19.7 % (19-41); Mean Corp Hgb Conc 31.8 g/dL (32-36); Mean Corpuscular Hgb 30.2 pg (27.0-32.0); Mean Corpuscular Volume 95.1 fL (80-94); Mean Platelet Vol. 12.2 fl (6.2-12.0); Monocyte# 0.45 X10^3/uL; NRBC Flagged by Analyzer 0 % (0-5); Neutrophil # 1.61 X10^3/uL (2.7-7.7); POSITIVE DIFFERENTIAL YES; Platelet Count 76 K/mm3 (150-450); RBC Distribution Width CV 14.6 % (11.6-14.6); RBC Distribution Width SD 51.9 fl (35.1-43.9); Red Blood Count 4.53 M/mm3 (4.6-6.2); White Blood Count 2.6 K/mm3 (4.4-11.0)
[2019-03-31 08:33] LABS: Differential Indicated SCAN CRITERIA MET
[2019-03-31 08:39] LABS: Hemoglobin A1c 7.9 % (4.2-6.3)
[2019-03-31 08:46] LABS: ALB/GLOB Ratio 0.9 RATIO (0.9-2.4); AST(SGOT) 27 U/L (15-37); Alanine Aminotransfer ALT/SGPT 27 U/L (16-61); Alkaline Phosphatase 217 U/L (45-117); Anion Gap 6 (5-15); BUN 19 mg/dL (7-18); BUN/Creat Ratio 16.8 RATIO (10-20); Calcium,Total 8.5 mg/dL (8.5-10.1); Chloride 106 mmol/L (98-107); Creatinine, Serum 1.13 mg/dL (0.70-1.30); EST Glomerular Filtration Rate 66 mL/min (>60); Est Glom Filt Rate - Afr Amer 79 mL/min (>60); Globulin 3.5 g/dL (2.2-4.2); Glucose 156 mg/dL (74-106); Protein, Total 6.5 g/dL (6.4-8.2); Sodium Level 141 mmol/L (136-145); Thyroid Stim Hormone (TSH) 0.06 uIU/mL (0.358-3.74)
[2019-03-31 08:54] LABS: Differential Comment SCANNED
[2019-03-31 14:04] LABS: Pathologist Review Reviewed
== END ==
LOC: OLS.ACH 05:00
PROVIDERS: Visit Provider Family Medicine
DX: I27.20 Pulmonary hypertension, unspecified (principal); E03.9 Hypothyroidism, unspecified; E11.22 Type 2 diabetes mellitus with diabetic chronic kidney disease
CPT/HCPCS: 36415; 80053; 83036; 84443; 85025

== ENCOUNTER → 2019-04-09 05:00 | Outpatient (REF) | payer MEDICARE, OTHER, SELFPAY ==
[2018-09-28 18:02] VITALS: BMI 21.9
[2019-04-09 09:00] LABS: Anion Gap 8 (5-15); BUN 18 mg/dL (7-18); BUN/Creat Ratio 16.1 RATIO (10-20); Calcium,Total 8.7 mg/dL (8.5-10.1); Chloride 106 mmol/L (98-107); Creatinine, Serum 1.12 mg/dL (0.70-1.30); EST Glomerular Filtration Rate 66 mL/min (>60); Est Glom Filt Rate - Afr Amer 80 mL/min (>60); Glucose 114 mg/dL (74-106); Potassium 4.1 mmol/L (3.5-5.1); Sodium Level 143 mmol/L (136-145)
== END ==
LOC: OLS.ACH 05:00
PROVIDERS: Visit Provider Family Medicine
DX: N18.3 Chronic kidney disease, stage 3 (moderate) (principal)
CPT/HCPCS: 36415; 80048

== ENCOUNTER → 2019-09-29 04:00 | Outpatient (REF) | payer MEDICARE, OTHER, SELFPAY ==
[2018-09-28 18:02] VITALS: BMI 21.9
[2019-09-29 07:20] LABS: Absolute Lymphocyte Count 0.71 X10^3/uL (0.83-4.51); Absolute Neutrophil Count 2.2 X10^3/uL (2.0-7.7); Basophil# 0.03 X10^3/uL; Basophil% 0.8 % (0-1); Eosinophil# 0.06 X10^3/uL; Eosinophils% 1.7 % (0-5); Hematocrit 43.3 % (40-54); Hemoglobin 13.8 g/dL (13.0-16.5); Lymphocyte # 0.71 X10^3/ul (4.0); Lymphocyte % 20.1 % (19-41); Mean Corp Hgb Conc 31.9 g/dL (32-36); Mean Corpuscular Hgb 30.6 pg (27.0-32.0); Mean Platelet Vol. 11.9 fl (6.2-12.0); Monocyte# 0.48 X10^3/uL; Monocyte% 13.6 % (0-10); NRBC Flagged by Analyzer 0 % (0-5); Neutrophil # 2.24 X10^3/uL (2.7-7.7); Neutrophil % 63.2 % (47-70); POSITIVE COUNT YES; Platelet Count 91 K/mm3 (150-450); RBC Distribution Width CV 14.1 % (11.6-14.6); RBC Distribution Width SD 49.2 fl (35.1-43.9); Red Blood Count 4.51 M/mm3 (4.6-6.2); White Blood Count 3.5 K/mm3 (4.4-11.0)
[2019-09-29 07:46] LABS: ALB/GLOB Ratio 0.9 RATIO (0.9-2.4); AST(SGOT) 31 U/L (15-37); Alanine Aminotransfer ALT/SGPT 28 U/L (16-61); Alkaline Phosphatase 218 U/L (45-117); Anion Gap 5 (5-15); BUN 18 mg/dL (7-18); BUN/Creat Ratio 16.7 RATIO (10-20); Calcium,Total 8.6 mg/dL (8.5-10.1); Chloride 103 mmol/L (98-107); Creatinine, Serum 1.08 mg/dL (0.70-1.30); EST Glomerular Filtration Rate 69 mL/min (>60); Est Glom Filt Rate - Afr Amer 84 mL/min (>60); Globulin 3.5 g/dL (2.2-4.2); Glucose 172 mg/dL (74-106); Potassium 4.1 mmol/L (3.5-5.1); Protein, Total 6.5 g/dL (6.4-8.2); Sodium Level 138 mmol/L (136-145); Thyroid Stim Hormone (TSH) 0.05 uIU/mL (0.358-3.74)
[2019-09-29 08:41] LABS: Hemoglobin A1c 8.3 % (4.2-6.3)
== END ==
LOC: OLS.ACH 04:00
PROVIDERS: PCP Family Medicine Geriatric Medicine; Visit Provider Family Medicine
DX: I27.20 Pulmonary hypertension, unspecified (principal); E03.9 Hypothyroidism, unspecified; E11.22 Type 2 diabetes mellitus with diabetic chronic kidney disease; N18.9 Chronic kidney disease, unspecified
CPT/HCPCS: 36415; 80053; 83036; 84443; 85025

== ENCOUNTER → 2019-10-27 05:00 | Outpatient (REF) | payer MEDICARE, OTHER, MEDICAID, SELFPAY ==
[2018-09-28 18:02] VITALS: BMI 21.9
== END ==
LOC: OLS.ACH 05:00
PROVIDERS: PCP Family Medicine Geriatric Medicine; Visit Provider Family Medicine
DX: E03.9 Hypothyroidism, unspecified (principal)
CPT/HCPCS: 36415; 84443

== ENCOUNTER → 2019-11-24 04:00 | Outpatient (REF) | payer MEDICARE, OTHER, MEDICAID, SELFPAY ==
[2018-09-28 18:02] VITALS: BMI 21.9
== END ==
LOC: OLS.ACH 04:00
PROVIDERS: PCP Family Medicine Geriatric Medicine; Referring Provider Family Medicine; Visit Provider Family Medicine
DX: E03.9 Hypothyroidism, unspecified (principal)
CPT/HCPCS: 36415; 84443

== ENCOUNTER 2019-12-09 11:00 | Outpatient (RCR) | payer MEDICARE, OTHER, MEDICAID, SELFPAY ==
[2018-09-28 18:02] VITALS: BMI 21.9
[2019-12-02 12:47] VITALS: BP 110/60; PULSE 75; RESP 19; TEMP 37.1; BMI 22.5
--- NOTE | 2019-12-02 13:00 | PCM.WC.HP ---
(1) History of TIA (transient ischemic attack) Status: Chronic Current Visit: No Code(s): Z86.73 - Personal history of transient ischemic attack (TIA), and cerebral infarction without residual deficits (2) Old age Status: Chronic Current Visit: Yes Code(s): R54 - Age-related physical debility (3) History of skin cancer Status: Chronic Current Visit: No Code(s): Z85.828 - Personal history of other malignant neoplasm of skin (4) Dementia Status: Chronic Current Visit: No Code(s): F03.90 - Unspecified dementia without behavioral disturbance (5) Dysphagia Status: Chronic Current Visit: No Code(s): R13.10 - Dysphagia, unspecified (6) History of left common carotid artery stent placement Status: Chronic Current Visit: No Code(s): Z98.890 - Other specified postprocedural states; Z95.828 - Presence of other vascular implants and grafts Comment: stenting of the prox Left internal carotid, stenting of the distal left common carotid, and stenting of the left common carotid at its interna/exeternal carotid. 05/09/12 (7) Aortic root dilatation Status: Chronic Current Visit: No Code(s): I77.810 - Thoracic aortic ectasia (8) Essential hypertension Status: Chronic Current Visit: No Code(s): I10 - Essential (primary) hypertension (9) Cardiac pacemaker Status: Chronic Current Visit: No Code(s): Z95.0 - Presence of cardiac pacemaker Comment: Implanted in April 2010; (10) Persistent atrial fibrillation Status: Chronic Current Visit: No Code(s): I48.1 - Persistent atrial fibrillation Comment: S/P RFA 11/24/2011 (11) CKD (chronic kidney disease) stage 3, GFR 30-59 ml/min Status: Chronic Current Visit: No (12) 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 Current Visit: No Qualifiers: Code(s): I82.629 - Acute embolism and thrombosis of deep veins of unspecified upper extremity (13) Benign prostate hyperplasia Status: Chronic Current Visit: No Qualifiers: (14) Type 2 diabetes mellitus Status: Chronic Current Visit: Yes Code(s): E11.9 - Type 2 diabetes mellitus without complications (15) Dyslipidemia Status: Chronic Current Visit: No Code(s): E78.5 - Hyperlipidemia, unspecified (16) Gastroesophageal reflux disease Status: Chronic Current Visit: No Qualifiers: Code(s): K21.9 - Gastro-esophageal reflux disease without esophagitis (17) Hypothyroidism Status: Chronic Current Visit: No Qualifiers: Code(s): E03.9 - Hypothyroidism, unspecified (18) S/P IVC filter Status: Chronic Current Visit: No Code(s): Z95.828 - Presence of other vascular implants and grafts (19) Cardiac pacemaker Status: Chronic Current Visit: No Code(s): Z95.0 - Presence of cardiac pacemaker Comment: pacemaker implant april 2010 (20) Tachy-aly syndrome Status: Chronic Current Visit: No Code(s): I49.5 - Sick sinus syndrome Comment: S/P PM (21) Cardiomyopathy Status: Chronic Current Visit: No Code(s): I42.9 - Cardiomyopathy, unspecified Comment: 45% EF in November of 2014, ischemic (22) S/P atrioventricular piper ablation Status: Chronic Current Visit: No Code(s): Z98.890 - Other specified postprocedural states (23) Carotid artery disease Status: Chronic Current Visit: No Code(s): I77.9 - Disorder of arteries and arterioles, unspecified (24) Systolic CHF, chronic Status: Chronic Current Visit: No Code(s): I50.22 - Chronic systolic (congestive) heart failure (25) Pulmonary HTN Status: Chronic Current Visit: No Code(s): I27.2 - Other secondary pulmonary hypertension Comment: PA pressure in November 2014 estimated at 50 (26) Diabetic ulcer of left foot Status: Chronic Current Visit: Yes Qualifiers: Diabetic foot ulcer location: midfoot Diabetes mellitus type: type 2 Non-pressure ulcer stage: with fat layer exposed Qualified Code(s): E11.621 - Type 2 diabetes mellitus with foot ulcer; L97.422 - Non-pressure chronic ulcer of left heel and midfoot with fat layer exposed Code(s): E11.621 - Type 2 diabetes mellitus with foot ulcer; L97.529 - Non-pressure chronic ulcer of other part of left foot with unspecified severity History of Present Illness Date of Service: 12/02/19 Chief Complaint: Diabetic foot ulceration, Sanches grade 2, left foot - TELEHEALTH VISIT History of Wound: TELEHEALTH VISIT - This is an 84-year-old male who is a resident of [facility] in [place], [place]. The patient is known to be diabetic. He has had a diabetic foot ulceration on his left foot since September 01, 2019. The patient has been largely stagnant, having shown very little progress in terms of healing. Several different treatment regimens have been implemented. The current regimen includes the use of Casie and foam. The patient is ambulatory. However, he rarely wears shoes. Nursing staff, at the bedside, deny that pressure phenomenon from footwear is a likely cause. It may well be that positional factors have played a role. The patient tends to favor sleeping on his right side, which may expose the medial aspect of his left foot to pressure from his mattress. He has had to sleep on a air cushion mattress. The nursing staff has purposely avoided any kind of cushioning to his foot while sleeping, because he is often noted to arise from bed unilaterally and to ambulate at night without assistance. He is a fall risk, and nursing staff at his nursing facility fear that any objects on his feet might facilitate falls. There is no known history of thrombophlebitis in the patient's lower extremities, though he does have an IVC filter in place. The patient has no recent history of arterial diagnostic studies of the lower extremities. The patient's appetite is said to be poor. He does receive nutritional supplements at his long term. Past Medical History Past Medical History: Chronic Problems (Last Updated 09/18/18 @ 16:24 by Kylie Freeman) Dementia (Chronic) Dysphagia (Chronic) History of TIA (transient ischemic attack) (Chronic) Old age (Chronic) History of skin cancer (Chronic) Diabetic ulcer of left foot (Chronic) History of left common carotid artery stent placement (Chronic ~05/09/12) stenting of the prox Left internal carotid, stenting of the distal left common carotid, and stenting of the left common carotid at its interna/exeternal carotid. 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) Benign prostate hyperplasia (Chronic) Type 2 diabetes mellitus (Chronic) Dyslipidemia (Chronic) Gastroesophageal reflux disease (Chronic) Hypothyroidism (Chronic) S/P IVC filter (Chronic) Cardiac pacemaker (Chronic) pacemaker implant april 2010 Tachy-aly syndrome (Chronic) S/P PM Cardiomyopathy (Chronic) 45% EF in November of 2014, ischemic S/P atrioventricular piper ablation (Chronic) Carotid artery disease (Chronic) Systolic CHF, chronic (Chronic) Pulmonary HTN (Chronic) PA pressure in November 2014 estimated at 50 Chronic anemia (Chronic) unknown etiology Past Medical History: As documented herein. The patient's history is negative for cerebrovascular accident and myocardial infarction. Surgical History: pacemaker implantation - 2009, - - Patient has a pacemaker. The patient also has an IVC filter. He was also previously undergone an AV node ablation procedure. PATIENT HAS HISTORY OF CRANIOTOMY, for intracranial bleed evacuation, patient sustained fall at that time; internal carotid stent, left, 2011. Allergies/Adverse Reactions: Allergies thiopental [From Pentothal] Allergy (Verified 09/28/18 19:09) Hives morphine Adverse Reaction (Verified 09/28/18 15:22) hallucinations Home Medications: Ambulatory Orders Medication Instructions Recorded Amiodarone HCl [Cordarone] 200 mg PO DAILY@0800 05/07/17 Finasteride [Proscar] 5 mg PO DAILY 12/19/17 Levothyroxine [Synthroid] 137 mcg PO DAILY@0600 12/19/17 Donepezil HCl 10 mg PO QHS 03/01/18 Potassium Chloride [K-Dur] 20 meq PO DAILY 04/24/18 Citalopram [Celexa] 20 mg PO DAILY 09/28/18 Insulin Glargine [Lantus SoloStar 7 units SC PRN PRN 09/28/18 Pen] Acetaminophen [Tylenol Tablet] 650 mg PO Q6H PRN PRN tablet 10/01/18 Albuterol Aerosols [Ventolin 2.5 mg INHALATION Q4H PRN PRN 10/01/18 Aerosols] vial.neb. Amoxicillin/Potassium Clav 1 each PO BID #6 tablet 10/01/18 [Augmentin 875-125 Tablet] Melatonin 3 mg PO QHS PRN PRN tablet 10/01/18 Menthol/Lanolin/Calamine/Znox 1 applic TOPICAL TID tube 10/01/18 [Calmoseptine Ointment] - Family History Sibling Family History: Family History (Last Reviewed 09/24/17 @ 13:55 by Janelle Laguna) Brother CAD (coronary artery disease) Hx of CABG Cancer Father CAD (coronary artery disease) Myocardial infarction Brother Cancer Mother Old age Cancer, Heart Disease - CAD s/ CABG Maternal Family History: Family History (Last Reviewed 09/24/17 @ 13:55 by Janelle Laguna) Brother CAD (coronary artery disease) Hx of CABG Cancer Father CAD (coronary artery disease) Myocardial infarction Brother Cancer Mother Old age Cancer - , unknonw age Paternal Family History: Family History (Last Reviewed 09/24/17 @ 13:55 by Janelle Laguna) Brother CAD (coronary artery disease) Hx of CABG Cancer Father CAD (coronary artery disease) Myocardial infarction Brother Cancer Mother Old age Cancer - unknown age, Heart Disease Social History: The patient is a resident of [facility]. He does not smoke or drink. He is , and his lives independently at home. Lives: Retirement Smoking Status: Former smoker Tobacco Use: Non-smoker Alcohol: None Drugs: None Review of Systems Constitutional: Denies: Chills, Fever, Weight Change Eyes: Denies: Pain, Vision Change HEENT: Denies: Difficulty Hearing, Difficulty Swallowing, Sinus Congestion Cardiovascular: Denies: Chest Pain, Palpitations Respiratory: Denies: Cough, Shortness of Breath Gastrointestinal: Denies: Diarrhea, Nausea, Vomiting Genitourinary: Denies: Dysuria, Hematuria Endocrine: Denies: Heat/ Cold Intolerance, Polydipsia, Polyuria Hematologic/ Lymphatic: Denies: Easy Bruising, Easy Bleeding - Physical Exam Vital Signs Temp Pulse Resp BP 98.7 F 75 19 H 110/60 12/02/19 12:47 12/02/19 12:47 12/02/19 12:47 12/02/19 12:47 General: Alert, Oriented x3, Cooperative, No apparent distress, Well developed, Well nourished, - - The patient appears elderly and frail. His color appears normal. HEENT: Atraumatic, PERRLA, EOMI, Normocephalic Neck: No JVD Lungs: Normal air movement Extremities: No clubbing, No cyanosis, No edema, No Calf Tenderness, - - And ulceration is noted on the first metatarsal head of the left foot. This is a diabetic ulceration, given the patient's history of diabetes mellitus. It appears to be a Sanches grade 2 ulceration. Measurements, as provided by the nursing staff at his nursing facility are as follows: 1.5 cm x 1.0 cm. The base of the ulceration appears generally pink and healthy in appearance, with an apparent moderate amount of bioburden. There is no surrounding erythema or cellulitis. The site does not appear infected. There is evidence of peripheral callus formation. Skin: No rashes Wound Measurements and Assessment WC - Nurse 1 - General Ulcer Measurement Start: 12/02/19 12:04 Freq: Status: Active Protocol: Activity Type Activity Date Activity User E-Sign Co-Sign Detail Recorded Client Recorded Date Recorded By Document 12/02/19 12:47 DV [id number] 12/02/19 12:51 DV 12/02/19 12:47 Wound Center Nurse 1 [Ulcer Assessment] #1 Left Medial Foot -Combined with other wound No -Current Size (cm) - Length 1.0 -Current Size (cm) - Width 1.5 -Current Size (cm) - Depth 0.3 -Total Square Cm 1.50 -Photo Taken No -Tunneling No -Undermining/Tunneling No -Circular Undermining No -Classification - Thickness Full Thickness without Exposed Support Structure -Classification - Sanches Grading ( Grade 2 Diabetic Ulcer) -Exudate Amt Medium -Exudate Type Serous -Wound Margin Flat & Intact -Granulation Amt None Present (0 %) -Granulation Quality N/A -Slough/Fibrin No -Necrosis Amt None Present (0 %) -Necrotic Tissue Type Adherent Slough -Structure Exposed None/Limited to Skin Breakdown -Texture (Priscila-wound Skin Appearance) Assessed, Localized Edema ,Scarring -Moisture (Priscila-wound Skin Appearance Assessed, ) Weeping -Color (Priscila-wound Skin Appearance) Assessed, Erythema -Temperature (Priscila-wound Skin No Abnormality Appearance) (Pt Warm) -Tenderness on Palpation (Priscila-wound No Skin Appearance) -Ulcer Cleansing Rinsed/ Irrigated with Saline -Foul Odor after Cleansing No Musculoskeletal: Muscle Wasting Neurological: Cranial nerves II-XII grossly intact, Neuro grossly intact Psych/Mental Status: Normal Affect, Appropriate Debridement Note No debridement was completed today Assessment/Plan Active Problems (Last Updated 09/18/18 @ 16:24 by Kylie Freeman) Old age (Chronic) Diabetic ulcer of left foot (Chronic) Type 2 diabetes mellitus (Chronic) Assessment: This is an 84-year-old male who is a resident of [facility] in [place], [place]. His initial presentation suggests the presence of a diabetic foot ulceration on the first metatarsal head of the left foot. This has been present for approximately 3 months. There appears to be surrounding callus. Infection does not appear to involve the ulceration. The patient has multiple other pre-existing medical problems, which are detailed above. The patient has had recent laboratory studies on September 29, 2019, the results of which are as follows: White blood count 3.5, hemoglobin 13.8, hematocrit 43.3, platelets 91,000, hemoglobin A1c 8.3, sodium 138, potassium 4.1, chloride 103, BUN 18, creatinine 1.08, glucose 172, total bilirubin 0.80, AST 31, ALT 28, alkaline phosphatase 218, total protein 6.5, serum albumin 3.0. Plan: Thorough discussion has been undertaken with the patient's caregivers at his nursing facility. These include [facility], the Wound Care nurse, Eunice, kindergarten teacher assistant, and Joslyn. Optimizing nutritional intake has been recommended. Nutritional supplements are to be continued. Optimization of the patient's glycemic control has also been recommended. Patient's blood sugars typically run about 150. Offloading measures have been discussed in detail. Nursing staff has been advised to assure that foot wear, if worn, is properly fitted. They have also been advised to assess the patient's positioning at all times, to assure that pressure from the patient's bedding and elsewhere is not creating pressure phenomenon on the area of his ulceration. We are to implement the use of collagenase Santyl applied topically on a daily basis. The nursing staff indicates that they are well familiar with the use of this product. Foam will be used in conjunction with the collagenase Santyl with each application. We are to arrange for a noninvasive lower extremity arterial study, to assess the patient's arterial status in the lower extremities. The patient will follow-up for an onsite visit at our wound care facility in 1 week, and serial mechanical debridements are anticipated. The patient is not a smoker. Influenza vaccine was not administered today. Patient weighs 157 pounds. He stands 5 feet 10 inches tall. His BMI is 22.5, which is normal. This telehealth visit was conducted by 2-way audiovisual communication using [employer]. The patient was located at [facility]. I was located at the [facility]. Appropriate consent was obtained. residential staff was at the patient's bedside and was of assistance. The telehealth interaction was approximately 45 minutes in duration.
[2019-12-09 11:02] VITALS: BP 107/61; PULSE 65; RESP 20; TEMP 36.8; BMI 19.3
--- NOTE | 2019-12-09 12:10 | PCM.WC.HP ---
(1) History of TIA (transient ischemic attack) Status: Chronic Current Visit: No Code(s): Z86.73 - Personal history of transient ischemic attack (TIA), and cerebral infarction without residual deficits (2) Old age Status: Chronic Current Visit: Yes Code(s): R54 - Age-related physical debility (3) History of skin cancer Status: Chronic Current Visit: No Code(s): Z85.828 - Personal history of other malignant neoplasm of skin (4) Dementia Status: Chronic Current Visit: No Code(s): F03.90 - Unspecified dementia without behavioral disturbance (5) Dysphagia Status: Chronic Current Visit: No Code(s): R13.10 - Dysphagia, unspecified (6) History of left common carotid artery stent placement Status: Chronic Current Visit: No Code(s): Z98.890 - Other specified postprocedural states; Z95.828 - Presence of other vascular implants and grafts Comment: stenting of the prox Left internal carotid, stenting of the distal left common carotid, and stenting of the left common carotid at its interna/exeternal carotid. 05/09/12 (7) Aortic root dilatation Status: Chronic Current Visit: No Code(s): I77.810 - Thoracic aortic ectasia (8) Essential hypertension Status: Chronic Current Visit: No Code(s): I10 - Essential (primary) hypertension (9) Cardiac pacemaker Status: Chronic Current Visit: No Code(s): Z95.0 - Presence of cardiac pacemaker Comment: Implanted in April 2010; (10) Persistent atrial fibrillation Status: Chronic Current Visit: No Code(s): I48.1 - Persistent atrial fibrillation Comment: S/P RFA 11/24/2011 (11) CKD (chronic kidney disease) stage 3, GFR 30-59 ml/min Status: Chronic Current Visit: No (12) 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 Current Visit: No Qualifiers: Code(s): I82.629 - Acute embolism and thrombosis of deep veins of unspecified upper extremity (13) Benign prostate hyperplasia Status: Chronic Current Visit: No Qualifiers: (14) Type 2 diabetes mellitus Status: Chronic Current Visit: Yes Code(s): E11.9 - Type 2 diabetes mellitus without complications (15) Dyslipidemia Status: Chronic Current Visit: No Code(s): E78.5 - Hyperlipidemia, unspecified (16) Gastroesophageal reflux disease Status: Chronic Current Visit: No Qualifiers: Code(s): K21.9 - Gastro-esophageal reflux disease without esophagitis (17) Hypothyroidism Status: Chronic Current Visit: No Qualifiers: Code(s): E03.9 - Hypothyroidism, unspecified (18) S/P IVC filter Status: Chronic Current Visit: No Code(s): Z95.828 - Presence of other vascular implants and grafts (19) Cardiac pacemaker Status: Chronic Current Visit: No Code(s): Z95.0 - Presence of cardiac pacemaker Comment: pacemaker implant april 2010 (20) Tachy-aly syndrome Status: Chronic Current Visit: No Code(s): I49.5 - Sick sinus syndrome Comment: S/P PM (21) Cardiomyopathy Status: Chronic Current Visit: No Code(s): I42.9 - Cardiomyopathy, unspecified Comment: 45% EF in November of 2014, ischemic (22) S/P atrioventricular piper ablation Status: Chronic Current Visit: No Code(s): Z98.890 - Other specified postprocedural states (23) Carotid artery disease Status: Chronic Current Visit: No Code(s): I77.9 - Disorder of arteries and arterioles, unspecified (24) Systolic CHF, chronic Status: Chronic Current Visit: No Code(s): I50.22 - Chronic systolic (congestive) heart failure (25) Pulmonary HTN Status: Chronic Current Visit: No Code(s): I27.2 - Other secondary pulmonary hypertension Comment: PA pressure in November 2014 estimated at 50 (26) Diabetic ulcer of left foot Status: Chronic Current Visit: Yes Qualifiers: Diabetic foot ulcer location: midfoot Diabetes mellitus type: type 2 Non-pressure ulcer stage: with fat layer exposed Qualified Code(s): E11.621 - Type 2 diabetes mellitus with foot ulcer; L97.422 - Non-pressure chronic ulcer of left heel and midfoot with fat layer exposed Code(s): E11.621 - Type 2 diabetes mellitus with foot ulcer; L97.529 - Non-pressure chronic ulcer of other part of left foot with unspecified severity History of Present Illness Date of Service: 12/09/19 Chief Complaint: Diabetic foot ulceration, Sanches grade 2, left foot History of Wound: This is an 84-year-old male who is a [facility], [place]. The patient is known to be diabetic. He has had a diabetic foot ulceration on his left foot since September 01, 2019. It is overlying his first metatarsal head. The patient's ulceration has been largely stagnant, having shown very little progress in terms of healing. Several different treatment regimens have been implemented. The current regimen, as implemented by detention staff, includes the use of Casie and foam. The patient is ambulatory. However, he rarely wears shoes. Nursing staff denies that pressure phenomenon from footwear is a likely cause. It may well be that positional factors have played a role. The patient tends to favor sleeping on his right side, which may expose the medial aspect of his left foot to pressure from his mattress. He sleeps on a air cushion mattress. The nursing staff has purposely avoided any kind of cushioning to his foot while sleeping, because he is often noted to arise from bed unilaterally and to ambulate at night without assistance. He is a fall risk, and nursing staff at his nursing facility fear that any protective items on his feet might result in falls. There is no known history of thrombophlebitis in the patient's lower extremities, though he does have an IVC filter in place. The patient has no recent history of arterial diagnostic studies of the lower extremities. The patient's appetite is said to be poor. He does receive nutritional supplements at his detention. Past Medical History Past Medical History: Chronic Problems (Last Updated 09/18/18 @ 16:24 by Kylie Freeman) Dementia (Chronic) Dysphagia (Chronic) History of TIA (transient ischemic attack) (Chronic) Old age (Chronic) History of skin cancer (Chronic) Diabetic ulcer of left foot (Chronic) History of left common carotid artery stent placement (Chronic ~05/09/12) stenting of the prox Left internal carotid, stenting of the distal left common carotid, and stenting of the left common carotid at its interna/exeternal carotid. 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) Benign prostate hyperplasia (Chronic) Type 2 diabetes mellitus (Chronic) Dyslipidemia (Chronic) Gastroesophageal reflux disease (Chronic) Hypothyroidism (Chronic) S/P IVC filter (Chronic) Cardiac pacemaker (Chronic) pacemaker implant april 2010 Tachy-aly syndrome (Chronic) S/P PM Cardiomyopathy (Chronic) 45% EF in November of 2014, ischemic S/P atrioventricular piper ablation (Chronic) Carotid artery disease (Chronic) Systolic CHF, chronic (Chronic) Pulmonary HTN (Chronic) PA pressure in November 2014 estimated at 50 Chronic anemia (Chronic) unknown etiology Surgical History: pacemaker implantation - 2009, - - Patient has a pacemaker. The patient also has an IVC filter. He was also previously undergone an AV node ablation procedure. PATIENT HAS HISTORY OF CRANIOTOMY, for intracranial bleed evacuation, patient sustained fall at that time; internal carotid stent, left, 2011. Allergies/Adverse Reactions: Allergies thiopental [From Pentothal] Allergy (Verified 09/28/18 19:09) Hives morphine Adverse Reaction (Verified 09/28/18 15:22) hallucinations Home Medications: Ambulatory Orders Medication Instructions Recorded Amiodarone HCl [Cordarone] 200 mg PO DAILY@0800 05/07/17 Finasteride [Proscar] 5 mg PO DAILY 12/19/17 Levothyroxine [Synthroid] 137 mcg PO DAILY@0600 12/19/17 Donepezil HCl 10 mg PO QHS 03/01/18 Potassium Chloride [K-Dur] 20 meq PO DAILY 04/24/18 Citalopram [Celexa] 20 mg PO DAILY 09/28/18 Insulin Glargine [Lantus SoloStar 7 units SC PRN PRN 09/28/18 Pen] Acetaminophen [Tylenol Tablet] 650 mg PO Q6H PRN PRN tablet 10/01/18 Albuterol Aerosols [Ventolin 2.5 mg INHALATION Q4H PRN PRN 10/01/18 Aerosols] vial.neb. Amoxicillin/Potassium Clav 1 each PO BID #6 tablet 10/01/18 [Augmentin 875-125 Tablet] Melatonin 3 mg PO QHS PRN PRN tablet 10/01/18 Menthol/Lanolin/Calamine/Znox 1 applic TOPICAL TID tube 10/01/18 [Calmoseptine Ointment] - Family History Sibling Family History: Family History (Last Reviewed 09/24/17 @ 13:55 by Janelle Laguna) Brother CAD (coronary artery disease) Hx of CABG Cancer Father CAD (coronary artery disease) Myocardial infarction Brother Cancer Mother Old age Cancer, Heart Disease - CAD s/ CABG Maternal Family History: Family History (Last Reviewed 09/24/17 @ 13:55 by Janelle Laguna) Brother CAD (coronary artery disease) Hx of CABG Cancer Father CAD (coronary artery disease) Myocardial infarction Brother Cancer Mother Old age Cancer - , unknonw age Paternal Family History: Family History (Last Reviewed 09/24/17 @ 13:55 by Janelle Laguna) Brother CAD (coronary artery disease) Hx of CABG Cancer Father CAD (coronary artery disease) Myocardial infarction Brother Cancer Mother Old age Cancer - unknown age, Heart Disease Lives: Senior Living Smoking Status: Former smoker Tobacco Use: Non-smoker Alcohol: None Drugs: None Review of Systems Constitutional: Denies: Chills, Fever, Weight Change Eyes: Denies: Pain, Vision Change HEENT: Denies: Difficulty Hearing, Difficulty Swallowing, Sinus Congestion Cardiovascular: Denies: Chest Pain, Palpitations Respiratory: Denies: Cough, Shortness of Breath Gastrointestinal: Denies: Diarrhea, Nausea, Vomiting Genitourinary: Denies: Dysuria, Hematuria Endocrine: Denies: Heat/ Cold Intolerance, Polydipsia, Polyuria Hematologic/ Lymphatic: Denies: Easy Bruising, Easy Bleeding - Physical Exam Vital Signs Temp Pulse Resp BP 98.2 F 65 20 H 107/61 12/09/19 11:02 12/09/19 11:02 12/09/19 11:02 12/09/19 11:02 General: Alert, Oriented x3, Cooperative, No apparent distress, Well developed, - - The patient is pleasant, conversant, and generally appropriate. He appears thin and frail. HEENT: Atraumatic, PERRLA, EOMI, Normocephalic Oral: Moist Mucosa Neck: No JVD Lungs: Normal air movement Abdomen: Non-Distended Extremities: No clubbing, No cyanosis, No edema, No Calf Tenderness, - - An ulceration is noted overlying the left medial metatarsal head of the first digit. There is no sign of infection or cellulitis. Dimensions are documented elsewhere. There is a mild amount of bioburden. Callus is noted at the periphery. There is no significant undermining. Skin: No rashes Wound Measurements and Assessment - Nurse 1 - General Ulcer Measurement Start: 12/02/19 12:04 Freq: Status: Active Protocol: Activity Type Activity Date Activity User E-Sign Co-Sign Detail Recorded Client Recorded Date Recorded By Document 12/09/19 11:02 DL [id number] 12/09/19 11:19 DL 12/09/19 11:02 Wound Center Nurse 1 [Ulcer Assessment] #1 Left Medial Foot -Current Size (cm) - Length 0.8 -Current Size (cm) - Width 1.2 -Current Size (cm) - Depth 0.2 -Total Square Cm 0.96 -Photo Taken Yes -Exudate Amt Small -Exudate Type Serosanguineous -Wound Margin Distinct, Outline Attached -Granulation Amt Large (67-100%) -Granulation Quality [place] -Necrosis Amt Small (1-33%) -Necrotic Tissue Type Adherent Slough -Structure Exposed N/A -Moisture (Priscila-wound Skin Appearance No Abnormality ) -Color (Priscila-wound Skin Appearance) No Abnormality -Temperature (Priscila-wound Skin No Abnormality Appearance) (Pt Warm) -Tenderness on Palpation (Priscila-wound No Skin Appearance) -Ulcer Cleansing Wound Cleanser -Anesthetic Used 4% Lidocaine Solution - Nurse 2 - General Ulcer CM Notes Start: 12/02/19 12:04 Freq: Status: Active Protocol: Activity Type Activity Date Activity User E-Sign Co-Sign Detail Recorded Client Recorded Date Recorded By Document 12/09/19 11:46 DV [id number] 12/09/19 11:50 DV 12/09/19 11:46 Wound Center Nurse 2 [Procedure/Treatment] -Time 11:48 -Correct Patient Yes -Correct Side, Site, Position Yes -Correct Procedure Yes -Procedure Performed Yes -Type of Procedure Debridement -Clinical Debridement Subcutaneous -Post Debridement Size (cm) - Length 1.0 -Post Debridement Size (cm) - Width 1.0 -Post Debridement Size (cm) - Depth 0.1 -Total Square Cm 1.00 -Wound/Ulcer Outcome Not Healed -Ulcer Cleansing Rinsed/ Irrigated with Saline -Foul Odor after Cleansing No -Bioengineered Tissue No -Bleeding Controlled with Pressure -Treatment Response Procedure Tolerated Well [See Physician Procedure note for Specifics] Pain Scale: 0-10 Numeric [Pain] -Is Patient Pain Free? Yes Musculoskeletal: Muscle Wasting - Extremities Neurological: Cranial nerves II-XII grossly intact, Neuro grossly intact Psych/Mental Status: Normal Affect, Appropriate, Alert and oriented to time, place, person, mood and affect Debridement Note Post-Debridement Measurements/Treatment WC - Nurse 2 - General Ulcer CM Notes Start: 12/02/19 12:04 Freq: Status: Active Protocol: Activity Type Activity Date Activity User E-Sign Co-Sign Detail Recorded Client Recorded Date Recorded By Document 12/09/19 11:46 DV [id number] 12/09/19 11:50 DV 12/09/19 11:46 Wound Center Nurse 2 #1 Left Medial Foot -Time 11:48 -Correct Patient Yes -Correct Side, Site, Position Yes -Correct Procedure Yes -Procedure Performed Yes -Type of Procedure Debridement -Clinical Debridement Subcutaneous -Post Debridement Size (cm) - Length 1.0 -Post Debridement Size (cm) - Width 1.0 -Post Debridement Size (cm) - Depth 0.1 -Total Square Cm 1.00 -Wound/Ulcer Outcome Not Healed -Ulcer Cleansing Rinsed/ Irrigated with Saline -Foul Odor after Cleansing No -Bioengineered Tissue No -Bleeding Controlled with Pressure -Treatment Response Procedure Tolerated Well Pain Scale: 0-10 Numeric Is Patient Pain Free? Yes Laterality: Left - First metatarsal head, medially Type of Debridement: Excisional debridement Anesthesia Used: 5% Lidocaine Gel Depth: Down to and including healthy tissue, in the subcutaneous layer Percentage of wound debrided: 100 Instrument Used: 5mm curette Tissue Removed: Bioburden and callus tissue Severity: Fat Layer Exposed Amount of bleeding with debridement: Mild Bleeding Controlled with: Compression and gauze Patient tolerated procedure well Assessment/Plan Active Problems (Last Updated 09/18/18 @ 16:24 by Kylie Freeman) Old age (Chronic) Diabetic ulcer of left foot (Chronic) Type 2 diabetes mellitus (Chronic) Assessment: This is an 84-year-old male who is a resident of [facility] in [place], [place]. He presents with a diabetic foot ulceration on the first metatarsal head of the left foot, Sanches Grade 2. This had been present for approximately 3 months. There appears to be surrounding callus. Infection is not evident. The patient has multiple other pre-existing medical problems, which are detailed above. The patient has had recent laboratory studies on September 29, 2019, the results of which are as follows: White blood count 3.5, hemoglobin 13.8, hematocrit 43.3, platelets 91,000, hemoglobin A1c 8.3, sodium 138, potassium 4.1, chloride 103, BUN 18, creatinine 1.08, glucose 172, total bilirubin 0.80, AST 31, ALT 28, alkaline phosphatase 218, total protein 6.5, serum albumin 3.0. Plan: Thorough discussion has been undertaken with the patient's caregivers at his nursing facility at his initial visit, conducted by telehealth. These include [facility], the Wound Care nurse, Eunice, construction project assistant, and Joslyn. Optimizing nutritional intake has been recommended. Nutritional supplements are to be continued. Optimization of the patient's glycemic control has also been recommended. Patient's blood sugars typically run about 150. Offloading measures have been discussed in detail. Nursing staff has been advised to assure that foot wear, if worn, is properly fitted. They have also been advised to assess the patient's positioning at all times, to assure that pressure from the patient's bedding and elsewhere is not creating pressure phenomenon on the area of his ulceration. We are to continue the use of collagenase Santyl applied topically on a daily basis. The nursing staff indicates that they are well familiar with the use of this product. Foam will be used in conjunction with the collagenase Santyl with each application. We are to arrange for a noninvasive lower extremity arterial study, to assess the patient's arterial status in the lower extremities. The patient will follow-up for an onsite visit at our wound care facility in 1 week, and serial mechanical debridements are anticipated to continue. The patient is not a smoker. Influenza vaccine was not administered today. Patient weighs 157 pounds. He stands 5 feet 10 inches tall. His BMI is 22.5, which is normal.
== END 2019-12-09 23:59 ==
LOC: WC 11:00
PROVIDERS: PCP Family Medicine Geriatric Medicine; Visit Provider Surgery
DX: E11.621 Type 2 diabetes mellitus with foot ulcer (principal); L97.422 Non-pressure chronic ulcer of left heel and midfoot with fat layer exposed; L97.529 Non-pressure chronic ulcer of other part of left foot with unspecified severity; E11.22 Type 2 diabetes mellitus with diabetic chronic kidney disease; I13.0 Hypertensive heart and chronic kidney disease with heart failure and stage 1 through stage 4 chronic kidney disease, or unspecified chronic kidney disease; I50.22 Chronic systolic (congestive) heart failure; N18.3 Chronic kidney disease, stage 3 (moderate); I48.19 Other persistent atrial fibrillation; I27.29 Other secondary pulmonary hypertension; I49.5 Sick sinus syndrome; I42.9 Cardiomyopathy, unspecified; E03.9 Hypothyroidism, unspecified; E78.5 Hyperlipidemia, unspecified; R13.10 Dysphagia, unspecified; K21.9 Gastro-esophageal reflux disease without esophagitis; N40.0 Benign prostatic hyperplasia without lower urinary tract symptoms; F03.90 Unspecified dementia, unspecified severity, without behavioral disturbance, psychotic disturbance, mood disturbance, and anxiety; Z79.4 Long term (current) use of insulin; Z91.81 History of falling; Z86.73 Personal history of transient ischemic attack (TIA), and cerebral infarction without residual deficits; Z85.828 Personal history of other malignant neoplasm of skin; Z86.718 Personal history of other venous thrombosis and embolism; Z87.891 Personal history of nicotine dependence; Z95.0 Presence of cardiac pacemaker
CPT/HCPCS: 11042; 99213; G0463

== ENCOUNTER 2019-12-14 15:21 | Emergency (ER) | payer MEDICARE, OTHER, MEDICAID, SELFPAY ==
--- NOTE | 2019-12-14 15:24 | ED.VIS.GEN ---
History of Present Illness Chief Complaint: Lower Extremity Injury Informant: Credit Underwriter Narrative: 4-year-old male presents from local nursing facility with right big toe injury. Patient had almost complete avulsion of his right first toenail. Unknown mechanism. Patient has significant dementia and cannot provide an accurate history of present illness. Bleeding was controlled at facility with pressure dressing. Patient is not on anticoagulation. Past Medical History - Allergies and Home Meds Allergies/Adverse Reactions: Allergies thiopental [From Pentothal] Allergy (Verified 09/28/18 19:09) Hives morphine Adverse Reaction (Verified 09/28/18 15:22) hallucinations Primary Care Physician: Lai Hsieh Chi, MD [Primary Care Provider] - Prior records reviewed: Yes Past Medical History: - - HTN, DM, Dementia Surgical History: pacemaker implantation - 2009, - - Patient has a pacemaker. The patient also has an IVC filter. He was also previously undergone an AV node ablation procedure. PATIENT HAS HISTORY OF CRANIOTOMY, for intracranial bleed evacuation, patient sustained fall at that time; internal carotid stent, left, 2011. Lives: Intermediate Smoking Status: Former smoker Alcohol: None Drugs: None - Family History Sibling Family History: Family History (Last Reviewed 09/24/17 @ 13:55 by Janelle Laguna) Brother CAD (coronary artery disease) Hx of CABG Cancer Father CAD (coronary artery disease) Myocardial infarction Brother Cancer Mother Old age Family History: Reports: Cancer, Heart Disease - CAD s/ CABG Maternal Family History: Family History (Last Reviewed 09/24/17 @ 13:55 by Janelle Laguna) Brother CAD (coronary artery disease) Hx of CABG Cancer Father CAD (coronary artery disease) Myocardial infarction Brother Cancer Mother Old age Family History: Reports: Cancer - , unknonw age Paternal Family History: Family History (Last Reviewed 09/24/17 @ 13:55 by Janelle Laguna) Brother CAD (coronary artery disease) Hx of CABG Cancer Father CAD (coronary artery disease) Myocardial infarction Brother Cancer Mother Old age Family History: Reports: Cancer - unknown age, Heart Disease Review of Systems General: Denies: Chills, Fever, Sweats Eyes: Denies: Visual changes - bilaterally, Diplopia ENT: Denies: Rhinorrhea, Sore throat Cardiovascular: Denies: Chest pain, Palpitations Respiratory: Denies: Dyspnea, Cough, Dyspnea on exertion Gastrointestinal: Denies: Abdominal pain, Nausea, Vomiting, Diarrhea, Melena, Hematochezia Genitourinary: Denies: Dysuria, Hematuria, Frequency Musculoskeletal: Denies: Back pain, Extremity Pain Skin: Reports: Wounds. Denies: Rash Neurological: Denies: Headache, Weakness, Numbness Physical Exam Inital Vital Signs reviewed: Yes General: Well nourished, Well developed, No Acute Distress Head: Normocephalic, Atraumatic Eyes: Perrl, EOMI ENT: Moist mucous membranes, No rhinorrhea Neck: Supple, Nontender Cardiovascular: Regular rate, Regular rhythm, No murmurs Respiratory: No distress, CTA bilaterally, Chest nontender Abdomen: Soft, Nontender, Nondistended, Normal bowel sounds Back: Nontender, Normal Inspection Extremities: Nontender, No edema, - - Almost complete avulsion of right big toe nail. Bleeding controlled with pressure. Skin: Normal color, No rash Neurological: Alert, Oriented x3, Cranial nerves II-XII grossly intact, Normal Strength, Normal Sensation Psychological: Normal affect, Normal Mood Diagnostic/Tx/Re-eval - Medical Decision Making Patient appears well nontoxic. Vital signs within normal limits. Digital block to the right first toe was done with 1% lidocaine without epinephrine. The nail was removed and nailbed laceration was repaired using 5-0 Vicryl sutures. 2 sutures were placed which approximated the laceration. Bleeding controlled with pressure. Gelfoam will be placed. Tetanus updated. Pressure dressing placed. Will advise ECF to change dressing at least every 8 hours and evaluate for continued bleeding. Asked to follow-up with family physician. Discharged home in stable condition. Procedures - Lacerations right first toe nailbed Length: 0.39 in Depth: nailbed Shape: Linear Prep: Shure-Clens Laceration repair: Digital block, Irrigated, Lidocaine, Skin sutures Number of Sutures/[place]: 2 Suture Information: Ethilon, 5-0 ED Disposition - Plan for ED Patient: Disposition: [facility] Diagnosis: Nailbed laceration, toe Instructions: ED Laceration Foot Referrals: Lai Hsieh Chi, MD [Primary Care Provider] - Additional Instructions: Wound needs to be cleansed and dressing should be changed at least every 8-12 hours. Sutures need to be removed in the next 7 to 10 days.
[2019-12-14 15:26] VITALS: BP 155/83; PULSE 65; RESP 18; TEMP 36.6; O2SAT 97; BMI 19.8
--- NOTE | 2019-12-14 15:30 | RAD_ITS ---
STUDY: X-RAY RIGHT FOOT, THE TOE REASON FOR EXAM: Male, 84 years old. injury to right big toe, pain, toe nail almost removed TECHNIQUE: 3 view(s) of the toe were obtained. COMPARISON: None. FINDINGS: The toes are intact and located without fractures. 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 There are atherosclerotic calcifications in the arterial tree. Otherwise soft tissues are normal. RAD/Toe(s) Min 2 Views IMPRESSION: Unremarkable toes, no fracture. Electronically Signed: Michael Card, at 16:07 EDT Tel , Service support ,
[2019-12-14] MEDS: Diphth,Pertuss(Acell),Tet Vac 0.5 ML Vial IM (16:21)
--- NOTE | 2019-12-14 18:01 | ED.RN ---
physicians contacted. eta 90 min
[2019-12-14] MEDS: Gelfoam 12-7 MM Sponge (1) 1 EACH TP (18:45)
[2019-12-14 18:48] VITALS: BP 160/76; PULSE 60; RESP 18; TEMP 37.2; O2SAT 97
[2019-12-14 19:45] VITALS: BP 140/87; PULSE 82; RESP 16; O2SAT 99
== END 2019-12-14 19:47 | disposition skilled nursing facility (03) ==
PROVIDERS: Emergency Provider Emergency Medicine; PCP Family Medicine Geriatric Medicine
DX: S91.219A Laceration without foreign body of unspecified toe(s) with damage to nail, initial encounter (principal); X58.XXXA Exposure to other specified factors, initial encounter; Y93.89 Activity, other specified; Y92.129 Unspecified place in nursing home as the place of occurrence of the external cause; Y99.9 Unspecified external cause status; F03.90 Unspecified dementia, unspecified severity, without behavioral disturbance, psychotic disturbance, mood disturbance, and anxiety; E11.9 Type 2 diabetes mellitus without complications; I10 Essential (primary) hypertension; Z82.49 Family history of ischemic heart disease and other diseases of the circulatory system; Z87.891 Personal history of nicotine dependence; Z95.0 Presence of cardiac pacemaker; Z23 Encounter for immunization
CPT/HCPCS: 11750; 12001; 11760; 73660; 90715; 99285

== ENCOUNTER 2019-12-30 10:00 | Outpatient (RCR) | payer MEDICARE, OTHER, MEDICAID, SELFPAY ==
[2019-12-10 00:38] VITALS: BP 107/61; PULSE 65; RESP 20; TEMP 36.8
[2019-12-16 10:06] VITALS: BP 107/70; PULSE 65; RESP 16; TEMP 36.4; BMI 19.8
--- NOTE | 2019-12-16 10:30 | HP.PCM_ITS ---
(1) Dementia Status: Chronic Current Visit: Yes Qualifiers: Alzheimer's disease onset: late-onset Code(s): F03.90 - Unspecified dementia without behavioral disturbance (2) Aspiration pneumonia Status: Inactive Current Visit: No Code(s): J69.0 - Pneumonitis due to inhalation of food and vomit (3) Dysphagia Status: Chronic Current Visit: No Code(s): R13.10 - Dysphagia, unspecified (4) Acute metabolic encephalopathy Status: Inactive Current Visit: No Code(s): G93.41 - Metabolic encephalopathy (5) History of TIA (transient ischemic attack) Status: Chronic Current Visit: No Code(s): Z86.73 - Personal history of transient ischemic attack (TIA), and cerebral infarction without residual deficits (6) Old age Status: Chronic Current Visit: Yes Code(s): R54 - Age-related physical meek lity (7) History of skin cancer Status: Chronic Current Visit: No Code(s): Z85.828 - Personal history of other malignant neoplasm of skin (8) Diabetic ulcer of left foot Status: Chronic Current Visit: Yes Qualifiers: Diabetic foot ulcer location: midfoot Diabetes mellitus type: type 2 Non- pressure ulcer stage: with fat layer exposed Qualified Code(s): E11.621 - Type 2 diabetes mellitus with foot ulcer; L97.422 - Non-pressure chronic ulcer of left heel and midfoot with fat layer exposed Code(s): E11.621 - Type 2 diabetes mellitus with foot ulcer; L97.529 - Non- pressure chronic ulcer of other part of left foot with unspecified severity (9) History of left common carotid artery stent placement Status: Chronic Current Visit: No Code(s): Z98.890 - Other specified postprocedural states; Z95.828 - Presence of other vascular implants and grafts Comment: stenting of the prox Left internal carotid, stenting of the distal left common carotid, and stenting of the left common carotid at its interna/exeternal carotid. 05/09/12 (10) Aortic root dilatation Status: Chronic Current Visit: No Code(s): I77.810 - Thoracic aortic ectasia (11) Wide-complex tachycardia Status: Acute Current Visit: No Code(s): I47.2 - Ventricular tachycardia (12) Essential hypertension Status: Chronic Current Visit: No Code(s): I10 - Essential (primary) hypertension (13) Cardiac pacemaker Status: Chronic Current Visit: No Code(s): Z95.0 - Presence of cardiac pacemaker Comment: Implanted in April 2010; (14) Abnormal pulmonary function test Status: Chronic Current Visit: No Code(s): R94.2 - Abnormal results of pulmonary function studies (15) Persistent atrial fibrillation Status: Chronic Current Visit: No Code(s): I48.1 - Persistent atrial fibrillation Comment: S/P RFA 11/24/2011 (16) TIA (transient ischemic attack) Status: Chronic Current Visit: No (17) CKD (chronic kidney disease) stage 3, GFR 30-59 ml/min Status: Chronic Current Visit: No (18) 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 Current Visit: No Qualifiers: Code(s): I82.629 - Acute embolism and thrombosis of deep veins of unspecified upper extremity (19) Benign prostate hyperplasia Status: Chronic Current Visit: No Qualifiers: (20) Type 2 diabetes mellitus Status: Chronic Current Visit: Yes Code(s): E11.9 - Type 2 diabetes mellitus without complications (21) Dyslipidemia Status: Chronic Current Visit: No Code(s): E78.5 - Hyperlipidemia, unspecifi ed (22) Gastroesophageal reflux disease Status: Chronic Current Visit: No Qualifiers: Code(s): K21.9 - Gastro-esophageal reflux disease without esophagitis (23) Hypothyroidism Status: Chronic Current Visit: No Qualifiers: Code(s): E03.9 - Hypothyroidism, unspecified (24) S/P IVC filter Status: Chronic Current Visit: No Code(s): Z95.828 - Presence of other vascular implants and grafts (25) Cardiac pacemaker Status: Chronic Current Visit: No Code(s): Z95.0 - Presence of cardiac pacemaker Comment: pacemaker implant april 2010 (26) Tachy-aly syndrome Status: Chronic Current Visit: No Code(s): I49.5 - Sick sinus syndrome Comment: S/P PM (27) Cardiomyopathy Status: Chronic Current Visit: No Code(s): I42.9 - Cardiomyopathy, unspecified Comment: 45% EF in November of 2014, ischemic (28) S/P atrioventricular piper ablation Status: Chronic Current Visit: No Code(s): Z98.890 - Other specified postprocedural states (29) Carotid artery disease Status: Chronic Current Visit: No Code(s): I77.9 - Disorder of arteries and arterioles, unspecified (30) Systolic CHF, chronic Status: Chronic Current Visit: No Code(s): I50.22 - Chronic systolic (congestive) heart failure (31) Pulmonary HTN Status: Chronic Current Visit: No Code(s): I27.2 - Other secondary pulmonary hypertension Comment: PA pressure in November 2014 estimated at 50 (32) Chronic anemia Status: Chronic Current Visit: No Code(s): D64.9 - Anemia, unspecified Comment: unknown etiology History of Present Illness Date of Service: 12/16/19 Chief Complaint: Diabetic foot ulceration, Sanches grade 2, left foot History of Wound: This is an 84-year-old male who is a resident of [facility] in [place], [place]. The patient is known to be diabetic. He has had a diabetic foot ulceration on his left foot since September 01, 2019. It is overlying his first metatarsal head. The patient's ulceration has been largely stagnant, having shown very little progress in terms of healing. Several different treatment regimens have been implemented. The current regimen, as implemented by snf staff, includes the use of Casie and foam. The patient is ambulatory. However, he rarely wears shoes. Nursing staff denies that pressure phenomenon from footwear is a likely cause. It may well be that positional factors have played a role. The patient tends to favor sleeping on his right side, which may expose the medial aspect of his left foot to pressure from his mattress. He sleeps on a air cushion mattress. The nursing staff has purposely avoided any kind of cushioning to his foot while sleeping, because he is often noted to arise from bed unilaterally and to ambulate at night without assistance. He is a fall risk, and nursing staff at his nursing facility fear that any protective items on his feet might result in falls. There is no known history of thrombophlebitis in the patient's lower extremities, though he does have an IVC filter in place. The patient has no recent history of arterial diagnostic studies of the lower extremities. The patient's appetite is said to be poor. He does receive nutritional supplements at his snf. Past Medical History Past Medical History: Chronic Problems (Last Updated 09/18/18 @ 16:24 by Kylie Freeman) Dementia (Chronic) Dysphagia (Chronic) History of TIA (transient ischemic attack) (Chronic) Old age (Chronic) History of skin cancer (Chronic) Diabetic ulcer of left foot (Chronic) History of left common carotid artery stent placement (Chronic ~05/09/12) stenting of the prox Left internal carotid, stenting of the distal left common carotid, and stenting of the left common carotid at its interna/exeternal carotid. 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) Benign prostate hyperplasia (Chronic) Type 2 diabetes mellitus (Chronic) Dyslipidemia (Chronic) Gastroesophageal reflux disease (Chronic) Hypothyroidism (Chronic) S/P IVC filter (Chronic) Cardiac pacemaker (Chronic) pacemaker implant april 2010 Tachy-aly syndrome (Chronic) S/P PM Cardiomyopathy (Chronic) 45% EF in November of 2014, ischemic S/P atrioventricular piper ablation (Chronic) Carotid artery disease (Chronic) Systolic CHF, chronic (Chronic) Pulmonary HTN (Chronic) PA pressure in November 2014 estimated at 50 Chronic anemia (Chronic) unknown etiology Surgical History: pacemaker implantation - 2009, - - Patient has a pacemaker. The patient also has an IVC filter. He was also previously undergone an AV node ablation procedure. PATIENT HAS HISTORY OF CRANIOTOMY, for intracranial bleed evacuation, patient sustained fall at that time; internal carotid stent, left, 2011. Allergies/Adverse Reactions: Allergies thiopental [From Pentothal] Allergy (Verified 09/28/18 19:09) Hives morphine Adverse Reaction (Verified 09/28/18 15:22) hallucinations Home Medications: Ambulatory Orders Medication Instructions Recorded Amiodarone HCl [Cordarone] 200 mg PO DAILY@0800 05/07/17 Finasteride [Proscar] 5 mg PO DAILY 12/19/17 Levothyroxine [Synthroid] 88 mcg PO DAILY@0600 12/19/17 Donepezil HCl 10 mg PO QHS 03/01/18 Potassium Chloride [K-Dur] 20 meq PO DAILY 04/24/18 Citalopram [Celexa] 10 mg PO DAILY 09/28/18 Insulin Glargine [Lantus SoloStar 7 units SC PRN PRN 09/28/18 Pen] Acetaminophen [Tylenol Tablet] 650 mg PO Q6H PRN PRN tablet 10/01/18 Albuterol Aerosols [Ventolin 2.5 mg INHALATION Q4H PRN PRN 10/01/18 Aerosols] vial.neb. Amoxicillin/Potassium Clav 1 each PO BID #6 tablet 10/01/18 [Augmentin 875-125 Tablet] Melatonin 3 mg PO QHS PRN PRN tablet 10/01/18 Menthol/Lanolin/Calamine/Znox 1 applic TOPICAL TID tube 10/01/18 [Calmoseptine Ointment] Sitagliptin Phosphate [Januvia] 100 mg PO DAILY 12/14/19 metFORMIN (XR) [Glucophage Xr] 500 mg PO BID 12/14/19 - Family History Sibling Family History: Family History (Last Reviewed 09/24/17 @ 13:55 by Janelle Laguna) Brother CAD (coronary artery disease) Hx of CABG Cancer Father CAD (coronary artery disease) Myocardial infarction Brother Cancer Mother Old age Cancer, Heart Disease - CAD s/ CABG Maternal Family History: Family History (Last Reviewed 09/24/17 @ 13:55 by Janelle Laguna) Brother CAD (coronary artery disease) Hx of CABG Cancer Father CAD (coronary artery disease) Myocardial infarction Brother Cancer Mother Old age Cancer - , unknonw age Paternal Family History: Family History (Last Reviewed 09/24/17 @ 13:55 by Janelle Laguna) Brother CAD (coronary artery disease) Hx of CABG Cancer Father CAD (coronary artery disease) Myocardial infarction Brother Cancer Mother Old age Cancer - unknown age, Heart Disease Smoking Status: Unknown if ever smoked Tobacco Use: Non-smoker Review of Systems Constitutional: Denies: Chills, Fever, Weight Change Eyes: Denies: Pain, Vision Change HEENT: Denies: Difficulty Hearing, Difficulty Swallowing, Sinus Congestion Cardiovascular: Denies: Chest Pain, Palpitations Respiratory: Denies: Cough, Shortness of Breath Gastrointestinal: Denies: Diarrhea, Nausea, Vomiting Genitourinary: Denies: Dysuria, Hematuria Endocrine: Denies: Heat/ Cold Intolerance, Polydipsia, Polyuria Hematologic/ Lymphatic: Denies: Easy Bruising, Easy Bleeding - Physical Exam Vital Signs Temp Pulse Resp BP 97.6 F L 65 16 107/70 12/16/19 10:06 12/16/19 10:06 12/16/19 10:06 12/16/19 10:06 General: Alert, Oriented x3, Cooperative, No apparent distress, Well developed, Well nourished, - - The patient is thin and frail. The patient is in no acute distress. However, he reacts minimally to verbal stimuli. HEENT: Atraumatic, PERRLA, EOMI, Normocephalic Oral: Moist Mucosa Neck: No JVD Lungs: Normal air movement Abdomen: Non-Distended Extremities: No clubbing, No cyanosis, No edema, - - The ulceration persists overlying the left first metatarsal head. The base of the ulceration is pink and healthy in appearance. A large amount of callus tissue persists circumferentially. Dimensions are documented elsewhere. There is no sign of infection or cellulitis. There is a mild amount of bioburden. The patient now also has a wound of his right great toe, she was treated at the [facility] ER on December 14, 2019. Apparently, while attempted to ambulate, the patient stumbled and avulsed his right great toenail. Two 5-0 Vicryl sutures were placed, which remain currently. The nailbed appears healthy with pink granulation tissue, and the nail is totally absent. There is no sign of infection or cellulitis on the wounds/ulcerations of either foot. Skin: No rashes Wound Measurements and Assessment WC - Nurse 1 - General Ulcer Measurement Start: 12/16/19 10:06 Freq: Status: Active Protocol: Activity Type Activity Date Activity User E-Sign Co-Sign Detail Recorded Client Recorded Date Recorded By Document 12/16/19 10:06 DV [id number] 12/16/19 10:13 DV 12/16/19 10:06 Wound Center Nurse 1 [Ulcer Assessment] #2 Dorsal Right Grt Toe Cluster -Combined with other wound No -Current Size (cm) - Length 2.2 -Current Size (cm) - Width 2.6 -Current Size (cm) - Depth 0.1 -Total Square Cm 5.72 -Date of Last Picture (Recall this 12/16/19 field) -Photo Taken Yes -Epithelialization None Present -Tunneling No -Undermining/Tunneling No -Circular Undermining No -Classification - Thickness Full Thickness without Exposed Support Structure -Exudate Amt Large -Exudate Type Serous -Wound Margin Flat & Intact -Granulation Amt None Present (0 %) -Granulation Quality N/A -Slough/Fibrin No -Necrosis Amt None Present (0 %) -Structure Exposed None/Limited to Skin Breakdown -Texture (Priscila-wound Skin Appearance) Assessed, Localized Edema -Moisture (Priscila-wound Skin Appearance Assessed, ) Weeping -Color (Priscila-wound Skin Appearance) Assessed, Erythema -Temperature (Priscila-wound Skin No Abnormality Appearance) (Pt Warm) -Tenderness on Palpation (Priscila-wound Yes Skin Appearance) -Ulcer Cleansing Rinsed/ Irrigated with Saline -Foul Odor after Cleansing No #1 Left Medial Met Head -Combined with other wound No -Current Size (cm) - Length 0.8 -Current Size (cm) - Width 1.8 -Current Size (cm) - Depth 0.3 -Total Square Cm 1.44 -Photo Taken No -Epithelialization None Present -Tunneling No -Undermining/Tunneling No -Circular Undermining No -Classification - Thickness Full Thickness without Exposed Support Structure -Exudate Amt Medium -Exudate Type Serosanguineous -Wound Margin Flat & Intact -Granulation Amt None Present (0 %) -Granulation Quality N/A -Slough/Fibrin No -Necrosis Amt Small (1-33%) -Necrotic Tissue Type Adherent Slough -Structure Exposed None/Limited to Skin Breakdown -Texture (Priscila-wound Skin Appearance) Assessed -Moisture (Priscila-wound Skin Appearance Maceration ) -Color (Priscila-wound Skin Appearance) Assessed, Mottled -Temperature (Priscila-wound Skin No Abnormality Appearance) (Pt Warm) -Tenderness on Palpation (Priscila-wound No Skin Appearance) -Ulcer Cleansing Rinsed/ Irrigated with Saline -Foul Odor after Cleansing No -Anesthetic Used 4% Lidocaine Solution WC - Nurse 2 - General Ulcer CM Notes Start: 12/16/19 10:06 Freq: Status: Active Protocol: Activity Type Activity Date Activity User E-Sign Co-Sign Detail Recorded Client Recorded Date Recorded By Document 12/16/19 10:16 DV [id number] 12/16/19 10:25 DV 12/16/19 10:16 Wound Center Nurse 2 [Procedure/Treatment] #2 Dorsal Right Grt Toe Cluster -Time 10:21 -Correct Patient Yes -Correct Side, Site, Position Yes -Correct Procedure No -Procedure Performed No -Post Debridement Size (cm) - Length 2.2 -Post Debridement Size (cm) - Width 2.6 -Post Debridement Size (cm) - Depth 0.1 -Total Square Cm 5.72 -Wound/Ulcer Outcome Not Healed -Ulcer Cleansing Rinsed/ Irrigated with Saline -Foul Odor after Cleansing No -Offloading No -Treatment Response Procedure Tolerated Well #1 Left Medial Met Head -Time 10:23 -Correct Patient Yes -Correct Side, Site, Position Yes -Correct Procedure Yes -Procedure Performed Yes -Type of Procedure Debridement -Clinical Debridement Subcutaneous -Post Debridement Size (cm) - Length 1.0 -Post Debridement Size (cm) - Width 2.0 -Post Debridement Size (cm) - Depth 0.3 -Total Square Cm 2.00 -Wound/Ulcer Outcome Not Healed -Ulcer Cleansing Rinsed/ Irrigated with Saline -Foul Odor after Cleansing No -Bioengineered Tissue No -Bleeding Controlled with Pressure -Offloading No -Treatment Response Procedure Tolerated Well [See Physician Procedure note for Specifics] Pain Scale: 0-10 Numeric [Pain] -Is Patient Pain Free? Yes Musculoskeletal: Muscle Wasting - Extremities Neurological: Cranial nerves II-XII grossly intact, Neuro grossly intact Psych/Mental Status: Normal Affect, Appropriate, Alert and oriented to time, place, person, mood and affect Debridement Note Post-Debridement Measurements/Treatment WC - Nurse 2 - General Ulcer CM Notes Start: 12/16/19 10:06 Freq: Status: Active Protocol: Activity Type Activity Date Activity User E-Sign Co-Sign Detail Recorded Client Recorded Date Recorded By Document 12/16/19 10:16 DV [id number] 12/16/19 10:25 DV 12/16/19 10:16 Wound Center Nurse 2 #2 Dorsal Right Grt Toe Cluster -Time 10:21 -Correct Patient Yes -Correct Side, Site, Position Yes -Correct Procedure No -Procedure Performed No -Post Debridement Size (cm) - Length 2.2 -Post Debridement Size (cm) - Width 2.6 -Post Debridement Size (cm) - Depth 0.1 -Total Square Cm 5.72 -Wound/Ulcer Outcome Not Healed -Ulcer Cleansing Rinsed/ Irrigated with Saline -Foul Odor after Cleansing No -Offloading No -Treatment Response Procedure Tolerated Well #1 Left Medial Met Head -Time 10:23 -Correct Patient Yes -Correct Side, Site, Position Yes -Correct Procedure Yes -Procedure Performed Yes -Type of Procedure Debridement -Clinical Debridement Subcutaneous -Post Debridement Size (cm) - Length 1.0 -Post Debridement Size (cm) - Width 2.0 -Post Debridement Size (cm) - Depth 0.3 -Total Square Cm 2.00 -Wound/Ulcer Outcome Not Healed -Ulcer Cleansing Rinsed/ Irrigated with Saline -Foul Odor after Cleansing No -Bioengineered Tissue No -Bleeding Controlled with Pressure -Offloading No -Treatment Response Procedure Tolerated Well Pain Scale: 0-10 Numeric Is Patient Pain Free? Yes Laterality: Left - First metatarsal head Type of Debridement: Excisional debridement Anesthesia Used: 5% Lidocaine Gel Depth: Down to and including healthy tissue, in the subcutaneous layer Percentage of wound debrided: 100 Instrument Used: 5mm curette Tissue Removed: Bioburden and callus tissue Severity: Fat Layer Exposed Amount of bleeding with debridement: Mild Bleeding Controlled with: Compression and gauze Patient tolerated procedure well Assessment/Plan Active Problems (Last Updated 09/18/18 @ 16:24 by Kylie Freeman) Dementia (Chronic) Old age (Chronic) Diabetic ulcer of left foot (Chronic) Type 2 diabetes mellitus (Chronic) Assessment: This is an 84-year-old male who is a resident of [facility] in [place], [place]. He presents with a diabetic foot ulceration on the first metatarsal head of the left foot, Sanches Grade 2. This had been present for approximately 3 months. There appears to be surrounding callus. Infection is not evident. The patient has multiple other pre-existing medical problems, which are detailed above. The patient has had recent laboratory studies on September 29, 2019, the results of which are as follows: White blood count 3.5, hemoglobin 13.8, hematocrit 43.3, platelets 91,000, hemoglobin A1c 8.3, sodium 138, potassium 4.1, chloride 103, BUN 18, creatinine 1.08, glucose 172, total bilirubin 0.80, AST 31, ALT 28, alkaline phosphatase 218, total protein 6.5, serum albumin 3.0. Plan: Optimizing nutritional intake has been recommended. Nutritional supplements are to be continued. Optimization of the patient's glycemic control has also been recommended. Patient's blood sugars typically run about 150. Offloading measures have been discussed in detail. Nursing staff has been advised to assure that foot wear, if worn, is properly fitted. They have also been advised to assess the patient's positioning at all times, to assure that pressure from the patient's bedding and elsewhere is not creating pressure phenomenon on the area of his ulceration. Given the amount of callus surrounding the ulceration overlying the left metatarsal head, there continues to be suspicion of some form of friction or pressure to the area. We continue to recommend offloading measures in this regard. We are to continue the use of collagenase Santyl applied topically on a daily basis. The nursing staff indicates that they are well familiar with the use of this product. Foam will be used in conjunction with the collagenase Santyl with each application. We are to arrange for a noninvasive lower extremity arterial study, to assess the patient's arterial status in the lower extremities. The noninvasive arterial study is to be performed next week, prior to his wound care visit. The patient will follow-up at our wound care facility in 1 week, and serial mechanical debridements are anticipated to continue. We are to use Adaptic and gauze overlying the avulsed right great toe nail, and monitor the progress of healing at this site serially. The patient is not a smoker. Influenza vaccine was not administered today. Patient weighs 157 pounds. He stands 5 feet 10 inches tall. His BMI is 22.5, which is normal.
--- NOTE | 2019-12-23 08:43 | ART_ITS ---
Reason For Study: Ulcer lt plantar Procedure A bilateral lower extremity continuous wave Doppler with analog waveform analysis,segmental pressures,and ankle brachial indexes without exercise. Left Segmental Pressures Left brachial= 133mmHg. Left posterior tibial artery = >254mmHg. Left dorsalis pedis artery = >254mmHg. Left digit = 120 mmHg. The left dorsalis pedis waveforms are triphasic. The left posterior tibial artery waveforms are triphasic. Right Segmental Pressures Right brachial= 137mmHg. Right posterior tibial artery = >254mmHg. Right dorsalis pedis artery = >254mmHg. Right digit = 121 mmHg. The right dorsalis pedis waveforms are triphasic. The right posterior tibial artery waveforms are triphasic. Indices The right ankle brachial index by the dorsalis pedis is NC. The right ankle brachial index by the posterior tibial artery is NC. The right digital-brachial index is 0.88. The left ankle brachial index by the dorsalis pedis is NC. The left ankle brachial index by the posterior tibial artery is NC. The left digital-brachial index is 0.88. Interpretation Summary Triphasic Doppler waveforms are noted at ankle level bilaterally. Pulse-volume recordings appear satisfactory at all levels bilaterally, including low-thigh, calf, ankle, and digital levels. Resting ankle-brachial indices could not be determined due to the non-compressibility of the vasculature. Digital-brachial indices are normal bilaterally. There is evidence of arterial calcification at ankle level bilaterally. There is no evidence of significant arterial occlusive disease in the lower extremities bilaterally. Ordering Physician: Wesley Rachel Referring Physician: Lai Hsieh Chi Performed By: Olesya Hewitt RVT and Student
[2019-12-23 09:44] VITALS: BP 100/63; PULSE 65; RESP 18; TEMP 36.6; BMI 19.8
--- NOTE | 2019-12-23 10:30 | HP.PCM_ITS ---
(1) Dementia Status: Chronic Current Visit: Yes Qualifiers: Alzheimer's disease onset: late-onset Code(s): F03.90 - Unspecified dementia without behavioral disturbance (2) Dysphagia Status: Chronic Current Visit: No Code(s): R13.10 - Dysphagia, unspecified (3) History of TIA (transient ischemic attack) Status: Chronic Current Visit: No Code(s): Z86.73 - Personal history of transient ischemic attack (TIA), and cerebral infarction without residual deficits (4) Old age Status: Chronic Current Visit: Yes Code(s): R54 - Age-related physical debility (5) History of skin cancer Status: Chronic Current Visit: No Code(s): Z85.828 - Personal history of other malignant neoplasm of skin (6) Diabetic ulcer of left foot Status: Chronic Current Visit: Yes Qualifiers: Diabetic foot ulcer location: midfoot Diabetes mellitus type: type 2 Non- pressure ulcer stage: with fat layer exposed Qualified Code(s): E11.621 - Type 2 diabetes mellitus with foot ulcer; L97.422 - Non-pressure chronic ulcer of left heel and midfoot with fat layer exposed Code(s): E11.621 - Type 2 diabetes mellitus with foot ulcer; L97.529 - Non- pressure chronic ulcer of other part of left foot with unspecified severity (7) History of left common carotid artery stent placement Status: Chronic Current Visit: No Code(s): Z98.890 - Other specified postprocedural states; Z95.828 - Presence of other vascular implants and grafts Comment: stenting of the prox Left internal carotid, stenting of the distal left common carotid, and stenting of the left common carotid at its interna/ exeternal carotid. 05/09/12 (8) Aortic root dilatation Status: Chronic Current Visit: No Code(s): I77.810 - Thoracic aortic ectasia (9) Wide-complex tachycardia Status: Acute Current Visit: No Code(s): I47.2 - Ventricular tachycardia (10) Essential hypertension Status: Chronic Current Visit: No Code(s): I10 - Essential (primary) hypertension (11) Cardiac pacemaker Status: Chronic Current Visit: No Code(s): Z95.0 - Presence of cardiac pacemaker Comment: Implanted in April 2010; (12) Abnormal pulmonary function test Status: Chronic Current Visit: No Code(s): R94.2 - Abnormal results of pulmonary function studies (13) Persistent atrial fibrillation Status: Chronic Current Visit: No Code(s): I48.1 - Persistent atrial fibrillation Comment: S/P RFA 11/24/2011 (14) TIA (transient ischemic attack) Status: Chronic Current Visit: No (15) CKD (chronic kidney disease) stage 3, GFR 30-59 ml/min Status: Chronic Current Visit: No (16) 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 Current Visit: No Qualifiers: Code(s): I82.629 - Acute embolism and thrombosis of deep veins of unspecified upper extremity (17) Benign prostate hyperplasia Status: Chronic Current Visit: No Qualifiers: (18) Type 2 diabetes mellitus Status: Chronic Current Visit: Yes Code(s): E11.9 - Type 2 diabetes mellitus without complications (19) Dyslipidemia Status: Chronic Current Visit: No Code(s): E78.5 - Hyperlipidemia, unspecified (20) Gastroesophageal reflux disease Status: Chronic Current Visit: No Qualifiers: Code(s): K21.9 - Gastro-esophageal reflux disease without esophagitis (21) Hypothyroidism Status: Chronic Current Visit: No Qualifiers: Code(s): E03.9 - Hypothyroidism, unspecified (22) S/P IVC filter Status: Chronic Current Visit: No Code(s): Z95.828 - Presence of other vascular implants and grafts (23) Cardiac pacemaker Status: Chronic Current Visit: No Code(s): Z95.0 - Presence of cardiac pacemaker Comment: pacemaker implant april 2010 (24) Tachy-aly syndrome Status: Chronic Current Visit: No Code(s): I49.5 - Sick sinus syndrome Comment: S/P PM (25) Cardiomyopathy Status: Chronic Current Visit: No Code(s): I42.9 - Cardiomyopathy, unspecified Comment: 45% EF in November of 2014, ischemic (26) S/P atrioventricular piper ablation Status: Chronic Current Visit: No Code(s): Z98.890 - Other specified postprocedural states (27) Carotid artery disease Status: Chronic Current Visit: No Code(s): I77.9 - Disorder of arteries and arterioles, unspecified (28) Systolic CHF, chronic Status: Chronic Current Visit: No Code(s): I50.22 - Chronic systolic (congestive) heart failure (29) Pulmonary HTN Status: Chronic Current Visit: No Code(s): I27.2 - Other secondary pulmonary hypertension Comment: PA pressure in November 2014 estimated at 50 (30) Chronic anemia Status: Chronic Current Visit: No Code(s): D64.9 - Anemia, unspecified Comment: unknown etiology History of Present Illness Date of Service: 12/23/19 Chief Complaint: Diabetic foot ulceration, Sanches grade 2, left foot History of Wound: This is an 84-year-old male who is a resident of [facility] in [place], [place]. The patient is known to be diabetic. He has had a diabetic foot ulceration on his left foot since September 01, 2019. It is overlying his first metatarsal head. The patient's ulceration has been largely stagnant, having shown very little progress in terms of healing. Several different treatment regimens have been implemented. The current regimen, as implemented by shelter staff, includes the use of Casie and foam. The patient is ambulatory. However, he rarely wears shoes. Nursing staff denies that pressure phenomenon from footwear is a likely cause. It may well be that positional factors have played a role. The patient tends to favor sleeping on his right side, which may expose the medial aspect of his left foot to pressure from his mattress. He sleeps on a air cushion mattress. The nursing staff has purposely avoided any kind of cushioning to his foot while sleeping, because he is often noted to arise from bed unilaterally and to ambulate at night without assistance. He is a fall risk, and nursing staff at his nursing facility fear that any protective items on his feet might result in falls. There is no known history of thrombophlebitis in the patient's lower extremities, though he does have an IVC filter in place. The patient has no recent history of arterial diagnostic studies of the lower extremities. The patient's appetite is said to be poor. He does receive nutritional supplements at his shelter. Past Medical History Past Medical History: Chronic Problems (Last Updated 09/18/18 @ 16:24 by Kylie Freeman) Dementia (Chronic) Dysphagia (Chronic) History of TIA (transient ischemic attack) (Chronic) Old age (Chronic) History of skin cancer (Chronic) Diabetic ulcer of left foot (Chronic) History of left common carotid artery stent placement (Chronic ~05/09/12) stenting of the prox Left internal carotid, stenting of the distal left common carotid, and stenting of the left common carotid at its interna/exeternal carotid. 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) Benign prostate hyperplasia (Chronic) Type 2 diabetes mellitus (Chronic) Dyslipidemia (Chronic) Gastroesophageal reflux disease (Chronic) Hypothyroidism (Chronic) S/P IVC filter (Chronic) Cardiac pacemaker (Chronic) pacemaker implant april 2010 Tachy-aly syndrome (Chronic) S/P PM Cardiomyopathy (Chronic) 45% EF in November of 2014, ischemic S/P atrioventricular piper ablation (Chronic) Carotid artery disease (Chronic) Systolic CHF, chronic (Chronic) Pulmonary HTN (Chronic) PA pressure in November 2014 estimated at 50 Chronic anemia (Chronic) unknown etiology Surgical History: pacemaker implantation - 2009, - - Patient has a pacemaker. The patient also has an IVC filter. He was also previously undergone an AV node ablation procedure. PATIENT HAS HISTORY OF CRANIOTOMY, for intracranial bleed evacuation, patient sustained fall at that time; internal carotid stent, left, 2011. Allergies/Adverse Reactions: Allergies thiopental [From Pentothal] Allergy (Verified 09/28/18 19:09) Hives morphine Adverse Reaction (Verified 09/28/18 15:22) hallucinations Home Medications: Ambulatory Orders Medication Instructions Recorded Amiodarone HCl [Cordarone] 200 mg PO DAILY@0800 05/07/17 Finasteride [Proscar] 5 mg PO DAILY 12/19/17 Levothyroxine [Synthroid] 88 mcg PO DAILY@0600 12/19/17 Donepezil HCl 10 mg PO QHS 03/01/18 Potassium Chloride [K-Dur] 20 meq PO DAILY 04/24/18 Citalopram [Celexa] 10 mg PO DAILY 09/28/18 Insulin Glargine [Lantus SoloStar 7 units SC PRN PRN 09/28/18 Pen] Acetaminophen [Tylenol Tablet] 650 mg PO Q6H PRN PRN tablet 10/01/18 Albuterol Aerosols [Ventolin 2.5 mg INHALATION Q4H PRN PRN 10/01/18 Aerosols] vial.neb. Amoxicillin/Potassium Clav 1 each PO BID #6 tablet 10/01/18 [Augmentin 875-125 Tablet] Melatonin 3 mg PO QHS PRN PRN tablet 10/01/18 Menthol/Lanolin/Calamine/Znox 1 applic TOPICAL TID tube 10/01/18 [Calmoseptine Ointment] Sitagliptin Phosphate [Januvia] 100 mg PO DAILY 12/14/19 metFORMIN (XR) [Glucophage Xr] 500 mg PO BID 12/14/19 - Family History Sibling Family History: Family History (Last Reviewed 09/24/17 @ 13:55 by Janelle Laguna) Brother CAD (coronary artery disease) Hx of CABG Cancer Father CAD (coronary artery disease) Myocardial infarction Brother Cancer Mother Old age Cancer, Heart Disease - CAD s/ CABG Maternal Family History: Family History (Last Reviewed 09/24/17 @ 13:55 by Janelle Laguna) Brother CAD (coronary artery disease) Hx of CABG Cancer Father CAD (coronary artery disease) Myocardial infarction Brother Cancer Mother Old age Cancer - , unknonw age Paternal Family History: Family History (Last Reviewed 09/24/17 @ 13:55 by aJnelle Laguna) Brother CAD (coronary artery disease) Hx of CABG Cancer Father CAD (coronary artery disease) Myocardial infarction Brother Cancer Mother Old age Cancer - unknown age, Heart Disease Smoking Status: Unknown if ever smoked Tobacco Use: Non-smoker Review of Systems Constitutional: Denies: Chills, Fever, Weight Change Eyes: Denies: Pain, Vision Change HEENT: Denies: Difficulty Hearing, Difficulty Swallowing, Sinus Congestion Cardiovascular: Denies: Chest Pain, Palpitations Respiratory: Denies: Cough, Shortness of Breath Gastrointestinal: Denies: Diarrhea, Nausea, Vomiting Genitourinary: Denies: Dysuria, Hematuria Endocrine: Denies: Heat/ Cold Intolerance, Polydipsia, Polyuria Hematologic/ Lymphatic: Denies: Easy Bruising, Easy Bleeding - Physical Exam Vital Signs Temp Pulse Resp BP 97.8 F 65 18 100/63 12/23/19 09:44 12/23/19 09:44 12/23/19 09:44 12/23/19 09:44 General: Alert, Oriented x3, Cooperative, No apparent distress, Well developed, - - The patient appears thin and frail. He is minimally interactive. HEENT: Atraumatic, PERRLA, EOMI, Normocephalic Oral: Moist Mucosa Neck: No JVD Lungs: Normal air movement Abdomen: Non-Distended Extremities: No clubbing, No cyanosis, No edema, No Calf Tenderness, - - The evulsed toenail bed on the right great toe appears to be healing appropriately. There is no sign of infection or cellulitis. The ulceration overlying the first metatarsal head of the left first digit appears markedly improved. There is less callus, though some small amount of callus persists. The base of the ulceration appears generally pink and healthy in appearance. Dimensions are documented elsewhere. There is no sign of infection or cellulitis. There is a small amount of bioburden. Skin: No rashes Wound Measurements and Assessment WC - Nurse 1 - General Ulcer Measurement Start: 12/16/19 10:06 Freq: Status: Active Protocol: Activity Type Activity Date Activity User E-Sign Co-Sign Detail Recorded Client Recorded Date Recorded By Document 12/23/19 09:44 PL [id number] 12/23/19 09:57 PL 12/23/19 09:44 Wound Center Nurse 1 [Ulcer Assessment] #2 Dorsal Right Grt Toe Cluster -Combined with other wound No -Current Size (cm) - Length 0.3 -Current Size (cm) - Width 1.5 -Current Size (cm) - Depth 0.1 -Total Square Cm 0.45 -Photo Taken No -Epithelialization None Present -Tunneling No -Undermining/Tunneling No -Exudate Amt Small -Exudate Type Serosanguineous -Granulation Amt Medium (34-66%) -Granulation Quality [place] -Slough/Fibrin Yes -Necrosis Amt Small (1-33%) -Texture (Priscila-wound Skin Appearance) No Abnormality -Moisture (Priscila-wound Skin Appearance No Abnormality ) -Color (Priscila-wound Skin Appearance) No Abnormality -Temperature (Priscila-wound Skin No Abnormality Appearance) (Pt Warm) -Ulcer Cleansing Rinsed/ Irrigated with Saline -Foul Odor after Cleansing No -Anesthetic Used 4% Lidocaine Solution #1 Left Medial Met Head -Combined with other wound No -Current Size (cm) - Length 0.8 -Current Size (cm) - Width 1.2 -Current Size (cm) - Depth 0.3 -Total Square Cm 0.96 -Photo Taken No -Epithelialization None Present -Tunneling No -Undermining/Tunneling No -Exudate Amt Medium -Exudate Type Serosanguineous -Granulation Amt Large (67-100%) -Granulation Quality [place],Red -Slough/Fibrin Yes -Necrosis Amt Small (1-33%) -Necrotic Tissue Type Adherent Slough -Texture (Priscila-wound Skin Appearance) No Abnormality -Moisture (Priscila-wound Skin Appearance No Abnormality ) -Color (Priscila-wound Skin Appearance) No Abnormality -Temperature (Priscila-wound Skin No Abnormality Appearance) (Pt Warm) -Ulcer Cleansing Rinsed/ Irrigated with Saline -Foul Odor after Cleansing No -Anesthetic Used 4% Lidocaine Solution WC - Nurse 2 - General Ulcer CM Notes Start: 12/16/19 10:06 Freq: Status: Active Protocol: Activity Type Activity Date Activity User E-Sign Co-Sign Detail Recorded Client Recorded Date Recorded By Document 12/23/19 10:10 DV [id number] 12/23/19 10:13 DV 12/23/19 10:10 Wound Center Nurse 2 [Procedure/Treatment] #2 Dorsal Right Grt Toe Cluster -Time 10:11 -Correct Patient Yes -Correct Side, Site, Position Yes -Correct Procedure No -Procedure Performed No -Post Debridement Size (cm) - Length 0.1 -Post Debridement Size (cm) - Width 0.1 -Post Debridement Size (cm) - Depth 0.1 -Total Square Cm 0.01 -Wound/Ulcer Outcome Not Healed -Ulcer Cleansing Rinsed/ Irrigated with Saline -Foul Odor after Cleansing No -Bioengineered Tissue No -Bleeding Controlled with Pressure -Offloading No -Treatment Response Procedure Tolerated Well #1 Left Medial Met Head -Time 10:11 -Correct Patient Yes -Correct Side, Site, Position Yes -Correct Procedure Yes -Procedure Performed Yes -Type of Procedure Debridement -Clinical Debridement Subcutaneous -Post Debridement Size (cm) - Length 1.0 -Post Debridement Size (cm) - Width 1.1 -Post Debridement Size (cm) - Depth 0.2 -Total Square Cm 1.10 -Wound/Ulcer Outcome Not Healed -Ulcer Cleansing Rinsed/ Irrigated with Saline -Foul Odor after Cleansing No -Bioengineered Tissue No -Bleeding Controlled with Pressure -Offloading No -Treatment Response Procedure Tolerated Well [See Physician Procedure note for Specifics] Pain Scale: 0-10 Numeric [Pain] -Is Patient Pain Free? Yes Musculoskeletal: Muscle Wasting - Extremities Neurological: Cranial nerves II-XII grossly intact Psych/Mental Status: Normal Affect, - - The patient is minimally interactive, but appears comfortable. Debridement Note Post-Debridement Measurements/Treatment WC - Nurse 2 - General Ulcer CM Notes Start: 12/16/19 10:06 Freq: Status: Active Protocol: Activity Type Activity Date Activity User E-Sign Co-Sign Detail Recorded Client Recorded Date Recorded By Document 12/16/19 10:16 DV [id number] 12/16/19 10:25 DV Document 12/23/19 10:10 DV [id number] 12/23/19 10:13 DV 12/16/19 12/23/19 10:16 10:10 Wound Center Nurse 2 #2 Dorsal Right Grt Toe Cluster -Time 10:21 10:11 -Correct Patient Yes Yes -Correct Side, Site, Position Yes Yes -Correct Procedure No No -Procedure Performed No No -Post Debridement Size (cm) - Length 2.2 0.1 -Post Debridement Size (cm) - Width 2.6 0.1 -Post Debridement Size (cm) - Depth 0.1 0.1 -Total Square Cm 5.72 0.01 -Wound/Ulcer Outcome Not Healed Not Healed -Ulcer Cleansing Rinsed/ Rinsed/ Irrigated with Irrigated with Saline Saline -Foul Odor after Cleansing No No -Bioengineered Tissue No -Bleeding Controlled with Pressure -Offloading No No -Treatment Response Procedure Procedure Tolerated Well Tolerated Well #1 Left Medial Met Head -Time 10:23 10:11 -Correct Patient Yes Yes -Correct Side, Site, Position Yes Yes -Correct Procedure Yes Yes -Procedure Performed Yes Yes -Type of Procedure Debridement Debridement -Clinical Debridement Subcutaneous Subcutaneous -Post Debridement Size (cm) - Length 1.0 1.0 -Post Debridement Size (cm) - Width 2.0 1.1 -Post Debridement Size (cm) - Depth 0.3 0.2 -Total Square Cm 2.00 1.10 -Wound/Ulcer Outcome Not Healed Not Healed -Ulcer Cleansing Rinsed/ Rinsed/ Irrigated with Irrigated with Saline Saline -Foul Odor after Cleansing No No -Bioengineered Tissue No No -Bleeding Controlled with Pressure Pressure -Offloading No No -Treatment Response Procedure Procedure Tolerated Well Tolerated Well Pain Scale: 0-10 Numeric Is Patient Pain Free? Yes Yes Laterality: Left - First metatarsal head Type of Debridement: Excisional debridement Anesthesia Used: 5% Lidocaine Gel Depth: Down to and including healthy tissue, in the subcutaneous layer Percentage of wound debrided: 100 Instrument Used: 5mm curette Tissue Removed: Bioburden and callus tissue Severity: Fat Layer Exposed Amount of bleeding with debridement: Mild Bleeding Controlled with: Compression and gauze Patient tolerated procedure well Assessment/Plan Active Problems (Last Updated 09/18/18 @ 16:24 by Kylie Freeman) Dementia (Chronic) Old age (Chronic) Diabetic ulcer of left foot (Chronic) Type 2 diabetes mellitus (Chronic) Assessment: This is an 84-year-old male who is a resident of [facility] in [place], [place]. He presents with a diabetic foot ulceration on the first metatarsal head of the left foot, Sanches Grade 2. This had been present for approximately 3 months. There appears to be surrounding callus. Infection is not evident. The patient has multiple other pre-existing medical problems, which are detailed above. The patient has had recent laboratory parminder dies on September 29, 2019, the results of which are as follows: White blood count 3.5, hemoglobin 13.8, hematocrit 43.3, platelets 91,000, hemoglobin A1c 8.3, sodium 138, potassium 4.1, chloride 103, BUN 18, creatinine 1.08, glucose 172, total bilirubin 0.80, AST 31, ALT 28, alkaline phosphatase 218, total protein 6.5, serum albumin 3.0. Plan: Optimizing nutritional intake has been recommended. Nutritional supplements are to be continued. Optimization of the patient's glycemic control has also been recommended. Patient's blood sugars typically run about 150. Offloading measures have been discussed in detail. Nursing staff has been advised to assure that foot wear, if worn, is properly fitted. They have also been advised to assess the patient's positioning at all times, to assure that pressure from the patient's bedding and elsewhere is not creating pressure phenomenon on the area of his ulceration. Given the amount of callus surrounding the ulceration overlying the left metatarsal head, there continues to be suspicion of some form of friction or pressure to the area. However, the amount of callus tissue surrounding the open ulceration appears to be dim inishing. The nursing staff has implemented the use of moleskin surrounding the left foot ulceration, which appears to have had some benefit. It is to be continued. We continue to recommend offloading measures in this regard. We are to continue the use of collagenase Santyl applied topically on a daily basis. A noninvasive lower extremity arterial study has been performed earlier today, which reveals no evidence of significant arterial occlusive disease. The patient will follow-up at our wound care facility in 1 week, and serial mechanical debridements are anticipated to continue. We are to continue the use of Adaptic and gauze overlying the avulsed right great toe nail, and monitor the progress of healing at this site serially. The patient is not a smoker. Influenza vaccine was not administered today. Patient weighs 157 pounds. He stands 5 feet 10 inches tall. His BMI is 22.5, which is normal.
--- NOTE | 2019-12-26 14:45 | WC ---
Joslyn a nurse from [facility] called to report that this patient had a blood filled callus in the 7-9 position that measured 1.5x1.6 and wanted to know what they should do. I informed Joslyn to keep the area covered with adaptic and if it should break to make sure to wash with soap and water. In speaking with Dr Cortes about the situation she said it was okay to keep applying Santyl to the area and this was relayed to Joslyn as well as if the wound showed signs of infection or the patient was starting to run a fever to seek medical intervention immediately. Patient has an appt with Dr Rachel on Sunday
[2019-12-30 09:51] VITALS: BP 129/77; PULSE 65; RESP 16; TEMP 36.2; BMI 19.8
--- NOTE | 2019-12-30 10:28 | PCM.WC.HP ---
(1) Dementia Status: Chronic Current Visit: Yes Qualifiers: Alzheimer's disease onset: late-onset Code(s): F03.90 - Unspecified dementia without behavioral disturbance (2) Dysphagia Status: Chronic Current Visit: No Code(s): R13.10 - Dysphagia, unspecified (3) History of TIA (transient ischemic attack) Status: Chronic Current Visit: No Code(s): Z86.73 - Personal history of transient ischemic attack (TIA), and cerebral infarction without residual deficits (4) Old age Status: Chronic Current Visit: Yes Code(s): R54 - Age-related physical debility (5) History of skin cancer Status: Chronic Current Visit: No Code(s): Z85.828 - Personal history of other malignant neoplasm of skin (6) Diabetic ulcer of left foot Status: Chronic Current Visit: Yes Qualifiers: Diabetic foot ulcer location: midfoot Diabetes mellitus type: type 2 Non-pressure ulcer stage: with fat layer exposed Qualified Code(s): E11.621 - Type 2 diabetes mellitus with foot ulcer; L97.422 - Non-pressure chronic ulcer of left heel and midfoot with fat layer exposed Code(s): E11.621 - Type 2 diabetes mellitus with foot ulcer; L97.529 - Non-pressure chronic ulcer of other part of left foot with unspecified severity (7) History of left common carotid artery stent placement Status: Chronic Current Visit: No Code(s): Z98.890 - Other specified postprocedural states; Z95.828 - Presence of other vascular implants and grafts Comment: stenting of the prox Left internal carotid, stenting of the distal left common carotid, and stenting of the left common carotid at its interna/exeternal carotid. 05/09/12 (8) Aortic root dilatation Status: Chronic Current Visit: No Code(s): I77.810 - Thoracic aortic ectasia (9) Wide-complex tachycardia Status: Acute Current Visit: No Code(s): I47.2 - Ventricular tachycardia (10) Essential hypertension Status: Chronic Current Visit: No Code(s): I10 - Essential (primary) hypertension (11) Cardiac pacemaker Status: Chronic Current Visit: No Code(s): Z95.0 - Presence of cardiac pacemaker Comment: Implanted in April 2010; (12) Abnormal pulmonary function test Status: Chronic Current Visit: No Code(s): R94.2 - Abnormal results of pulmonary function studies (13) Persistent atrial fibrillation Status: Chronic Current Visit: No Code(s): I48.1 - Persistent atrial fibrillation Comment: S/P RFA 11/24/2011 (14) TIA (transient ischemic attack) Status: Chronic Current Visit: No (15) CKD (chronic kidney disease) stage 3, GFR 30-59 ml/min Status: Chronic Current Visit: No (16) 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 Current Visit: No Qualifiers: Code(s): I82.629 - Acute embolism and thrombosis of deep veins of unspecified upper extremity (17) Benign prostate hyperplasia Status: Chronic Current Visit: No Qualifiers: (18) Type 2 diabetes mellitus Status: Chronic Current Visit: Yes Code(s): E11.9 - Type 2 diabetes mellitus without complications (19) Dyslipidemia Status: Chronic Current Visit: No Code(s): E78.5 - Hyperlipidemia, unspecified (20) Gastroesophageal reflux disease Status: Chronic Current Visit: No Qualifiers: Code(s): K21.9 - Gastro-esophageal reflux disease without esophagitis (21) Hypothyroidism Status: Chronic Current Visit: No Qualifiers: Code(s): E03.9 - Hypothyroidism, unspecified (22) S/P IVC filter Status: Chronic Current Visit: No Code(s): Z95.828 - Presence of other vascular implants and grafts (23) Cardiac pacemaker Status: Chronic Current Visit: No Code(s): Z95.0 - Presence of cardiac pacemaker Comment: pacemaker implant april 2010 (24) Tachy-aly syndrome Status: Chronic Current Visit: No Code(s): I49.5 - Sick sinus syndrome Comment: S/P PM (25) Cardiomyopathy Status: Chronic Current Visit: No Code(s): I42.9 - Cardiomyopathy, unspecified Comment: 45% EF in November of 2014, ischemic (26) S/P atrioventricular piper ablation Status: Chronic Current Visit: No Code(s): Z98.890 - Other specified postprocedural states (27) Carotid artery disease Status: Chronic Current Visit: No Code(s): I77.9 - Disorder of arteries and arterioles, unspecified (28) Systolic CHF, chronic Status: Chronic Current Visit: No Code(s): I50.22 - Chronic systolic (congestive) heart failure (29) Pulmonary HTN Status: Chronic Current Visit: No Code(s): I27.2 - Other secondary pulmonary hypertension Comment: PA pressure in November 2014 estimated at 50 (30) Chronic anemia Status: Chronic Current Visit: No Code(s): D64.9 - Anemia, unspecified Comment: unknown etiology History of Present Illness Date of Service: 12/30/19 Chief Complaint: Diabetic foot ulceration, Sanches grade 2, left foot History of Wound: This is an 84-year-old male who is a resident of [facility] in [place], [place]. The patient is known to be diabetic. He has had a diabetic foot ulceration on his left foot since September 01, 2019. It is overlying his first metatarsal head. The patient's ulceration has been largely stagnant, having shown very little progress in terms of healing. Several different treatment regimens have been implemented. The current regimen, as implemented by shelter staff, includes the use of Casie and foam. The patient is ambulatory. However, he rarely wears shoes. Nursing staff denies that pressure phenomenon from footwear is a likely cause. It may well be that positional factors have played a role. The patient tends to favor sleeping on his right side, which may expose the medial aspect of his left foot to pressure from his mattress. He sleeps on a air cushion mattress. The nursing staff has purposely avoided any kind of cushioning to his foot while sleeping, because he is often noted to arise from bed unilaterally and to ambulate at night without assistance. He is a fall risk, and nursing staff at his nursing facility fear that any protective items on his feet might result in falls. There is no known history of thrombophlebitis in the patient's lower extremities, though he does have an IVC filter in place. The patient has no recent history of arterial diagnostic studies of the lower extremities. The patient's appetite is said to be poor. He does receive nutritional supplements at his shelter. Past Medical History Past Medical History: Chronic Problems (Last Updated 09/18/18 @ 16:24 by Kylie Freeman) Dementia (Chronic) Dysphagia (Chronic) History of TIA (transient ischemic attack) (Chronic) Old age (Chronic) History of skin cancer (Chronic) Diabetic ulcer of left foot (Chronic) History of left common carotid artery stent placement (Chronic ~05/09/12) stenting of the prox Left internal carotid, stenting of the distal left common carotid, and stenting of the left common carotid at its interna/exeternal carotid. 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) Benign prostate hyperplasia (Chronic) Type 2 diabetes mellitus (Chronic) Dyslipidemia (Chronic) Gastroesophageal reflux disease (Chronic) Hypothyroidism (Chronic) S/P IVC filter (Chronic) Cardiac pacemaker (Chronic) pacemaker implant april 2010 Tachy-aly syndrome (Chronic) S/P PM Cardiomyopathy (Chronic) 45% EF in November of 2014, ischemic S/P atrioventricular piper ablation (Chronic) Carotid artery disease (Chronic) Systolic CHF, chronic (Chronic) Pulmonary HTN (Chronic) PA pressure in November 2014 estimated at 50 Chronic anemia (Chronic) unknown etiology Surgical History: pacemaker implantation - 2009, - - Patient has a pacemaker. The patient also has an IVC filter. He was also previously undergone an AV node ablation procedure. PATIENT HAS HISTORY OF CRANIOTOMY, for intracranial bleed evacuation, patient sustained fall at that time; internal carotid stent, left, 2011. Allergies/Adverse Reactions: Allergies thiopental [From Pentothal] Allergy (Verified 09/28/18 19:09) Hives morphine Adverse Reaction (Verified 09/28/18 15:22) hallucinations Home Medications: Ambulatory Orders Medication Instructions Recorded Amiodarone HCl [Cordarone] 200 mg PO DAILY@0800 05/07/17 Finasteride [Proscar] 5 mg PO DAILY 12/19/17 Levothyroxine [Synthroid] 88 mcg PO DAILY@0600 12/19/17 Donepezil HCl 10 mg PO QHS 03/01/18 Potassium Chloride [K-Dur] 20 meq PO DAILY 04/24/18 Citalopram [Celexa] 10 mg PO DAILY 09/28/18 Insulin Glargine [Lantus SoloStar 7 units SC PRN PRN 09/28/18 Pen] Acetaminophen [Tylenol Tablet] 650 mg PO Q6H PRN PRN tablet 10/01/18 Albuterol Aerosols [Ventolin 2.5 mg INHALATION Q4H PRN PRN 10/01/18 Aerosols] vial.neb. Amoxicillin/Potassium Clav 1 each PO BID #6 tablet 10/01/18 [Augmentin 875-125 Tablet] Melatonin 3 mg PO QHS PRN PRN tablet 10/01/18 Menthol/Lanolin/Calamine/Znox 1 applic TOPICAL TID tube 10/01/18 [Calmoseptine Ointment] Sitagliptin Phosphate [Januvia] 100 mg PO DAILY 12/14/19 metFORMIN (XR) [Glucophage Xr] 500 mg PO BID 12/14/19 - Family History Sibling Family History: Family History (Last Reviewed 09/24/17 @ 13:55 by Janelle Laguna) Brother CAD (coronary artery disease) Hx of CABG Cancer Father CAD (coronary artery disease) Myocardial infarction Brother Cancer Mother Old age Cancer, Heart Disease - CAD s/ CABG Maternal Family History: Family History (Last Reviewed 09/24/17 @ 13:55 by Janelle Laguna) Brother CAD (coronary artery disease) Hx of CABG Cancer Father CAD (coronary artery disease) Myocardial infarction Brother Cancer Mother Old age Cancer - , unknonw age Paternal Family History: Family History (Last Reviewed 09/24/17 @ 13:55 by Janelle Laguna) Brother CAD (coronary artery disease) Hx of CABG Cancer Father CAD (coronary artery disease) Myocardial infarction Brother Cancer Mother Old age Cancer - unknown age, Heart Disease Smoking Status: Unknown if ever smoked Tobacco Use: Non-smoker Review of Systems Constitutional: Denies: Chills, Fever, Weight Change Eyes: Denies: Pain, Vision Change HEENT: Denies: Difficulty Hearing, Difficulty Swallowing, Sinus Congestion Cardiovascular: Denies: Chest Pain, Palpitations Respiratory: Denies: Cough, Shortness of Breath Gastrointestinal: Denies: Diarrhea, Nausea, Vomiting Genitourinary: Denies: Dysuria, Hematuria Endocrine: Denies: Heat/ Cold Intolerance, Polydipsia, Polyuria Hematologic/ Lymphatic: Denies: Easy Bruising, Easy Bleeding - Physical Exam Vital Signs Temp Pulse Resp BP 97.2 F L 65 16 129/77 H 12/30/19 09:51 12/30/19 09:51 12/30/19 09:51 12/30/19 09:51 General: Alert, Oriented x3, Cooperative, No apparent distress, Well developed, Well nourished HEENT: Atraumatic, PERRLA, EOMI, Normocephalic Oral: Moist Mucosa Neck: No JVD Lungs: Normal air movement Abdomen: Non-Distended Extremities: No clubbing, No cyanosis, No edema, No Calf Tenderness, - - The right great toe nailbed continues to heal appropriately. There is no sign of infection or cellulitis. There appear to be no issues at this site. The ulceration on the medial aspect of the left first metatarsal head has increased in size. There continues to be evidence of callus surrounding the ulceration. There has been extension of this ulceration slightly more proximally, suspected to be due to trauma such as pressure or friction. There is no sign of infection or cellulitis. Ulcer dimensions are documented elsewhere. There is a moderate amount of bioburden, and surrounding callus. Skin: No rashes Wound Measurements and Assessment WC - Nurse 1 - General Ulcer Measurement Start: 12/16/19 10:06 Freq: Status: Active Protocol: Activity Type Activity Date Activity User E-Sign Co-Sign Detail Recorded Client Recorded Date Recorded By Document 12/30/19 09:51 [facility] [id number] 12/30/19 10:00 [facility] 12/30/19 09:51 Wound Center Nurse 1 [Ulcer Assessment] #2 Dorsal Right Grt Toe Cluster -Combined with other wound No -Current Size (cm) - Length 0.1 -Current Size (cm) - Width 0.1 -Current Size (cm) - Depth 0.1 -Total Square Cm 0.01 -Epithelialization Large 67-100% -Tunneling No -Undermining/Tunneling No -Circular Undermining No #1 Left Medial Met Head -Combined with other wound No -Current Size (cm) - Length 0.9 -Current Size (cm) - Width 1.3 -Current Size (cm) - Depth 0.2 -Total Square Cm 1.17 -Photo Taken No -Epithelialization None Present -Tunneling No -Undermining/Tunneling No -Circular Undermining No -Exudate Amt Small -Exudate Type Serosanguineous -Wound Margin Thickened -Granulation Amt Medium (34-66%) -Granulation Quality Pale,Red -Slough/Fibrin Yes -Necrosis Amt Small (1-33%) -Necrotic Tissue Type Adherent Slough -Texture (Priscila-wound Skin Appearance) Assessed, Scarring -Moisture (Priscila-wound Skin Appearance Assessed ) -Color (Priscila-wound Skin Appearance) Assessed, Erythema -Temperature (Priscila-wound Skin No Abnormality Appearance) (Pt Warm) -Tenderness on Palpation (Priscila-wound Yes Skin Appearance) -Ulcer Cleansing Rinsed/ Irrigated with Saline -Foul Odor after Cleansing No -Anesthetic Used 4% Lidocaine Solution WC - Nurse 2 - General Ulcer CM Notes Start: 12/16/19 10:06 Freq: Status: Active Protocol: Activity Type Activity Date Activity User E-Sign Co-Sign Detail Recorded Client Recorded Date Recorded By Document 12/30/19 10:18 DV [id number] 12/30/19 10:23 DV 12/30/19 10:18 Wound Center Nurse 2 [Procedure/Treatment] #2 Dorsal Right Grt Toe Cluster -Time 10:20 -Correct Patient Yes -Correct Side, Site, Position Yes -Correct Procedure No -Procedure Performed No -Post Debridement Size (cm) - Length 0.1 -Post Debridement Size (cm) - Width 0.1 -Post Debridement Size (cm) - Depth 0.1 -Total Square Cm 0.01 -Wound/Ulcer Outcome Not Healed #1 Left Medial Met Head -Time 10:21 -Correct Patient Yes -Correct Side, Site, Position Yes -Correct Procedure Yes -Procedure Performed Yes -Type of Procedure Debridement -Clinical Debridement Subcutaneous -Post Debridement Size (cm) - Length 2.0 -Post Debridement Size (cm) - Width 2.0 -Post Debridement Size (cm) - Depth 0.2 -Total Square Cm 4.00 -Wound/Ulcer Outcome Not Healed -Ulcer Cleansing Rinsed/ Irrigated with Saline -Foul Odor after Cleansing No -Bioengineered Tissue No -Bleeding Controlled with Pressure -Offloading No -Treatment Response Procedure Tolerated Well [See Physician Procedure note for Specifics] Pain Scale: 0-10 Numeric [Pain] -Is Patient Pain Free? Yes Musculoskeletal: Muscle Wasting - Extremities, upper and lower. Neurological: Cranial nerves II-XII grossly intact, Neuro grossly intact Psych/Mental Status: - - The patient is awake and arousable. However, he does not interact verbally. Debridement Note Post-Debridement Measurements/Treatment AMY - Nurse 2 - General Ulcer CM Notes Start: 12/16/19 10:06 Freq: Status: Active Protocol: Activity Type Activity Date Activity User E-Sign Co-Sign Detail Recorded Client Recorded Date Recorded By Document 12/16/19 10:16 DV [id number] 12/16/19 10:25 DV Document 12/23/19 10:10 DV [id number] 12/23/19 10:13 DV Document 12/30/19 10:18 DV [id number] 12/30/19 10:23 DV 12/16/19 12/23/19 12/30/19 10:16 10:10 10:18 Wound Center Nurse 2 #2 Dorsal Right Grt Toe Cluster -Time 10:21 10:11 10:20 -Correct Patient Yes Yes Yes -Correct Side, Site, Position Yes Yes Yes -Correct Procedure No No No -Procedure Performed No No No -Post Debridement Size (cm) - Length 2.2 0.1 0.1 -Post Debridement Size (cm) - Width 2.6 0.1 0.1 -Post Debridement Size (cm) - Depth 0.1 0.1 0.1 -Total Square Cm 5.72 0.01 0.01 -Wound/Ulcer Outcome Not Healed Not Healed Not Healed -Ulcer Cleansing Rinsed/ Rinsed/ Irrigated with Irrigated with Saline Saline -Foul Odor after Cleansing No No -Bioengineered Tissue No -Bleeding Controlled with Pressure -Offloading No No -Treatment Response Procedure Procedure Tolerated Well Tolerated Well #1 Left Medial Met Head -Time 10:23 10:11 10:21 -Correct Patient Yes Yes Yes -Correct Side, Site, Position Yes Yes Yes -Correct Procedure Yes Yes Yes -Procedure Performed Yes Yes Yes -Type of Procedure Debridement Debridement Debridement -Clinical Debridement Subcutaneous Subcutaneous Subcutaneous -Post Debridement Size (cm) - Length 1.0 1.0 2.0 -Post Debridement Size (cm) - Width 2.0 1.1 2.0 -Post Debridement Size (cm) - Depth 0.3 0.2 0.2 -Total Square Cm 2.00 1.10 4.00 -Wound/Ulcer Outcome Not Healed Not Healed Not Healed -Ulcer Cleansing Rinsed/ Rinsed/ Rinsed/ Irrigated with Irrigated with Irrigated with Saline Saline Saline -Foul Odor after Cleansing No No No -Bioengineered Tissue No No No -Bleeding Controlled with Pressure Pressure Pressure -Offloading No No No -Treatment Response Procedure Procedure Procedure Tolerated Well Tolerated Well Tolerated Well Pain Scale: 0-10 Numeric Is Patient Pain Free? Yes Yes Yes Wound debrided: Sanches grade 2 diabetic foot ulceration Laterality: Left - Medial first metatarsal head Type of Debridement: Excisional debridement Anesthesia Used: 5% Lidocaine Gel Depth: Down to and including healthy tissue, in the subcutaneous layer Percentage of wound debrided: 100 Instrument Used: 5mm curette, Forceps, - - Scissors Tissue Removed: Bioburden and callus; nonviable tissue Severity: Fat Layer Exposed Amount of bleeding with debridement: Mild Bleeding Controlled with: Compression and gauze Patient tolerated procedure well Assessment/Plan Active Problems (Last Updated 09/18/18 @ 16:24 by Kylie Freeman) Dementia (Chronic) Old age (Chronic) Diabetic ulcer of left foot (Chronic) Type 2 diabetes mellitus (Chronic) Assessment: This is an 84-year-old male who is a resident of [facility] in [place], [place]. He presents with a diabetic foot ulceration on the first metatarsal head of the left foot, Sanches Grade 2. This had been present for approximately 3 months. There appears to be surrounding callus. Infection is not evident. The patient has multiple other pre-existing medical problems, which are detailed above. The patient has had recent laboratory studies on September 29, 2019, the results of which are as follows: White blood count 3.5, hemoglobin 13.8, hematocrit 43.3, platelets 91,000, hemoglobin A1c 8.3, sodium 138, potassium 4.1, chloride 103, BUN 18, creatinine 1.08, glucose 172, total bilirubin 0.80, AST 31, ALT 28, alkaline phosphatase 218, total protein 6.5, serum albumin 3.0. A noninvasive lower extremity arterial study, performed on 12/23/2019, reveals no evidence of significant arterial occlusive disease in the patient's lower extremities. Plan: Optimizing nutritional intake has been recommended. Nutritional supplements are to be continued. Optimization of the patient's glycemic control has also been recommended. Patient's blood sugars typically run about 150. Offloading measures have been discussed in detail. Nursing staff has been advised to assure that foot wear, if worn, is properly fitted. They have also been advised to assess the patient's positioning at all times, to assure that pressure from the patient's bedding and elsewhere is not creating pressure phenomenon on the area of his ulceration. Given the amount of callus surrounding the ulceration overlying the left metatarsal head, there continues to be suspicion of some form of friction or pressure to the area. However, the amount of callus tissue surrounding the open ulceration appears to be diminishing, in part, due to serial debridements. The nursing staff has implemented the use of moleskin surrounding the left foot ulceration, which appears to have had some benefit. It is to be continued. We continue to recommend offloading measures in this regard. We are to continue the use of collagenase Santyl applied topically on a daily basis, to the original ulceration and the nearby, adjacent ulceration which has developed recently. A noninvasive lower extremity arterial study has been performed, which reveals no evidence of significant arterial occlusive disease. The patient will follow-up at our wound care facility in 1 week, and serial mechanical debridements are anticipated to continue. We are to continue the use of Adaptic and gauze overlying the avulsed right great toe nail, and monitor the progress of healing at this site serially. The patient is not a smoker. Influenza vaccine was not administered today. Patient weighs 157 pounds. He stands 5 feet 10 inches tall. His BMI is 22.5, which is normal.
== END 2020-01-09 23:59 ==
LOC: WC 10:00
PROVIDERS: PCP Family Medicine Geriatric Medicine; Referring Provider Surgery; Visit Provider Surgery
DX: E11.621 Type 2 diabetes mellitus with foot ulcer (principal); L97.522 Non-pressure chronic ulcer of other part of left foot with fat layer exposed; E11.22 Type 2 diabetes mellitus with diabetic chronic kidney disease; E03.9 Hypothyroidism, unspecified; E78.5 Hyperlipidemia, unspecified; F03.90 Unspecified dementia, unspecified severity, without behavioral disturbance, psychotic disturbance, mood disturbance, and anxiety; I13.0 Hypertensive heart and chronic kidney disease with heart failure and stage 1 through stage 4 chronic kidney disease, or unspecified chronic kidney disease; I27.20 Pulmonary hypertension, unspecified; I42.9 Cardiomyopathy, unspecified; K21.9 Gastro-esophageal reflux disease without esophagitis; N18.3 Chronic kidney disease, stage 3 (moderate); Z82.49 Family history of ischemic heart disease and other diseases of the circulatory system; Z79.4 Long term (current) use of insulin; Z85.828 Personal history of other malignant neoplasm of skin; Z86.718 Personal history of other venous thrombosis and embolism; Z86.73 Personal history of transient ischemic attack (TIA), and cerebral infarction without residual deficits; Z95.0 Presence of cardiac pacemaker
CPT/HCPCS: 11042; 93923

== ENCOUNTER → 2020-02-02 04:00 | Outpatient (REF) | payer MEDICARE, OTHER, SELFPAY ==
[2020-02-03 12:51] VITALS: BMI 19.8
== END ==
LOC: OLS.ACH 04:00
PROVIDERS: PCP Family Medicine Geriatric Medicine; Visit Provider Family Medicine
DX: E03.9 Hypothyroidism, unspecified (principal)
CPT/HCPCS: 36415; 84443

== ENCOUNTER 2020-02-03 13:00 | Outpatient (RCR) | payer MEDICARE, OTHER, MEDICAID, SELFPAY ==
[2020-02-03 12:51] VITALS: BP 94/57; PULSE 65; RESP 16; TEMP 36.3; BMI 19.8
--- NOTE | 2020-02-03 13:08 | PCM.WC.HP ---
(1) Dementia Status: Chronic Current Visit: No Code(s): F03.90 - Unspecified dementia without behavioral disturbance (2) Aspiration pneumonia Status: Inactive Current Visit: No Code(s): J69.0 - Pneumonitis due to inhalation of food and vomit (3) Dysphagia Status: Chronic Current Visit: No Code(s): R13.10 - Dysphagia, unspecified (4) Acute metabolic encephalopathy Status: Inactive Current Visit: No Code(s): G93.41 - Metabolic encephalopathy (5) History of TIA (transient ischemic attack) Status: Chronic Current Visit: No Code(s): Z86.73 - Personal history of transient ischemic attack (TIA), and cerebral infarction without residual deficits (6) Old age Status: Chronic Current Visit: Yes Code(s): R54 - Age-related physical debility (7) History of skin cancer Status: Chronic Current Visit: No Code(s): Z85.828 - Personal history of other malignant neoplasm of skin (8) Diabetic ulcer of left foot Status: Chronic Current Visit: Yes Code(s): E11.621 - Type 2 diabetes mellitus with foot ulcer; L97.529 - Non-pressure chronic ulcer of other part of left foot with unspecified severity (9) History of left common carotid artery stent placement Status: Chronic Current Visit: No Code(s): Z98.890 - Other specified postprocedural states; Z95.828 - Presence of other vascular implants and grafts Comment: stenting of the prox Left internal carotid, stenting of the distal left common carotid, and stenting of the left common carotid at its interna/exeternal carotid. 05/09/12 (10) Aortic root dilatation Status: Chronic Current Visit: No Code(s): I77.810 - Thoracic aortic ectasia (11) Wide-complex tachycardia Status: Chronic Current Visit: No Code(s): I47.2 - Ventricular tachycardia (12) Essential hypertension Status: Chronic Current Visit: No Code(s): I10 - Essential (primary) hypertension (13) Cardiac pacemaker Status: Chronic Current Visit: No Code(s): Z95.0 - Presence of cardiac pacemaker Comment: Implanted in April 2010; (14) Abnormal pulmonary function test Status: Chronic Current Visit: No Code(s): R94.2 - Abnormal results of pulmonary function studies (15) Persistent atrial fibrillation Status: Chronic Current Visit: No Code(s): I48.1 - Persistent atrial fibrillation Comment: S/P RFA 11/24/2011 (16) TIA (transient ischemic attack) Status: Chronic Current Visit: No (17) CKD (chronic kidney disease) stage 3, GFR 30-59 ml/min Status: Chronic Current Visit: No (18) 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: Inactive Current Visit: No Qualifiers: Code(s): I82.629 - Acute embolism and thrombosis of deep veins of unspecified upper extremity (19) Benign prostate hyperplasia Status: Chronic Current Visit: No Qualifiers: (20) Type 2 diabetes mellitus Status: Chronic Current Visit: Yes Code(s): E11.9 - Type 2 diabetes mellitus without complications (21) Dyslipidemia Status: Chronic Current Visit: No Code(s): E78.5 - Hyperlipidemia, unspecified (22) Gastroesophageal reflux disease Status: Chronic Current Visit: No Qualifiers: Code(s): K21.9 - Gastro-esophageal reflux disease without esophagitis (23) Hypothyroidism Status: Chronic Current Visit: No Qualifiers: Code(s): E03.9 - Hypothyroidism, unspecified (24) S/P IVC filter Status: Chronic Current Visit: No Code(s): Z95.828 - Presence of other vascular implants and grafts (25) Cardiac pacemaker Status: Chronic Current Visit: No Code(s): Z95.0 - Presence of cardiac pacemaker Comment: pacemaker implant april 2010 (26) Tachy-aly syndrome Status: Chronic Current Visit: No Code(s): I49.5 - Sick sinus syndrome Comment: S/P PM (27) Cardiomyopathy Status: Chronic Current Visit: No Code(s): I42.9 - Cardiomyopathy, unspecified Comment: 45% EF in November of 2014, ischemic (28) S/P atrioventricular piper ablation Status: Chronic Current Visit: No Code(s): Z98.890 - Other specified postprocedural states (29) Carotid artery disease Status: Chronic Current Visit: No Code(s): I77.9 - Disorder of arteries and arterioles, unspecified (30) Systolic CHF, chronic Status: Chronic Current Visit: No Code(s): I50.22 - Chronic systolic (congestive) heart failure (31) Pulmonary HTN Status: Chronic Current Visit: No Code(s): I27.2 - Other secondary pulmonary hypertension Comment: PA pressure in November 2014 estimated at 50 (32) Chronic anemia Status: Chronic Current Visit: No Code(s): D64.9 - Anemia, unspecified Comment: unknown etiology History of Present Illness Date of Service: 02/03/20 Chief Complaint: Diabetic foot ulceration, Sanches grade 2, left foot History of Wound: This is an 84-year-old male who is a resident of [facility] in [place], [place]. The patient is known to be diabetic. He has had a diabetic foot ulceration on his left foot since September 01, 2019. It is overlying his first metatarsal head. The patient's ulceration has been largely stagnant, having shown very little progress in terms of healing. Several different treatment regimens have been implemented. The regimen, as implemented by [facility]ent[facility] staff, includeed the use of Casie and foam. The patient is ambulatory. However, he rarely wears shoes. Nursing staff denies that pressure phenomenon from footwear is a likely cause. It may well be that positional factors have played a role. The patient tends to favor sleeping on his right side, which may expose the medial aspect of his left foot to pressure from his mattress. He sleeps on a air cushion mattress. The nursing staff has purposely avoided any kind of cushioning to his foot while sleeping, because he is often noted to arise from bed unilaterally and to ambulate at night without assistance. He is a fall risk, and nursing staff at his nursing facility fear that any protective items on his feet might result in falls. There is no known history of thrombophlebitis in the patient's lower extremities, though he does have an IVC filter in place. The patient has no recent history of arterial diagnostic studies of the lower extremities. The patient's appetite is said to be poor. He does receive nutritional supplements at his penit[facility]iary. Past Medical History Past Medical History: Chronic Problems (Last Updated 09/18/18 @ 16:24 by Kylie Freeman) Dementia (Chronic) Dysphagia (Chronic) History of TIA (transient ischemic attack) (Chronic) Old age (Chronic) History of skin cancer (Chronic) Diabetic ulcer of left foot (Chronic) History of left common carotid artery stent placement (Chronic ~05/09/12) stenting of the prox Left internal carotid, stenting of the distal left common carotid, and stenting of the left common carotid at its interna/exeternal carotid. 05/09/12 Aortic root dilatation (Chronic) Wide-complex tachycardia (Chronic) Essential hypertension (Chronic) Cardiac pacemaker (Chronic) Implanted in April 2010; Abnormal pulmonary function test (Chronic) Persistent atrial fibrillation (Chronic) S/P RFA 11/24/2011 TIA (transient ischemic attack) (Chronic) CKD (chronic kidney disease) stage 3, GFR 30-59 ml/min (Chronic) Benign prostate hyperplasia (Chronic) Type 2 diabetes mellitus (Chronic) Dyslipidemia (Chronic) Gastroesophageal reflux disease (Chronic) Hypothyroidism (Chronic) S/P IVC filter (Chronic) Cardiac pacemaker (Chronic) pacemaker implant april 2010 Tachy-aly syndrome (Chronic) S/P PM Cardiomyopathy (Chronic) 45% EF in November of 2014, ischemic S/P atrioventricular piper ablation (Chronic) Carotid artery disease (Chronic) Systolic CHF, chronic (Chronic) Pulmonary HTN (Chronic) PA pressure in November 2014 estimated at 50 Chronic anemia (Chronic) unknown etiology Surgical History: pacemaker implantation - 2009, - - Patient has a pacemaker. The patient also has an IVC filter. He was also previously undergone an AV node ablation procedure. PATIENT HAS HISTORY OF CRANIOTOMY, for intracranial bleed evacuation, patient sustained fall at that time; internal carotid stent, left, 2011. Allergies/Adverse Reactions: Allergies thiopental [From Pentothal] Allergy (Verified 09/28/18 19:09) Hives morphine Adverse Reaction (Verified 09/28/18 15:22) hallucinations Home Medications: Ambulatory Orders Medication Instructions Recorded Amiodarone HCl [Cordarone] 200 mg PO DAILY@0800 05/07/17 Finasteride [Proscar] 5 mg PO DAILY 12/19/17 Levothyroxine [Synthroid] 88 mcg PO DAILY@0600 12/19/17 Donepezil HCl 10 mg PO QHS 03/01/18 Potassium Chloride [K-Dur] 20 meq PO DAILY 04/24/18 Citalopram [Celexa] 10 mg PO DAILY 09/28/18 Insulin Glargine [Lantus SoloStar 7 units SC PRN PRN 09/28/18 Pen] Acetaminophen [Tylenol Tablet] 650 mg PO Q6H PRN PRN tablet 10/01/18 Albuterol Aerosols [Ventolin 2.5 mg INHALATION Q4H PRN PRN 10/01/18 Aerosols] vial.neb. Amoxicillin/Potassium Clav 1 each PO BID #6 tablet 10/01/18 [Augmentin 875-125 Tablet] Melatonin 3 mg PO QHS PRN PRN tablet 10/01/18 Menthol/Lanolin/Calamine/Znox 1 applic TOPICAL TID tube 10/01/18 [Calmoseptine Ointment] Sitagliptin Phosphate [Januvia] 100 mg PO DAILY 12/14/19 metFORMIN (XR) [Glucophage Xr] 500 mg PO BID 12/14/19 - Family History Sibling Family History: Family History (Last Reviewed 09/24/17 @ 13:55 by Janelle Laguna) Brother CAD (coronary artery disease) Hx of CABG Cancer Father CAD (coronary artery disease) Myocardial infarction Brother Cancer Mother Old age Cancer, Heart Disease - CAD s/ CABG Maternal Family History: Family History (Last Reviewed 09/24/17 @ 13:55 by Janelle Laguna) Brother CAD (coronary artery disease) Hx of CABG Cancer Father CAD (coronary artery disease) Myocardial infarction Brother Cancer Mother Old age Cancer - , unknonw age Paternal Family History: Family History (Last Reviewed 09/24/17 @ 13:55 by Janelle Laguna) Brother CAD (coronary artery disease) Hx of CABG Cancer Father CAD (coronary artery disease) Myocardial infarction Brother Cancer Mother Old age Cancer - unknown age, Heart Disease Smoking Status: Unknown if ever smoked Review of Systems Constitutional: Denies: Chills, Fever, Weight Change Eyes: Denies: Pain, Vision Change HEENT: Denies: Difficulty Hearing, Difficulty Swallowing, Sinus Congestion Cardiovascular: Denies: Chest Pain, Palpitations Respiratory: Denies: Cough, Shortness of Breath Gastrointestinal: Denies: Diarrhea, Nausea, Vomiting Genitourinary: Denies: Dysuria, Hematuria Endocrine: Denies: Heat/ Cold Intolerance, Polydipsia, Polyuria Hematologic/ Lymphatic: Denies: Easy Bruising, Easy Bleeding - Physical Exam Vital Signs Temp Pulse Resp BP 97.4 F L 65 16 94/57 L 02/03/20 12:51 02/03/20 12:51 02/03/20 12:51 02/03/20 12:51 General: Alert, Oriented x3, Cooperative, No apparent distress, Well developed, Well nourished HEENT: Atraumatic, PERRLA, EOMI, Normocephalic Oral: Moist Mucosa Neck: No JVD Lungs: Normal air movement Abdomen: Non-Distended Extremities: No clubbing, No cyanosis, No edema, No Calf Tenderness, - - There is no significant swelling or edema in the patient's lower extremities. The ulceration near the first metatarsal head of the left foot appears to be a [place] grade 2 ulceration. It is smaller in size. It is generally pink and healthy at its base, with a very small amount of callus peripherally. There appears to have been improvement since the patient's last visit. In addition, the right great toe nailbed is unremarkable. The toenail was a avulsed previously, and there is evidence that a new nail is growing to replace it. The nailbed is devoid of infection. There is no open wound at the site, though there is some hemorrhagic change. Skin: No rashes Wound Measurements and Assessment WC - Nurse 1 - General Ulcer Measurement Start: 01/26/20 23:20 Freq: Status: Active Protocol: Activity Type Activity Date Activity User E-Sign Co-Sign Detail Recorded Client Recorded Date Recorded By Document 02/03/20 12:51 [facility] [id number] 02/03/20 12:58 [facility] 02/03/20 12:51 Wound Center Nurse 1 [Ulcer Assessment] #2 Dorsal Right Grt Toe Cluster -Combined with other wound No -Current Size (cm) - Length 0.1 -Current Size (cm) - Width 0.1 -Current Size (cm) - Depth 0.1 -Total Square Cm 0.01 -Photo Taken No -Epithelialization Large 67-100% -Tunneling No -Undermining/Tunneling No -Circular Undermining No -Exudate Amt None Present -Wound Margin Indistinct, Non -Visible -Granulation Amt None Present (0 %) -Slough/Fibrin No -Structure Exposed N/A -Texture (Priscila-wound Skin Appearance) Assessed -Moisture (Priscila-wound Skin Appearance Assessed,Dry/ ) Scaly -Color (Priscila-wound Skin Appearance) Assessed -Temperature (Priscila-wound Skin No Abnormality Appearance) (Pt Warm) -Tenderness on Palpation (Priscila-wound No Skin Appearance) -Ulcer Cleansing Rinsed/ Irrigated with Saline -Foul Odor after Cleansing No #1 Left Medial Met Head -Combined with other wound No -Current Size (cm) - Length 0.7 -Current Size (cm) - Width 1.1 -Current Size (cm) - Depth 0.3 -Total Square Cm 0.77 -Photo Taken No -Epithelialization Small 1-33% -Tunneling No -Undermining/Tunneling No -Circular Undermining No -Exudate Amt Small -Exudate Type Serosanguineous -Wound Margin Flat & Intact -Granulation Amt Large (67-100%) -Granulation Quality [place] -Slough/Fibrin No -Necrosis Amt None Present (0 %) -Structure Exposed N/A -Texture (Priscila-wound Skin Appearance) Assessed,Callus -Moisture (Priscila-wound Skin Appearance Assessed,Dry/ ) Scaly -Color (Priscila-wound Skin Appearance) Assessed -Temperature (Priscila-wound Skin No Abnormality Appearance) (Pt Warm) -Tenderness on Palpation (Priscila-wound No Skin Appearance) -Ulcer Cleansing Rinsed/ Irrigated with Saline -Foul Odor after Cleansing No -Anesthetic Used 4% Lidocaine Solution [Edema Assessment] -Lower Limb Edema Present No Neurological: Cranial nerves II-XII grossly intact, Neuro grossly intact Psych/Mental Status: Normal Affect, Appropriate Debridement Note Laterality: Left - First metatarsal head Type of Debridement: Excisional debridement Anesthesia Used: 5% Lidocaine Gel Depth: Down to and including healthy tissue, in the subcutaneous layer Percentage of wound debrided: 100 Instrument Used: 5mm curette Tissue Removed: Bioburden and callus Severity: Fat Layer Exposed Amount of bleeding with debridement: Mild Bleeding Controlled with: Compression and gauze Patient tolerated procedure well Assessment/Plan Active Problems (Last Updated 09/18/18 @ 16:24 by Kylie Freeman) Old age (Chronic) Diabetic ulcer of left foot (Chronic) Type 2 diabetes mellitus (Chronic) Assessment: This is an 84-year-old male who is a resident of [facility] in [place], [place]. He presented with a diabetic foot ulceration on the first metatarsal head of the left foot, Sanches Grade 2. This had been present for approximately 3 months. There appears to be surrounding callus. Infection is not evident. The patient has multiple other pre-existing medical problems, which are detailed above. The patient has had recent laboratory studies on September 29, 2019, the results of which are as follows: White blood count 3.5, hemoglobin 13.8, hematocrit 43.3, platelets 91,000, hemoglobin A1c 8.3, sodium 138, potassium 4.1, chloride 103, BUN 18, creatinine 1.08, glucose 172, total bilirubin 0.80, AST 31, ALT 28, alkaline phosphatase 218, total protein 6.5, serum albumin 3.0. A noninvasive lower extremity arterial study, performed on 12/23/2019, reveals no evidence of significant arterial occlusive disease in the patient's lower extremities. Plan: Optimizing nutritional intake has been recommended. Nutritional supplements are to be continued. Optimization of the patient's glycemic control has also been recommended. Patient's blood sugars typically run about 150. Offloading measures have been discussed in detail. Nursing staff has been advised to assure that foot wear, if worn, is properly fitted. They have also been advised to assess the patient's positioning at all times, to assure that pressure from the patient's bedding and mattress is not creating pressure phenomenon on the area of his ulceration. Given the amount of callus surrounding the ulceration overlying the left metatarsal head, there continues to be suspicion of some form of friction or pressure to the area. However, the amount of callus tissue surrounding the open ulceration appears to be diminishing, in part, due to serial debridements. The nursing staff has implemented the use of moleskin surrounding the left foot ulceration, which appears to have had some benefit. It is to be continued. We continue to recommend offloading measures in this regard. We are to continue the use of collagenase Santyl applied topically on a daily basis, to the ulceration. A noninvasive lower extremity arterial study has been performed, which reveals no evidence of significant arterial occlusive disease. The patient will follow-up at our wound care facility in 2 weeks, and serial mechanical debridements are anticipated to continue. We are to continue the use of Adaptic and gauze overlying the avulsed right great toe nail, and monitor the progress of healing at this site serially. Additionally, we may consider some kind of wrap to the left lower extremity, with offloading implemented to the area of ulceration. Apparently, the patient's nursing facility has had difficulty in maintaining appropriate footwear, and concerns exist relative to the patient unilaterally rising from his bed at night and wandering about in the dark. We will attempt to collaborate with the nursing facility staff to devise offloading footwear. The patient is not a smoker. Influenza vaccine was not administered today. Patient weighs 157 pounds. He stands 5 feet 10 inches tall. His BMI is 22.5, which is normal.
== END 2020-02-09 23:59 ==
LOC: WC 13:00
PROVIDERS: PCP Family Medicine Geriatric Medicine; Visit Provider Surgery
DX: E11.621 Type 2 diabetes mellitus with foot ulcer (principal); L97.522 Non-pressure chronic ulcer of other part of left foot with fat layer exposed; E03.9 Hypothyroidism, unspecified; E11.22 Type 2 diabetes mellitus with diabetic chronic kidney disease; I13.0 Hypertensive heart and chronic kidney disease with heart failure and stage 1 through stage 4 chronic kidney disease, or unspecified chronic kidney disease; N18.3 Chronic kidney disease, stage 3 (moderate); E78.5 Hyperlipidemia, unspecified; F03.90 Unspecified dementia, unspecified severity, without behavioral disturbance, psychotic disturbance, mood disturbance, and anxiety; I27.20 Pulmonary hypertension, unspecified; K21.9 Gastro-esophageal reflux disease without esophagitis; Z79.4 Long term (current) use of insulin; Z82.49 Family history of ischemic heart disease and other diseases of the circulatory system; Z85.828 Personal history of other malignant neoplasm of skin; Z86.73 Personal history of transient ischemic attack (TIA), and cerebral infarction without residual deficits; Z95.0 Presence of cardiac pacemaker; Z95.828 Presence of other vascular implants and grafts; I49.5 Sick sinus syndrome; I42.9 Cardiomyopathy, unspecified; Z98.890 Other specified postprocedural states
CPT/HCPCS: 11042

== ENCOUNTER → 2020-02-25 07:51 | Outpatient (REF) | payer MEDICARE, OTHER, MEDICAID, SELFPAY ==
[2020-02-17 09:35] VITALS: BMI 19.8
== END ==
LOC: LABSPEC 07:51
PROVIDERS: PCP Family Medicine Geriatric Medicine; Referring Provider Family Medicine; Visit Provider Family Medicine
DX: Z11.59 Encounter for screening for other viral diseases (principal); Z03.818 Encounter for observation for suspected exposure to other biological agents ruled out
CPT/HCPCS: 87635; U0003

== ENCOUNTER 2020-03-02 09:30 | Outpatient (RCR) | payer MEDICARE, OTHER, MEDICAID, SELFPAY ==
[2020-02-10 00:48] VITALS: BP 94/57; PULSE 65; RESP 16; TEMP 36.3
[2020-02-17 09:35] VITALS: BP 96/64; PULSE 64; RESP 16; TEMP 35.8; BMI 19.8
--- NOTE | 2020-02-17 10:21 | HP.PCM_ITS ---
(1) Dementia Status: Chronic Current Visit: No Code(s): F03.90 - Unspecified dementia without behavioral disturbance (2) Aspiration pneumonia Status: Inactive Current Visit: No Code(s): J69.0 - Pneumonitis due to inhalation of food and vomit (3) Dysphagia Status: Chronic Current Visit: No Code(s): R13.10 - Dysphagia, unspecified (4) Acute metabolic encephalopathy Status: Inactive Current Visit: No Code(s): G93.41 - Metabolic encephalopathy (5) History of TIA (transient ischemic attack) Status: Chronic Current Visit: No Code(s): Z86.73 - Personal history of transient ischemic attack (TIA), and cerebral infarction without residual deficits (6) Old age Status: Chronic Current Visit: Yes Code(s): R54 - Age-related physical debility (7) History of skin cancer Status: Chronic Current Visit: No Code(s): Z85.828 - Personal history of other malignant neoplasm of skin (8) Diabetic ulcer of left foot Status: Chronic Current Visit: Yes Qualifiers: Diabetic foot ulcer location: toe Diabetes mellitus type: type 2 Non- pressure ulcer stage: with fat layer exposed Qualified Code(s): E11.621 - Type 2 diabetes mellitus with foot ulcer; L97.522 - Non-pressure chronic ulcer of other part of left foot with fat layer exposed Code(s): E11.621 - Type 2 diabetes mellitus with foot ulcer; L97.529 - Non- pressure chronic ulcer of other part of left foot with unspecified severity (9) History of left common carotid artery stent placement Status: Chronic Current Visit: No Code(s): Z98.890 - Other specified postprocedural states; Z95.828 - Presence of other vascular implants and grafts Comment: stenting of the prox Left internal carotid, stenting of the distal left common carotid, and stenting of the left common carotid at its interna/exeternal carotid. 05/09/12 (10) Aortic root dilatation Status: Chronic Current Visit: No Code(s): I77.810 - Thoracic aortic ectasia (11) Wide-complex tachycardia Status: Chronic Current Visit: No Code(s): I47.2 - Ventricular tachycardia (12) Essential hypertension Status: Chronic Current Visit: No Code(s): I10 - Essential (primary) hypertension (13) Cardiac pacemaker Status: Chronic Current Visit: No Code(s): Z95.0 - Presence of cardiac pacemaker Comment: Implanted in April 2010; (14) Abnormal pulmonary function test Status: Chronic Current Visit: No Code(s): R94.2 - Abnormal results of pulmonary function studies (15) Persistent atrial fibrillation Status: Chronic Current Visit: No Code(s): I48.1 - Persistent atrial fibrillation Comment: S/P RFA 11/24/2011 (16) TIA (transient ischemic attack) Status: Chronic Current Visit: No (17) CKD (chronic kidney disease) stage 3, GFR 30-59 ml/min Status: Chronic Current Visit: No (18) 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: Inactive Current Visit: No Qualifiers: Code(s): I82.629 - Acute embolism and thrombosis of deep veins of unspecified upper extremity (19) Benign prostate hyperplasia Status: Chronic Current Visit: No Qualifiers: (20) Type 2 diabetes mellitus Status: Chronic Current Visit: Yes Code(s): E11.9 - Type 2 diabetes mellitus without complications (21) Dyslipidemia Status: Chronic Current Visit: No Code(s): E78.5 - Hyperlipidemia, unspecified (22) Gastroesophageal reflux disease Status: Chronic Current Visit: No Qualifiers: Code(s): K21.9 - Gastro-esophageal reflux disease without esophagitis (23) Hypothyroidism Status: Chronic Current Visit: No Qualifiers: Code(s): E03.9 - Hypothyroidism, unspecified (24) S/P IVC filter Status: Chronic Current Visit: No Code(s): Z95.828 - Presence of other vascular implants and grafts (25) Cardiac pacemaker Status: Chronic Current Visit: No Code(s): Z95.0 - Presence of cardiac pacemaker Comment: pacemaker implant april 2010 (26) Tachy-aly syndrome Status: Chronic Current Visit: No Code(s): I49.5 - Sick sinus syndrome Comment: S/P PM (27) Cardiomyopathy Status: Chronic Current Visit: No Code(s): I42.9 - Cardiomyopathy, unspecified Comment: 45% EF in November of 2014, ischemic (28) S/P atrioventricular piper ablation Status: Chronic Current Visit: No Code(s): Z98.890 - Other specified postprocedural states (29) Carotid artery disease Status: Chronic Current Visit: No Code(s): I77.9 - Disorder of arteries and arterioles, unspecified (30) Systolic CHF, chronic Status: Chronic Current Visit: No Code(s): I50.22 - Chronic systolic (congestive) heart failure (31) Pulmonary HTN Status: Chronic Current Visit: No Code(s): I27.2 - Other secondary pulmonary hypertension Comment: PA pressure in November 2014 estimated at 50 (32) Chronic anemia Status: Chronic Current Visit: No Code(s): D64.9 - Anemia, unspecified Comment: unknown etiology History of Present Illness Date of Service: 02/17/20 Chief Complaint: Diabetic foot ulceration, Sanches grade 2, left foot History of Wound: This is an 84-year-old male who is a resident of [facility] in [place], [place]. The patient is known to be diabetic. He has had a diabetic foot ulceration on his left foot since September 01, 2019. It is overlying his first metatarsal head. The patient's ulceration has been largely stagnant, having shown very little progress in terms of healing. Several different treatment regimens have been implemented. The regimen, as implemented by [facility] staff, includeed the use of Casie and foam. The patient is ambulatory. However, he rarely wears shoes. Nursing staff denies that pressure phenomenon from footwear is a likely cause. It may well be that positional factors have played a role. The patient tends to favor sleeping on his right side, which may expose the medial aspect of his left foot to pressure from his mattress. He sleeps on a air cushion mattress. The nursing staff has purposely avoided any kind of cushioning to his foot while sleeping, because he is often noted to arise from bed unilaterally and to ambulate at night without assistance. He is a fall risk, and nursing staff at his nursing facility fear that any protective items on his feet might result in falls. There is no known history of thrombophlebitis in the patient's lower extremities, though he does have an IVC filter in place. The patient has no recent history of arterial diagnostic studies of the lower extremities. The patient's appetite is said to be poor. He does receive nutritional supplements at his [facility]. Past Medical History Past Medical History: Chronic Problems (Last Updated 09/18/18 @ 16:24 by Kylie Freeman) Dementia (Chronic) Dysphagia (Chronic) History of TIA (transient ischemic attack) (Chronic) Old age (Chronic) History of skin cancer (Chronic) Diabetic ulcer of left foot (Chronic) History of left common carotid artery stent placement (Chronic ~05/09/12) stenting of the prox Left internal carotid, stenting of the distal left common carotid, and stenting of the left common carotid at its interna/exeternal carotid. 05/09/12 Aortic root dilatation (Chronic) Wide-complex tachycardia (Chronic) Essential hypertension (Chronic) Cardiac pacemaker (Chronic) Implanted in April 2010; Abnormal pulmonary function test (Chronic) Persistent atrial fibrillation (Chronic) S/P RFA 11/24/2011 TIA (transient ischemic attack) (Chronic) CKD (chronic kidney disease) stage 3, GFR 30-59 ml/min (Chronic) Benign prostate hyperplasia (Chronic) Type 2 diabetes mellitus (Chronic) Dyslipidemia (Chronic) Gastroesophageal reflux disease (Chronic) Hypothyroidism (Chronic) S/P IVC filter (Chronic) Cardiac pacemaker (Chronic) pacemaker implant april 2010 Tachy-aly syndrome (Chronic) S/P PM Cardiomyopathy (Chronic) 45% EF in November of 2014, ischemic S/P atrioventricular piper ablation (Chronic) Carotid artery disease (Chronic) Systolic CHF, chronic (Chronic) Pulmonary HTN (Chronic) PA pressure in November 2014 estimated at 50 Chronic anemia (Chronic) unknown etiology Surgical History: pacemaker implantation - 2009, - - Patient has a pacemaker. The patient also has an IVC filter. He was also previously undergone an AV node ablation procedure. PATIENT HAS HISTORY OF CRANIOTOMY, for intracranial bleed evacuation, patient sustained fall at that time; internal carotid stent, left, 2011. Allergies/Adverse Reactions: Allergies thiopental [From Pentothal] Allergy (Verified 09/28/18 19:09) Hives morphine Adverse Reaction (Verified 09/28/18 15:22) hallucinations Home Medications: Ambulatory Orders Medication Instructions Recorded Amiodarone HCl [Cordarone] 200 mg PO DAILY@0800 05/07/17 Finasteride [Proscar] 5 mg PO DAILY 12/19/17 Levothyroxine [Synthroid] 88 mcg PO DAILY@0600 12/19/17 Donepezil HCl 10 mg PO QHS 03/01/18 Potassium Chloride [K-Dur] 20 meq PO DAILY 04/24/18 Citalopram [Celexa] 10 mg PO DAILY 09/28/18 Insulin Glargine [Lantus SoloStar 7 units SC PRN PRN 09/28/18 Pen] Acetaminophen [Tylenol Tablet] 650 mg PO Q6H PRN PRN tablet 10/01/18 Albuterol Aerosols [Ventolin 2.5 mg INHALATION Q4H PRN PRN 10/01/18 Aerosols] vial.neb. Amoxicillin/Potassium Clav 1 each PO BID #6 tablet 10/01/18 [Augmentin 875-125 Tablet] Melatonin 3 mg PO QHS PRN PRN tablet 10/01/18 Menthol/Lanolin/Calamine/Znox 1 applic TOPICAL TID tube 10/01/18 [Calmoseptine Ointment] Sitagliptin Phosphate [Januvia] 100 mg PO DAILY 12/14/19 metFORMIN (XR) [Glucophage Xr] 500 mg PO BID 12/14/19 - Family History Sibling Family History: Family History (Last Reviewed 09/24/17 @ 13:55 by Janelle Laguna) Brother CAD (coronary artery disease) Hx of CABG Cancer Father CAD (coronary artery disease) Myocardial infarction Brother Cancer Mother Old age Cancer, Heart Disease - CAD s/ CABG Maternal Family History: Family History (Last Reviewed 09/24/17 @ 13:55 by Janelle Laguna) Brother CAD (coronary artery disease) Hx of CABG Cancer Father CAD (coronary artery disease) Myocardial infarction Brother Cancer Mother Old age Cancer - , unknonw age Paternal Family History: Family History (Last Reviewed 09/24/17 @ 13:55 by Janelle Laguna) Brother CAD (coronary artery disease) Hx of CABG Cancer Father CAD (coronary artery disease) Myocardial infarction Brother Cancer Mother Old age Cancer - unknown age, Heart Disease Smoking Status: Unknown if ever smoked Review of Systems Constitutional: Denies: Chills, Fever, Weight Change Eyes: Denies: Pain, Vision Change HEENT: Denies: Difficulty Hearing, Difficulty Swallowing, Sinus Congestion Cardiovascular: Denies: Chest Pain, Palpitations Respiratory: Denies: Cough, Shortness of Breath Gastrointestinal: Denies: Diarrhea, Nausea, Vomiting Genitourinary: Denies: Dysuria, Hematuria Endocrine: Denies: Heat/ Cold Intolerance, Polydipsia, Polyuria Hematologic/ Lymphatic: Denies: Easy Bruising, Easy Bleeding - Physical Exam Vital Signs Temp Pulse Resp BP 96.5 F L 64 16 96/64 02/17/20 09:35 02/17/20 09:35 02/17/20 09:35 02/17/20 09:35 General: Alert, Oriented x3, Cooperative, No apparent distress, - - The patient is minimally interactive HEENT: Atraumatic, PERRLA, EOMI, Normocephalic Oral: Moist Mucosa Neck: No JVD Lungs: Normal air movement Abdomen: Non-Distended Extremities: No clubbing, No cyanosis, No edema, No Calf Tenderness, - - No significant swelling or edema are noted in the patient's lower extremities. The right great toe nailbed appears healthy. The avulsed right great toenail is now half regrown. The ulceration overlying the left first metatarsal head is little changed in size or appearance. Dimensions are documented elsewhere. There is no sign of infection or cellulitis. There is a mild amount of bioburden. Only minimal callus remains. Wound Measurements and Assessment WC - Nurse 1 - General Ulcer Measurement Start: 02/17/20 09:35 Freq: Status: Active Protocol: Activity Type Activity Date Activity User E-Sign Co-Sign Detail Recorded Client Recorded Date Recorded By Document 02/17/20 09:35 [facility] [id number] 02/17/20 09:43 [facility] 02/17/20 09:35 Wound Center Nurse 1 [Ulcer Assessment] #1 Left Medial Met Head -Combined with other wound No -Current Size (cm) - Length 0.7 -Current Size (cm) - Width 1 -Current Size (cm) - Depth 0.2 -Total Square Cm 0.7 -Photo Taken No -Epithelialization Small 1-33% -Tunneling No -Undermining/Tunneling No -Circular Undermining No -Exudate Amt None Present -Wound Margin Thickened -Granulation Amt Large (67-100%) -Granulation Quality Pale,[place] -Slough/Fibrin No -Necrosis Amt None Present (0 %) -Texture (Priscila-wound Skin Appearance) Assessed, Scarring -Moisture (Priscila-wound Skin Appearance Assessed ) -Color (Priscila-wound Skin Appearance) Assessed -Temperature (Priscila-wound Skin No Abnormality Appearance) (Pt Warm) -Tenderness on Palpation (Priscila-wound No Skin Appearance) -Ulcer Cleansing Rinsed/ Irrigated with Saline -Foul Odor after Cleansing No -Anesthetic Used 5% Lidocaine Gel Musculoskeletal: Muscle Wasting - Extremities Neurological: Cranial nerves II-XII grossly intact, Neuro grossly intact Psych/Mental Status: Normal Affect, - - The patient is minimally interactive Debridement Note Laterality: Left - First metatarsal head Type of Debridement: Excisional debridement Depth: Down to and including healthy tissue, in the subcutaneous layer Percentage of wound debrided: 100 Instrument Used: 5mm curette Tissue Removed: Bioburden and callus Severity: Fat Layer Exposed Amount of bleeding with debridement: Mild Bleeding Controlled with: Compression and gauze Patient tolerated procedure well Assessment/Plan Active Problems (Last Updated 09/18/18 @ 16:24 by Kylie Freeman) Old age (Chronic) Diabetic ulcer of left foot (Chronic) Type 2 diabetes mellitus (Chronic) Assessment: This is an 84-year-old male who is a resident of [facility] in [place], [place]. He presented with a diabetic foot ulceration on the first metatarsal head of the left foot, Sanches Grade 2. This had been present for approximately 3 months. There appears to be surrounding callus. Infection is not evident. The patient has multiple other pre-existing medical problems, which are detailed above. The patient has had recent laboratory studies on September 29, 2019, the results of which are as follows: White blood count 3.5, hemoglobin 13.8, hematocrit 43.3, platelets 91,000, hemoglobin A1c 8.3, sodium 138, potassium 4.1, chloride 103, BUN 18, creatinine 1.08, glucose 172, total bilirubin 0.80, AST 31, ALT 28, alkaline phosphatase 218, total protein 6.5, serum albumin 3.0. A noninvasive lower extremity arterial study, performed on 12/23/2019, reveals no evidence of significant arterial occlusive disease in the patient's lower extremities. Plan: Optimizing nutritional intake has been recommended. Nutritional supplements are to be continued. Optimization of the patient's glycemic control has also been recommended. Patient's blood sugars typically run about 150. Offloading measures have been discussed in detail. Nursing staff has been advised to assure that foot wear, if worn, is properly fitted. They have also been advised to assess the patient's positioning at all times, to assure that pressure from the patient's bedding and mattress is not creating pressure phenomenon on the area of his ulceration. Given the amount of callus surrounding the ulceration overlying the left metatarsal head, there was suspicion of some form of friction or pressure to the area. However, the amount of callus tissue surrounding the open ulceration appears to be diminishing, in part, due to serial debridements and offloading measures. The nursing staff has implemented the use of moleskin surrounding the left foot ulceration, which appears to have had some benefit. It is to be continued. We continue to recommend offloading measures in this regard. We are to continue the use of collagenase Santyl applied topically on a daily basis, to the ulceration. A noninvasive lower extremity arterial study has been performed, which reveals no evidence of significant arterial occlusive disease. The patient will follow-up at our wound care facility in 2 weeks, and serial mechanical debridements are anticipated to continue. We are to continue the use of Adaptic and gauze overlying the avulsed right great toe nail, and monitor the progress of healing at this site serially. The patient is not a smoker. Influenza vaccine was not administered today. Patient weighs 157 pounds. He stands 5 feet 10 inches tall. His BMI is 22.5, which is normal.
[2020-03-02 09:36] VITALS: BP 133/75; PULSE 64; RESP 16; TEMP 36.6; BMI 19.8
--- NOTE | 2020-03-02 10:31 | HP.PCM_ITS ---
(1) Dementia Status: Chronic Current Visit: No Code(s): F03.90 - Unspecified dementia without behavioral disturbance (2) Dysphagia Status: Chronic Current Visit: No Code(s): R13.10 - Dysphagia, unspecified (3) History of TIA (transient ischemic attack) Status: Chronic Current Visit: No Code(s): Z86.73 - Personal history of transient ischemic attack (TIA), and cerebral infarction without residual deficits (4) Old age Status: Chronic Current Visit: Yes Code(s): R54 - Age-related physical debility (5) History of skin cancer Status: Chronic Current Visit: No Code(s): Z85.828 - Personal history of other malignant neoplasm of skin (6) Diabetic ulcer of left foot Status: Chronic Current Visit: Yes Qualifiers: Diabetic foot ulcer location: toe Diabetes mellitus type: type 2 Non- pressure ulcer stage: with fat layer exposed Qualified Code(s): E11.621 - Type 2 diabetes mellitus with foot ulcer; L97.522 - Non-pressure chronic ulcer of other part of left foot with fat layer exposed Code(s): E11.621 - Type 2 diabetes mellitus with foot ulcer; L97.529 - Non- pressure chronic ulcer of other part of left foot with unspecified severity (7) History of left common carotid artery stent placement Status: Chronic Current Visit: No Code(s): Z98.890 - Other specified postprocedural states; Z95.828 - Presence of other vascular implants and grafts Comment: stenting of the prox Left internal carotid, stenting of the distal left common carotid, and stenting of the left common carotid at its interna/exeternal carotid. 05/09/12 (8) Aortic root dilatation Status: Chronic Current Visit: No Code(s): I77.810 - Thoracic aortic ectasia (9) Wide-complex tachycardia Status: Chronic Current Visit: No Code(s): I47.2 - Ventricular tachycardia (10) Essential hypertension Status: Chronic Current Visit: No Code(s): I10 - Essential (primary) hypertension (11) Cardiac pacemaker Status: Chronic Current Visit: No Code(s): Z95.0 - Presence of cardiac pacemaker Comment: Implanted in April 2010; (12) Abnormal pulmonary function test Status: Chronic Current Visit: No Code(s): R94.2 - Abnormal results of pulmonary function studies (13) Persistent atrial fibrillation Status: Chronic Current Visit: No Code(s): I48.1 - Persistent atrial fibrillation Comment: S/P RFA 11/24/2011 (14) TIA (transient ischemic attack) Status: Chronic Current Visit: No (15) CKD (chronic kidney disease) stage 3, GFR 30-59 ml/min Status: Chronic Current Visit: No (16) Benign prostate hyperplasia Status: Chronic Current Visit: No Qualifiers: (17) Type 2 diabetes mellitus Status: Chronic Current Visit: Yes Code(s): E11.9 - Type 2 diabetes mellitus without complications (18) Dyslipidemia Status: Chronic Current Visit: No Code(s): E78.5 - Hyperlipidemia, unspecified (19) Gastroesophageal reflux disease Status: Chronic Current Visit: No Qualifiers: Code(s): K21.9 - Gastro-esophageal reflux disease without esophagitis (20) Hypothyroidism Status: Chronic Current Visit: No Qualifiers: Code(s): E03.9 - Hypothyroidism, unspecified (21) S/P IVC filter Status: Chronic Current Visit: No Code(s): Z95.828 - Presence of other vascular implants and grafts (22) Cardiac pacemaker Status: Chronic Current Visit: No Code(s): Z95.0 - Presence of cardiac pacemaker Comment: pacemaker implant april 2010 (23) Tachy-aly syndrome Status: Chronic Current Visit: No Code(s): I49.5 - Sick sinus syndrome Comment: S/P PM (24) Cardiomyopathy Status: Chronic Current Visit: No Code(s): I42.9 - Cardiomyopathy, unspecified Comment: 45% EF in November of 2014, ischemic (25) S/P atrioventricular piper ablation Status: Chronic Current Visit: No Code(s): Z98.890 - Other specified postprocedural states (26) Carotid artery disease Status: Chronic Current Visit: No Code(s): I77.9 - Disorder of arteries and arterioles, unspecified (27) Systolic CHF, chronic Status: Chronic Current Visit: No Code(s): I50.22 - Chronic systolic (congestive) heart failure (28) Pulmonary HTN Status: Chronic Current Visit: No Code(s): I27.2 - Other secondary pulmonary hypertension Comment: PA pressure in November 2014 estimated at 50 (29) Chronic anemia Status: Chronic Current Visit: No Code(s): D64.9 - Anemia, unspecified Comment: unknown etiology History of Present Illness Date of Service: 03/02/20 Chief Complaint: Diabetic foot ulceration, Sanches grade 2, left foot History of Wound: This is an 84-year-old male who is a resident of [facility] in [place], [place]. The patient is known to be diabetic. He has had a diabetic foot ulceration on his left foot since September 01, 2019. It is overlying his first metatarsal head. The patient's ulceration has been largely stagnant, having shown very little progress in terms of healing. Several different treatment regimens have been implemented. The regimen, as implemented by prison staff, includeed the use of Casie and foam. The pat ient is ambulatory. However, he rarely wears shoes. Nursing staff denies that pressure phenomenon from footwear is a likely cause. It may well be that positional factors have played a role. The patient tends to favor sleeping on his right side, which may expose the medial aspect of his left foot to pressure from his mattress. He sleeps on a air cushion mattress. The nursing staff has purposely avoided any kind of cushioning to his foot while sleeping, because he is often noted to arise from bed unilaterally and to ambulate at night without assistance. He is a fall risk, and nursing staff at his nursing facility fear that any protective items on his feet might result in falls. There is no known history of thrombophlebitis in the patient's lower extremities, though he does have an IVC filter in place. The patient has no recent history of arterial diagnostic studies of the lower extremities. The patient's appetite is said to be poor. He does receive nutritional supplements at his prison. Past Medical History Past Medical History: Chronic Problems (Last Updated 09/18/18 @ 16:24 by Kylie Freeman) Dementia (Chronic) Dysphagia (Chronic) History of TIA (transient ischemic attack) (Chronic) Old age (Chronic) History of skin cancer (Chronic) Diabetic ulcer of left foot (Chronic) History of left common carotid artery stent placement (Chronic ~05/09/12) stenting of the prox Left internal carotid, stenting of the distal left common carotid, and stenting of the left common carotid at its interna/exeternal carotid. 05/09/12 Aortic root dilatation (Chronic) Wide-complex tachycardia (Chronic) Essential hypertension (Chronic) Cardiac pacemaker (Chronic) Implanted in April 2010; Abnormal pulmonary function test (Chronic) Persistent atrial fibrillation (Chronic) S/P RFA 11/24/2011 TIA (transient ischemic attack) (Chronic) CKD (chronic kidney disease) stage 3, GFR 30-59 ml/min (Chronic) Benign prostate hyperplasia (Chronic) Type 2 diabetes mellitus (Chronic) Dyslipidemia (Chronic) Gastroesophageal reflux disease (Chronic) Hypothyroidism (Chronic) S/P IVC filter (Chronic) Cardiac pacemaker (Chronic) pacemaker implant april 2010 Tachy-aly syndrome (Chronic) S/P PM Cardiomyopathy (Chronic) 45% EF in November of 2014, ischemic S/P atrioventricular piper ablation (Chronic) Carotid artery disease (Chronic) Systolic CHF, chronic (Chronic) Pulmonary HTN (Chronic) PA pressure in November 2014 estimated at 50 Chronic anemia (Chronic) unknown etiology Surgical History: pacemaker implantation - 2009, - - Patient has a pacemaker. The patient also has an IVC filter. He was also previously undergone an AV node ablation procedure. PATIENT HAS HISTORY OF CRANIOTOMY, for intracranial bleed e vacuation, patient sustained fall at that time; internal carotid stent, left, 2011. Allergies/Adverse Reactions: Allergies thiopental [From Pentothal] Allergy (Verified 09/28/18 19:09) Hives morphine Adverse Reaction (Verified 09/28/18 15:22) hallucinations Home Medications: Ambulatory Orders Medication Instructions Recorded Amiodarone HCl [Cordarone] 200 mg PO DAILY@0800 05/07/17 Finasteride [Proscar] 5 mg PO DAILY 12/19/17 Levothyroxine [Synthroid] 88 mcg PO DAILY@0600 12/19/17 Donepezil HCl 10 mg PO QHS 03/01/18 Potassium Chloride [K-Dur] 20 meq PO DAILY 04/24/18 Citalopram [Celexa] 10 mg PO DAILY 09/28/18 Insulin Glargine [Lantus SoloStar 7 units SC PRN PRN 09/28/18 Pen] Acetaminophen [Tylenol Tablet] 650 mg PO Q6H PRN PRN tablet 10/01/18 Albuterol Aerosols [Ventolin 2.5 mg INHALATION Q4H PRN PRN 10/01/18 Aerosols] vial.neb. Amoxicillin/Potassium Clav 1 each PO BID #6 tablet 10/01/18 [Augmentin 875-125 Tablet] Melatonin 3 mg PO QHS PRN PRN tablet 10/01/18 Menthol/Lanolin/Calamine/Znox 1 applic TOPICAL TID tube 10/01/18 [Calmoseptine Ointment] Sitagliptin Phosphate [Januvia] 100 mg PO DAILY 12/14/19 metFORMIN (XR) [Glucophage Xr] 500 mg PO BID 12/14/19 - Family History Sibling Family History: Family History (Last Reviewed 09/24/17 @ 13:55 by Janelle Laguna) Brother CAD (coronary artery disease) Hx of CABG Cancer Father CAD (coronary artery disease) Myocardial infarction Brother Cancer Mother Old age Cancer, Heart Disease - CAD s/ CABG Maternal Family History: Family History (Last Reviewed 09/24/17 @ 13:55 by Janelle Laguna) Brother CAD (coronary artery disease) Hx of CABG Cancer Father CAD (coronary artery disease) Myocardial infarction Brother Cancer Mother Old age Cancer - , unknonw age Paternal Family History: Family History (Last Reviewed 09/24/17 @ 13:55 by Janelle Laguna) Brother CAD (coronary artery disease) Hx of CABG Cancer Father CAD (coronary artery disease) Myocardial infarction Brother Cancer Mother Old age Cancer - unknown age, Heart Disease Smoking Status: Unknown if ever smoked Review of Systems Constitutional: Denies: Chills, Fever, Weight Change Eyes: Denies: Pain, Vision Change HEENT: Denies: Difficulty Hearing, Difficulty Swallowing, Sinus Congestion Cardiovascular: Denies: Chest Pain, Palpitations Respiratory: Denies: Cough, Shortness of Breath Gastrointestinal: Denies: Diarrhea, Nausea, Vomiting Genitourinary: Denies: Dysuria, Hematuria Endocrine: Denies: Heat/ Cold Intolerance, Polydipsia, Polyuria Hematologic/ Lymphatic: Denies: Easy Bruising, Easy Bleeding - Physical Exam Vital Signs Temp Pulse Resp BP 97.8 F 64 16 133/75 H 03/02/20 09:36 03/02/20 09:36 03/02/20 09:36 03/02/20 09:36 General: Alert, Oriented x3, Cooperative, No apparent distress, Well developed, Well nourished HEENT: Atraumatic, PERRLA, EOMI, Normocephalic Oral: Moist Mucosa Neck: No JVD Lungs: Normal air movement Abdomen: Non-Distended Extremities: No clubbing, No cyanosis, No edema, No Calf Tenderness, - - The ulceration overlying the left first metatarsal head persists. It is generally pink and healthy in appearance. There is a small amount of callus peripherally. There is a small amount of bioburden. There is no sign of infection or cellulitis. Skin: No rashes Wound Measurements and Assessment WC - Nurse 1 - General Ulcer Measurement Start: 02/17/20 09:35 Freq: Status: Active Protocol: Activity Type Activity Date Activity User E-Sign Co-Sign Detail Recorded Client Recorded Date Recorded By Document 03/02/20 09:36 DL [id number] 03/02/20 09:48 DL 03/02/20 09:36 Wound Center Nurse 1 [Ulcer Assessment] #1 Left Medial Met Head -Current Size (cm) - Length 0.7 -Current Size (cm) - Width 0.9 -Current Size (cm) - Depth 0.3 -Total Square Cm 0.63 -Photo Taken No -Undermining/Tunneling Starts (O' 7 clock) -Undermining/Tunneling Ends (O'clock) 9 -Maximum Distance (cm) 0.2 -Exudate Amt Small -Exudate Type Serosanguineous -Wound Margin Thickened -Granulation Amt Large (67-100%) -Granulation Quality Red -Necrosis Amt Small (1-33%) -Necrotic Tissue Type Adherent Slough -Structure Exposed N/A -Texture (Priscila-wound Skin Appearance) Callus -Moisture (Priscila-wound Skin Appearance Maceration ) -Color (Priscila-wound Skin Appearance) Hemosiderin Staining -Temperature (Priscila-wound Skin No Abnormality Appearance) (Pt Warm) -Tenderness on Palpation (Priscila-wound No Skin Appearance) -Ulcer Cleansing Rinsed/ Irrigated with Saline -Foul Odor after Cleansing No -Anesthetic Used 4% Lidocaine Solution Musculoskeletal: Muscle Wasting - Extremities Neurological: Cranial nerves II-XII grossly intact, Neuro grossly intact Psych/Mental Status: Normal Affect, Appropriate, Alert and oriented to time, place, person, mood and affect Debridement Note Post-Debridement Measurements/Treatment WC - Nurse 2 - General Ulcer CM Notes Start: 02/17/20 09:35 Freq: Status: Active Protocol: Activity Type Activity Date Activity User E-Sign Co-Sign Detail Recorded Client Recorded Date Recorded By Document 02/17/20 12:29 ANNETTE [id number] 02/17/20 12:31 02/17/20 12:29 Wound Center Nurse 2 #1 Left Medial Met Head -Time 10:16 -Correct Patient Yes -Correct Side, Site, Position Yes -Correct Procedure Yes -Procedure Performed Yes -Type of Procedure Debridement -Clinical Debridement Subcutaneous -Tissue Removed Subcutaneous -Post Debridement (cm) - Length 0.7 -Post Debridement (cm) - Width 1 -Post Debridement (cm) - Depth 0.2 -Total Square (Post) (cm) 0.7 -Area of Debridement (cm) - Length 0.7 -Area of Debridement (cm) - Width 1.0 -Total Square (Area) (cm) 0.70 -Tunneling No -Undermining/Tunneling No -Circular Undermining No -Wound/Ulcer Outcome Not Healed -Ulcer Cleansing Rinsed/ Irrigated with Saline -Foul Odor after Cleansing No -Bioengineered Tissue No -Treatment Response Procedure Tolerated Well -Debridement - Subq, 1st 20sq cm Yes Pain Scale: 0-10 Numeric Is Patient Pain Free? Yes - Nurse 3 - General Ulcer D/C NN Start: 02/17/20 09:35 Freq: Status: Active Protocol: Activity Type Activity Date Activity User E-Sign Co-Sign Detail Recorded Client Recorded Date Recorded By Document 02/17/20 12:29 ANNETTE [id number] 02/17/20 12:31 02/17/20 12:29 Is Patient Pain Free? Yes Wound Care Nurse 3 #1 Left Medial [facility] Head -Ulcer Cleansing Rinsed/ Irrigated with Saline -Foul Odor after Cleansing No -Other Dressing Hydrogel -Primary Dressing Covered/Secured with Dry Gauze & Roll Gauze, Secured with Tape WC - Visit Discharge Discharge Condition Stable Ambulatory Status Wheelchair Clinical Summary of Care Provided Yes Laterality: Left - Foot, overlying first metatarsal head Type of Debridement: Excisional debridement Anesthesia Used: 5% Lidocaine Gel Depth: Down to and including healthy tissue, in the subcutaneous layer Percentage of wound debrided: 100 Instrument Used: 5mm curette Tissue Removed: Bioburden and callus Severity: Limited To Skin Breakdown Amount of bleeding with debridement: Mild Bleeding Controlled with: Compression and gauze Patient tolerated procedure well Assessment/Plan Active Problems (Last Updated 09/18/18 @ 16:24 by Kylie Freeman) Old age (Chronic) Diabetic ulcer of left foot (Chronic) Type 2 diabetes mellitus (Chronic) Assessment: This is an 84-year-old male who is a resident of [facility] in [place], [place]. He presented with a diabetic foot ulceration on the first metatarsal head of the left foot, Sanches Grade 2. This had been present for approximately 3 months. There appears to be surrounding callus. Infection is not evident. The patient has multiple other pre-existing medical problems, which are detailed above. The patient has had recent laboratory studies on September 29, 2019, the results of which are as follows: White blood count 3.5, hemoglobin 13.8, hematocrit 43.3, platelets 91,000, hemoglobin A1c 8.3, sodium 138, potassium 4.1, chloride 103, BUN 18, creatinine 1.08, glucose 172, total bilirubin 0.80, AST 31, ALT 28, alkaline phosphatase 218, total protein 6.5, serum albumin 3.0. A noninvasive lower extremity arterial study, performed on 12/23/2019, reveals no evidence of significant arterial occlusive disease in the patient's lower extremities. Plan: Optimizing nutritional intake has been recommended. Nutritional supplements are to be continued. Optimization of the patient's glycemic control has also been recommended. Patient's blood sugars typically run about 150. Offloading measures have been discussed in detail. Nursing staff has been advised to assure that foot wear, if worn, is properly fitted. They have also been advised to assess the patient's positioning at all times, to assure that pressure from the patient's bedding and mattress is not creating pressure phenomenon on the area of his ulceration. Given the amount of callus surrounding the ulceration overlying the left metatarsal head, there was suspicion of some form of friction or pressure to the area. However, the amount of callus tissue surrounding the open ulceration appears to be diminishing, in part, due to serial debridements and offloading measures. The nursing staff has implemented the use of moleskin surrounding the left foot ulceration, which appears to have had some benefit. It is to be continued. We continue to recommend offloading measures in this regard. We are to continue the use of collagenase Santyl applied topically on a daily basis, to the ulceration. A noninvasive lower extremity arterial study has been performed, which reveals no evidence of significant arterial occlusive disease. The patient will follow-up at our wound care facility in 2 weeks, and serial mechanical debridements are anticipated to continue. We are to continue the use of Adaptic and gauze overlying the avulsed right great toe nail, and monitor the progress of healing at this site serially. The patient is not a smoker. Influenza vaccine was not administered today. Patient weighs 157 pounds. He stands 5 feet 10 inches tall. His BMI is 22.5, which is normal.
== END 2020-03-10 23:59 ==
LOC: WC 09:30
PROVIDERS: PCP Family Medicine Geriatric Medicine; Visit Provider Surgery
DX: E11.621 Type 2 diabetes mellitus with foot ulcer (principal); L97.522 Non-pressure chronic ulcer of other part of left foot with fat layer exposed; F03.90 Unspecified dementia, unspecified severity, without behavioral disturbance, psychotic disturbance, mood disturbance, and anxiety; I48.19 Other persistent atrial fibrillation; I13.0 Hypertensive heart and chronic kidney disease with heart failure and stage 1 through stage 4 chronic kidney disease, or unspecified chronic kidney disease; N18.3 Chronic kidney disease, stage 3 (moderate); N40.0 Benign prostatic hyperplasia without lower urinary tract symptoms; E11.22 Type 2 diabetes mellitus with diabetic chronic kidney disease; K21.9 Gastro-esophageal reflux disease without esophagitis; Z85.828 Personal history of other malignant neoplasm of skin; Z86.73 Personal history of transient ischemic attack (TIA), and cerebral infarction without residual deficits; Z95.0 Presence of cardiac pacemaker; Z86.718 Personal history of other venous thrombosis and embolism; I50.22 Chronic systolic (congestive) heart failure; I27.20 Pulmonary hypertension, unspecified; E78.5 Hyperlipidemia, unspecified; L97.521 Non-pressure chronic ulcer of other part of left foot limited to breakdown of skin
CPT/HCPCS: 11042

== ENCOUNTER → 2020-03-03 05:00 | Outpatient (REF) | payer MEDICARE, OTHER, MEDICAID, SELFPAY ==
[2020-03-02 09:36] VITALS: BMI 19.8
== END ==
LOC: OLS.ACH 05:00
PROVIDERS: PCP Family Medicine Geriatric Medicine; Referring Provider Family Medicine; Visit Provider Family Medicine
DX: Z11.59 Encounter for screening for other viral diseases (principal)
CPT/HCPCS: 87635; U0003

== ENCOUNTER → 2020-03-08 09:53 | Outpatient (REF) | payer MEDICARE, OTHER, MEDICAID, SELFPAY ==
[2020-03-02 09:36] VITALS: BMI 19.8
== END ==
LOC: OLS.ACH 09:53
PROVIDERS: PCP Family Medicine Geriatric Medicine; Visit Provider Family Medicine
DX: Z11.59 Encounter for screening for other viral diseases (principal)
CPT/HCPCS: 87635; U0003

== ENCOUNTER → 2020-03-12 11:38 | Outpatient (REF) | payer MEDICARE, OTHER, MEDICAID, SELFPAY ==
[2020-03-02 09:36] VITALS: BMI 19.8
== END ==
LOC: OLS.ACH 11:38
PROVIDERS: Referring Provider Family Medicine; Visit Provider Family Medicine
DX: Z03.818 Encounter for observation for suspected exposure to other biological agents ruled out (principal)
CPT/HCPCS: 87635; U0003

== ENCOUNTER → 2020-03-15 08:00 | Outpatient (REF) | payer MEDICARE, OTHER, MEDICAID, SELFPAY ==
[2020-03-02 09:36] VITALS: BMI 19.8
== END ==
LOC: OLS.ACH 08:00
PROVIDERS: Referring Provider Family Medicine; Visit Provider Family Medicine
DX: Z03.818 Encounter for observation for suspected exposure to other biological agents ruled out (principal)
CPT/HCPCS: 87635; U0003

== ENCOUNTER → 2020-03-19 14:51 | Outpatient (REF) | payer MEDICARE, OTHER, MEDICAID, SELFPAY ==
[2020-03-02 09:36] VITALS: BMI 19.8
== END ==
LOC: OLS.ACH 14:51
PROVIDERS: Referring Provider Family Medicine; Visit Provider Family Medicine
DX: Z03.818 Encounter for observation for suspected exposure to other biological agents ruled out (principal)
CPT/HCPCS: 87635; U0003

== ENCOUNTER → 2020-03-22 12:34 | Outpatient (REF) | payer MEDICARE, OTHER, MEDICAID, SELFPAY ==
[2020-03-02 09:36] VITALS: BMI 19.8
== END ==
LOC: OLS.ACH 12:34
PROVIDERS: Referring Provider Family Medicine; Visit Provider Family Medicine
DX: Z03.818 Encounter for observation for suspected exposure to other biological agents ruled out (principal)
CPT/HCPCS: 87635; U0003

== ENCOUNTER → 2020-03-26 09:21 | Outpatient (REF) | payer MEDICARE, OTHER, MEDICAID, SELFPAY ==
[2020-03-02 09:36] VITALS: BMI 19.8
== END ==
LOC: OLS.ACH 09:21
PROVIDERS: Family Medicine; Referring Provider Family Medicine; Visit Provider Family Medicine
DX: Z03.818 Encounter for observation for suspected exposure to other biological agents ruled out (principal)
CPT/HCPCS: 87635; U0003

== ENCOUNTER → 2020-03-29 04:00 | Outpatient (REF) | payer MEDICARE, OTHER, MEDICAID, SELFPAY ==
[2020-03-02 09:36] VITALS: BMI 19.8
[2020-03-29 08:39] LABS: Absolute Lymphocyte Count 0.68 X10^3/uL (0.83-4.51); Absolute Neutrophil Count 1.9 X10^3/uL (2.0-7.7); Basophil# 0.02 X10^3/uL; Basophil% 0.6 % (0-1); Eosinophil# 0.07 X10^3/uL; Eosinophils% 2.3 % (0-5); Hematocrit 41.7 % (40-54); Lymphocyte # 0.68 X10^3/ul (4.0); Mean Corp Hgb Conc 31.2 g/dL (32-36); Mean Corpuscular Hgb 31.4 pg (27.0-32.0); Mean Corpuscular Volume 100.7 fL (80-94); Mean Platelet Vol. 12.5 fl (6.2-12.0); Monocyte# 0.42 X10^3/uL; Monocyte% 13.6 % (0-10); NRBC Flagged by Analyzer 0 % (0-5); Neutrophil # 1.89 X10^3/uL (2.7-7.7); Neutrophil % 61.2 % (47-70); POSITIVE COUNT YES; Platelet Count 76 K/mm3 (150-450); RBC Distribution Width CV 13.8 % (11.6-14.6); RBC Distribution Width SD 51.4 fl (35.1-43.9); Red Blood Count 4.14 M/mm3 (4.6-6.2); White Blood Count 3.1 K/mm3 (4.4-11.0)
[2020-03-29 09:13] LABS: ALB/GLOB Ratio 0.9 RATIO (0.9-2.4); AST(SGOT) 28 U/L (15-37); Alanine Aminotransfer ALT/SGPT 25 U/L (16-61); Albumin, Serum 3.1 g/dL (3.2-5.0); Alkaline Phosphatase 223 U/L (45-117); Anion Gap 4 (5-15); BUN 17 mg/dL (7-18); BUN/Creat Ratio 13.6 RATIO (10-20); Calcium,Total 8.8 mg/dL (8.5-10.1); Chloride 105 mmol/L (98-107); Creatinine, Serum 1.25 mg/dL (0.70-1.30); EST Glomerular Filtration Rate 58 mL/min (>60); Est Glom Filt Rate - Afr Amer 71 mL/min (>60); Globulin 3.5 g/dL (2.2-4.2); Glucose 146 mg/dL (74-106); Protein, Total 6.6 g/dL (6.4-8.2); Sodium Level 141 mmol/L (136-145); Thyroid Stim Hormone (TSH) 3.54 uIU/mL (0.358-3.74)
[2020-03-29 09:29] LABS: Hemoglobin A1c 7.6 % (3.8-5.6)
== END ==
LOC: OLS.ACH 04:00
PROVIDERS: Referring Provider Family Medicine; Visit Provider Family Medicine
DX: E11.22 Type 2 diabetes mellitus with diabetic chronic kidney disease (principal); N18.9 Chronic kidney disease, unspecified; I27.20 Pulmonary hypertension, unspecified; E03.9 Hypothyroidism, unspecified
CPT/HCPCS: 36415; 80053; 83036; 84443; 85025

== ENCOUNTER → 2020-03-30 09:22 | Outpatient (REF) | payer MEDICARE, OTHER, MEDICAID, SELFPAY ==
[2020-03-02 09:36] VITALS: BMI 19.8
== END ==
LOC: OLS.ACH 09:22
PROVIDERS: Family Medicine; Referring Provider Family Medicine; Visit Provider Family Medicine
DX: Z03.818 Encounter for observation for suspected exposure to other biological agents ruled out (principal)
CPT/HCPCS: 87635; U0003

== ENCOUNTER → 2020-04-02 10:55 | Outpatient (REF) | payer MEDICARE, OTHER, MEDICAID, SELFPAY | LOC: OLS.ACH 10:55 | PROVIDERS: Referring Provider Family Medicine; Visit Provider Family Medicine | DX: Z03.818 Encounter for observation for suspected exposure to other biological agents ruled out (principal) | CPT/HCPCS: 87635; U0003 ==

== ENCOUNTER → 2020-04-06 | Outpatient (REF) | payer MEDICARE, OTHER, MEDICAID, SELFPAY | LOC: OLS.ACH | PROVIDERS: Referring Provider Family Medicine; Visit Provider Family Medicine | DX: Z03.818 Encounter for observation for suspected exposure to other biological agents ruled out (principal) | CPT/HCPCS: 87635; U0003 ==

== ENCOUNTER → 2020-04-13 07:26 | Outpatient (REF) | payer MEDICARE, OTHER, MEDICAID, SELFPAY | LOC: OLS.ACH 07:26 | PROVIDERS: Referring Provider Family Medicine; Visit Provider Family Medicine | DX: Z03.818 Encounter for observation for suspected exposure to other biological agents ruled out (principal) | CPT/HCPCS: 87635; U0003 ==

== ENCOUNTER → 2020-04-20 12:47 | Outpatient (REF) | payer MEDICARE, OTHER, MEDICAID, SELFPAY | LOC: OLS.ACH 12:47 | PROVIDERS: Visit Provider Family Medicine | DX: Z03.818 Encounter for observation for suspected exposure to other biological agents ruled out (principal) | CPT/HCPCS: 87635; U0003 ==

== ENCOUNTER → 2020-04-27 10:39 | Outpatient (REF) | payer MEDICARE, OTHER, MEDICAID, SELFPAY | LOC: OLS.ACH 10:39 | PROVIDERS: Referring Provider Family Medicine; Visit Provider Family Medicine | DX: Z03.818 Encounter for observation for suspected exposure to other biological agents ruled out (principal) | CPT/HCPCS: 87635; U0003 ==

== ENCOUNTER → 2020-05-11 09:56 | Outpatient (REF) | payer MEDICARE, OTHER, MEDICAID, SELFPAY | LOC: OLS.ACH 09:56 | PROVIDERS: Referring Provider Family Medicine; Visit Provider Family Medicine | DX: Z03.818 Encounter for observation for suspected exposure to other biological agents ruled out (principal) | CPT/HCPCS: 87635; U0003 ==

== ENCOUNTER 2020-05-11 11:15 | Outpatient (RCR) | payer MEDICARE, OTHER, MEDICAID, SELFPAY ==
[2020-03-11 00:38] VITALS: BP 133/75; PULSE 64; RESP 16; TEMP 36.6
--- NOTE | 2020-05-11 12:37 | PCM.WC.HP ---
(1) Dementia Status: Chronic Code(s): F03.90 - Unspecified dementia without behavioral disturbance (2) Aspiration pneumonia Status: Inactive Code(s): J69.0 - Pneumonitis due to inhalation of food and vomit (3) Dysphagia Status: Chronic Code(s): R13.10 - Dysphagia, unspecified (4) Acute metabolic encephalopathy Status: Inactive Code(s): G93.41 - Metabolic encephalopathy (5) History of TIA (transient ischemic attack) Status: Chronic Code(s): Z86.73 - Personal history of transient ischemic attack (TIA), and cerebral infarction without residual deficits (6) Old age Status: Chronic Code(s): R54 - Age-related physical debility (7) History of skin cancer Status: Chronic Code(s): Z85.828 - Personal history of other malignant neoplasm of skin (8) Diabetic ulcer of left foot Status: Chronic Qualifiers: Diabetes mellitus type: type 2 Non-pressure ulcer stage: with fat layer exposed Code(s): E11.621 - Type 2 diabetes mellitus with foot ulcer; L97.529 - Non-pressure chronic ulcer of other part of left foot with unspecified severity (9) History of left common carotid artery stent placement Status: Chronic Code(s): Z98.890 - Other specified postprocedural states; Z95.828 - Presence of other vascular implants and grafts Comment: stenting of the prox Left internal carotid, stenting of the distal left common carotid, and stenting of the left common carotid at its interna/exeternal carotid. 05/09/12 (10) Aortic root dilatation Status: Chronic Code(s): I77.810 - Thoracic aortic ectasia (11) Wide-complex tachycardia Status: Chronic Code(s): I47.2 - Ventricular tachycardia (12) Essential hypertension Status: Chronic Code(s): I10 - Essential (primary) hypertension (13) Cardiac pacemaker Status: Chronic Code(s): Z95.0 - Presence of cardiac pacemaker Comment: Implanted in April 2010; (14) Abnormal pulmonary function test Status: Chronic Code(s): R94.2 - Abnormal results of pulmonary function studies (15) Persistent atrial fibrillation Status: Chronic Code(s): I48.1 - Persistent atrial fibrillation Comment: S/P RFA 11/24/2011 (16) TIA (transient ischemic attack) Status: Chronic (17) CKD (chronic kidney disease) stage 3, GFR 30-59 ml/min Status: Chronic (18) 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: Inactive Qualifiers: Code(s): I82.629 - Acute embolism and thrombosis of deep veins of unspecified upper extremity (19) Benign prostate hyperplasia Status: Chronic Qualifiers: (20) Type 2 diabetes mellitus Status: Chronic Code(s): E11.9 - Type 2 diabetes mellitus without complications (21) Dyslipidemia Status: Chronic Code(s): E78.5 - Hyperlipidemia, unspecified (22) Gastroesophageal reflux disease Status: Chronic Qualifiers: Code(s): K21.9 - Gastro-esophageal reflux disease without esophagitis (23) Hypothyroidism Status: Chronic Qualifiers: Code(s): E03.9 - Hypothyroidism, unspecified (24) S/P IVC filter Status: Chronic Code(s): Z95.828 - Presence of other vascular implants and grafts (25) Cardiac pacemaker Status: Chronic Code(s): Z95.0 - Presence of cardiac pacemaker Comment: pacemaker implant april 2010 (26) Tachy-aly syndrome Status: Chronic Code(s): I49.5 - Sick sinus syndrome Comment: S/P PM (27) Cardiomyopathy Status: Chronic Code(s): I42.9 - Cardiomyopathy, unspecified Comment: 45% EF in November of 2014, ischemic (28) S/P atrioventricular piper ablation Status: Chronic Code(s): Z98.890 - Other specified postprocedural states (29) Carotid artery disease Status: Chronic Code(s): I77.9 - Disorder of arteries and arterioles, unspecified (30) Systolic CHF, chronic Status: Chronic Code(s): I50.22 - Chronic systolic (congestive) heart failure (31) Pulmonary HTN Status: Chronic Code(s): I27.2 - Other secondary pulmonary hypertension Comment: PA pressure in November 2014 estimated at 50 (32) Chronic anemia Status: Chronic Code(s): D64.9 - Anemia, unspecified Comment: unknown etiology History of Present Illness Date of Service: 05/11/20 - Chief Complaint: Diabetic foot ulceration, Sanches grade 2, left foot History of Wound: Today's visit was conducted by telehealth medicine. It was performed using a 2-way audiovisual connection. It was conducted from the [facility]. The patient was located at [facility], with nurses Joslyn and Marielos in attendance. The appropriate consent was obtained. The interaction lasted approximately 25 to 30 minutes. It is because of issues related to Covid that it has been since March 02, 2020, the patient was last evaluated. This is an 84-year-old male who is a resident of [facility] in [place], [place]. The patient is known to be diabetic. He has had a diabetic foot ulceration on his left foot since September 01, 2019. It is overlying his first metatarsal head. The patient's ulceration has been largely stagnant, having shown very little progress in terms of healing. Several different treatment regimens have been implemented. The regimen, as implemented by [facility] staff, includeed the use of Casie and foam. The patient is ambulatory. However, he rarely wears shoes. Nursing staff denies that pressure phenomenon from footwear is a likely cause. It may well be that positional factors have played a role. The patient tends to favor sleeping on his right side, which may expose the medial aspect of his left foot to pressure from his mattress. He sleeps on a air cushion mattress. The nursing staff has purposely avoided any kind of cushioning to his foot while sleeping, because he is often noted to arise from bed and to ambulate at night without assistance. He is a fall risk, and nursing staff at his nursing facility fear that any protective items on his feet might result in falls. There is no known history of thrombophlebitis in the patient's lower extremities, though he does have an IVC filter in place. The patient's appetite is said to be poor. He does receive nutritional supplements at his [facility]. Past Medical History Past Medical History: Chronic Problems (Last Updated 09/18/18 @ 16:24 by Kylie Freeman) Dementia (Chronic) Dysphagia (Chronic) History of TIA (transient ischemic attack) (Chronic) Old age (Chronic) History of skin cancer (Chronic) Diabetic ulcer of left foot (Chronic) History of left common carotid artery stent placement (Chronic ~05/09/12) stenting of the prox Left internal carotid, stenting of the distal left common carotid, and stenting of the left common carotid at its interna/exeternal carotid. 05/09/12 Aortic root dilatation (Chronic) Wide-complex tachycardia (Chronic) Essential hypertension (Chronic) Cardiac pacemaker (Chronic) Implanted in April 2010; Abnormal pulmonary function test (Chronic) Persistent atrial fibrillation (Chronic) S/P RFA 11/24/2011 TIA (transient ischemic attack) (Chronic) CKD (chronic kidney disease) stage 3, GFR 30-59 ml/min (Chronic) Benign prostate hyperplasia (Chronic) Type 2 diabetes mellitus (Chronic) Dyslipidemia (Chronic) Gastroesophageal reflux disease (Chronic) Hypothyroidism (Chronic) S/P IVC filter (Chronic) Cardiac pacemaker (Chronic) pacemaker implant april 2010 Tachy-aly syndrome (Chronic) S/P PM Cardiomyopathy (Chronic) 45% EF in November of 2014, ischemic S/P atrioventricular piper ablation (Chronic) Carotid artery disease (Chronic) Systolic CHF, chronic (Chronic) Pulmonary HTN (Chronic) PA pressure in November 2014 estimated at 50 Chronic anemia (Chronic) unknown etiology Surgical History: pacemaker implantation - 2009, - - Patient has a pacemaker. The patient also has an IVC filter. He was also previously undergone an AV node ablation procedure. PATIENT HAS HISTORY OF CRANIOTOMY, for intracranial bleed evacuation, patient sustained fall at that time; internal carotid stent, left, 2011. Allergies/Adverse Reactions: Allergies thiopental [From Pentothal] Allergy (Verified 09/28/18 19:09) Hives morphine Adverse Reaction (Verified 09/28/18 15:22) hallucinations Home Medications: Ambulatory Orders Medication Instructions Recorded Amiodarone HCl [Cordarone] 200 mg PO DAILY@0800 05/07/17 Finasteride [Proscar] 5 mg PO DAILY 12/19/17 Levothyroxine [Synthroid] 88 mcg PO DAILY@0600 12/19/17 Donepezil HCl 10 mg PO QHS 03/01/18 Potassium Chloride [K-Dur] 20 meq PO DAILY 04/24/18 Citalopram [Celexa] 10 mg PO DAILY 09/28/18 Insulin Glargine [Lantus SoloStar 7 units SC PRN PRN 09/28/18 Pen] Acetaminophen [Tylenol Tablet] 650 mg PO Q6H PRN PRN tablet 10/01/18 Albuterol Aerosols [Ventolin 2.5 mg INHALATION Q4H PRN PRN 10/01/18 Aerosols] vial.neb. Amoxicillin/Potassium Clav 1 each PO BID #6 tablet 10/01/18 [Augmentin 875-125 Tablet] Melatonin 3 mg PO QHS PRN PRN tablet 10/01/18 Menthol/Lanolin/Calamine/Znox 1 applic TOPICAL TID tube 10/01/18 [Calmoseptine Ointment] Sitagliptin Phosphate [Januvia] 100 mg PO DAILY 12/14/19 metFORMIN (XR) [Glucophage Xr] 500 mg PO BID 12/14/19 - Family History Sibling Family History: Family History (Last Reviewed 09/24/17 @ 13:55 by Janelle Laguna) Brother CAD (coronary artery disease) Hx of CABG Cancer Father CAD (coronary artery disease) Myocardial infarction Brother Cancer Mother Old age Cancer, Heart Disease - CAD s/ CABG Maternal Family History: Family History (Last Reviewed 09/24/17 @ 13:55 by Janelle Laguna) Brother CAD (coronary artery disease) Hx of CABG Cancer Father CAD (coronary artery disease) Myocardial infarction Brother Cancer Mother Old age Cancer - , unknonw age Paternal Family History: Family History (Last Reviewed 09/24/17 @ 13:55 by Janelle Laguna) Brother CAD (coronary artery disease) Hx of CABG Cancer Father CAD (coronary artery disease) Myocardial infarction Brother Cancer Mother Old age Cancer - unknown age, Heart Disease Smoking Status: Unknown if ever smoked Review of Systems Constitutional: Denies: Chills, Fever, Weight Change Eyes: Denies: Pain, Vision Change HEENT: Denies: Difficulty Hearing, Difficulty Swallowing, Sinus Congestion Cardiovascular: Denies: Chest Pain, Palpitations Respiratory: Denies: Cough, Shortness of Breath Gastrointestinal: Denies: Diarrhea, Nausea, Vomiting Genitourinary: Denies: Dysuria, Hematuria Endocrine: Denies: Heat/ Cold Intolerance, Polydipsia, Polyuria Hematologic/ Lymphatic: Denies: Easy Bruising, Easy Bleeding - Physical Exam Vital Signs Temp Pulse Resp BP 97.8 F 64 16 133/75 H 03/11/20 00:38 03/11/20 00:38 03/11/20 00:38 03/11/20 00:38 General: Cooperative, No apparent distress, Well developed, Well nourished HEENT: Atraumatic, PERRLA, EOMI, Normocephalic Lungs: Normal air movement Extremities: No clubbing, No cyanosis, No edema, - - The duration on the left foot persists, overlying the first metatarsal head. This appears to be a Sanches grade 2 ulceration. There is no sign of infection or cellulitis. The dimensions, as provided by the bedside nurses, are 1 cm x 1 cm x 0.2 cm (depth). Addt'l Wound Findings: Appears to be some callus surrounding the ulceration overlying the left first metatarsal head. Furthermore, the avulsed right great toenail is said to now be completely healed. Skin: No rashes Musculoskeletal: Muscle Wasting - Lower extremities Debridement Note No debridement was completed today Assessment/Plan Assessment: This is an 84-year-old male who is a resident of [facility] in [place], [place]. He presented with a diabetic foot ulceration on the first metatarsal head of the left foot, Sanches Grade 2. This had been present for approximately 3 months. There appears to be surrounding callus. Infection is not evident. The patient has multiple other pre-existing medical problems, which are detailed above. The patient had laboratory studies on September 29, 2019, the results of which are as follows: White blood count 3.5, hemoglobin 13.8, hematocrit 43.3, platelets 91,000, hemoglobin A1c 8.3, sodium 138, potassium 4.1, chloride 103, BUN 18, creatinine 1.08, glucose 172, total bilirubin 0.80, AST 31, ALT 28, alkaline phosphatase 218, total protein 6.5, serum albumin 3.0. A noninvasive lower extremity arterial study, performed on 12/23/2019, reveals no evidence of significant arterial occlusive disease in the patient's lower extremities. Plan: Optimizing nutritional intake has been recommended. Nutritional supplements are to be continued. Optimization of the patient's glycemic control has also been recommended. Patient's blood sugars typically run about 150. Offloading measures have been discussed in detail. Nursing staff has been advised to assure that foot wear, if worn, is properly fitted. They have also been advised to assess the patient's positioning at all times, to assure that pressure from the patient's bedding and mattress is not creating pressure phenomenon on the area of his ulceration. Given the amount of callus surrounding the ulceration overlying the left metatarsal head, there was suspicion of some form of friction or pressure to the area. The nursing staff at his [facility] indicate that the patient insists on sleeping in the position on his right side, which arouses suspicion that the ulceration on his left medial foot as a result of pressure phenomenon between the involved area and his mattress. The nursing staff has implemented the use of moleskin surrounding the left foot ulceration, which appears to have had some benefit. It is to be continued. We continue to recommend offloading measures in this regard. We are to continue the use of collagenase Santyl applied topically on a daily basis, to the ulceration. A noninvasive lower extremity arterial study has been performed, which reveals no evidence of significant arterial occlusive disease. detention staff are reluctant to fit the patient with any type of boot or bulky protective device while in bed, as the patient frequently arises at night and attempts to ambulate. They have concerns that the patient would likely fall where there to be a boot or other bulky device in place. Therefore, we are to ask our podiatry staff to become involved to determine whether something might be fashioned as an offloading device to be worn during the time that the patient is sleeping in bed. A consultation will be arranged for the near future with one of our podiatric specialists. The patient is not a smoker. Influenza vaccine was not administered today. Patient weighs 157 pounds. He stands 5 feet 10 inches tall. His BMI is 22.5, which is normal.
== END 2020-06-10 23:59 ==
LOC: WC 11:15
PROVIDERS: Visit Provider Surgery
DX: E11.621 Type 2 diabetes mellitus with foot ulcer (principal); L97.529 Non-pressure chronic ulcer of other part of left foot with unspecified severity; E11.22 Type 2 diabetes mellitus with diabetic chronic kidney disease; I13.0 Hypertensive heart and chronic kidney disease with heart failure and stage 1 through stage 4 chronic kidney disease, or unspecified chronic kidney disease; N18.9 Chronic kidney disease, unspecified; I27.20 Pulmonary hypertension, unspecified; E03.9 Hypothyroidism, unspecified; E78.5 Hyperlipidemia, unspecified; I42.9 Cardiomyopathy, unspecified; K21.9 Gastro-esophageal reflux disease without esophagitis; F03.90 Unspecified dementia, unspecified severity, without behavioral disturbance, psychotic disturbance, mood disturbance, and anxiety; Z79.4 Long term (current) use of insulin; Z82.49 Family history of ischemic heart disease and other diseases of the circulatory system; Z85.828 Personal history of other malignant neoplasm of skin; Z86.73 Personal history of transient ischemic attack (TIA), and cerebral infarction without residual deficits; Z95.0 Presence of cardiac pacemaker

== ENCOUNTER → 2020-05-25 06:51 | Outpatient (REF) | payer MEDICARE, OTHER, MEDICAID, SELFPAY | LOC: OLS.ACH 06:51 | PROVIDERS: Family Medicine; Referring Provider Family Medicine; Visit Provider Family Medicine | DX: Z03.818 Encounter for observation for suspected exposure to other biological agents ruled out (principal) | CPT/HCPCS: 87635; U0003 ==